=== PATIENT | female | born 1935 | race Caucasian/White ===

== ENCOUNTER → 2016-07-25 | Outpatient (CLI) | payer OTHER ==
[~2016-07-25] MED LIST: AMLO5TAB2 PO; CALC1TAB10 PO; METO50TA16 PO; MULTTAB58 PO
[2016-07-25 10:20] LABS: BASO % 0.5 %; BASO ABS # 0.03 K/uL (0-0.2); COMPLETE YES; EOS % 3.3 %; HEMATOCRIT 37.5 % (37-47); IG% 0.2 %; MEAN CELL VOLUME 98.7 fL (80-100); MEAN CORPUSCULAR HEMOGLOBIN 32.6 pg (25-34); MEAN CORPUSCULAR HGB CONC 33.1 g/dl (32-36); MEAN PLATELET VOLUME 12.6 fL (7.4-10.4); MONO % 11.8 %; NEUT % 67.2 %; PLATELET COUNT 199 K/uL (130-400); WHITE BLOOD COUNT 6.46 K/uL (4.8-10.8)
[2016-07-25 10:25] LABS: URINE APPEARANCE CLOUDY (CLEAR); URINE BILIRUBIN NEG (NEG); URINE COLOR YELLOW; URINE EPITHELIAL CELL AUTO 0-5 /lpf (0-5); URINE NITRITE NEG (NEG); URINE PH 5.5 (4.5-7.5); URINE SPECIFIC GRAVITY 1.011 (1.000-1.030); UROBILINOGEN NEG (NEG)
[2016-07-25 10:26] LABS: MANUAL MICROSCOPIC REQUIRED? NO; REVIEW REQ? NO
[2016-07-25 10:54] LABS: ALT/SGPT 25 U/L (12-78); BLOOD UREA NITROGEN 25 mg/dl (7-18); BUN/CREATININE RATIO 19.5 (10-20); CALCIUM 9.4 mg/dl (8.5-10.1); CARBON DIOXIDE 29 mmol/L (21-32); CHLORIDE 105 mmol/L (98-107); CHOLESTEROL 184 mg/dl (0-200); GLUCOSE 98 mg/dl (70-99); SODIUM 141 mmol/L (136-145); TRIGLYCERIDES 89 mg/dl (0-150); VERY LOW DENSITY LIPOPROT CALC 18 mg/dl
[2016-07-25 11:03] LABS: ALB/GLOB RATIO 0.8 (0.9-2); ALKALINE PHOSPHATASE 68 U/L (45-117); AST/SGOT 27 U/L (15-37); CHOLESTEROL/HDL RATIO 2.5; HDL CHOLESTEROL 75 mg/dl; LDL CHOLESTEROL CALCULATED 91 mg/dl
--- NOTE | 2016-08-01 07:14 | CODING QUERY MEDICAL NECESSITY ---
SUPPORTING DIAGNOSIS NEEDED A supporting diagnosis is required for the test/procedure performed on this patient in order for us to be reimbursed by the patient's insurance. Please provide a supporting diagnosis for the following test/procedure listed below next to the test name along with your signature. *If there is no additional diagnosis for this patient that would support the following test/procedure please document that below next to the test/procedure. Test(s)/Procedure(s) that require a supporting diagnosis: DOS 07/25 * Vitamin D DIAGNOSIS: Provider Signature: Date: Thank you Lora Stewart Health Information Management Once completed, please kindly fax back to [phone] For questions please call [phone]
== END | disposition home or self-care (01) ==
LOC: C.LAB1850 09:02
PROVIDERS: ATTEND Internal Medicine
DX: N28.9 Disorder of kidney and ureter, unspecified (principal); E03.9 Hypothyroidism, unspecified; I35.0 Nonrheumatic aortic (valve) stenosis; M85.80 Other specified disorders of bone density and structure, unspecified site; M48.00 Spinal stenosis, site unspecified

== ENCOUNTER → 2017-01-16 | Outpatient (CLI) | payer OTHER ==
[2017-01-16 10:12] LABS: BASO % 0.4 %; BASO ABS # 0.03 K/uL (0-0.2); COMPLETE YES; HEMATOCRIT 40.7 % (37-47); IG% 0.1 %; LYMPH % 18.1 %; LYMPH ABS # 1.28 K/uL (1.2-3.4); MEAN CELL VOLUME 98.5 fL (80-100); MEAN CORPUSCULAR HEMOGLOBIN 32.2 pg (25-34); MEAN CORPUSCULAR HGB CONC 32.7 g/dl (32-36); MEAN PLATELET VOLUME 12.6 fL (7.4-10.4); MONO % 6.4 %; PLATELET COUNT 210 K/uL (130-400); RED BLOOD COUNT 4.13 M/uL (4.2-5.4); WHITE BLOOD COUNT 7.08 K/uL (4.8-10.8)
[2017-01-16 10:15] LABS: URINE APPEARANCE CLEAR (CLEAR); URINE BILIRUBIN NEG (NEG); URINE COLOR YELLOW; URINE NITRITE NEG (NEG); URINE PH 5.5 (4.5-7.5); URINE SPECIFIC GRAVITY 1.012 (1.000-1.030); UROBILINOGEN NEG (NEG)
[2017-01-16 10:18] LABS: MANUAL MICROSCOPIC REQUIRED? NO; REVIEW REQ? NO
[2017-01-16 10:26] LABS: ALT/SGPT 27 U/L (12-78); BLOOD UREA NITROGEN 25 mg/dl (7-18); BUN/CREATININE RATIO 17.5 (10-20); CALCIUM 9.9 mg/dl (8.5-10.1); CARBON DIOXIDE 30 mmol/L (21-32); CHLORIDE 104 mmol/L (98-107); CHOLESTEROL 221 mg/dl (0-200); GLUCOSE 92 mg/dl (70-99); SODIUM 140 mmol/L (136-145); TRIGLYCERIDES 124 mg/dl (0-150); VERY LOW DENSITY LIPOPROT CALC 25 mg/dl
[2017-01-16 10:37] LABS: ALB/GLOB RATIO 0.9 (0.9-2); ALKALINE PHOSPHATASE 67 U/L (45-117); AST/SGOT 28 U/L (15-37); CHOLESTEROL/HDL RATIO 2.7; HDL CHOLESTEROL 81 mg/dl; LDL CHOLESTEROL CALCULATED 115 mg/dl
== END | disposition home or self-care (01) ==
LOC: C.LAB1850 09:04
PROVIDERS: ATTEND Internal Medicine
DX: R39.9 Unspecified symptoms and signs involving the genitourinary system (principal); N28.9 Disorder of kidney and ureter, unspecified; E03.9 Hypothyroidism, unspecified; I10 Essential (primary) hypertension

== ENCOUNTER 2017-04-18 10:20 | Inpatient (IN) | payer OTHER ==
[~2017-04-18] VITALS: Ht 152.4 cm; Wt 48.1 kg
[2017-04-18] MEDS ORDERED: AZITHROMYCIN 250 MG TAB PO STA (10:44)
[2017-04-18] MEDS ORDERED: LEVALBUTEROL 1.25MG/3ML NEB INH STA (10:44)
[2017-04-18] MEDS ORDERED: ALBUT/IPRATROP 3MG/0.5MG NEB 3 ML VIAL INH ONE (10:45)
[2017-04-18 10:54] LABS: BASO % 0.1 %; BASO ABS # 0.01 K/uL (0-0.2); EOS % 0.2 %; EOS ABS # 0.04 K/uL (0-0.5); HEMATOCRIT 33.7 % (37-47); HEMOGLOBIN 11.3 g/dL (12.0-16.0); IG# 0.07 K/uL (0.00-0.02); LYMPH % 5.7 %; LYMPH ABS # 0.93 K/uL (1.2-3.4); MEAN CELL VOLUME 96.3 fL (80-100); MEAN CORPUSCULAR HEMOGLOBIN 32.3 pg (25-34); MEAN CORPUSCULAR HGB CONC 33.5 g/dl (32-36); MEAN PLATELET VOLUME 11.9 fL (7.4-10.4); MONO % 8.8 %; MONO ABS # 1.44 K/uL (0.11-0.59); NEUT % 84.8 %; NEUT ABS # 13.82 K/uL (1.4-6.5); PLATELET COUNT 251 K/uL (130-400); RED CELL DISTRIBUTION WIDTH CV 13.1 % (11.5-14.5); RED CELL DISTRIBUTION WIDTH SD 46.2 fL (36.4-46.3); WHITE BLOOD COUNT 16.31 K/uL (4.8-10.8)
[2017-04-18 11:10] VITALS: PULSE 103; O2SAT 95
[2017-04-18 11:16] LABS: ALBUMIN 2.8 gm/dl (3.4-5.0); CALCIUM 8.9 mg/dl (8.5-10.1); CREATININE 1.35 mg/dl (0.60-1.20); POTASSIUM 3.6 mmol/L (3.5-5.1)
--- NOTE | 2017-04-18 11:22 | EMERGENCY ROOM VISIT NOTE ---
History Report prepared by Kendrick: Johan Hull Under the Supervision of: Dr. Lam Terry M.D. First contact with patient: 10:24 Chief Complaint: COUGH Stated Complaint: CHEST WEAKNESS, COUGH, BAD BALANCE History of Present Illness The patient is an 81 year old female who presents to the Emergency Room with complaints of a persistent cough for past week. She currently rates her discomfort as a 7/10 in severity. The patient additionally states that she has been having some chest pain from the coughing, and she has come right shoulder and right and left rib pain due to a fall occurring last night. The notes that the patient was doing more activity than usual the past few days, and she vomited three nights ago as well. Per the patient's son, the patient had a UTI around the same time last year, and she was admitted for a year. Additionally, the patient had a history of temporal arteritis. Source of History: patient, family Onset: a week ago Position: other (global) Symptom Intensity: 7/10 Quality: other (cough) Timing: other (persistent ) Associated Symptoms: + chest pain Note: Associated symptoms: Right shoulder, left rib, and right rib pain Review of Systems See HPI for pertinent positives & negatives. A total of 10 systems reviewed and were otherwise negative. Past Medical & Surgical Medical Problems: (1) PNA (pneumonia) Social History Smoking Status: Never Smoker Drug Use: none Marital Status: Occupation Status: retired Current/Historical Medications Scheduled Amlodipine Besylate (Norvasc), 7.5 MG PO DAILY Calcium Carbonate-Cholecalcife (Calcium 1000 + D), 1 TAB PO DAILY Dextromethorphan Polymr Complx (Delsym), 1 DOSE PO Q12 Guaifenesin (Cvs Mucus Extended Releas), 1 TAB PO Q12 Metoprolol Tartrate (Lopressor) (Lopressor), 50 MG PO DAILY Multiple Vitamin (Multivitamin), 1 TAB PO DAILY Allergies Coded Allergies: Codeine (Verified Adverse Reaction, Mild, N/V, 04/18/17) Physical Exam Vital Signs Date Time Temp Pulse Resp B/P (MAP) Pulse Ox O2 Delivery O2 Flow Rate FiO2 04/18/17 13:18 36.9 116 20 134/63 Nasal Cannula 2.0 04/18/17 13:00 116 20 134/63 98 Nasal Cannula 2.0 04/18/17 12:59 123 12/13/17 12:14 104 18 132/64 100 Nebulizer 04/18/17 11:21 99 Room Air 04/18/17 11:10 103 18 95 Room Air 04/18/17 10:44 95 Room Air 04/18/17 10:44 36.9 103 18 159/77 95 Room Air 04/18/17 10:35 104 Physical Exam GENERAL: Patient is a healthy-appearing well-nourished female HEAD: Normocephalic atraumatic EYES: Ocular movements intact pupils equal and react to light OROPHARYNX mucous membranes are moist no exudates present no erythema or edema present NECK: Supple no nuchal rigidity CHEST: Good equal expansion LUNGS: Staccato like cough that makes it difficult to breathe. Clear and equal to auscultation CARDIAC: Normal S1 and S2 ABDOMEN: Soft nontender no guarding BACK: No CVA tenderness EXTREMITIES: No pain upon palpation normal muscle strength in all groups no clubbing cyanosis or edema NEURO: Patient is following commands and answering questions appropriately. Alert and oriented x3 Cranial Nerves 2-12 grossly intact Medical Decision & Procedures ER Provider Diagnostic Interpretation: Radiology results as stated below per my review and radiologist interpretation: CT SCAN OF THE BRAIN WITHOUT IV CONTRAST CLINICAL HISTORY: Weakness. Recent fall. COMPARISON STUDY: No priors. TECHNIQUE: Unenhanced axial CT scan of the brain is performed from the vertex to the skull base. A dose lowering technique was utilized adhering to the principles of ALARA. CT DOSE: 715.57 mGy.cm FINDINGS: Brain parenchyma: There are age-related involutional changes noting moderate subcortical and periventricular microangiopathic change. There is no hemorrhage, mass effect, or evidence of acute territorial ischemia by CT criteria. Gonzales-white matter is preserved. No extra-axial fluid collection is seen. Ventricles, sulci, cisterns: Prominent secondary to involutional change. Intracranial vasculature: There is atherosclerotic calcification of the cavernous carotid arteries. Calvarium: The skeletal structures are osteopenic. No depressed calvarial fracture is seen. Sinuses and mastoids: The visualized paranasal sinuses are clear. The mastoid air cells are well pneumatized. Orbits: The bony orbits are grossly intact. There are bilateral ocular lens implants. IMPRESSION: There is no hemorrhage, mass effect, or evidence of acute territorial ischemia by CT criteria. Electronically signed by: Moses Mckee M.D. 04/18/2017 11:30 AM Dictated Date/Time: 04/18/2017 11:27 AM (CHEST) THORAX WITHOUT CT DOSE: HISTORY: Bilateral chest pain. Cough. TECHNIQUE: Multiaxial CT images of the chest were performed without contrast. A dose lowering technique was utilized adhering to the principles of ALARA. COMPARISON: Chest 06/26/2006. FINDINGS: Motion artifact results in suboptimal evaluation of the ribs. However, no definite acute fractures identified within the visualized osseous structures. Trace mucoid material within the trachea. No pneumothorax. No pleural effusions. The visualized unenhanced liver, spleen, and adrenal glands are unremarkable. A few prominent mediastinal lymph nodes which measure up to 12 mm. Normal caliber thoracic aorta. The heart is top normal in size. No pericardial effusion. Biapical scarlike densities have slightly progressed. Scattered patchy groundglass and consolidative airspace opacities are seen within the bilateral mid to lower lung zones. This likely represents multifocal pneumonia. IMPRESSION: 1. Scattered patchy groundglass and consolidative airspace opacity seen within the bilateral mid to lower lung zones. This likely represents a multifocal pneumonia. 2. Biapical densities have slightly progressed and likely represent scarring. 3. A few prominent mediastinal lymph nodes which are likely reactive. Electronically signed by: Shon Hoyt M.D. 04/18/2017 11:48 AM Dictated Date/Time: 04/18/2017 11:38 AM Laboratory Results 04/18/17 10:40 Red Blood Count 3.50, Mean Corpuscular Volume 96.3, Mean Corpuscular Hemoglobin 32.3, Mean Corpuscular Hemoglobin Concent 33.5, Mean Platelet Volume 11.9, Neutrophils (%) (Auto) 84.8, Lymphocytes (%) (Auto) 5.7, Monocytes (%) (Auto) 8.8, Eosinophils (%) (Auto) 0.2, Basophils (%) (Auto) 0.1, Neutrophils # (Auto) 13.82, Lymphocytes # (Auto) 0.93, Monocytes # (Auto) 1.44, Eosinophils # (Auto) 0.04, Basophils # (Auto) 0.01 04/18/17 10:40 Test 04/18/17 10:40 04/18/17 11:05 04/18/17 11:30 White Blood Count 16.31 K/uL (4.8-10.8) Red Blood Count 3.50 M/uL (4.2-5.4) Hemoglobin 11.3 g/dL (12.0-16.0) Hematocrit 33.7 % (37-47) Mean Corpuscular Volume 96.3 fL (80-100) Mean Corpuscular Hemoglobin 32.3 pg (25-34) Mean Corpuscular Hemoglobin Concent 33.5 g/dl (32-36) Platelet Count 251 K/uL (130-400) Mean Platelet Volume 11.9 fL (7.4-10.4) Neutrophils (%) (Auto) 84.8 % Lymphocytes (%) (Auto) 5.7 % Monocytes (%) (Auto) 8.8 % Eosinophils (%) (Auto) 0.2 % Basophils (%) (Auto) 0.1 % Neutrophils # (Auto) 13.82 K/uL (1.4-6.5) Lymphocytes # (Auto) 0.93 K/uL (1.2-3.4) Monocytes # (Auto) 1.44 K/uL (0.11-0.59) Eosinophils # (Auto) 0.04 K/uL (0-0.5) Basophils # (Auto) 0.01 K/uL (0-0.2) RDW Standard Deviation 46.2 fL (36.4-46.3) RDW Coefficient of Variation 13.1 % (11.5-14.5) Immature Granulocyte % (Auto) 0.4 % Immature Granulocyte # (Auto) 0.07 K/uL (0.00-0.02) Anion Gap 10.0 mmol/L (3-11) Est Creatinine Clear Calc Drug Dose 23.5 ml/min Estimated GFR () 42.6 Estimated GFR (Non- 36.7 BUN/Creatinine Ratio 10.7 (10-20) Calcium Level 8.9 mg/dl (8.5-10.1) Total Bilirubin 0.8 mg/dl (0.2-1) Aspartate Amino Transf (AST/SGOT) 41 U/L (15-37) Alanine Aminotransferase (ALT/SGPT) 36 U/L (12-78) Alkaline Phosphatase 93 U/L (45-117) Total Creatine Kinase 244 U/L (26-192) Creatine Kinase MB 1.0 ng/ml (0.5-3.6) Creatine Kinase MB Ratio 0.4 (0-3.0) Troponin I 0.028 ng/ml (0-0.045) Pro-B-Type Natriuretic Peptide 4403 pg/ml (0-1800) Total Protein 8.0 gm/dl (6.4-8.2) Albumin 2.8 gm/dl (3.4-5.0) Globulin 5.2 gm/dl (2.5-4.0) Albumin/Globulin Ratio 0.5 (0.9-2) Influenza Type A (RT-PCR) Neg for Influ A (NEG) Influenza Type A Antigen Neg for Influ A (NEG) Influenza Type B Antigen Neg for Influ B (NEG) Influenza Type B (RT-PCR) Neg for Influ B (NEG) Labs reviewed by ED physician. Medications Administered Medications (Trade) Dose Ordered Sig/Jero Route Start Time Stop Time Status Last Admin Dose Admin Albuterol/ Ipratropium (Duoneb) 12 ml ONE ONCE INH 04/18/17 10:45 04/18/17 10:47 DC 04/18/17 11:10 12 ML Azithromycin (Zithromax Tab) 500 mg NOW STAT PO 04/18/17 10:44 04/18/17 10:47 DC 04/18/17 11:01 500 MG Cefepime HCl 2000 mg/Dextrose 112.5 ml @ 200 mls/hr NOW STAT IV 04/18/17 11:51 04/18/17 12:24 DC 04/18/17 12:16 200 MLS/HR Levofloxacin (Levaquin / D5W) 750 mg NOW STAT IV 04/18/17 11:51 04/18/17 11:53 DC 04/18/17 12:16 750 MG ECG Indication: other (cough) Rate (beats per minute): 110 Rhythm: sinus tachycardia Findings: no acute ischemic change, no ectopy ED Course 1024: Past medical records reviewed. The patient was evaluated in room B6. A complete history and physical examination was performed. 1044: Azithromycin 500mg PO 1045: DuoNeb 12ml INH 1151: Levofloxacin 750mg IV, Cefepime HCl 2000mg/Dextrose 112.5ml @ 200mls/hr IV 1156: I discussed the patient's case with Dr. Caban, she has agreed to evaluate the patient for further management and care. 1203: Upon reexamination the patient is doing well. I discussed results and treatment plan with the patient. She verbalizes agreement and understanding. Medical Decision Differential diagnosis: Etiologies such as infections, reactive airway disease, pneumonia, pneumothorax , COPD, CHF, cardiac ischemia, pulmonary embolism, musculoskeletal, gastrointestinal, as well as others were entertained. This is an 81-year-old female who presents emergency department complaining of cough that is been ongoing for the past week. The patient has a staccato-like cough that would be consistent with whooping cough. She was given a DuoNeb breathing treatment in the emergency department she does have an elevation in her white blood cell count of 16. I also concerned that the patient may have aspirated into her lungs. An IV was established, the patient was given Zosyn and Levaquin. I did discuss the case with the hospitalist service who agreed to admit the patient. Patient family were in agreement with the treatment plan. Medication Reconcilliation Current Medication List: was personally reviewed by me Blood Pressure Screening Patient's blood pressure: Elevated blood pressure Monitored by the hospitalist Consults Time Called: 1153 Consulting Physician: Dr. Caban [facility] Returned Call: 1156 I discussed the patient's case with Dr. Caban, she has agreed to evaluate the patient for further management and care. Impression Primary Impression: PNA (pneumonia) Scribe Attestation The scribe's documentation has been prepared under my direction and personally reviewed by me in its entirety. I confirm that the note above accurately reflects all work, treatment, procedures, and medical decision making performed by me. Departure Information Dispostion Being Evaluated By Hospitalist Referrals Aman Paula M.D. (PCP) Patient Instructions My [facility] Problem Qualifiers Primary Impression: PNA (pneumonia) Pneumonia type: due to unspecified organism Laterality: bilateral Lung location: unspecified part of lung Qualified Codes: J18.9 - Pneumonia, unspecified organism
[2017-04-18] MEDS ORDERED: [UNRECOGNIZED DRUG - CODE] PO (11:24)
[2017-04-18] MEDS ORDERED: DLSYL PO (11:24)
--- NOTE | 2017-04-18 11:31 | DIAGNOSTIC IMAGING REPORT ---
CT SCAN OF THE BRAIN WITHOUT IV CONTRAST CLINICAL HISTORY: Weakness. Recent fall. COMPARISON STUDY: No priors. TECHNIQUE: Unenhanced axial CT scan of the brain is performed from the vertex to the skull base. A dose lowering technique was utilized adhering to the principles of ALARA. CT DOSE: 715.57 mGy.cm FINDINGS: Brain parenchyma: There are age-related involutional changes noting moderate subcortical and periventricular microangiopathic change. There is no hemorrhage, mass effect, or evidence of acute territorial ischemia by CT criteria. Gonzales-white matter is preserved. No extra-axial fluid collection is seen. Ventricles, sulci, cisterns: Prominent secondary to involutional change. Intracranial vasculature: There is atherosclerotic calcification of the cavernous carotid arteries. Calvarium: The skeletal structures are osteopenic. No depressed calvarial fracture is seen. Sinuses and mastoids: The visualized paranasal sinuses are clear. The mastoid air cells are well pneumatized. Orbits: The bony orbits are grossly intact. There are bilateral ocular lens implants. IMPRESSION: There is no hemorrhage, mass effect, or evidence of acute territorial ischemia by CT criteria. Electronically signed by: Moses Mckee M.D. 04/18/2017 11:30 AM Dictated Date/Time: 04/18/2017 11:27 AM
--- NOTE | 2017-04-18 11:49 | DIAGNOSTIC IMAGING REPORT ---
(CHEST) THORAX WITHOUT CT DOSE: HISTORY: Bilateral chest pain. Cough. TECHNIQUE: Multiaxial CT images of the chest were performed without contrast. A dose lowering technique was utilized adhering to the principles of ALARA. COMPARISON: Chest 06/26/2006. FINDINGS: Motion artifact results in suboptimal evaluation of the ribs. However, no definite acute fractures identified within the visualized osseous structures. Trace mucoid material within the trachea. No pneumothorax. No pleural effusions. The visualized unenhanced liver, spleen, and adrenal glands are unremarkable. A few prominent mediastinal lymph nodes which measure up to 12 mm. Normal caliber thoracic aorta. The heart is top normal in size. No pericardial effusion. Biapical scarlike densities have slightly progressed. Scattered patchy groundglass and consolidative airspace opacities are seen within the bilateral mid to lower lung zones. This likely represents multifocal pneumonia. IMPRESSION: 1. Scattered patchy groundglass and consolidative airspace opacity seen within the bilateral mid to lower lung zones. This likely represents a multifocal pneumonia. 2. Biapical densities have slightly progressed and likely represent scarring. 3. A few prominent mediastinal lymph nodes which are likely reactive. Electronically signed by: Shon Hoyt M.D. 04/18/2017 11:48 AM Dictated Date/Time: 04/18/2017 11:38 AM
[2017-04-18] MEDS ORDERED: CEFEPIME IV 2,000 MG in SYRINGE 7.5 ML IV SCH (11:51)
[2017-04-18] MEDS ORDERED: LEVAQUIN 750MG / 150ML D5W IV STA (11:51)
[2017-04-18] MEDS ORDERED: CEFEPIME IV 2,000 MG in DEXTROSE 5% 100ML 100 ML IV STA (11:51)
[2017-04-18 12:18] LABS: INFLUENZA B ANTIGEN Neg for Influ B (NEG)
[2017-04-18 12:19] LABS: INFLUENZA A PCR Neg for Influ A (NEG); INFLUENZA B PCR Neg for Influ B (NEG)
[2017-04-18] MEDS ORDERED: MAGNESIUM HYDROXIDE SUSP 30 ML UDC PO PRN (12:30)
[2017-04-18] MEDS ORDERED: ONDANSETRON INJ 2 MG/ML 2 ML VIAL IV PRN (12:30)
--- NOTE | 2017-04-18 12:39 | History and Physical ---
History & Physical Date & Time of Service: Apr 18, 2017 at 12:23 Chief Complaint: Chest Weakness, Cough, Bad Balance Primary Care Physician: Aman Paula M.D. History of Present Illness Source: patient, spouse 81 y/o F c/o cough. states that starting last , pt seemed to have less energy than usual and didn't have as much of an appetite. Sunday, they went to [facility] basketball and volleyball games and after the volleyball game, pt had an episode of emesis and a fever of 101. Over the last few days, particularly since Sunday, pt has continued to feel unwell and her condition has worsened. She has not had further emesis or fever, but she has been having progressively worsening cough, balance issues, fatigue, and minimal PO intake. Her left yesterday to get cough medicine and pt fell in the shower and was unable to get up. She has not eaten anything at all since yesterday. She does feel SOB with her cough and does note mild chest pain when she has prolonged coughing or with deep breaths. Pt has had PNA in the past and this feels similar. Pt denies abd pain, current n/v/c/d, LE pain. She does get LE swelling at times , but none at present. Past Medical/Surgical History HTN Family History Father from cancer Social History Smoking Status: Never Smoker Alcohol Use: occasionally (once a week) Drug Use: none Marital Status: Occupational Status: retired Immunizations History of Influenza Vaccine: No History of Tetanus Vaccine?: Yes History of Pneumococcal: Yes History of Hepatitis B Vaccine: Unknown Multi-Drug Resistant Organisms History of MDRO: No Allergies Coded Allergies: Codeine (Verified Adverse Reaction, Mild, N/V, 04/18/17) Home Medications Scheduled Amlodipine Besylate (Norvasc), 7.5 MG PO DAILY Calcium Carbonate-Cholecalcife (Calcium 1000 + D), 1 TAB PO DAILY Dextromethorphan Polymr Complx (Delsym), 1 DOSE PO Q12 Guaifenesin (Cvs Mucus Extended Releas), 1 TAB PO Q12 Metoprolol Tartrate (Lopressor) (Lopressor), 50 MG PO DAILY Multiple Vitamin (Multivitamin), 1 TAB PO DAILY Review of Systems Pertinent positives and negatives reviewed in HPI--all others negative Physical Exam Vital Signs Date Time Temp Pulse Resp B/P (MAP) Pulse Ox O2 Delivery O2 Flow Rate FiO2 04/18/17 12:14 104 18 132/64 100 Nebulizer 04/18/17 11:21 99 Room Air 04/18/17 11:10 103 18 95 Room Air 04/18/17 10:44 95 Room Air 04/18/17 10:44 36.9 103 18 159/77 95 Room Air 04/18/17 10:35 104 General Appearance: WD/WN, no apparent distress Head: normocephalic, atraumatic Eyes: normal inspection, EOMI, sclerae normal Respiratory/Chest: no respiratory distress, + crackles (b/l bases) Cardiovascular: regular rate, rhythm, no edema Abdomen/GI: non tender, soft Extremities/Musculoskelatal: no calf tenderness, no pedal edema Neurologic/Psych: alert, normal mood/affect, oriented x 3 Skin: normal color, warm/dry Diagnostics Laboratory Results Results Past 24 Hours Test 04/18/17 10:40 04/18/17 11:05 04/18/17 11:30 Range/Units White Blood Count 16.31 4.8-10.8 K/uL Red Blood Count 3.50 4.2-5.4 M/uL Hemoglobin 11.3 12.0-16.0 g/dL Hematocrit 33.7 37-47 % Mean Corpuscular Volume 96.3 80-100 fL Mean Corpuscular Hemoglobin 32.3 25-34 pg Mean Corpuscular Hemoglobin Concent 33.5 32-36 g/dl Platelet Count 251 130-400 K/uL Mean Platelet Volume 11.9 7.4-10.4 fL Neutrophils (%) (Auto) 84.8 % Lymphocytes (%) (Auto) 5.7 % Monocytes (%) (Auto) 8.8 % Eosinophils (%) (Auto) 0.2 % Basophils (%) (Auto) 0.1 % Neutrophils # (Auto) 13.82 1.4-6.5 K/uL Lymphocytes # (Auto) 0.93 1.2-3.4 K/uL Monocytes # (Auto) 1.44 0.11-0.59 K/uL Eosinophils # (Auto) 0.04 0-0.5 K/uL Basophils # (Auto) 0.01 0-0.2 K/uL RDW Standard Deviation 46.2 36.4-46.3 fL RDW Coefficient of Variation 13.1 11.5-14.5 % Immature Granulocyte % (Auto) 0.4 % Immature Granulocyte # (Auto) 0.07 0.00-0.02 K/uL Sodium Level 129 136-145 mmol/L Potassium Level 3.6 3.5-5.1 mmol/L Chloride Level 93 98-107 mmol/L Carbon Dioxide Level 25 21-32 mmol/L Anion Gap 10.0 3-11 mmol/L Blood Urea Nitrogen 15 7-18 mg/dl Creatinine 1.35 0.60-1.20 mg/dl Est Creatinine Clear Calc Drug Dose 23.5 ml/min Estimated GFR () 42.6 Estimated GFR (Non- 36.7 BUN/Creatinine Ratio 10.7 10-20 Random Glucose 108 70-99 mg/dl Calcium Level 8.9 8.5-10.1 mg/dl Total Bilirubin 0.8 0.2-1 mg/dl Aspartate Amino Transf (AST/SGOT) 41 15-37 U/L Alanine Aminotransferase (ALT/SGPT) 36 12-78 U/L Alkaline Phosphatase 93 45-117 U/L Total Creatine Kinase 244 26-192 U/L Creatine Kinase MB 1.0 0.5-3.6 ng/ml Creatine Kinase MB Ratio 0.4 0-3.0 Troponin I 0.028 0-0.045 ng/ml Pro-B-Type Natriuretic Peptide 4403 0-1800 pg/ml Total Protein 8.0 6.4-8.2 gm/dl Albumin 2.8 3.4-5.0 gm/dl Globulin 5.2 2.5-4.0 gm/dl Albumin/Globulin Ratio 0.5 0.9-2 Influenza Type A (RT-PCR) Neg for Influ A NEG Influenza Type A Antigen Neg for Influ A NEG Influenza Type B Antigen Neg for Influ B NEG Influenza Type B (RT-PCR) Neg for Influ B NEG Microbiology Results 04/18/17 Blood Culture, Ordered Pending 04/18/17 Blood Culture, Ordered Pending Diagnostic Radiology CT head neg for acute CT chest with b/l multifocal PNA Impression Assessment and Plan 81 y/o F who was admitted on 04/17 with PNA PNA: Likely CAP Started on levaquin, cefepime, azithro in the ED, will continue with only levaquin and monitor Blood cx, flu, and pertussis pending WBC elevated, afebrile CT chest as noted ARF: in the setting of recent decreased PO intake Monitor on low level IVF Fall: likely related to recent illness PT/OT pending HTN: labile in the setting of above Will continue home medications as pt's BP is elevated in the ED Other: Full code Full liquid for now given decreased PO intake and ADAT SCDs for DVT proph to avoid bleeding risk Level of Care Med/Surg Resuscitation Status FULL RESUSCITATION
[2017-04-18 13:18] VITALS: BP 134/63; PULSE 116; TEMP 36.9; Ht 152.4 cm; Wt 48.1 kg
[2017-04-18 14:09] VITALS: BP 97/76; PULSE 134; TEMP 37.1; O2SAT 96
[2017-04-18] MEDS ORDERED: LEVOFLOXACIN CONSULT ACTIVE PRN (15:00)
--- NOTE | 2017-04-18 15:21 | NUR ---
a:pt has arrived via 1400 via litter from the ER. IV site in the left ac which is going to have NS with 20 KCL running. Skin is fragile, warm, dry, and intact. heart rate is tachycardia. no c/o pain or discomfort only right rib pain r/t dry cough. stress incontinence with urine, however had BM with some formed and liquid brown stool. is present at bedside. abdomen is soft, nontender, nondistended with positive bowel sounds.
[2017-04-18] MEDS: NSS + 20MEQ KCL 1000ML 1,000 ML IV SCH (15:26)
[2017-04-18 16:30] VITALS: O2SAT 96
[2017-04-18] MEDS: ACETAMINOPHEN 325 MG TAB PO PRN (16:45)
[2017-04-18] MEDS ORDERED: COUGH DROP (SUGAR FREE) LOZ 24 LOZ/1 BOX PO PRN (18:15)
[2017-04-18] MEDS: GUAIFENESIN 600 MG TABCR PO SCH (20:53)
--- NOTE | 2017-04-18 22:07 | NUR ---
ID Note: Patient alert and oriented x4, vital signs stabilizing, IV infusing per MD orders, patient stated prn pain medication helped control pain, patient on bedrest but is compliant with turning and repositioning no skin issues noted at this time, pt denies any skin issues, tolerating a full liquid diet, ambulates with one assist to the bedside, call shanks in reach, will continue to monitor
[2017-04-19] MEDS: ACETAMINOPHEN 325 MG TAB PO PRN ×3 (00:09→20:05)
[2017-04-19 00:45] VITALS: BP 127/78; PULSE 88; TEMP 37; O2SAT 93
[2017-04-19] MEDS: NSS + 20MEQ KCL 1000ML 1,000 ML IV SCH ×2 (03:08→15:57)
[2017-04-19 07:13] LABS: HEMATOCRIT 29.7 % (37-47); HEMOGLOBIN 9.9 g/dL (12.0-16.0); MEAN CELL VOLUME 96.4 fL (80-100); MEAN CORPUSCULAR HEMOGLOBIN 32.1 pg (25-34); MEAN CORPUSCULAR HGB CONC 33.3 g/dl (32-36); MEAN PLATELET VOLUME 11.2 fL (7.4-10.4); PLATELET COUNT 230 K/uL (130-400); RED CELL DISTRIBUTION WIDTH CV 13.3 % (11.5-14.5); RED CELL DISTRIBUTION WIDTH SD 46.9 fL (36.4-46.3); WHITE BLOOD COUNT 13.56 K/uL (4.8-10.8)
[2017-04-19 07:52] LABS: CALCIUM 8.5 mg/dl (8.5-10.1); CREATININE 1.12 mg/dl (0.60-1.20); POTASSIUM 4.3 mmol/L (3.5-5.1)
[2017-04-19] MEDS: GUAIFENESIN 600 MG TABCR PO SCH ×2 (07:54→20:05)
[2017-04-19] MEDS: CALCIUM 600MG + VIT D 400 IU TAB PO SCH (07:55)
[2017-04-19] MEDS: METOPROLOL SUCC 50MG EXT REL TAB PO SCH (07:55)
[2017-04-19] MEDS: AMLODIPINE BESYLATE 5 MG TAB PO SCH (07:56)
[2017-04-19] MEDS: MULTIVITAMIN TAB PO SCH (07:56)
[2017-04-19 08:07] VITALS: BP 147/74; PULSE 98; TEMP 37.2; O2SAT 93
[2017-04-19 08:30] VITALS: O2SAT 96
--- NOTE | 2017-04-19 10:46 | NUR ---
a:alert and oriented x 4. lungs are clear, heart rate is regular, abdomen is soft, nontender, nondistended with positive bowel sounds. positive bowel sounds along with radial and pedal pulses. skin is fragile, warm, dry, and intact. no c/o pain or discomfort thus far this shift. resting in bed at this time.
--- NOTE | 2017-04-19 10:49 | NUR ---
a;pt has NS with 20 KCL running at 75 cc/hr.
[2017-04-19] MEDS ORDERED: LIDODERM (LIDOCAINE) PATCH 5% TD ONE (11:55)
[2017-04-19] MEDS ORDERED: CONSULT PHARMACY STA (14:15)
--- NOTE | 2017-04-19 14:25 | Hospitalist Progress Note ---
Hospitalist Progress Note Date of Service Apr 19, 2017. (Rolanda Boyle, PAMelonyC) Subjective Pt evaluation today including: conversation w/ patient, conversation w/ family , physical exam, chart review, lab review, review of studies, review of inpatient medication list Patient seen and evaluated. No acute events overnight. at bedside states she is already looking better compared to yesterday. Patient complaining of R rib pain that hurts more with coughing. States she did fall on her R side yesterday. Denies SOB but states when she gets in a coughing spell it does take her breath away. No further nausea/vomiting but does state that she has poor appetite. Prefers to keep her diet as full liquids at this time. Constitutional: No fever, No chills Respiratory: + cough, + sputum, No shortness of breath Cardiovascular: + chest pain (R sided - under breast; worse with coughing) Abdomen: + diarrhea, No pain, No nausea, No vomiting, No constipation Musculoskeletal: No swelling, No calf pain Female : No dysuria Heme: No abnormal bleeding/bruising Skin: No rash (Rolanda Boyle, MEEK-C) Medications Current Inpatient Medications Medications (Trade) Dose Ordered Sig/Jero Route Start Time Stop Time Status Last Admin Dose Admin Acetaminophen (Tylenol Tab) 650 mg Q4H PRN PO 04/18/17 12:30 05/18/17 12:29 04/19/17 11:31 650 MG Magnesium Hydroxide (Milk Of Magnesia Susp) 30 ml Q6H PRN PO 04/18/17 12:30 05/18/17 12:29 Ondansetron HCl (Zofran Inj) 4 mg Q6H PRN IV 04/18/17 12:30 05/18/17 12:29 Potassium Chloride/Sodium Chloride 1,000 ml @ 75 mls/hr [id number] IV 04/18/17 15:00 05/18/17 12:29 04/19/17 03:08 75 MLS/HR Levofloxacin 750 mg/Prmx 150 ml @ 100 mls/hr Q48H IV 04/20/17 12:00 04/27/17 11:59 Amlodipine Besylate (Norvasc Tab) 7.5 mg DAILY PO 04/19/17 09:00 05/19/17 08:59 04/19/17 07:56 7.5 MG Metoprolol Succinate (Toprol Xl Tab) 50 mg DAILY PO 04/19/17 09:00 05/19/17 08:59 04/19/17 07:55 50 MG Multivitamins (Multivitamin Tab) 1 tab DAILY PO 04/19/17 09:00 05/19/17 08:59 04/19/17 07:56 1 TAB Calcium/Vitamin D (Caltrate Plus Tab) 1 tab DAILY PO 04/19/17 09:00 05/19/17 08:59 04/19/17 07:55 1 TAB Guaifenesin (Mucinex Contr Rel Tab) 600 mg Q12 PO 04/18/17 21:00 05/18/17 20:59 04/19/17 07:54 600 MG Levofloxacin (Consult) 1 ea UD PRN N/A 04/18/17 15:00 05/18/17 14:59 Menthol (Nice Unruly) 1 unruly PRN PRN PO 04/18/17 18:15 05/18/17 18:14 04/18/17 18:17 1 UNRULY Lidocaine (Lidoderm Patch 5%) 1 patch QAM TD 04/20/17 09:00 05/20/17 08:59 Miscellaneous (Remove Lidoderm Patch) 1 ea DAILY@21 N/A 04/19/17 21:00 05/19/17 20:59 (Rolanda Boyle PA-C) Objective Vital Signs Date Time Temp Pulse Resp B/P (MAP) Pulse Ox O2 Delivery O2 Flow Rate FiO2 04/19/17 08:30 96 Nasal Cannula 2.0 04/19/17 08:07 37.2 98 16 147/74 (98) 93 Room Air 04/19/17 00:45 37.0 88 20 127/78 (94) 93 Room Air 04/19/17 00:00 Room Air 04/18/17 16:30 96 Nasal Cannula 2.0 04/18/17 14:09 37.1 134 20 97/76 (83) 96 Nasal Cannula 2.0 (Rolanda Boyle, PA-C) Physical Exam General Appearance: WD/WN, no apparent distress, + thin Eyes: sclerae normal ENT: hearing grossly normal, + pertinent finding (irritation posterior pharynx ; no exudates; tongue dry) Neck: supple, no JVD, trachea midline Respiratory/Chest: no respiratory distress, no accessory muscle use, + crackles (mid-lung to bases b/l; good airflow in upper lung valentin b/l), + pertinent finding (no ecchymosis over tenderpoint of R ribs; no crepitus; no deformity) Cardiovascular: regular rate, rhythm, + systolic murmur Abdomen: normal bowel sounds, non tender, soft Extremities: no pedal edema Neurologic/Psychiatric: alert, oriented x 3 Skin: normal color, warm/dry (Rolanda Boyle PA-C) Laboratory Results Last 24 Hours Test 04/18/17 15:10 04/19/17 06:47 Urine Color YELLOW Urine Appearance CLEAR Urine pH 5.5 Urine Specific [place] 1.016 Urine Protein 3+ Urine Glucose (UA) NEG Urine Ketones TRACE Urine Occult Blood NEG Urine Nitrite NEG Urine Bilirubin NEG Urine Urobilinogen NEG Urine Leukocyte Esterase SMALL Urine WBC (Auto) 5-10 /hpf Urine RBC (Auto) 0-4 /hpf Urine Hyaline Casts (Auto) 5-10 /lpf Urine Epithelial Cells (Auto) >30 /lpf Urine Bacteria (Auto) 1+ Urine Pathogenic Casts 0-3 GRANULAR CASTS /lpf Urine Yeast (Auto) PRESENT White Blood Count 13.56 K/uL Red Blood Count 3.08 M/uL Hemoglobin 9.9 g/dL Hematocrit 29.7 % Mean Corpuscular Volume 96.4 fL Mean Corpuscular Hemoglobin 32.1 pg Mean Corpuscular Hemoglobin Concent 33.3 g/dl RDW Standard Deviation 46.9 fL RDW Coefficient of Variation 13.3 % Platelet Count 230 K/uL Mean Platelet Volume 11.2 fL Sodium Level 136 mmol/L Potassium Level 4.3 mmol/L Chloride Level 104 mmol/L Carbon Dioxide Level 27 mmol/L Anion Gap 5.0 mmol/L Blood Urea Nitrogen 12 mg/dl Creatinine 1.12 mg/dl Est Creatinine Clear Calc Drug Dose 28.3 ml/min Estimated GFR () 53.4 Estimated GFR (Non- 46.0 BUN/Creatinine Ratio 10.9 Random Glucose 106 mg/dl Calcium Level 8.5 mg/dl (Rolanda Boyle PA-C) Assessment and Plan 81 y/o F who was admitted on 04/17 with PNA Sepsis from Multifocal Pneumonia - CAP: IMPROVING - Leukocytosis resolving and reporting some improvement with symptoms - Levaquin 750 mg IV Q48H - Mucinex 600 mg BID ADE on CKD Stage III: RESOLVED - NSS + KCl at 75 mL/hr - continue and monitor oral intake and likely stop pending diet Fall 2/ Generalized Weakness for Illness: - Had R shoulder pain yesterday but states now the only thing that hurts is her R rib under the breast - not sure if she directly hit this area on her fall; no ecchymosis, no rash - Lidocaine patch to area HTN: STABLE - Norvasc 7.5 mg daily Code Status: FULL RESUSCITATION DVT Prophylaxis: SCDs Disposition: - PT/OT evaluations; continue Abx and advance diet when tolerated - Possible D/C in 1-2 days Continued [facility] stay due to: multiple IV medications needed Discharge planning: home (Rolanda Boyle, PA-C) i personally examined pt and verified all [place] points w A [place] PAC feeling a little better ribs still hurt R sided vitals noted nad breathing unlabored R>L Tspine paraspinals and rib ROM decreased / high tone - balanced ligamentous tension - improved. pt tolerated well CAP - improving - levaquin rib / thoracic somatic dysfunction - OMT as above, lidocaine patch (Sundar Brock D.O.)
[2017-04-19 15:26] VITALS: BP 137/77; PULSE 82; TEMP 36.9; O2SAT 94
--- NOTE | 2017-04-19 16:29 | NUR ---
Case Management: Met with pt this afternoon for discharge planning. Received discharge consult. Pt lives with her spouse and is independent with care, uses no equipment. Lives on one level. Pt has no services in the home and does not anticipate any need for services.
[2017-04-19] MEDS: LACTOBACILLUS ACIDOPHILUS (FLORANEX) TAB PO SCH (17:17)
--- NOTE | 2017-04-19 17:24 | NUR ---
ID- Alert and oriented, oob with supervision. Remains on IVF, tolerating diet. Remains on Droplet precautions. Dry non productive cough noted. Discharge date uncertain at this time
[2017-04-19] MEDS: BENZONATATE 100MG CAP PO SCH (21:50)
[2017-04-19 23:26] VITALS: BP 132/70; PULSE 83; TEMP 36.9; O2SAT 92
[2017-04-20] VITALS: O2SAT 96
[2017-04-20] MEDS: NSS + 20MEQ KCL 1000ML 1,000 ML IV SCH (05:17)
[2017-04-20 06:31] LABS: HEMOGLOBIN 10.2 g/dL (12.0-16.0); MEAN CORPUSCULAR HEMOGLOBIN 31.6 pg (25-34); MEAN CORPUSCULAR HGB CONC 32.9 g/dl (32-36); MEAN PLATELET VOLUME 11.2 fL (7.4-10.4); PLATELET COUNT 296 K/uL (130-400); RED CELL DISTRIBUTION WIDTH CV 13.2 % (11.5-14.5); RED CELL DISTRIBUTION WIDTH SD 46.4 fL (36.4-46.3); WHITE BLOOD COUNT 11.93 K/uL (4.8-10.8)
[2017-04-20 07:01] LABS: CALCIUM 8.6 mg/dl (8.5-10.1); CREATININE 0.9 mg/dl (0.60-1.20); POTASSIUM 4.3 mmol/L (3.5-5.1)
[2017-04-20 07:53] VITALS: BP 133/58; PULSE 92; TEMP 37.5; O2SAT 88
[2017-04-20] MEDS: CALCIUM 600MG + VIT D 400 IU TAB PO SCH (08:42)
[2017-04-20] MEDS: AMLODIPINE BESYLATE 5 MG TAB PO SCH (08:42)
[2017-04-20] MEDS: GUAIFENESIN 600 MG TABCR PO SCH (08:42)
[2017-04-20] MEDS: MULTIVITAMIN TAB PO SCH (08:42)
[2017-04-20] MEDS: BENZONATATE 100MG CAP PO SCH (08:42)
[2017-04-20 08:43] VITALS: PULSE 107; O2SAT 95
[2017-04-20] MEDS: LACTOBACILLUS ACIDOPHILUS (FLORANEX) TAB PO SCH (08:43)
[2017-04-20] MEDS: METOPROLOL SUCC 50MG EXT REL TAB PO SCH (08:43)
[2017-04-20] MEDS ORDERED: LIDODERM (LIDOCAINE) PATCH 5% TD SCH (09:00)
--- NOTE | 2017-04-20 09:25 | NUR ---
ID/A: Alert and oriented, oob with supervision. Remains on IVF, tolerating diet. Remains on Droplet precautions. Dry non productive cough noted. Discharge date uncertain at this time
[2017-04-20] MEDS ORDERED: LDDP5 TD (10:29)
[2017-04-20] MEDS ORDERED: LVQ750 PO (10:29)
[2017-04-20] MEDS ORDERED: LEVOFLOXACIN 750 MG TAB PO ONE (10:30)
--- NOTE | 2017-04-20 10:51 | Discharge Instructions ---
Discharge Instructions Date of Service Apr 20, 2017. Admission Reason for Admission: PNA Discharge Discharge Diagnosis / Problem: pneumonia Discharge Goals Goal(s): Improve disease control Activity Recommendations Activity Limitations: resume your previous activity (take it easy for a while - see below) . Instructions / Follow-Up Instructions / Follow-Up pneumonia -a pneumonia is a bacterial infection of the lungs. -your pneumonia appears to be improving quickly, but unfortunately recovery from pneumonia takes a while - it's often normal to have a cough for several weeks and feel a degree of fatigue for a month or so as you slowly recover -we'll finish out treatment with an antibiotic called levaquin -- this is what you've been on in the hospital. because of your age and weight, we actually are able to dose it every other day, which is nice on being less upsetting on your stomach -- you'll take a dose on 04/22, then on 04/24. this will then stay in your system till at least 04/25 -- and when you follow up in Dr Paula's office next week, they'll be able to see how you're feeling and determine if the course of treatment needs extended further or if you're doing well and the antibiotic can be stopped -the "odd" rare side effect we discussed with levaquin is that it can make you more prone to tendonitis or even a tendon tear --> while this is rare, prevention is obviously way easier than having to deal with an orthopedic injury. what we would recommend is that for the next month you don't do anything repetitive, or excessively strenuous. as it relates to your exercise bike, i would take the next 5-7 days off depending on how you're feeling (if you feel like you "really have to get moving" and you pedal extremely gently and don't feel fatigued, that would be OK) -- then for the next month I would have you gradually return to your normal routine, but keep the resistance on the bike at the lowest setting until at least mid May Current Hospital Diet Patient's current hospital diet: Full Liquid Diet Discharge Diet Recommended Diet: Regular Diet Pending Studies Studies pending at discharge: no Medical Emergencies . Who to Call and When: Medical Emergencies: If at any time you feel your situation is an emergency, please call 911 immediately. . Non-Emergent Contact Non-Emergency issues call your: Primary Care Provider . . "Provider Documentation" section prepared by Sundar Brock. . VTE Core Measure Inpt VTE Proph given/why not?: SCD's
[2017-04-20 10:58] VITALS: BP 133/58; PULSE 107; TEMP 37.5; O2SAT 95
[2017-04-20] MEDS ORDERED: BENZ100C7 PO (11:10)
--- NOTE | 2017-04-20 11:50 | NUR ---
a: pt given d/c instructions. iv site removed. given opportunity to ask questions. at bedside, both verbalize understanding. volunteer called to transport via w/c to exit.
[2017-04-20] MEDS ORDERED: LEVOFLOXACIN / D5W 750 MG in PREMIXED IN D5W 150 ML IV SCH (12:00)
--- NOTE | 2017-04-20 14:10 | NUR ---
psychotherapist social worker [facility]: I arrange a follow up appt at Dr. Paula's office with Madiha Joseph PA-C on SundayApril 25 at 9:30 am. I call pt w/ this information and she confirms the appointment.
--- NOTE | 2017-04-20 17:51 | Discharge Summary ---
Discharge Summary Date of Service Apr 20, 2017. Discharge Summary Admission Date: Apr 18, 2017 at 12:33 Discharge Date: Apr 20, 2017 Discharge Disposition: Home Principal Diagnosis: CAP Immunizations: Have You Had Influenza Vaccine: No History of Tetanus Vaccine?: Yes History of Pneumococcal: Yes History of Hepatitis B Vaccine: Unknown Procedures: (CHEST) THORAX WITHOUT CT DOSE: HISTORY: Bilateral chest pain. Cough. TECHNIQUE: Multiaxial CT images of the chest were performed without contrast. A dose lowering technique was utilized adhering to the principles of ALARA. COMPARISON: Chest 06/26/2006. FINDINGS: Motion artifact results in suboptimal evaluation of the ribs. However, no definite acute fractures identified within the visualized osseous structures. Trace mucoid material within the trachea. No pneumothorax. No pleural effusions. The visualized unenhanced liver, spleen, and adrenal glands are unremarkable. A few prominent mediastinal lymph nodes which measure up to 12 mm. Normal caliber thoracic aorta. The heart is top normal in size. No pericardial effusion. Biapical scarlike densities have slightly progressed. Scattered patchy groundglass and consolidative airspace opacities are seen within the bilateral mid to lower lung zones. This likely represents multifocal pneumonia. IMPRESSION: 1. Scattered patchy groundglass and consolidative airspace opacity seen within the bilateral mid to lower lung zones. This likely represents a multifocal pneumonia. 2. Biapical densities have slightly progressed and likely represent scarring. 3. A few prominent mediastinal lymph nodes which are likely reactive. Electronically signed by: Shon Hoyt M.D. 04/18/2017 11:48 AM Dictated Date/Time: 04/18/2017 11:38 AM Last Resulted CBC 04/20/17 06:19 Last Resulted BMP 04/20/17 06:19 Medication Reconciliation New Medications: Lidocaine (Lidocaine) 1 Patch Tdsy 1 PATCH TD DAILY, #10 PATCH Benzonatate (Benzonatate) 100 Mg Cap 100 MG PO TID, #30 CAP Levofloxacin (Levofloxacin) 750 Mg Tab 750 MG PO UD, #2 TAB take doses on 04/22 and 04/24 Continued Medications: Amlodipine Besylate (Norvasc) 5 Mg Tab 7.5 MG PO DAILY, TAB Calcium Carbonate-Cholecalcife (Calcium 1000 + D) 1 Tab Tab 1 TAB PO DAILY Dextromethorphan Polymr Complx (Delsym) Unknown Strength Liqcr 1 DOSE PO Q12 Guaifenesin (Cvs Mucus Extended Releas) Unknown Strength Tab 1 TAB PO Q12 Metoprolol Tartrate (Lopressor) (Lopressor) 50 Mg Tab 50 MG PO DAILY, TAB Multiple Vitamin (Multivitamin) 1 Tab Tab 1 TAB PO DAILY, TAB Discharge Exam Physical Exam: General Appearance: no apparent distress Eyes: EOMI ENT: hearing grossly normal Neck: trachea midline Respiratory/Chest: lungs clear, normal breath sounds (ambulatory pulse ox no lower than 93% with ~100ft walk very stable during this time no dyspnea), no respiratory distress, no accessory muscle use Extremities: normal inspection Neurologic/Psychiatric: certified alcohol drug counselor II-XII nml as tested, alert, normal mood/affect Hospital Course 81 y/o F who was admitted on 04/17 with PNA Sepsis from Multifocal Pneumonia - CAP: IMPROVING - Leukocytosis resolving and reporting some improvement with symptoms - Levaquin 750 mg PO Q48hrs x 2 more doses - tessalon prn cough ADE on CKD Stage III: RESOLVED - fluids helped Fall 2/2 Generalized Weakness for Illness: - OMT done 04/19 - Lidocaine patch to area HTN: STABLE - Norvasc 7.5 mg daily Code Status: FULL RESUSCITATION DVT Prophylaxis: SCDs Disposition: - stable for home, PCP next week Total Time Spent: Greater than 30 minutes This includes examination of the patient, discharge planning, medication reconciliation, and communication with other providers. Discharge Instructions Please refer to the electronic Patient Visit Report (Discharge Instructions) for additional information. Additional Copies To Aman Paula M.D.
--- NOTE | 2017-04-23 11:10 | EDITING REQUIRED CODING QUERY ---
PRESENT ON ADMISSION QUERY To promote full compliance with coding requirements relating to patient care, physician participation is requested in all cases of singing telegram performer uncertainty. Please assist us with the question(s) below: Please place an X within the parenthesis (x). The following diagnosis listed in this patient's medical record requires physician assistance to determine if they were present on admission (POA) or not. Please advise for each diagnosis whether it was present on admission, not present on admission, or if it was clinically undetermined. 1. Sepsis, documented in 04/19 PN (xx ) Present On Admission ( ) Not Present On Admission ( ) Clinically Undetermined Thank you! Lora Stewart *Definition of the present on admission (POA)-Present on admission is defined as present at the time the order for inpatient admission occurs. Conditions that develop during an outpatient encounter prior to a written order for inpatient admission (including emergency department, observation, or outpatient surgery) are considered present on admission.
== END 2017-04-20 12:00 | disposition home or self-care (01) | DRG 871 ==
LOC: C.EDB 10:22 → C.MS2W 12:33 → ENRESERV 13:05
PROVIDERS: ADMIT Family Medicine; ATTEND Family Medicine
DX: A41.9 Sepsis, unspecified organism (principal); J18.9 Pneumonia, unspecified organism; N17.9 Acute kidney failure, unspecified; I12.9 Hypertensive chronic kidney disease with stage 1 through stage 4 chronic kidney disease, or unspecified chronic kidney disease; N18.3 Chronic kidney disease, stage 3 (moderate); Z79.899 Other long term (current) drug therapy; Z91.81 History of falling

== ENCOUNTER → 2017-05-17 | Outpatient (CLI) | payer OTHER ==
[~2017-05-17] MED LIST changes: +BENZ100C7 PO; +DLSYL PO; +LDDP5 TD; +LVQ750 PO; +[UNRECOGNIZED DRUG - CODE] PO
--- NOTE | 2017-05-17 15:32 | DIAGNOSTIC IMAGING REPORT ---
CHEST 2 VIEWS ROUTINE CLINICAL HISTORY: Community-acquired pneumonia. COMPARISON STUDY: Chest CT April 18, 2017. FINDINGS: There is no pneumothorax or pleural effusion. Mild bibasilar opacities have significantly improved since exam of April 18, 2017. There are mild residual airspace opacity. Mild cardiomegaly is noted without evidence for pulmonary edema. There is no pneumothorax or pleural effusion. There is no cavitation. IMPRESSION: Significant improvement in bilateral airspace opacities since exam of April 18, 2017 consistent with resolving pneumonia. An additional chest radiograph in one month could be obtained to ensure complete resolution. Electronically signed by: Martin Hameed M.D. 05/17/2017 3:31 PM Dictated Date/Time: 05/17/2017 3:29 PM
== END | disposition home or self-care (01) ==
LOC: C.RADBC 15:05
PROVIDERS: ATTEND Physician Assistant
DX: J18.9 Pneumonia, unspecified organism (principal)

== ENCOUNTER 2017-05-26 11:45 | Emergency (ER) | payer OTHER ==
[~2017-05-26] VITALS: Ht 152.4 cm; Wt 47.5 kg
[2017-05-26 11:50] VITALS: TEMP 36.9; Ht 152.4 cm; Wt 47.5 kg
[2017-05-26] MEDS ORDERED: TPRSR/50 PO (12:15)
--- NOTE | 2017-05-26 12:26 | EMERGENCY ROOM VISIT NOTE ---
History Report prepared by Kendrick: Paula Uribe Under the Supervision of: Dr. Lam Terry M.D. First contact with patient: 12:06 Chief Complaint: FALL Stated Complaint: L WRIST History of Present Illness The patient is a 81 year old female who presents to the Emergency Room with complaints of a fall at 2300 last night. Her says she fell down 13 sets of stairs but is unsure if she lost consciousness because she was very confused and very wobbly following the fall. He also gave her two Ibuprofen last night. Her wrist is also hurting her and she notes she has bruises on both of her hips. She denies any shoulder or chest pain. The patient has never seen an orthopedic surgeon before. Source of History: patient, spouse/significant other Onset: last night Position: other (global ) Quality: other (fall) Associated Symptoms: No chest pain Note: wrist pain Review of Systems See HPI for pertinent positives & negatives. A total of 10 systems reviewed and were otherwise negative. Past Medical & Surgical Medical Problems: (1) PNA (pneumonia) (2) Pneumonia Surgical Problems: (1) Tonsillectomy planned Family History Family history omitted secondary to the patient's age. Social History Smoking Status: Never Smoker Drug Use: none Marital Status: Housing Status: lives with significant other () Occupation Status: retired Current/Historical Medications Scheduled Amlodipine Besylate (Norvasc), 7.5 MG PO DAILY Benzonatate (Benzonatate), 100 MG PO TID Calcium Carbonate-Cholecalcife (Calcium 1000 + D), 1 TAB PO DAILY Metoprolol Succinate (Metoprolol Succinate ER), 50 MG PO DAILY Multiple Vitamin (Multivitamin), 1 TAB PO DAILY Scheduled PRN Tramadol (Ultram), 50 MG PO Q4H PRN for Pain Allergies Coded Allergies: Codeine (Verified Adverse Reaction, Mild, N/V, 05/26/17) Physical Exam Vital Signs Date Time Temp Pulse Resp B/P (MAP) Pulse Ox O2 Delivery O2 Flow Rate FiO2 05/26/17 14:29 89 18 189/94 98 Room Air 05/26/17 11:50 36.9 78 18 174/96 96 Room Air Physical Exam GENERAL: Patient is a healthy-appearing well-nourished female HEAD: Normocephalic atraumatic EYES: Ocular movements intact pupils equal and react to light OROPHARYNX mucous membranes are moist no exudates present no erythema or edema present NECK: Supple no nuchal rigidity CHEST: Good equal expansion LUNGS: Clear and equal to auscultation CARDIAC: Normal S1 and S2. Grade 2/6 systolic heart murmur ABDOMEN: Soft nontender no guarding BACK: No CVA tenderness EXTREMITIES: No pain upon palpation normal muscle strength in all groups no clubbing cyanosis or edema. Obvious left wrist deformity. Good range of motion between the elbows and the shoulders bilaterally. NEURO: Patient is following commands and answering questions appropriately. Alert and oriented x3 Cranial Nerves 2-12 grossly intact. Medical Decision & Procedures ER Provider Diagnostic Interpretation: Radiology results as stated below per my review and radiologist interpretation: CT SCAN OF THE BRAIN WITHOUT IV CONTRAST CLINICAL HISTORY: Fall. COMPARISON STUDY: CT of the brain dated 04/18/2017. TECHNIQUE: Unenhanced axial CT scan of the brain is performed from the vertex to the skull base. A dose lowering technique was utilized adhering to the principles of ALARA. CT DOSE: Reported separately under the concurrently performed CT scan of the cervical spine. FINDINGS: Brain parenchyma: There are age-related involutional changes noting moderate subcortical and periventricular microangiopathic change. There is no hemorrhage, mass effect, or evidence of acute territorial ischemia by CT criteria. Gonzales-white matter is preserved. No extra-axial fluid collection is seen. Ventricles, sulci, cisterns: Prominent secondary to involutional change. Intracranial vasculature: There is atherosclerotic calcification of the cavernous carotid arteries. Calvarium: The skeletal structures are osteopenic. No depressed calvarial fracture is seen. Sinuses and mastoids: The visualized paranasal sinuses are clear. The mastoid air cells are well pneumatized. Orbits: The bony orbits are grossly intact. There are bilateral ocular lens implants. IMPRESSION: There is no hemorrhage, mass effect, or evidence of acute territorial ischemia by CT criteria. Electronically signed by: Moses Mckee M.D. 05/26/2017 12:48 PM Dictated Date/Time: 05/26/2017 12:[address] SCAN OF THE CERVICAL SPINE CLINICAL HISTORY: Fall. COMPARISON STUDY: No priors. TECHNIQUE: CT scan of the cervical spine is performed from the skull base to the upper thoracic spine. Images are reviewed in the axial, sagittal, and coronal planes. IV contrast was not administered for this examination. A dose lowering technique was utilized adhering to the principles of ALARA. CT DOSE: 874.14 mGy.cm FINDINGS: Skeletal structures: The skeletal structures are osteopenic. There is no evidence of fracture or subluxation involving the cervical spine. Vertebral body height is maintained. There is minimal anterolisthesis at C4-C5 and C7-T1. Alignment is otherwise preserved. There is straightening of the cervical lordosis with reversal centered at C4-C5. The odontoid process and lateral masses are intact. The atlantoaxial articulation is preserved. The spinous processes appear intact. Anterior osteophytes are seen throughout. There is mild to moderate multilevel cervical spondylosis. Uncovertebral and facet arthropathy contribute sterile foraminal stenosis at several levels. Intervertebral discs: Moderate to advanced disc space narrowing is seen at C4-C5. Moderate disc space narrowing seen at C5-C6. Mild disc space narrowing seen at the remaining cervical levels. Central canal: Posterior disc osteophyte complexes at C4-C5 and C5-C6 may contribute to mild acquired compromise of the central canal. Soft tissues: The prevertebral and paraspinous soft tissues are within normal limits. There is atherosclerotic calcification of the carotid bulbs. Calvarium: The visualized calvarium at the skull base appears intact. Brain parenchyma: Partially visualized brain parenchyma the skull base is within normal limits. Mastoids: The mastoid air cells are well pneumatized. Lung apices: Biapical scarring is observed. Partially imaged apical lung parenchyma is otherwise clear As visualized. IMPRESSION: 1. There is no evidence of fracture or subluxation involving the cervical spine. 2. Osteopenia and spondylotic change as above. Electronically signed by: Moses Mckee M.D. 05/26/2017 12:52 PM Dictated Date/Time: 05/26/2017 12:46 PM SINGLE VIEW PELVIS; 3 VIEWS LEFT FEMUR; 3 VIEWS RIGHT FEMUR CLINICAL HISTORY: Fall yesterday. FINDINGS: An AP view of the pelvis with AP, frog-leg, and crosstable lateral views of the right femur as well as AP, frog-leg, and crosstable lateral views of the left femur are obtained. No prior studies are available for comparison at the time of dictation. The skeletal structures are osteopenic. There is no radiographic evidence of fracture involving the hips or bony pelvis. Mild lumbosacral spondylosis is partially imaged. Mild arthritic change and joint space narrowing is present in both hips. Mild sclerotic change is seen in the sacroiliac joints and pubic symphysis. There is no radiographic evidence of right or left femoral fracture. Soft tissue swelling is noted in the upper thighs bilaterally. Atherosclerotic calcification is present in the femoral arteries. IMPRESSION: 1. There is no radiographic evidence of fracture involving the hips or bony pelvis. 2. There is no radiographic evidence of right or left femoral fracture. 3. Soft tissue contusion is present in the upper thigh bilaterally. Electronically signed by: Moses Mckee M.D. 05/26/2017 1:46 PM Dictated Date/Time: 05/26/2017 1:43 PM SINGLE VIEW CHEST CLINICAL HISTORY: Fall. FINDINGS: An AP, portable, upright chest radiograph is compared to study dated 05/17/2017. Correlation is made with chest CT dated 04/18/2017. The examination is degraded by portable technique and patient rotation. The heart is enlarged and there is atherosclerotic calcification of the thoracic aorta. Mild patchy airspace opacities are again seen at both lung bases. These appear modestly improved from 05/17/2017. No lobar consolidation or large pleural effusion is identified. Apical scarring is observed. No pneumothorax is seen. The skeletal structures are osteopenic. Chronic posttraumatic deformity is present in the distal right clavicle. IMPRESSION: 1. Cardiomegaly without radiographic evidence of congestive failure. 2. Lower lobe airspace opacities again noted. These appear modestly improved from 05/17/2017 and likely represent a resolving infectious/inflammatory pneumonitis. Continued radiographic follow-up to complete resolution is recommended. Electronically signed by: Moses Mckee M.D. 05/26/2017 1:49 PM Dictated Date/Time: 05/26/2017 1:47 PM Medications Administered Medications (Trade) Dose Ordered Sig/Jero Route Start Time Stop Time Status Last Admin Dose Admin Acetaminophen (Tylenol Tab) 1,000 mg NOW STAT PO 05/26/17 12:53 05/26/17 12:54 DC 05/26/17 13:03 1,000 MG Tramadol HCl (Ultram Tab) 50 mg NOW STAT PO 05/26/17 14:14 05/26/17 14:16 DC 05/26/17 14:29 50 MG ECG Indication: other (fall) Rate (beats per minute): 110 Rhythm: sinus tachycardia Findings: no acute ischemic change, no ectopy ED Course 1210: Past medical records reviewed. The patient was evaluated in room A11. A complete history and physical examination was performed. 1253: Ordered Acetaminophen 1000 mg PO 14:14: Ordered Tramadol HCl 50 mg PO 1441: Upon reexamination the patient is agreeable. I discussed results and treatment plan with the patient. She verbalizes agreement and understanding. The patient is ready for discharge. Medical Decision Differential diagnosis: Etiologies such as fracture, dislocation, intra-abdominal, pneumothorax, intrathoracic , intracranial, neurologic, as well as other traumatic pathologies were entertained. Return instructions were outlined and the patient was discharged in stable condition. This is an 81-year-old female who presents emergency department complaining of a fall. Patient's CAT scan of the head does not show any acute process however her wrist has an impacted radius fracture. I did discuss the case with the orthopedic surgeon on-call. The patient was placed the finger traps to get better alignment of the fracture. A splint was placed however I stressed the need for follow-up with Dr. Cruz's office on Sunday. Patient was given Tylenol here in the emergency department and did not want anything stronger. Patient and were in agreement with the treatment plan. Medication Reconcilliation Current Medication List: was personally reviewed by me Blood Pressure Screening Patient's blood pressure: Elevated blood pressure Blood pressure disposition: Referred to PCP Impression Primary Impression: Fall Additional Impression: Wrist fracture, left Scribe Attestation The scribe's documentation has been prepared under my direction and personally reviewed by me in its entirety. I confirm that the note above accurately reflects all work, treatment, procedures, and medical decision making performed by me. Departure Information Dispostion Home / Self-Care Prescriptions Tramadol (Ultram) 50 Mg Tab 50 MG PO Q4H Y for Pain, #14 TAB Prov: Lam Terry MD 05/26/17 Referrals Aman Paula M.D. (PCP) Patient Instructions My [facility] Additional Instructions Follow up with DR Cruz's office On Sunday Take 1000 mg Tylenol every 6 hours You were found to have an elevated blood pressure today (>120 sytolic or >90 diastolic). Per medicare guidelines, you need to follow up with this blood pressure screening with your Primary Care Physician (PCP). For a new PCP call [phone]. You received narcotic or benzodiazepene medication while in the emergency room today. This is an addictive medication that may cause drowziness as well as constipation. Do not drive, operate heavy machinery, or drink alcohol under the influence of this medication. You have been examined and treated today on an emergency basis only. This is not a substitute for, or an effort to provide, complete comprehensive medical care. It is impossible to recognize and treat all injuries or illnesses in a single emergency department visit. It is therefore important that you follow up closely with Dr Puala. Call as soon as possible for an appointment. Thank you for your time and consideration. I look forward to speaking with you again soon. Please don't hesitate to call us if you have any questions. Problem Qualifiers Primary Impression: Fall Encounter type: initial encounter Qualified Codes: W19.XXXA - Unspecified fall, initial encounter Additional Impression: Wrist fracture, left Encounter type: initial encounter Fracture type: closed Qualified Codes: S62.102A - Fracture of unspecified carpal bone, left wrist, initial encounter for closed fracture
--- NOTE | 2017-05-26 12:50 | DIAGNOSTIC IMAGING REPORT ---
CT SCAN OF THE BRAIN WITHOUT IV CONTRAST CLINICAL HISTORY: Fall. COMPARISON STUDY: CT of the brain dated 04/18/2017. TECHNIQUE: Unenhanced axial CT scan of the brain is performed from the vertex to the skull base. A dose lowering technique was utilized adhering to the principles of ALARA. CT DOSE: Reported separately under the concurrently performed CT scan of the cervical spine. FINDINGS: Brain parenchyma: There are age-related involutional changes noting moderate subcortical and periventricular microangiopathic change. There is no hemorrhage, mass effect, or evidence of acute territorial ischemia by CT criteria. Gonzales-white matter is preserved. No extra-axial fluid collection is seen. Ventricles, sulci, cisterns: Prominent secondary to involutional change. Intracranial vasculature: There is atherosclerotic calcification of the cavernous carotid arteries. Calvarium: The skeletal structures are osteopenic. No depressed calvarial fracture is seen. Sinuses and mastoids: The visualized paranasal sinuses are clear. The mastoid air cells are well pneumatized. Orbits: The bony orbits are grossly intact. There are bilateral ocular lens implants. IMPRESSION: There is no hemorrhage, mass effect, or evidence of acute territorial ischemia by CT criteria. Electronically signed by: Moses Mckee M.D. 05/26/2017 12:48 PM Dictated Date/Time: 05/26/2017 12:47 PM
[2017-05-26] MEDS ORDERED: ACETAMINOPHEN 500 MG TAB PO STA (12:53)
--- NOTE | 2017-05-26 12:53 | DIAGNOSTIC IMAGING REPORT ---
CT SCAN OF THE CERVICAL SPINE CLINICAL HISTORY: Fall. COMPARISON STUDY: No priors. TECHNIQUE: CT scan of the cervical spine is performed from the skull base to the upper thoracic spine. Images are reviewed in the axial, sagittal, and coronal planes. IV contrast was not administered for this examination. A dose lowering technique was utilized adhering to the principles of ALARA. CT DOSE: 874.14 mGy.cm FINDINGS: Skeletal structures: The skeletal structures are osteopenic. There is no evidence of fracture or subluxation involving the cervical spine. Vertebral body height is maintained. There is minimal anterolisthesis at C4-C5 and C7-T1. Alignment is otherwise preserved. There is straightening of the cervical lordosis with reversal centered at C4-C5. The odontoid process and lateral masses are intact. The atlantoaxial articulation is preserved. The spinous processes appear intact. Anterior osteophytes are seen throughout. There is mild to moderate multilevel cervical spondylosis. Uncovertebral and facet arthropathy contribute sterile foraminal stenosis at several levels. Intervertebral discs: Moderate to advanced disc space narrowing is seen at C4-C5. Moderate disc space narrowing seen at C5-C6. Mild disc space narrowing seen at the remaining cervical levels. Central canal: Posterior disc osteophyte complexes at C4-C5 and C5-C6 may contribute to mild acquired compromise of the central canal. Soft tissues: The prevertebral and paraspinous soft tissues are within normal limits. There is atherosclerotic calcification of the carotid bulbs. Calvarium: The visualized calvarium at the skull base appears intact. Brain parenchyma: Partially visualized brain parenchyma the skull base is within normal limits. Mastoids: The mastoid air cells are well pneumatized. Lung apices: Biapical scarring is observed. Partially imaged apical lung parenchyma is otherwise clear As visualized. IMPRESSION: 1. There is no evidence of fracture or subluxation involving the cervical spine. 2. Osteopenia and spondylotic change as above. Electronically signed by: Moses Mckee M.D. 05/26/2017 12:52 PM Dictated Date/Time: 05/26/2017 12:46 PM
--- NOTE | 2017-05-26 13:48 | DIAGNOSTIC IMAGING REPORT ---
SINGLE VIEW PELVIS; 3 VIEWS LEFT FEMUR; 3 VIEWS RIGHT FEMUR CLINICAL HISTORY: Fall yesterday. FINDINGS: An AP view of the pelvis with AP, frog-leg, and crosstable lateral views of the right femur as well as AP, frog-leg, and crosstable lateral views of the left femur are obtained. No prior studies are available for comparison at the time of dictation. The skeletal structures are osteopenic. There is no radiographic evidence of fracture involving the hips or bony pelvis. Mild lumbosacral spondylosis is partially imaged. Mild arthritic change and joint space narrowing is present in both hips. Mild sclerotic change is seen in the sacroiliac joints and pubic symphysis. There is no radiographic evidence of right or left femoral fracture. Soft tissue swelling is noted in the upper thighs bilaterally. Atherosclerotic calcification is present in the femoral arteries. IMPRESSION: 1. There is no radiographic evidence of fracture involving the hips or bony pelvis. 2. There is no radiographic evidence of right or left femoral fracture. 3. Soft tissue contusion is present in the upper thigh bilaterally. Electronically signed by: Moses Mckee M.D. 05/26/2017 1:46 PM Dictated Date/Time: 05/26/2017 1:43 PM
--- NOTE | 2017-05-26 13:50 | DIAGNOSTIC IMAGING REPORT ---
SINGLE VIEW CHEST CLINICAL HISTORY: Fall. FINDINGS: An AP, portable, upright chest radiograph is compared to study dated 05/17/2017. Correlation is made with chest CT dated 04/18/2017. The examination is degraded by portable technique and patient rotation. The heart is enlarged and there is atherosclerotic calcification of the thoracic aorta. Mild patchy airspace opacities are again seen at both lung bases. These appear modestly improved from 05/17/2017. No lobar consolidation or large pleural effusion is identified. Apical scarring is observed. No pneumothorax is seen. The skeletal structures are osteopenic. Chronic posttraumatic deformity is present in the distal right clavicle. IMPRESSION: 1. Cardiomegaly without radiographic evidence of congestive failure. 2. Lower lobe airspace opacities again noted. These appear modestly improved from 05/17/2017 and likely represent a resolving infectious/inflammatory pneumonitis. Continued radiographic follow-up to complete resolution is recommended. Electronically signed by: Moses Mckee M.D. 05/26/2017 1:49 PM Dictated Date/Time: 05/26/2017 1:47 PM
--- NOTE | 2017-05-26 13:54 | DIAGNOSTIC IMAGING REPORT ---
LEFT WRIST 4 VIEWS CLINICAL HISTORY: Fall with left wrist pain. FINDINGS: 4 views of the left wrist are obtained. No prior studies are available for comparison at the time of dictation. The skeletal structures are osteopenic. There is an impacted fracture of the distal radial metaphysis with apex volar angulation and overlying soft tissue edema. No intra-articular extension is seen. The distal ulna appears intact. Mild arthritic change is seen in the wrist, greatest at the first carpometacarpal joint. IMPRESSION: There is an impacted and angulated fracture of the distal radial metaphysis with overlying soft tissue edema. Electronically signed by: Moses Mckee M.D. 05/26/2017 1:52 PM Dictated Date/Time: 05/26/2017 1:51 PM
[2017-05-26] MEDS ORDERED: TRAMADOL HCL 50 MG TAB PO STA (14:14)
[2017-05-26] MEDS ORDERED: TRAM-10 PO (14:18)
[2017-05-26 14:29] VITALS: BP 189/94; PULSE 89; O2SAT 98
== END 2017-05-26 15:03 | disposition home or self-care (01) ==
LOC: C.EDB 11:48 → C.EDA 15:03
DX: S52.592A Other fractures of lower end of left radius, initial encounter for closed fracture (principal); W10.9XXA Fall (on) (from) unspecified stairs and steps, initial encounter; S70.01XA Contusion of right hip, initial encounter; S70.02XA Contusion of left hip, initial encounter; R00.0 Tachycardia, unspecified

== ENCOUNTER → 2017-07-10 | Outpatient (CLI) | payer OTHER ==
[~2017-07-10] MED LIST changes: -DLSYL PO; -LDDP5 TD; -LVQ750 PO; -METO50TA16 PO; +TPRSR/50 PO; +TRAM-10 PO; -[UNRECOGNIZED DRUG - CODE] PO
== END | disposition home or self-care (01) ==
LOC: C.MAMM 12:34
PROVIDERS: ATTEND Internal Medicine
DX: M85.89 Other specified disorders of bone density and structure, multiple sites (principal); M48.00 Spinal stenosis, site unspecified; M81.0 Age-related osteoporosis without current pathological fracture

== ENCOUNTER → 2017-08-13 | Outpatient (CLI) | payer OTHER ==
--- NOTE | 2017-08-13 09:55 | DIAGNOSTIC IMAGING REPORT ---
CHEST 2 VIEWS ROUTINE HISTORY: 81 years-old Female [id number] acute cough COMPARISON: Chest radiograph 05/26/2017, CT chest 04/18/2017 TECHNIQUE: PA and lateral views of the chest FINDINGS: Cardiomediastinal and hilar silhouettes are within normal limits. Atherosclerosis of the aorta. Biapical pleural-parenchymal scarring with hyperinflation redemonstrated. There are calcifications of the tracheobronchial tree. There is improvement of the previously described lower lobe airspace opacities. No pneumothorax, pleural effusion or overt pulmonary edema. Bones of the chest appear grossly intact. IMPRESSION: 1. Improvement with near complete resolution of the previously described lower lobe airspace opacities. 2. Hyperinflation. The above report was generated using voice recognition software. It may contain grammatical, syntax or spelling errors. Electronically signed by: Vitaliy Reyes M.D. 08/13/2017 9:53 AM Dictated Date/Time: 08/13/2017 9:49 AM
[2017-08-13 10:40] LABS: ALBUMIN 3.4 gm/dl (3.4-5.0); ALT/SGPT 27 U/L (12-78); AST/SGOT 26 U/L (15-37); BLOOD UREA NITROGEN 26 mg/dl (7-18); CALCIUM 9.4 mg/dl (8.5-10.1); CARBON DIOXIDE 30 mmol/L (21-32); CREATININE 1.27 mg/dl (0.60-1.20); GLUCOSE 90 mg/dl (70-99); SODIUM 138 mmol/L (136-145)
[2017-08-13 10:51] LABS: ALKALINE PHOSPHATASE 73 U/L (45-117); CHOLESTEROL 203 mg/dl (0-200); LDL CHOLESTEROL CALCULATED 112 mg/dl; TOTAL PROTEIN 7.8 gm/dl (6.4-8.2)
== END | disposition home or self-care (01) ==
LOC: C.RAD1850 09:02
PROVIDERS: ATTEND Internal Medicine
DX: R39.9 Unspecified symptoms and signs involving the genitourinary system (principal); N28.9 Disorder of kidney and ureter, unspecified; I10 Essential (primary) hypertension; E03.9 Hypothyroidism, unspecified; R05 Cough; R91.8 Other nonspecific abnormal finding of lung field

== ENCOUNTER → 2017-09-17 | Outpatient (CLI) | payer OTHER | END | disposition home or self-care (01) | LOC: C.LAB1850 09:24 | PROVIDERS: ATTEND Internal Medicine | DX: N28.9 Disorder of kidney and ureter, unspecified (principal); E03.9 Hypothyroidism, unspecified ==

== ENCOUNTER 2019-02-28 16:23 | Observation (INO) ==
[2019-02-28] MEDS ORDERED: SODIUM CHLORIDE 0.9% 500 ML IV ONE (17:17)
--- NOTE | 2019-02-28 18:09 | XRay Report ---
XR chest 1V portable CLINICAL HISTORY: Chest Pain COMPARISON STUDY: 05/26/2017 FINDINGS: The bones soft tissues and hemidiaphragms are normal. The cardiomediastinal silhouette is n ormal. The lungs are clear. The pulmonary vasculature is normal. IMPRESSION: Negative chest. The above report was generated using voice recognition software. It may contain grammatical, syntax or spelling errors. Electronically signed by: Eddie Montaño M.D. 02/28/2019 6:08 PM
[2019-02-28 18:18] LABS: Basophils # (auto) 0.03 K/uL (0-0.2); Basophils % (auto) 0.5 %; Eosinophils # (auto) 0.22 K/uL (0-0.5); Eosinophils % (auto) 3.5 %; Hematocrit (blood only) 32.8 % (37-47); Hemoglobin 10.8 g/dL (12.0-16.0); Immature Granulocytes # (auto) 0.01 K/uL (0.00-0.02); Immature Granulocytes % (auto) 0.2 %; Lymphocytes # (auto) 1.46 K/uL (1.2-3.4); Lymphocytes % (auto) 23.5 %; Mean Corpuscular Hgb Conc 32.9 g/dL (32-36); Mean Platelet Volume 11.5 fL (7.4-10.4); Monocytes # (auto) 0.49 K/uL (0.11-0.59); Monocytes % (auto) 7.9 %; Neutrophils % (auto) 64.4 %; Platelet Count 241 K/uL (130-400); RDW Coefficient of Variation 12.2 % (11.5-14.5); RDW Standard Deviation 43.7 fL (36.4-46.3); Red Blood Count 3.38 M/uL (4.2-5.4); White Blood Count 6.21 K/uL (4.8-10.8)
[2019-02-28 18:27] LABS: Appearance Urine Clear (Clear); Bacteria Urine Automated Negative (Negative); Bilirubin Urine Negative (Negative); Blood Urine Negative (Negative); Cast Urine Automated 0 /lpf (0-5); Color Urine Yellow; Epithelial Cell Urine Auto 0-5 /lpf (0-5); Glucose Urine UA Negative (Negative); Ketones Urine Negative (Negative); Leukocyte Esterase Urine Negative (Negative); Nitrite Urine Negative (Negative); Protein Urine 1+ (Negative); RBC Urine Automated 0-4 /hpf (0-4); Specific Gravity Urine 1.009 (1.000-1.030); Urobilinogen Urine Negative (Negative)
--- NOTE | 2019-02-28 18:32 | CT Scan Report ---
CT head/brain wo con CT DOSE: 469.65 mGycm HISTORY: Mental status change confusion, dudley TECHNIQUE: Multiaxial CT images of the head were performed without the use of intravenous contrast. A dose lowering technique was utilized adhering to the principles of ALARA. Comparison: 02/17/2019 Findings: The paranasal sinuses and mastoid air cells are clear. The calvarium and skull base are int act. The ventricles and sulci are within normal limits. There is no mass, hematoma, midline shift, or acute infarct. Subacute infarct basal ganglia near the left head of the caudate nucleus. Pre-existing chronic small vessel as well as age-related atrophy changes. No acute intracranial hemorrhage. There Impression: 1. 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 2. No acute intracranial hemorrhage. 3. Age-related atrophy and chronic small vessel change. The above report was generated using voice recognition software. It may contain grammatical, syntax or spelling errors. Electronically signed by: Eddie Montaño M.D. 02/28/2019 6:30 PM
[2019-02-28 18:41] LABS: Alanine Aminotransferase 40 U/L (12-78); Albumin Level 3.1 gm/dl (3.4-5.0); Aspartate Aminotransferase 34 U/L (15-37); BUN Creatinine Ratio 16.1 (10-20); Blood Urea Nitrogen 21 mg/dl (7-18); Calcium 8.5 mg/dl (8.5-10.1); Carbon Dioxide 27 mmol/L (21-32); Chloride 109 mmol/L (98-107); Est GFR (African American) 43.1; Est GFR (Non-African American) 37.2; Glucose 96 mg/dl (70-99); Lipase 148 U/L (73-393); Magnesium 2.1 mg/dl (1.8-2.4); Potassium 3.7 mmol/L (3.5-5.1); Sodium 141 mmol/L (136-145)
[2019-02-28 18:52] LABS: Albumin Globulin Ratio 0.9 (0.9-2); Alkaline Phosphatase 75 U/L (45-117); Bilirubin,Total 0.3 mg/dl (0.2-1); Globulin 3.4 gm/dl (2.5-4.0); Total Protein 6.5 gm/dl (6.4-8.2); Troponin I 0.015 ng/ml (0-0.045)
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
[2019-02-28] MEDS ORDERED: ACETAMINOPHEN 325 MG TAB PO PRN (23:48)
[2019-02-28] MEDS ORDERED: POLYETHYLENE (MIRALAX) 17 GM PACK PO PRN (23:48)
[2019-02-28] MEDS ORDERED: PHARMACIST DISCHARGE MED REC CONSULT PRN (23:48)
[2019-03-01 00:04] LABS: Prothrombin Time 10.3 Seconds (9.0-12.0)
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
[2019-03-01] MEDS: LEVOTHYROXINE SODIUM 50 MCG TABLET PO SCH (06:01)
[2019-03-01 07:04] LABS: Basophils # (auto) 0.02 K/uL (0-0.2); Basophils % (auto) 0.4 %; Eosinophils # (auto) 0.33 K/uL (0-0.5); Eosinophils % (auto) 6.1 %; Hemoglobin 11.5 g/dL (12.0-16.0); Immature Granulocytes # (auto) 0.01 K/uL (0.00-0.02); Immature Granulocytes % (auto) 0.2 %; Lymphocytes # (auto) 1.52 K/uL (1.2-3.4); Lymphocytes % (auto) 27.9 %; Mean Corpuscular Hemoglobin 32.3 pg (25-34); Mean Corpuscular Hgb Conc 32.9 g/dL (32-36); Mean Corpuscular Volume 98.3 fL (80-100); Mean Platelet Volume 11.6 fL (7.4-10.4); Monocytes # (auto) 0.55 K/uL (0.11-0.59); Monocytes % (auto) 10.1 %; Neutrophils # (auto) 3.02 K/uL (1.4-6.5); Neutrophils % (auto) 55.3 %; Platelet Count 240 K/uL (130-400); RDW Coefficient of Variation 12.2 % (11.5-14.5); RDW Standard Deviation 44.4 fL (36.4-46.3); Red Blood Count 3.56 M/uL (4.2-5.4); White Blood Count 5.45 K/uL (4.8-10.8)
[2019-03-01 07:30] LABS: Calcium 9.1 mg/dl (8.5-10.1); Creatinine Clr Calc Pharmacy 22.9 ml/min; Est GFR (African American) 43.1; Est GFR (Non-African American) 37.2
[2019-03-01] MEDS: ASPIRIN 81 MG ECTAB PO SCH (07:39)
[2019-03-01] MEDS: METOPROLOL SUCC 50MG EXT REL TAB PO SCH (07:40)
[2019-03-01] MEDS: AMLODIPINE BESYLATE 5 MG TAB PO SCH (07:40)
[2019-03-01 08:30] LABS: Estimated Average Glucose 117 mg/dl; Hemoglobin A1C 5.7 % (4.5-5.6)
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
[2019-03-01] MEDS ORDERED: CLOPIDOGREL BISULFATE 75 MG TAB PO SCH (09:00)
[2019-03-01] MEDS ORDERED: AMLODIPINE BESYLATE 5 MG TAB PO SCH (09:00)
[2019-03-01] MEDS ORDERED: GADOBUTROL 65ML VIAL IV PRN (10:47)
--- NOTE | 2019-03-01 11:00 | Magnetic Resonance Report ---
MRA OF THE INTRACRANIAL CIRCULATION WITHOUT CONTRAST CLINICAL HISTORY: Subacute stroke. COMPARISON STUDY: Head CT February 28, 2019. TECHNIQUE: Utilizing a 1.5 Ira magnet and 3-D [id number] technique, unenhanced MRA of the intra cranial circulation was obtained. FINDINGS: The bilateral M1, M2, A1 and A2 segments are patent. No intracranial aneurysm or abrupt ves lionel cut off is slight identified. The posterior circulation is also intact. Mild stenoses within the right A2 segment are noted. There is no evidence for dissection within the major intracranial vessels . IMPRESSION: Unremarkable MRA of the head. Electronically signed by: Martin Hameed M.D. 03/01/2019 10:59 AM
--- NOTE | 2019-03-01 11:29 | Magnetic Resonance Report ---
MRI OF THE BRAIN WITHOUT AND WITH IV CONTRAST CLINICAL HISTORY: subacute stroke COMPARISON STUDY: MRI of the brain November 27, 2018. Head CT February 28, 2019. TECHNIQUE: Utilizing a 1.5 Ira magnet and dedicated coil, multiplanar, multiecho imaging of the br ain was performed pre and postcontrast administration. IV administration of 4.5 mL of Gadavist contr ast was uneventful. FINDINGS: Note is made of multiple foci of restricted diffusion within left basal ganglia, the larges t of which measures 2.4 x 0.8 cm. There is no mass effect or hemorrhage. Ventricular system is stable . Basilar cisterns are patent. There are no extra-axial collections. No intracranial mass or patholog ic enhancement is identified. Confluent white matter T2 hyperintensities unchanged and suggest small vessel disease. Calvarial signal is normal. Orbits are unremarkable. Sinuses are clear. IMPRESSION: 1. Several foci of restricted diffusion consistent with acute to subacute infarcts within the left ba star ganglia, the largest of which measures 2.4 x 0.8 cm. No mass effect or hemorrhage. 2. Extensive small vessel disease. Moderate atrophy. Electronically signed by: Martin Hameed M.D. 03/01/2019 11:28 AM
--- NOTE | 2019-03-01 11:44 | Magnetic Resonance Report ---
MR angio neck wo/w con CLINICAL HISTORY: subacute stroke COMPARISON STUDY: No previous studies for comparison. TECHNIQUE: Utilizing a 1.5 Ira magnet, unenhanced and contrast-enhanced MRA of the neck was marcus perez FINDINGS: The bilateral common carotid, cervical internal carotid vertebral arteries are patent. Ther e is mild stenosis within the proximal right internal carotid artery due to atherosclerotic plaque. T here is moderate stenosis of the proximal right external carotid artery. There are no stenoses within the left common carotid or cervical internal carotid arteries. The bilateral vertebral arteries are patent. There is no evidence for dissection. IMPRESSION: 1. 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 2. Moderate stenosis of the proximal right external carotid artery. Electronically signed by: Martin Hameed M.D. 03/01/2019 11:43 AM
--- NOTE | 2019-03-01 11:50 | Magnetic Resonance Report ---
MRI OF THE LUMBAR SPINE WITH AND WITHOUT CONTRAST CLINICAL HISTORY: bowel/bladder incontinence and gait abnormality COMPARISON STUDY: Lumbar spine MRI June 22, 2008. TECHNIQUE: Utilizing a 1.5 Ira magnet and dedicated coil, multiplanar, multiecho imaging of the joshua mbar spine was performed before and after uneventful IV administration of 4.5 mL of Gadavist. FINDINGS: For purposes of numbering on this exam, the L5-S1 disc space is assigned to axial image 23 of 25. The re is 5 mm of anterolisthesis of L4 and L5. There is minimal anterolisthesis of L3 on L4. There is no fracture. No suspicious marrow replacement is present. No intracanalicular mass or fluid collection is present. Conus terminates at the upper L1 level. Innumerable bilateral renal lesions are suboptima lly assessed on this exam but favor cysts. Disc bulge at T11-T12 results in mild central canal stenos is. L1-2: The central canal and neural foramen are patent. L2-3: There is moderate disc space narrowing with disc bulge, eccentric to the right, ligamentous hyp ertrophy and facet arthrosis. There is mild narrowing of the central canal, moderate narrowing of the right lateral recess and right neural foramen. L3-4: Anterolisthesis is noted with disc bulge, ligamentous hypertrophy and facet arthrosis. There is mild narrowing of the central canal and lateral recesses as well as the bilateral neural foramen. L4-5: There is interval C6 with uncovering of the disc. Facet arthrosis is present. Postoperative fin dings consistent with a posterior decompression are noted. Central canal is patent. Moderate left and mild right neural foraminal stenosis is noted. L5-S1: Facet arthrosis is present. Central canal is patent. Bilateral neural foramen are patent. IMPRESSION: 1. No acute findings within the lumbar spine. 2. Moderate multilevel degenerative disc disease and facet arthrosis. Mild multilevel central canal s tenosis. Moderate multilevel neural foraminal stenosis. 3. Status post L4-L5 posterior decompression. 4. Grade one anterolisthesis of L4 and L5. Electronically signed by: Martin Hameed M.D. 03/01/2019 11:48 AM
--- NOTE | 2019-03-01 13:44 | Hospitalist Progress Note ---
Date of Service March 01, 2019 Assessment & Plan (1) Stroke: Appreciate neurology input. Will hold Plavix and continue low-dose aspirin. Considering evidence of atherosclerosis and right internal carotid, will start atorvastatin 20 mg daily. Check 2D echo. Awaiting PT/OT evaluation to consider discharge disposition. (2) Hypertension: Patient has been hypertensive for the past 24 hours. Some bradycardia with a pulse of 65. We will continue amlodipine as ordered. On metoprolol, would not titrate this further with bradycardia. Add hydralazine 10 mg 3 times daily and titrate as needed. (3) Hypothyroidism: (4) Aortic stenosis: (5) Gait disturbance: (6) Age related osteoporosis: (7) Sternal fracture: (8) Weakness: Subjective Patient seen with multiple family members in room. Patient denies any residual deficits from initial event. She initially had some issues with confusion 5 days prior to presentation. also noted that the patient had some "bowel and bladder accidents" which had made him suspicious that something had happened. Patient is otherwise pleasant and in no distress. Review of Systems Review of Systems: All systems reviewed & are unremarkable except as noted in HPI & below Physical Exam Physical Exam: GENERAL: Non-toxic in appearance. INTEGUMENTARY: Warm, dry, and Hailey. HEAD: Normocephalic. EYES: without scleral icterus or trauma. ENT/OROPHARYNX: clear and moist. LYMPHADENOPATHY/NECK: Is supple without lymphadenopathy or meningismus. RESPIRATORY: Lungs clear and equal. CARDIOVASCULAR: Regular rate and rhythm. GI/ABDOMEN: Soft and nontender. No organomegaly or pulsatile mass. No rebound or guarding. Normal bowel sounds. EXTREMITIES: Warm and well perfused. BACK: No CVA tenderness. NEUROLOGICAL: Intact without focal deficits. Speech fluent. 5 out of 5 muscle strength in lower extremity hip flexion extension as well as ankle flexion extension. 1+ DTRs in the bilateral patellas. PSYCHIATRIC: normal affect. MUSCULOSKELETAL: Normally developed with good muscle tone. Results & Data Vital Signs (Past 12 Hours) Vital Signs Temp Pulse Resp BP BP Pulse Ox 03/01/19 11:23 36.6 C 65 17 177/83 H 93 03/01/19 07:43 36.8 C 69 17 193/89 H 93 03/01/19 04:27 36.8 C 64 16 163/83 H 94 Diagnostic Findings MRI OF THE BRAIN WITHOUT AND WITH IV CONTRAST CLINICAL HISTORY: subacute stroke COMPARISON STUDY: MRI of the brain November 27, 2018. Head CT February 28, 2019. TECHNIQUE: Utilizing a 1.5 Ira magnet and dedicated coil, multiplanar, multiecho imaging of the brain was performed pre and postcontrast administration. IV administration of 4.5 mL of Gadavist contrast was uneventful. FINDINGS: Note is made of multiple foci of restricted diffusion within left basal ganglia, the largest of which measures 2.4 x 0.8 cm. There is no mass effect or hemorrhage. Ventricular system is stable. Basilar cisterns are patent. There are no extra-axial collections. No intracranial mass or pathologic enhancement is identified. Confluent white matter T2 hyperintensities unchanged and suggest small vessel disease. Calvarial signal is normal. Orbits are unremarkable. Sinuses are clear. IMPRESSION: 1. Several foci of restricted diffusion consistent with acute to subacute infarcts within the left basal ganglia, the largest of which measures 2.4 x 0.8 cm. No mass effect or hemorrhage. 2. Extensive small vessel disease. Moderate atrophy. --- MR angio neck wo/w con CLINICAL HISTORY: subacute stroke COMPARISON STUDY: No previous studies for comparison. TECHNIQUE: Utilizing a 1.5 Ira magnet, unenhanced and contrast-enhanced MRA of the neck was obtained. FINDINGS: The bilateral common carotid, cervical internal carotid vertebral arteries are patent. There is mild stenosis within the proximal right internal carotid artery due to atherosclerotic plaque. There is moderate stenosis of the proximal right external carotid artery. There are no stenoses within the left common carotid or cervical internal carotid arteries. The bilateral vertebral arteries are patent. There is no evidence for dissection. IMPRESSION: 1. 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 2. Moderate stenosis of the proximal right external carotid artery. PG Care Time/CCT Total # of Minutes Spent Total Time Spent with Patient: Total time spent is greater than 50% in coordination of care (as documented) at patient's floor/unit and/or counseling patient: (1) Stroke CVA mechanism: unspecified Qualified Code(s): I63.9 - Cerebral infarction, unspecified (2) Sternal fracture Encounter type: initial encounter Fracture type: closed Sternal location: unspecified Qualified Code(s): S22.20XA - Unspecified fracture of sternum, initial encounter for closed fracture
[2019-03-01] MEDS: HydrALAZINE 10 MG TAB PO SCH ×2 (14:36→22:03)
[2019-03-02] MEDS: LEVOTHYROXINE SODIUM 50 MCG TABLET PO SCH (05:47)
[2019-03-02] MEDS: HydrALAZINE 10 MG TAB PO SCH (05:47)
[2019-03-02 06:53] LABS: Basophils # (auto) 0.04 K/uL (0-0.2); Basophils % (auto) 0.6 %; Eosinophils # (auto) 0.51 K/uL (0-0.5); Eosinophils % (auto) 7.2 %; Hematocrit (blood only) 34.2 % (37-47); Hemoglobin 11.6 g/dL (12.0-16.0); Immature Granulocytes # (auto) 0.02 K/uL (0.00-0.02); Immature Granulocytes % (auto) 0.3 %; Lymphocytes # (auto) 1.95 K/uL (1.2-3.4); Lymphocytes % (auto) 27.7 %; Mean Corpuscular Hemoglobin 32.7 pg (25-34); Mean Corpuscular Hgb Conc 33.9 g/dL (32-36); Mean Corpuscular Volume 96.3 fL (80-100); Monocytes # (auto) 0.58 K/uL (0.11-0.59); Monocytes % (auto) 8.2 %; Neutrophils # (auto) 3.95 K/uL (1.4-6.5); Platelet Count 239 K/uL (130-400); RDW Coefficient of Variation 12.1 % (11.5-14.5); RDW Standard Deviation 42.9 fL (36.4-46.3); Red Blood Count 3.55 M/uL (4.2-5.4); White Blood Count 7.05 K/uL (4.8-10.8)
[2019-03-02 07:26] LABS: BUN Creatinine Ratio 20.9 (10-20); Calcium 8.7 mg/dl (8.5-10.1); Creatinine Clr Calc Pharmacy 21.1 ml/min; Est GFR (African American) 39.2; Est GFR (Non-African American) 33.8; Potassium 4.4 mmol/L (3.5-5.1)
[2019-03-02] MEDS: ASPIRIN 81 MG ECTAB PO SCH (07:57)
[2019-03-02] MEDS: METOPROLOL SUCC 50MG EXT REL TAB PO SCH (07:57)
[2019-03-02] MEDS: AMLODIPINE BESYLATE 5 MG TAB PO SCH (07:58)
[2019-03-02] MEDS ORDERED: ATORVASTATIN 20 MG TAB PO SCH (09:00)
--- NOTE | 2019-03-02 10:11 | Neurology Progress Note ---
Date of Service March 02, 2019 Assessment & Plan (1) Stroke: Subacute left hemispheric, subcortical infarct, primarily within the left basal ganglia region resulting in some subtle speech hesitancy, mild confusion, and a very subtle right hemiparesis which is stable to improved today. Patient remains modestly hypertensive and she will need ongoing treatment of hypertension, gradual reduction while here in the hospital. She does have an incidental mild proximal stenosis of the right internal carotid artery as depicted on MR angiography of the neck. Agree with low-dose statin in this context. No indication for anticoagulation identified. Patient should continue with daily low-dose aspirin. PT/OT/speech therapy. If inpatient rehabilitation is not considered necessary I suspect she would still benefit from speech therapy. Disposition pending. No further immediate recommendations. Subjective Follow-up for stroke The patient is an 83-year-old female who was admitted with a subacute stroke within the left basal ganglia/head of the caudate resulting in subtle confusion, mild speech disfluency, and a very mild right hemiparesis. Please see yesterday's neurology consult for further details. A follow-up brain MRI has be en completed which confirmed the presence of an acute to subacute multifocal infarct within the left basal ganglia region. No hemorrhage. The study also revealed extensive chronic small vessel ischemic change and moderate generalized atrophy. I reviewed the images as well as the radiologist interpretation of this test. MR angiography of the head and neck were completed as well which reveal only mild stenosis of the proximal right internal carotid artery and a moderate stenosis of the proximal right external carotid artery. A transthoracic echocardiogram reveals a normal left ventricular size and systolic function. No intra-atrial shunt. No obvious cardioembolic source. Currently, the patient is without specific complaint. He is sitting up comfortably in bed and was reading the morning newspaper. She does appear to be a bit slower hesitant with speech but otherwise appears to be grossly neurologically intact and without an obvious hemiparesis. See examination below for further details. Patient's is at bedside this morning as well. Review of Systems Eyes: no blind spots and no diplopia Neurologic: as per Subjective / HPI, + abnormal speech and + confusion; no localized weakness, no loss of sensation and no headache(s) Physical Exam Physical Exam: The patient is alert and fully oriented. Recent and remote memory intact. Attention and concentration normal. Patient speech is mildly slow and hesitant although she is able to name objects and repeat phrases without difficulty. Speech is non-dysarthric. Patient exhibits a normal comprehension of vocabulary. Visual valentin full to confrontation. Pupils equal round reactive to light and accommodation. Eye movements normal. There is no nystagmus, ophthalmoplegia, or ptosis. There is subtle flattening of the right nasolabial fold. Facial sensation intact. Tongue and palate midline. Sensation intact in all 4 limbs. Deep tendon reflexes are intact and symmetrical for the arms and legs. There is subtle dysmetria [id number] on the right as well as subtle impairment of fine finger movements for the right hand as well. No difficulty with [id number]. Strength is grossly full for all 4 limbs proximally and distally. No hemiparesis. There is no pronator drift at this time. No abnormal movements observed. Results & Data Vital Signs (Past 12 Hours) Vital Signs Temp Pulse Pulse Resp BP BP Pulse Ox 03/02/19 08:00 56 L 03/02/19 07:23 36.5 C 67 17 174/82 H 93 03/02/19 02:45 36.9 C 62 17 169/83 H 94 03/02/19 00:03 67 03/01/19 23:40 37.0 C 63 17 160/80 H 94 PG Care Time/CCT Total # of Minutes Spent Total Time Spent with Patient: Total time spent is greater than 50% in coordination of care (as documented) at patient's floor/unit and/or counseling patient: (1) Stroke CVA mechanism: unspecified Qualified Code(s): I63.9 - Cerebral infarction, unspecified
[2019-03-02] MEDS ORDERED: STROKE PATIENT DISCHARGE STA (12:54)
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
--- NOTE | 2019-03-02 13:44 | Pharmacy Report ---
Pharmacist Stroke Counseling - Date of Service March 02, 2019 - Scope: Pharmacy has been consulted to provide medication discharge counseling for this patient admitted with subacute left hemispheric, subcortical infarct as per the Pharmacist Discharge Counseling for Stroke Patients Protocol. - Medications on Discharge: Home Medications Medication Instructions Recorded Confirmed ascorbic acid (vitamin C) 500 mg 500 mg PO QAM tab 09/19/18 02/28/19 tablet amlodipine 2.5 mg PO QAM 02/28/19 02/28/19 amlodipine 5 mg PO QAM 02/28/19 02/28/19 levothyroxine 50 mcg PO QAM 02/28/19 02/28/19 metoprolol succinate 50 mg PO QAM 02/28/19 02/28/19 New Rx's Medication Instructions Recorded aspirin [Ecotrin Low Strength] 81 mg PO QAM 30 Days #30 tab 03/02/19 atorvastatin 20 mg PO QAM 30 Days #30 tab 03/02/19 hydralazine 25 mg PO Q8H 30 Days #90 tab 03/02/19 - Action: The above medications, specifically ones for stroke treatment/prophylaxis, have been reviewed in detail with the patient and/or patient inbound sales representative(s) prior to discharge. This includes indication, common adverse reactions, drug interactions, and medication administration. Medication counseling has been employed using the teach-back method to ensure understanding. - Outcome: The patient and/or patient inbound sales representative(s) have demonstrated understanding of the medications. Please note, they are aware that the pharmacist will call them within 72 hours post-discharge to confirm that the appropriate medications are being taken and answer any further medication related questions the patient might have at that time. Contact information Individual to be contacted: Patient Phone number: [phone] Best time to call: anytime of the day Additional comments: - Patient was counseled on the indication, common adverse reactions, drug interactions, and medication administration associated with atorvastatin and a spirin - She demonstrated understanding via teach-back method - Informed patient that her first doses would be tomorrow AM and with it being Sunday, depending on her time of discharge she may not be able to get to a pharmacy. If this is the case, the patient was instructed to go to the pharmacy first thing tomorrow morning. - Patient was given time to ask and have any questions answered Thank you for allowing pharmacy to be involved in the care of this patient. Please call [phone] or [phone] with any additional questions
--- NOTE | 2019-03-04 10:48 | Pharmacy Report ---
Pharmacist Post D/C Phone Note - Phone Note: Date of phone call: March 04, 2019. Individual with whom pharmacist spoke to: SUNITA STOVER The following questions were reviewed during the phone call with responses listed below each: Can you tell me the medications that you are currently taking as well as when and how you take each medication? -See Table Below When have you missed any doses of your medications? - None What side effects are you having from your medications, specifically, the new medications you were started on? - None What questions do you have about your medications? - None What problems are you having obtaining your medications? - None When is your next appointment with your primary care doctor? - Today at noon with Dr. Monae Additional comments: - Prescriptions were picked up on day of discharge and patient has not missed a dose of any of the medications. No problems/issues identified on phone call. Patient to see PCP today. As per the Pharmacist Discharge Counseling for Stroke Patients Protocol, this phone call has been completed within 72 hours of discharge. Thank you for allowing us to be involved in the care of this patient. - Home Medications: Home Medications Medication Instructions Recorded Confirmed ascorbic acid (vitamin C) 500 mg 500 mg PO QAM tab 09/19/18 02/28/19 tablet amlodipine 2.5 mg PO QAM 02/28/19 02/28/19 amlodipine 5 mg PO QAM 02/28/19 02/28/19 levothyroxine 50 mcg PO QAM 02/28/19 02/28/19 metoprolol succinate 50 mg PO QAM 02/28/19 02/28/19 New Rx's Medication Instructions Recorded aspirin [Ecotrin Low Strength] 81 mg PO QAM 30 Days #30 tab 03/02/19 atorvastatin 20 mg PO QAM 30 Days #30 tab 03/02/19 hydralazine 25 mg PO Q8H 30 Days #90 tab 03/02/19
== END 2019-03-02 15:33 | disposition home or self-care (01) ==
LOC: 2S 16:23 → ED 16:23 → SUATTDRO 22:44 → 2S 23:14

== ENCOUNTER 2020-11-23 15:25 | Inpatient (IN) ==
[2020-11-23] MEDS ORDERED: SODIUM CHLORIDE 0.9% 1000ML 1,000 ML IV SCH (16:00)
[2020-11-23 16:04] LABS: Basophils # (auto) 0.02 K/uL (0-0.2); Basophils % (auto) 0.3 %; Eosinophils # (auto) 0.24 K/uL (0-0.5); Eosinophils % (auto) 3.4 %; Hematocrit (blood only) 32.4 % (37-47); Immature Granulocytes # (auto) 0.01 K/uL (0.00-0.02); Immature Granulocytes % (auto) 0.1 %; Lymphocytes # (auto) 0.78 K/uL (1.2-3.4); Lymphocytes % (auto) 11.1 %; Mean Corpuscular Hemoglobin 32.8 pg (25-34); Mean Corpuscular Volume 96.7 fL (80-100); Monocytes # (auto) 0.61 K/uL (0.11-0.59); Monocytes % (auto) 8.7 %; Neutrophils # (auto) 5.38 K/uL (1.4-6.5); Neutrophils % (auto) 76.4 %; Platelet Count 161 K/uL (130-400); RDW Coefficient of Variation 12.9 % (11.5-14.5); RDW Standard Deviation 45.8 fL (36.4-46.3); Red Blood Count 3.35 M/uL (4.2-5.4); White Blood Count 7.04 K/uL (4.8-10.8)
--- NOTE | 2020-11-23 16:05 | Emergency Department Note ---
History of Present Illness General Chief complaint: Cardiac Assessment Time Seen by Provider: 11/23/20 15:27 Source: patient, family and EMS Mode of arrival: EMS Limitations: physical limitation History of Present Illness Provider complaint: abnormal heartrate Onset (ago): unknown This is an 85-year-old female presents emergency department from a local facility due to concern for a slow heart rate and possible dysrhythmia. Patient states she was feeling fine and had no concerning symptoms when the staff there checked her vital sign and found her heart rate to be slow. EMS reported after finding a low heart rate on the patient in the 40s, they contacted the on-call physician and performed an EKG which was concerning for possible third-degree heart block, EMS was called and patient brought in. On arrival here patient's heart rate in the upper 30s and low 40s although patient denied pain, pressure, dizziness, or shortness of breath. Patient with no prior history of dysrhythmia or CAD. Per [facility] paperwork patient was recently treated with antibiotics for pneumonia including ceftriaxone and azithromycin. Patient states she does still have a cough, but otherwise does not feel short of breath, denies fevers or chills, nausea or vomiting. Pt seen during a time of high acuity and national emergency pandemic while wearing PPE. was updated at bedside upon his arrival. Home Medications Medication Instructions Recorded Confirmed Type amlodipine 2.5 mg tablet 2.5 mg PO QAM 02/28/19 11/23/20 History acetaminophen 500 mg tablet 500 - 1,000 mg PO Q6H PRN 03/27/19 11/23/20 History (Tylenol Extra Strength) atorvastatin 20 mg tablet 20 mg PO DAILY 06/03/19 11/23/20 History levothyroxine 50 mcg tablet 50 mcg PO QAM #90 tab 03/16/20 11/23/20 Rx metoprolol succinate 50 mg 50 mg PO QAM #90 tab 03/16/20 11/23/20 Rx tablet,extended release 24 hr Flutter Valve #1 ea 10/25/20 10/25/20 Rx guaifenesin 600 mg tablet, 600 mg PO BID PRN #60 tab 10/25/20 11/23/20 Rx extended release 12 hr (Mucinex) pantoprazole 40 mg tablet,delayed 40 mg PO DAILY 10/25/20 11/23/20 History release amlodipine 5 mg tablet 5 mg PO DAILY 11/23/20 11/23/20 History azithromycin 250 mg tablet 250 mg PO DAILY 11/23/20 11/23/20 History ceftriaxone 1 gram solution for 1 g IV DAILY 11/23/20 11/23/20 History injection heparin (porcine) 5,000 unit/mL 5,000 unit SUBCUT BID 11/23/20 11/23/20 History injection solution hydralazine 25 mg tablet 25 mg PO BID 11/23/20 11/23/20 History Allergies Allergy/AdvReac Type Severity Reaction Status Date / Time amoxicillin [From Augmentin] Allergy Intermediate NAUSEA/VOMI Verified 11/23/20 16:35 TING clavulanic acid Allergy Intermediate NAUSEA/VOMI Verified 11/23/20 16:35 [From Augmentin] TING codeine AdvReac Intermediate N/V Verified 11/23/20 16:35 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 Cerebral vascular disease CKD (chronic kidney disease) Hyperglycemia Hypertension Hypothyroidism Mild cognitive impairment PNA (pneumonia) (2016) Stroke Left basal ganglia February 2019 Surgical History History of cataract surgery History of laminectomy History of tonsillectomy Family History Sister Alcoholism Father Atherosclerosis Gout Lung cancer Mother Hypertension Osteoporosis Stroke Denies family history of Colon cancer Ovarian cancer Prostate cancer Myocardial infarction Breast cancer Social History Smoking Status: Never smoker Hx Alcohol Use: Yes Alcohol type: wine Hx Substance Use: No Preferred Language: Divehi Communication Ability: Effective Visual Impairment: No Limitations Hearing Ability: Normal Hazmat Truck Driver Required: No Beliefs That Will Affect Care: None and Moravian Moravian Beliefs: Anabaptist. marital status: Current Living Situation: Personal Care Facility Current Living Situation Comment: Skilled side of [place]. current occupational status: retired How many Children do You have: 2 Other Information That Helps Us Care for You: No Feels Safe at Home: Yes Safety Concerns: Feels Safe At This Time Childhood Exposure to Second-Hand Smoke: Yes Physical Activity Frequency: Daily Seatbelt Use: always Sunscreen Use: Yes Assistive Devices: None Review of Systems A total of 10 systems reviewed and were otherwise negative All systems reviewed & are unremarkable except as noted in HPI & below Physical Exam Vital Signs Vital Signs - 24 hr 11/23/20 15:25 11/23/20 16:09 11/23/20 16:30 Temperature 36.8 C Temperature Source Oral Pulse Rate 40 L 39 L 41 L Pulse Rate [Apical] 40 L Pulse Rhythm [Apical] Irregular Respiratory Rate 16 17 22 Respiratory Effort / Characteristics Non-Labored Respiratory Depth Normal Blood Pressure 151/53 H 160/57 H 153/63 H Blood Pressure [Right Arm] 155/53 H Blood Pressure Mean 85 91 93 Blood Pressure Mean [Right Arm] 87 Pulse Oximetry 95 93 94 Oxygen Delivery Method Room Air Sepsis Recent Fever Within 48 Hours No Sepsis New/Unexplained Change in Mental Status No Sepsis Action Taken by Nursing No Action Required 11/23/20 17:01 Temperature Temperature Source Pulse Rate 39 L Pulse Rate [Apical] Pulse Rhythm [Apical] Respiratory Rate 18 Respiratory Effort / Characteristics Respiratory Depth Blood Pressure 155/80 H Blood Pressure [Right Arm] Blood Pressure Mean 105 Blood Pressure Mean [Right Arm] Pulse Oximetry 93 Oxygen Delivery Method Sepsis Recent Fever Within 48 Hours Sepsis New/Unexplained Change in Mental Status Sepsis Action Taken by Nursing GENERAL: alert, well appearing, well nourished, no distress, non-toxic EYE EXAM: normal conjunctiva, PERRL and EOM's grossly intact OROPHARYNX: no exudate, no erythema, lips, buccal mucosa, and tongue normal and mucous membranes are moist NECK: supple, no nuchal rigidity, no adenopathy, non-tender LUNGS: Clear to auscultation. Normal chest wall mechanics, no w/r/r HEART: no murmurs, S1 normal and S2 normal, abnormal rhythm on telemetry with bradycardia in the low 40s ABDOMEN: abdomen soft, non-tender, normo-active bowel sounds, no masses, no rebound or guarding. BACK: Back is symmetrical on inspection and there is no deformity, no midline tenderness, no CVA tenderness. SKIN: no rashes and no bruising UPPER EXTREMITIES: upper extremities are grossly normal. FROM, nml pulses b/l. LOWER EXTREMITIES: No pitting edema. FROM, nml pulses b/l. NEURO EXAM: Normal sensorium, cranial nerves II-XII grossly intact, normal speech, no gross weakness of arms, no gross weakness of legs. Gross sensation intact. Course Course 1600: Discussed with Dr. Gallardo. 1622: Updated patient and son now at bedside. Patient remained stable and asymptomatic despite the bradycardia and heart block. 1635: Discussed with Dr. Cruz. 1832: Updated pt's son, Dr. Feldman over the phone. Patient continues to remain asymptomatic and stable at this time. We will recheck the timing and initiation of antibiotics as his understanding of the situation was slightly different in terms of the diagnosis of pneumonia and treatment course. Administered Medications Atorvastatin Calcium (Atorvastatin 20 Mg Tab) 20 mg PO DAILY ERIC Stop: 12/24/20 08:59 Last Admin: 11/24/20 08:03 Dose: 20 mg Documented by: [id number] Guaifenesin (Guaifenesin 600 Mg Tabcr) 600 mg PO BID ERIC Stop: 12/24/20 08:59 Last Admin: 11/24/20 20:35 Dose: 600 mg Documented by: [id number] Admin: 11/24/20 08:03 Dose: 600 mg Documented by: [id number] Heparin Sodium (Porcine) (Heparin Sod (Porcine) 5,000 Units/Ml Vial) 5,000 units SQ BID ERIC Stop: 12/23/20 20:59 Last Admin: 11/24/20 20:36 Dose: 5,000 units Documented by: [id number] Admin: 11/24/20 08:03 Dose: 5,000 units Documented by: [id number] Admin: 11/23/20 21:54 Dose: 5,000 units Documented by: [id number] Ceftriaxone Sodium 1,000 mg/ (Dextrose) 50 mls @ 100 mls/hr IV Q24H ERIC; Protocol Stop: 11/30/20 21:59 Last Admin: 11/24/20 20:35 Dose: 100 mls/hr Documented by: [id number] Infusion: 11/23/20 22:36 Dose: 0 mls/hr Documented by: [id number] Admin: 11/23/20 21:57 Dose: 100 mls/hr Documented by: [id number] Azithromycin 250 mg/ Dextrose 252.5 mls @ 125 mls/hr IV DAILY ERIC Stop: 12/01/20 08:59 Last Infusion: 11/24/20 10:10 Dose: 0 mls/hr Documented by: [id number] Admin: 11/24/20 08:05 Dose: 125 mls/hr Documented by: [id number] Levothyroxine Sodium (Levothyroxine Sodium 50 Mcg Tablet) 50 mcg PO DAILYBB [facility] Stop: 12/24/20 06:29 Last Admin: 11/24/20 05:41 Dose: 50 mcg Documented by: [id number] Pantoprazole Sodium (Pantoprazole 40 Mg Tab) 40 mg PO DAILY [facility] Stop: 12/24/20 08:59 Last Admin: 11/24/20 08:03 Dose: 40 mg Documented by: [id number] Discontinued Medications Sodium Chloride (Nss 1000ml) 1,000 mls @ 125 mls/hr IV .Q8H [facility] Stop: 12/23/20 15:59 Last Infusion: 11/23/20 19:23 Dose: 0 mls/hr Documented by: [id number] Admin: 11/23/20 16:09 Dose: 125 mls/hr Documented by: [id number] Critical Care Time Critical Care Time: Yes Total Critical Care Time: 42 Critical care of 42 min performed to assess and manage high likelihood of life- threatening complete heart block, involving labs and imaging performed with assessment to evaluate bradycardia diagnosis with frequent reassessment. This time includes bedside time, treatment discussions with patient/family/consul tants, documentation time and excludes procedure time. Medical Decision Making Differential Diagnosis Differential diagnoses includes but is not limited to pneumonia, bronchitis, COPD/Asthma exacerbation, pneumothorax, pulmonary embolism, congestive heart failure, acute coronary syndrome Medical Records Attestation: I reviewed the patient's medical records. Home Medications Current Medication List: was personally reviewed by me Laboratory Data Attestation: I reviewed the patient's lab results. Result diagrams: 11/24/20 07:34 11/24/20 07:34 Lab Results 11/23/20 11/23/20 11/23/20 Range/Units 15:51 15:51 15:51 WBC 7.04 (4.8-10.8) K/uL RBC 3.35 L (4.2-5.4) M/uL Hgb 11.0 L (12.0-16.0) g/dL Hct 32.4 L (37-47) % MCV 96.7 (80-100) fL MCH 32.8 (25-34) pg MCHC 34.0 (32-36) g/dL RDW Std Deviation 45.8 (36.4-46.3) fL RDW Coeff of Mervat 12.9 (11.5-14.5) % Plt Count 161 (130-400) K/uL MPV 14.0 H (7.4-10.4) fL Immature Gran % (Auto) 0.1 % Neut % (Auto) 76.4 % Lymph % (Auto) 11.1 % [place] % (Auto) 8.7 % Eos % (Auto) 3.4 % Baso % (Auto) 0.3 % Neut # (Auto) 5.38 (1.4-6.5) K/uL Lymph # (Auto) 0.78 L (1.2-3.4) K/uL [place] # (Auto) 0.61 H (0.11-0.59) K/uL Eos # (Auto) 0.24 (0-0.5) K/uL Baso # (Auto) 0.02 (0-0.2) K/uL Immature Gran # (Auto) 0.01 (0.00-0.02) K/uL RBC Morphology Unremarkable Sodium 136 (136-145) mmol/L Potassium 4.1 (3.5-5.1) mmol/L Chloride 102 (98-107) mmol/L Carbon Dioxide 25 (21-32) mmol/L Anion Gap 9.0 (3-11) BUN 42 H (7-18) mg/dl Creatinine 2.28 H (0.6-1.2) mg/dl Est Cr Clr Drug Dosing 14.0 ml/min Est GFR ( Amer) 22.0 ml/min Est GFR (Non-Af Amer) 19.0 ml/min BUN/Creatinine Ratio 18.6 (10-20) Glucose 105 H (70-99) mg/dl Calcium 9.9 (8.5-10.1) mg/dl Magnesium 2.3 (1.8-2.4) mg/dl Total Bilirubin 0.5 (0.2-1) mg/dl AST 61 H (15-37) U/L ALT 133 H (12-78) U/L Alkaline Phosphatase 80 (45-117) U/L Troponin I 0.026 (0-0.045) ng/ml NT-Pro-B Natriuret Pep 51807 H (0-1800) pg/ml Total Protein 7.6 (6.4-8.2) gm/dl Albumin 3.9 (3.4-5.0) gm/dl Globulin 3.7 (2.5-4.0) gm/dl Albumin/Globulin Ratio 1.0 (0.9-2) Procalcitonin (0-0.5) ng/ml TSH 2.000 (0.300-4.500) uIu/ml Lyme Disease IgG Ab Negative (Negative) Lyme Disease IgM Ab Negative (Negative) COVID-19 Eval Order SARS-CoV-2 (PCR) (Negative) 11/23/20 11/23/20 11/23/20 Range/Units 15:51 16:15 16:15 WBC (4.8-10.8) K/uL RBC (4.2-5.4) M/uL Hgb (12.0-16.0) g/dL Hct (37-47) % MCV (80-100) fL MCH (25-34) pg MCHC (32-36) g/dL RDW Std Deviation (36.4-46.3) fL RDW Coeff of Mervat (11.5-14.5) % Plt Count (130-400) K/uL MPV (7.4-10.4) fL Immature Gran % (Auto) % Neut % (Auto) % Lymph % (Auto) % [place] % (Auto) % Eos % (Auto) % Baso % (Auto) % Neut # (Auto) (1.4-6.5) K/uL Lymph # (Auto) (1.2-3.4) K/uL [place] # (Auto) (0.11-0.59) K/uL Eos # (Auto) (0-0.5) K/uL Baso # (Auto) (0-0.2) K/uL Immature Gran # (Auto) (0.00-0.02) K/uL RBC Morphology Sodium (136-145) mmol/L Potassium (3.5-5.1) mmol/L Chloride (98-107) mmol/L Carbon Dioxide (21-32) mmol/L Anion Gap (3-11) BUN (7-18) mg/dl Creatinine (0.6-1.2) mg/dl Est Cr Clr Drug Dosing ml/min Est GFR ( Amer) ml/min Est GFR (Non-Af Amer) ml/min BUN/Creatinine Ratio (10-20) Glucose (70-99) mg/dl Calcium (8.5-10.1) mg/dl Magnesium (1.8-2.4) mg/dl Total Bilirubin (0.2-1) mg/dl AST (15-37) U/L ALT (12-78) U/L Alkaline Phosphatase (45-117) U/L Troponin I (0-0.045) ng/ml NT-Pro-B Natriuret Pep (0-1800) pg/ml Total Protein (6.4-8.2) gm/dl Albumin (3.4-5.0) gm/dl Globulin (2.5-4.0) gm/dl Albumin/Globulin Ratio (0.9-2) Procalcitonin 0.06 (0-0.5) ng/ml TSH (0.300-4.500) uIu/ml Lyme Disease IgG Ab (Negative) Lyme Disease IgM Ab (Negative) COVID-19 Eval Order Covid19 at [facility] SARS-CoV-2 (PCR) NEGATIVE (Negative) Imaging Data Radiologist's Impression: Chest X-Ray 11/23/20 15:47 XR chest 1V portable CLINICAL HISTORY: recent pna COMPARISON STUDY: November 22, 2020 FINDINGS: No pneumothorax. Redemonstration of the small left pleural effusion. Reticular opacities are again seen within right lower lung with interval prominence of nodular component which could represent pneumonia. Opacities are seen at the left base which could represent atelectasis or infiltrate. Cardiomediastinal silhouette is within upper limits of normal and could be exaggerated due to portable technique. Aorta is tortuous and calcified. No significant pulmonary vascular congestion.. Osseous structures: Osteopenia. Degenerative changes of the spine. IMPRESSION: 1. Mild interval worsening of opacities at the right lower lung which could represent pneumonia. 2. Redemonstration of the small left pleural effusion. Possible atelectasis/infiltrate at the left base. 3. Atherosclerosis. ACT 112: Negative or not required by law. The above report was generated using voice recognition software. It may contain grammatical, syntax or spelling errors. Electronically signed by: Jane Gray DO 11/23/2020 4:37 PM ECG Data Attestation: I personally reviewed and interpreted this ECG as follows: Indication: + bradycardia Rate (beats per minute): 43 Rhythm: + other ECG Intervals/blocks: + Complete heart block ECG [place]: + Left axis deviation ECG ST segments: + Nonspecific ST abnormalities MDM Narrative This is an elderly female sent in due to concern for possible dysrhythmia who was found to have third-degree heart block. Cardiology was immediately contacted while labs and imaging were still pending. I did review patient's medication list, she does take a beta-angeline daily, however cardiology did not feel glucagon was warranted. Patient remained asymptomatic and otherwise hemodynamically stable, I did not feel she needed urgent transcutaneous pacing or emergent placement of a transvenous pacemaker temporarily. Patient did not require any additional intravenous medication to support her heart rate or blood pressure. Patient's and son were also updated at bedside when I rechecked her. I did reexamine the patient multiple times and she had no new or evolving symptoms. Patient was recently treated for pneumonia, and did still appear to have pneumonia on chest x-ray. After discussion with the son it was also noted they had sent her for an outpatient CAT scan earlier this morning prior to finding her bradycardia at the facility. I did review this with the admitting hospitalist also. Per the patient's family's request and patient's permission, I did update the patient's son who is also physician outside of [place]. Patient remained stable in the emergency room, was seen by cardiology, and they will discuss possible pacemaker placement. Did defer any additional antibiotic coverage to the admitting team given course that was documented on facility paperwork. Patient does have underlying pulmonary history of bronchiectasis. An order was placed for continuous cardiac monitoring. The monitor shows a rate of _38 with _complete heart block__ rhythm. Impression & Plan Complete heart block, Chronic cough, Pneumonia Discharge Plan Visit Data Chief Complaint: Cardiac Assessment ED Provider: Christina Oconnor Discharge Problem: Complete heart block, Chronic cough, Pneumonia Patient Disposition: Admitted As Inpatient Discharge Instructions Interventions: ED Discharge Assessment Last Done: 11/23/20 18:42 Discharge Problem: Pneumonia Qualifiers: Pneumonia type: due to unspecified organism Laterality: bilateral Lung location: lower lobe of lung Qualified Code(s): J18.9 - Pneumonia, unspecified organism
--- NOTE | 2020-11-23 16:09 | Electrocardiogram Report ---
Test Reason : Blood Pressure : / mmHG Vent. Rate : 043 BPM Atrial Rate : 068 BPM P-R Int : 000 ms QRS Dur : 074 ms QT Int : 512 ms P-R-T Axes : 072 -50 003 degrees QTc Int : 432 ms Sinus rhythm with complete heart block with junctional escape Left anterior fascicular block Anterior infarct (cited on or before 28-FEB-2019) Abnormal ECG When compared with ECG of 27-MAR-2019 09:38, Significant changes have occurred Confirmed by Aman Gallardo ([id number]) on 11/23/2020 4:09:00 PM Referred By: Confirmed By:Aman Gallardo
[2020-11-23 16:24] LABS: RBC Morphology Unremarkable
[2020-11-23 16:26] LABS: Albumin Level 3.9 gm/dl (3.4-5.0); BUN Creatinine Ratio 18.6 (10-20); Calcium 9.9 mg/dl (8.5-10.1); Magnesium 2.3 mg/dl (1.8-2.4); Potassium 4.1 mmol/L (3.5-5.1)
[2020-11-23 16:37] LABS: Bilirubin,Total 0.5 mg/dl (0.2-1); Globulin 3.7 gm/dl (2.5-4.0); Total Protein 7.6 gm/dl (6.4-8.2); Troponin I 0.026 ng/ml (0-0.045)
--- NOTE | 2020-11-23 16:38 | XRay Report ---
XR chest 1V portable CLINICAL HISTORY: recent pna COMPARISON STUDY: November 22, 2020 FINDINGS: No pneumothorax. Redemonstration of the small left pleural effusion. Reticular opacities are again seen within right lower lung with interval prominence of nodular compon ent which could represent pneumonia. Opacities are seen at the left base which could represent atelec tasis or infiltrate. Cardiomediastinal silhouette is within upper limits of normal and could be exaggerated due to portabl e technique. Aorta is tortuous and calcified. No significant pulmonary vascular congestion.. Osseous structures: Osteopenia. Degenerative changes of the spine. IMPRESSION: 1. Mild interval worsening of opacities at the right lower lung which could represent pneumonia. 2. Redemonstration of the small left pleural effusion. Possible atelectasis/infiltrate at the left b ase. 3. Atherosclerosis. ACT 112: Negative or not required by law. The above report was generated using voice recognition software. It may contain grammatical, syntax o r spelling errors. Electronically signed by: Jane Gray DO 11/23/2020 4:37 PM
[2020-11-23 17:12] LABS: Lyme Ab IgG w/WB Rflx Negative (Negative)
[2020-11-23 17:13] LABS: Lyme Ab IgM w/WB Rflx Negative (Negative)
--- NOTE | 2020-11-23 17:20 | History & Physical Report ---
Date of Service November 23, 2020 Assessment & Plan (1) Complete heart block: Plan: 85yo female presenting with complete heart block. Patient with HR in the 40's, blood pressure is stable, presently 153/63. She is mentating well. She does have some physical exam and laboratory findings consistent with mild heart failure to include bilateral LE edema, elevated BNP, mild elevation of AST/ALT possibly secondary to hepatic congestion. -Admit to PCU -Maintain external pacer pads in place -Will hold Metoprolol for now -Will hold antihypertensive agents to maintain bp - most likely compensatory in setting of bradycardia -Check 2d echo -Trend troponin -Cardiology consultation appreciated -Will keep patient NPO for possible pacer placement in AM (2) Hypothyroidism: Plan: Chronic. TSH WNL at 2 -Continue Synthroid 50mcg po daily (3) Mild cognitive impairment: Plan: Chronic. Patient had a mini cognitive test performed on 06/03/19 on which she scored a 23/30 consistent with mild cognitive impairment -Frequent orientation -Avoid delirium-inducing medications where able (4) CKD (chronic kidney disease): Plan: BUN and Cr near baseline -Avoid nephrotoxic agents -Montior BUN, Cr, electroltyes and UOP (5) Hypertension: Plan: Blood pressure mildly elevated -Will hold antihypertensives for now (6) Aortic stenosis: Plan: Echocardiogram from 02/2019 [facility] normal LV size and function with EF of 60-65%, no regional WMA, mild concentric LVH, sclerotic aortic valve without significant stenosis. Mild MR, mild to moderate TR -Repeat echocardiogram (7) Bronchiectasis: Plan: Patient with history of bronchiectasis mostly involving the RML. She follows with Pulmonary - last seen in clinic on 10/25/20. Etiology unclear - Recommended sputum culture as well as AFB and treatment with Mucinex 600mg po BID and flutter valve. Patient had a CT of the chest performed this AM in the outpatient setting which reveals RML consolidation and bronchiectasis. She had been on Azithromycin since 11/22 for a recommended 4 day course and Ceftriaxone since 11/22 for 2 day course. Uncertain if findings represent PNA or ongoing bronchiectasis. Patient with chronic dry cough, otherwise denies symptoms of active PNA -Continue Mucinex and flutter valve -Check procalcitonin -Will continue antibiotics for now until 11/26 - uncertain if findings represent active infection/CAP. However, as patient may have device placed would want to continue antibiotic treatment at this time. -Consider pulmonary consultation Plan: F/E/N - heplock. Monitor electrolytes and replete as needed, NPO after midnight Ppx - SCDs Code - Full Dispo - Admit to PCU Patient's son, Isiah Feldman, is a physician in the [facility]. He asks to be updated with any new information. Cell phone is [phone] History of Present Illness Chief Complaint: weakness, fatigue Primary Care Provider: [facility] Caroline Feldman is an 85yo female presenting in complete heart block. Patient resides at [facility] and is fairly active and independent at baseline. Over the last 4 days she has noted weakness and fatigue as well as decreased exercise tolerance and LE edema. She denies chest pain/palpitations/fever/chills/abdominal pain/nausea/vomi ting/diarrhea or constipation. Denies syncope/dizziness/confusion Patient found to be in complete heart block with HR of 40's in the ER. BP stable. Patient mentating well. ER Course: NSS Allergies Allergy/AdvReac Type Severity Reaction Status Date / Time amoxicillin [From Augmentin] Allergy Intermediate NAUSEA/VOMI Verified 11/23/20 16:35 TING clavulanic acid Allergy Intermediate NAUSEA/VOMI Verified 11/23/20 16:35 [From Augmentin] TING codeine AdvReac Intermediate N/V Verified 11/23/20 16:35 Home Medications Medication Instructions Recorded Confirmed Type amlodipine 2.5 mg tablet 2.5 mg PO QAM 02/28/19 11/23/20 History acetaminophen 500 mg tablet 500 - 1,000 mg PO Q6H PRN 03/27/19 11/23/20 History (Tylenol Extra Strength) atorvastatin 20 mg tablet 20 mg PO DAILY 06/03/19 11/23/20 History levothyroxine 50 mcg tablet 50 mcg PO QAM #90 tab 03/16/20 11/23/20 Rx metoprolol succinate 50 mg 50 mg PO QAM #90 tab 03/16/20 11/23/20 Rx tablet,extended release 24 hr Flutter Valve #1 ea 10/25/20 10/25/20 Rx guaifenesin 600 mg tablet, 600 mg PO BID PRN #60 tab 10/25/20 11/23/20 Rx extended release 12 hr (Mucinex) pantoprazole 40 mg tablet,delayed 40 mg PO DAILY 10/25/20 11/23/20 History release amlodipine 5 mg tablet 5 mg PO DAILY 11/23/20 11/23/20 History azithromycin 250 mg tablet 250 mg PO DAILY 11/23/20 11/23/20 History ceftriaxone 1 gram solution for 1 g IV DAILY 11/23/20 11/23/20 History injection heparin (porcine) 5,000 unit/mL 5,000 unit SUBCUT BID 11/23/20 11/23/20 History injection solution hydralazine 25 mg tablet 25 mg PO BID 11/23/20 11/23/20 History 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 Cerebral vascular disease CKD (chronic kidney disease) Hyperglycemia Hypertension Hypothyroidism Mild cognitive impairment PNA (pneumonia) (2016) Stroke Left basal ganglia February 2019 Surgical History History of cataract surgery History of laminectomy History of tonsillectomy Family History Sister Alcoholism Father Atherosclerosis Gout Lung cancer Mother Hypertension Osteoporosis Stroke Denies family history of Colon cancer Ovarian cancer Prostate cancer Myocardial infarction Breast cancer Social History Smoking Status: Never smoker Hx Alcohol Use: Yes Alcohol type: wine Hx Substance Use: No Preferred Language: Vietnamese Communication Ability: Effective Visual Impairment: No Limitations Hearing Ability: Normal Facilities Project Manager Required: No Beliefs That Will Affect Care: None and Islam Islam Beliefs: Jew. marital status: Current Living Situation: Personal Care Facility Current Living Situation Comment: Skilled side of [place]. current occupational status: retired Other Information That Helps Us Care for You: No Feels Safe at Home: Yes Safety Concerns: Feels Safe At This Time Childhood Exposure to Second-Hand Smoke: Yes Physical Activity Frequency: Daily Seatbelt Use: always Sunscreen Use: Yes Assistive Devices: Walker Review of Systems Review of Systems: General: Patient denies fevers, chills, malaise, weight loss or weight gain Skin: Patient denies bruising, bleeding or rash HEENT: Patient denies headache, visual changes, sore throat, difficulty swallowing, stiff neck Cardio: Patient denies chest pain, palpitations, shortness of breath, lightheadedness Pulmonary: Patient with ongoing cough, Dry, wheeze GI: Patient denies abdominal pain, nausea, vomiting, diarrhea, constipation : Patient denies dysuria, frequency, urgency or hematuria Musculoskeletal: Patient denies swelling or pain of the joints, edema Neuro: Patient denies numbness, tingling, weakness or falls Psych: Patient denies depression, anxiety Physical Exam Physical Exam: General: patient resting comfortably, NAD, non-toxic in appearance, AA&O x 4 Skin: warm, dry, intact, no rashes or lesions HEENT: NC/AT, PERRL, EOMI, anicteric sclera, conjunctiva without injection, external ear normal to inspection and nontender, nares patent, moist mucus membranes, dentition intact, no oropharyngeal lesions, neck supple, trachea midline, no LAD, no thyromegaly, no JVD Heart: +S1/S2, irregularly irregular, bradycardic, 4/6 blowing AREN at LSB with radiation across precordium to carotids and axilla Lungs: equal air entry bilaterally, no rales/rhonchi/wheezes Abd: +BS, soft, NT/ND, no masses/organomegaly/ascites Ext: warm, 2+ pulses in UE/LE bilaterally, no clubbing/cyanosis, 3+ pitting edema of bilateral LE Neuro: nonfocal, patient AA&O x 4, speech intact, no facial droop, moving all extremities on command with equal strength 5/5 Results & Data Results & Data ([facility]) Vital Signs (Past 12 Hours) Vital Signs Temp Pulse Pulse Resp BP BP Pulse Ox 11/23/20 16:30 41 L 22 153/63 H 94 11/23/20 16:09 39 L 17 160/57 H 93 11/23/20 15:25 36.8 C 40 L 40 L 16 151/53 H 155/53 H 95 Laboratory Results Laboratory Results WBC 7.04 K/uL (4.8-10.8) 11/23/20 15:51 RBC 3.35 M/uL (4.2-5.4) L 11/23/20 15:51 Hgb 11.0 g/dL (12.0-16.0) L 11/23/20 15:51 Hct 32.4 % (37-47) L 11/23/20 15:51 MCV 96.7 fL (80-100) 11/23/20 15:51 MCH 32.8 pg (25-34) 11/23/20 15:51 MCHC 34.0 g/dL (32-36) 11/23/20 15:51 RDW Std Deviation 45.8 fL (36.4-46.3) 11/23/20 15:51 RDW Coeff of Mervat 12.9 % (11.5-14.5) 11/23/20 15:51 Plt Count 161 K/uL (130-400) 11/23/20 15:51 MPV 14.0 fL (7.4-10.4) H 11/23/20 15:51 Immature Gran % (Auto) 0.1 % 11/23/20 15:51 Neut % (Auto) 76.4 % 11/23/20 15:51 Lymph % (Auto) 11.1 % 11/23/20 15:51 Mower % (Auto) 8.7 % 11/23/20 15:51 Eos % (Auto) 3.4 % 11/23/20 15:51 Baso % (Auto) 0.3 % 11/23/20 15:51 Neut # (Auto) 5.38 K/uL (1.4-6.5) 11/23/20 15:51 Lymph # (Auto) 0.78 K/uL (1.2-3.4) L 11/23/20 15:51 Mower # (Auto) 0.61 K/uL (0.11-0.59) H 11/23/20 15:51 Eos # (Auto) 0.24 K/uL (0-0.5) 11/23/20 15:51 Baso # (Auto) 0.02 K/uL (0-0.2) 11/23/20 15:51 Immature Gran # (Auto) 0.01 K/uL (0.00-0.02) 11/23/20 15:51 RBC Morphology Unremarkable 11/23/20 15:51 Sodium 136 mmol/L (136-145) 11/23/20 15:51 Potassium 4.1 mmol/L (3.5-5.1) 11/23/20 15:51 Chloride 102 mmol/L (98-107) 11/23/20 15:51 Carbon Dioxide 25 mmol/L (21-32) 11/23/20 15:51 Anion Gap 9.0 (3-11) 11/23/20 15:51 BUN 42 mg/dl (7-18) H 11/23/20 15:51 Creatinine 2.28 mg/dl (0.6-1.2) H 11/23/20 15:51 Est Cr Clr Drug Dosing 14.0 ml/min 11/23/20 15:51 Est GFR ( Amer) 22.0 ml/min 11/23/20 15:51 Est GFR (Non-Af Amer) 19.0 ml/min 11/23/20 15:51 BUN/Creatinine Ratio 18.6 (10-20) 11/23/20 15:51 Glucose 105 mg/dl (70-99) H 11/23/20 15:51 Calcium 9.9 mg/dl (8.5-10.1) 11/23/20 15:51 Magnesium 2.3 mg/dl (1.8-2.4) 11/23/20 15:51 Total Bilirubin 0.5 mg/dl (0.2-1) 11/23/20 15:51 AST 61 U/L (15-37) H 11/23/20 15:51 ALT 133 U/L (12-78) H 11/23/20 15:51 Alkaline Phosphatase 80 U/L (45-117) 11/23/20 15:51 Troponin I 0.026 ng/ml (0-0.045) 11/23/20 15:51 NT-Pro-B Natriuret Pep 08134 pg/ml (0-1800) H 11/23/20 15:51 Total Protein 7.6 gm/dl (6.4-8.2) 11/23/20 15:51 Albumin 3.9 gm/dl (3.4-5.0) 11/23/20 15:51 Globulin 3.7 gm/dl (2.5-4.0) 11/23/20 15:51 Albumin/Globulin Ratio 1.0 (0.9-2) 11/23/20 15:51 TSH 2.000 uIu/ml (0.300-4.500) 11/23/20 15:51 Lyme Disease IgG Ab Negative (Negative) 11/23/20 15:51 Lyme Disease IgM Ab Negative (Negative) 11/23/20 15:51 COVID-19 Eval Order Covid19 at [facility] 11/23/20 16:15 Impressions Chest X-Ray 11/23/20 15:47 XR chest 1V portable CLINICAL HISTORY: recent pna COMPARISON STUDY: November 22, 2020 FINDINGS: No pneumothorax. Redemonstration of the small left pleural effusion. Reticular opacities are again seen within right lower lung with interval prominence of nodular component which could represent pneumonia. Opacities are seen at the left base which could represent atelectasis or infiltrate. Cardiomediastinal silhouette is within upper limits of normal and could be exaggerated due to portable technique. Aorta is tortuous and calcified. No significant pulmonary vascular congestion.. Osseous structures: Osteopenia. Degenerative changes of the spine. IMPRESSION: 1. Mild interval worsening of opacities at the right lower lung which could represent pneumonia. 2. Redemonstration of the small left pleural effusion. Possible atelectasis/infiltrate at the left base. 3. Atherosclerosis. ACT 112: Negative or not required by law. The above report was generated using voice recognition software. It may contain grammatical, syntax or spelling errors. Electronically signed by: Jane Gray DO 11/23/2020 4:37 PM ECG Additional Comments: DICTATED BY: Aman Gallardo MD Test Reason : Blood Pressure : / mmHG Vent. Rate : 043 BPM Atrial Rate : 068 BPM P-R Int : 000 ms QRS Dur : 074 ms QT Int : 512 ms P-R-T Axes : 072 -50 003 degrees QTc Int : 432 ms Sinus rhythm with complete heart block with junctional escape Left anterior fascicular block Anterior infarct (cited on or before 28-FEB-2019) Abnormal ECG When compared with ECG of 27-MAR-2019 09:38, Significant changes have occurred Confirmed by Aman Gallardo ([id number]) on 11/23/2020 4:09:00 PM Referred By: Confirmed By:Aman Gallardo Code Status & VTE Plan VTE Prophylaxis Plan VTE Prophylaxis will be ordered: Yes PG Care Time/CCT Total # of Minutes Spent Total Time Spent with Patient: Total time spent is greater than 50% in coordination of care (as documented) at patient's floor/unit and/or counseling patient: Coding Level of Care Code 58441 Initial Inpt Care Lvl 3 Diagnoses Hypothyroidism E03.9 Mild cognitive impairment G31.84 CKD (chronic kidney disease) N18.9 Hypertension I10 Aortic stenosis I35.0 Complete heart block I44.2 Bronchiectasis J47.9
[2020-11-23] MEDS: HEPARIN SOD (PORCINE) 5,000 UNITS/ML VIAL SQ SCH (21:54)
[2020-11-23] MEDS: cefTRIAXone SODIUM 1,000 MG in DEXTROSE 5% 50 ML IV SCH (21:57)
[2020-11-24] MEDS: LEVOTHYROXINE SODIUM 50 MCG TABLET PO SCH (05:41)
--- NOTE | 2020-11-24 07:57 | Hospitalist Progress Note ---
Date of Service November 24, 2020 Assessment & Plan Plan: 85yo female presenting with complete heart block. Patient with HR in the 40's, blood pressure is stable, presently 153/63. She is mentating well. She does have some physical exam and laboratory findings consistent with mild heart failure to include bilateral LE edema, elevated BNP, mild elevation of AST/ALT possibly secondary to hepatic congestion. Complete heart block External pacer pads in place Holding metoprolol, antihypertensives Echo ordered Troponin wnl Cardiology consulted: unclear if this is partially due to beta-blockade; plan is to hold metoprolol, see if conduction abnormalities continue through tomorrow morning, at which point Dr. Ballard will decide if patient should get a pacemaker placed NPO at midnight for potential pacemaker placement Bronchiectasis Patient with history of bronchiectasis mostly involving the RML Patient had a CT chest performed (11/23) in the outpatient setting which reveals RML consolidation and bronchiectasis. Patient had been on azithromycin since 11/22 for a recommended four-dayy course and ceftriaxone since 11/22 for two-day course Uncertain if findings represent PNA or ongoing bronchiectasis. Patient with chronic dry cough, otherwise denies symptoms of active PNA; respiratory exam CTABL Continue mucinex and flutter valve Procalcitonin negative Will continue antibiotics for now until 11/26 - uncertain if findings represent active infection/CAP; however, as patient may have device placed would want to continue antibiotic treatment at this time Hypertension BP mildly elevated Hold antihypertensives as above Aortic stenosis Last echo (02/2019): normal LV size and function with EF of 60-65%, no regional WMA, mild concentric LVH, sclerotic aortic valve without significant stenosis, mild MR, [id number] TR Repeat echo ordered CKD Creatinine near baseline Avoid nephrotoxic agents Trend daily BMP Hypothyroidism TSH wnl Continue synthroid 50mcg PO qd Mild cognitive impairment Mini cognitive test (performed 06/03/19) on which she scored a 23/30 consistent with mild cognitive impairment Avoid Beers criteria meds if possible Frequent reorientation FEN: NPO Code status: full code DVT ppx: SCDs Isolation: none Consults: cardiology Dispo: PCU telemetry Contact information: patient's son (Isiah Feldman) is a physician in the [facility]/[employer]; he asks to be updated with any new information (cell: [phone]) Admission and Anticipated Discharge Date Admission Date: November 23, 2020 Subjective Patient seen and evaluated at bedside this morning. No acute events overnight. Patient feels "okay" today - reports continued weakness and lightheadedness. LE edema a bit improved. Patient denies CP, SOB, abdominal pain, nausea, vomiting, diarrhea, or other symptoms. Review of Systems Review of Systems: See HPI Physical Exam Physical Exam: Constitutional: well-appearing, no acute distress CV: irregular rhythm, bradycardic, grade 5/6 systolic crescendo-decrescendo murmur appreciated, 2+ pitting edema of BL LE Resp: CTABL, no wheezes/rales/rhonchi appreciated, no increased work of breathing Skin: warm, dry, no rash appreciated Neuro: AOx4, no focal neurological deficits appreciated Results & Data Results & Data ([facility]) Vital Signs (Past 12 Hours) Vital Signs Temp Pulse Resp BP BP Pulse Ox 11/24/20 06:55 36.9 C 41 L 16 156/57 H 91 11/24/20 04:30 36.5 C 41 L 18 182/63 H 92 11/23/20 23:09 36.7 C 41 L 16 155/61 H 92
[2020-11-24] MEDS: HEPARIN SOD (PORCINE) 5,000 UNITS/ML VIAL SQ SCH ×2 (08:03→20:36)
[2020-11-24] MEDS: ATORVASTATIN 20 MG TAB PO SCH (08:03)
[2020-11-24] MEDS: guaiFENesin 600 MG TABCR PO SCH ×2 (08:03→20:35)
[2020-11-24] MEDS: PANTOprazole 40 MG TAB PO SCH (08:03)
[2020-11-24] MEDS: AZITHROMYCIN 250 MG in DEXTROSE 5% 250 ML IV SCH (08:05)
[2020-11-24 08:11] LABS: Mean Corpuscular Hgb Conc 32.9 g/dL (32-36)
[2020-11-24 08:23] LABS: Hematocrit (blood only) 32.8 % (37-47); Hemoglobin 10.8 g/dL (12.0-16.0); Mean Corpuscular Hemoglobin 31.8 pg (25-34); Mean Corpuscular Volume 96.5 fL (80-100); RDW Coefficient of Variation 12.9 % (11.5-14.5); White Blood Count 4.72 K/uL (4.8-10.8)
[2020-11-24 08:35] LABS: Basophils # (auto) 0.02 K/uL (0-0.2); Basophils % (auto) 0.4 %; Eosinophils % (auto) 8.5 %; Lymphocytes # (auto) 0.78 K/uL (1.2-3.4); Lymphocytes % (auto) 16.5 %; Mean Platelet Volume 14.8 fL (7.4-10.4); Monocytes # (auto) 0.58 K/uL (0.11-0.59); Monocytes % (auto) 12.3 %; Neutrophils # (auto) 2.94 K/uL (1.4-6.5); Neutrophils % (auto) 62.3 %; Platelet Count 151 K/uL (130-400); Platelet Estimate Normal (Normal)
[2020-11-24 08:41] LABS: Alanine Aminotransferase 107 U/L (12-78); Albumin Level 3.4 gm/dl (3.4-5.0); Aspartate Aminotransferase 50 U/L (15-37); BUN Creatinine Ratio 18.9 (10-20); Bilirubin Direct < 0.1 mg/dl (0-0.2); Blood Urea Nitrogen 37 mg/dl (7-18); Calcium 9.7 mg/dl (8.5-10.1); Carbon Dioxide 26 mmol/L (21-32); Chloride 105 mmol/L (98-107); Est GFR (African American) 26.2 ml/min; Est GFR (Non-African American) 22.6 ml/min; Glucose 88 mg/dl (70-99); Potassium 3.6 mmol/L (3.5-5.1); Sodium 139 mmol/L (136-145)
[2020-11-24 08:44] LABS: Alkaline Phosphatase 67 U/L (45-117); Bilirubin,Total 0.4 mg/dl (0.2-1); Total Protein 6.7 gm/dl (6.4-8.2)
--- NOTE | 2020-11-24 11:36 | Cardiology Consultation ---
Date of Consultation November 24, 2020 Assessment & Plan (1) High-grade atrioventricular block: (2) Aortic stenosis: (3) Stroke: 1. High-grade AV block: She presents now with symptomatic AV block. The conducted complex is narrow suggesting this may be AV arleen block. It could be aggravated by beta-blockade. She took her beta-blockade about 24 hours ago as far as I know, therefore it may be a little bit early to tell whether this is a beta-blockade effect. She was on long lasting metoprolol (metoprolol succinate). I think we should wait at least until tomorrow morning to see if there is some return of appropriate conduction. She may well need a pacemaker and I will plan accordingly for tomorrow but make a final decision tomorrow morning. 2. Aortic stenosis: She does have moderate aortic stenosis however her heart function is normal (with left ventricular hypertrophy). Heart block is, and with aortic stenosis and that may be part of her physiology. 3. Stroke: She has a history of a small stroke but I believe has some cognitive impairment following it. I believe this is felt to be due to vascular disease not atrial fibrillation, although a dual-chamber pacemaker will be used if we do implant 1 and that will monitor for atrial fibrillation. History of Present Illness Reason for Consultation: AV block Attending Physician: Ebonie Cruz, History of Present Illness This is an 85-year-old woman who has a history of hypothyroidism, chronic kidney disease, hypertension, aortic sclerosis and mild cognitive impairment. She does have a history of a small left basal ganglia stroke, this did result in some gait dysfunction and cognitive impairment. She is on aspirin for continued stroke prevention. She also has a recent history of cough and some dyspnea on exertion and is followed by pulmonary. She is a resident of [facility]. She presents with 4 days of weakness and fatigue as well as lower extremity edema. In the emergency room she was found to have AV block. As an outpatient she was on amlodipine, hydralazine and metoprolol succinate 50 mg daily. An electrocardiogram done March 27, 2019 showed sinus rhythm with a normal MD interval. Her electrocardiogram on November 23, 2020 at 1540 showed sinus rhythm with a sinus rate of about 75 bpm but somewhat irregular, second-degree AV block probably severe Mobitz 1 or high-grade AV block. Her blood pressure has been high (not low) and her heart rate has been averaging around 40 bpm since admission. On my interview with her she is not a very good historian. She cannot really describe symptoms, she does not recall feeling poorly when she came into the hospital. She is conversational is laying in bed when I saw her. She tells me she has not had lightheadedness or dizziness. Allergies Allergy/AdvReac Type Severity Reaction Status Date / Time amoxicillin [From Augmentin] Allergy Intermediate NAUSEA/VOMI Verified 11/23/20 16:35 TING clavulanic acid Allergy Intermediate NAUSEA/VOMI Verified 11/23/20 16:35 [From Augmentin] TING codeine AdvReac Intermediate N/V Verified 11/23/20 16:35 Home Medications Medication Instructions Recorded Confirmed Type amlodipine 2.5 mg tablet 2.5 mg PO QAM 02/28/19 11/23/20 History acetaminophen 500 mg tablet 500 - 1,000 mg PO Q6H PRN 03/27/19 11/23/20 History (Tylenol Extra Strength) atorvastatin 20 mg tablet 20 mg PO DAILY 06/03/19 11/23/20 History levothyroxine 50 mcg tablet 50 mcg PO QAM #90 tab 03/16/20 11/23/20 Rx metoprolol succinate 50 mg 50 mg PO QAM #90 tab 03/16/20 11/23/20 Rx tablet,extended release 24 hr Flutter Valve #1 ea 10/25/20 10/25/20 Rx guaifenesin 600 mg tablet, 600 mg PO BID PRN #60 tab 10/25/20 11/23/20 Rx extended release 12 hr (Mucinex) pantoprazole 40 mg tablet,delayed 40 mg PO DAILY 10/25/20 11/23/20 History release amlodipine 5 mg tablet 5 mg PO DAILY 11/23/20 11/23/20 History azithromycin 250 mg tablet 250 mg PO DAILY 11/23/20 11/23/20 History ceftriaxone 1 gram solution for 1 g IV DAILY 11/23/20 11/23/20 History injection heparin (porcine) 5,000 unit/mL 5,000 unit SUBCUT BID 11/23/20 11/23/20 History injection solution hydralazine 25 mg tablet 25 mg PO BID 11/23/20 11/23/20 History Patient History Medical History Acute renal failure (08/15/13) 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 Cerebral vascular disease CKD (chronic kidney disease) Hyperglycemia Hypertension Hypothyroidism Mild cognitive impairment PNA (pneumonia) (2016) Stroke Left basal ganglia February 2019 Surgical History History of cataract surgery History of laminectomy History of tonsillectomy Family History Sister Alcoholism Father Atherosclerosis Gout Lung cancer Mother Hypertension Osteoporosis Stroke Denies family history of Colon cancer Ovarian cancer Prostate cancer Myocardial infarction Breast cancer Social History Smoking Status: Never smoker Hx Alcohol Use: Yes Alcohol type: wine Hx Substance Use: No Preferred Language: Wolof Communication Ability: Effective Visual Impairment: No Limitations Hearing Ability: Normal Embossograph Operator Required: No Beliefs That Will Affect Care: None and Latter-Day Latter-Day Beliefs: Mandaen. marital status: Current Living Situation: Personal Care Facility Current Living Situation Comment: Skilled side of [employer]. current occupational status: retired How many Children do You have: 2 Other Information That Helps Us Care for You: No Feels Safe at Home: Yes Safety Concerns: Feels Safe At This Time Childhood Exposure to Second-Hand Smoke: Yes Physical Activity Frequency: Daily Seatbelt Use: always Sunscreen Use: Yes Assistive Devices: None Review of Systems Review of Systems: Unobtainable due to cognitive status Physical Exam Physical Exam: Constitutional: Alert, cooperative and in no distress. She is resting in bed. HEENT: Unremarkable Neck: No jugular venous distention, carotid pulses are slow but normal and equal bilaterally without bruits. Pulmonary: Clear to auscultation bilaterally. Cardiac: Regular slow rhythm with a grade 3/6 crescendo decrescendo murmur at the base, no gallop or rub. Abdomen: Soft, nontender with normal bowel sounds. Extremities: No edema. Neurologic: No focal findings. Gait was not tested. Skin: No rash, ecchymoses or petechiae. Results & Data ([facility]) Vital Signs (Past 12 Hours) Vital Signs Temp Pulse Resp BP BP Pulse Ox 11/24/20 06:55 36.9 C 41 L 16 156/57 H 91 11/24/20 04:30 36.5 C 41 L 18 182/63 H 92 Diagnostic Findings Telemetry: Sinus rhythm with high-grade AV block, there may be periods of complete heart block but often there is conduction as evidenced by somewhat irregular ventricular response. Echocardiogram: The echo done today shows normal left ventricular systolic function with left ventricular hypertrophy and moderate aortic stenosis. PG Care Time/CCT Total # of Minutes Spent Total Time Spent with Patient: Total time spent is greater than 50% in coordination of care (as documented) at patient's floor/unit and/or counseling patient: Coding Level of Care Code 41486 Initial Inpt Care Lvl 3 Diagnoses High-grade atrioventricular block I44.39 Aortic stenosis I35.0 Stroke I63.9 CVA mechanism: unspecified (1) Stroke CVA mechanism: unspecified Qualified Code(s): I63.9 - Cerebral infarction, unspecified
--- NOTE | 2020-11-24 14:20 | XCELERA ---
[id number]
--- NOTE | 2020-11-24 16:36 | Discharge Summary ---
Date of Service November 24, 2020 Admission HPI Per Admitting Provider Caroline Feldman is an 85yo female presenting in complete heart block. Patient resides at [facility] and is fairly active and independent at baseline. Over the last 4 days she has noted weakness and fatigue as well as decreased exercise tolerance and LE edema. She denies chest pain/palpitations/fever/chills/abdominal pain/nausea/vomiting/diarrhea or constipation. Denies syncope/dizziness/confusion Patient found to be in complete heart block with HR of 40's in the ER. BP stable. Patient mentating well. ER Course: NSS Discharge Data Allergies Allergy/AdvReac Type Severity Reaction Status Date / Time amoxicillin [From Augmentin] Allergy Intermediate NAUSEA/VOMI Verified 11/23/20 16:35 TING clavulanic acid Allergy Intermediate NAUSEA/VOMI Verified 11/23/20 16:35 [From Augmentin] TING codeine AdvReac Intermediate N/V Verified 11/23/20 16:35 Consultations 11/23/20 18:55 Consult Cardiology Routine Discharge Plan Discharge Items Reason For Visit: COMPLETE HEART BLOCK [facility] - Medications and DC Order Prescriptions: No Action metoprolol succinate 50 mg tablet extended release 24 hr 50 mg PO QAM Qty: 90 RF: 3 levothyroxine 50 mcg tablet 50 mcg PO QAM Qty: 90 RF: 3 atorvastatin 20 mg tablet 20 mg PO DAILY RF: 0 pantoprazole 40 mg tablet,delayed release (DR/EC) 40 mg PO DAILY RF: 0 guaifenesin [Mucinex] 600 mg tablet extended release 12hr 600 mg PO BID PRN (Reason: congestion) Qty: 60 RF: 1 (DME) Flutter Valve Device See Rx Instructions .MEDSUPPLY Qty: 1 RF: 0 acetaminophen [Tylenol Extra Strength] 500 mg Tablet 500 - 1,000 mg PO Q6H PRN (Reason: Pain) RF: 0 amlodipine 2.5 mg tablet 2.5 mg PO QAM RF: 0 hydralazine 25 mg tablet 25 mg PO BID RF: 0 amlodipine 5 mg tablet 5 mg PO DAILY RF: 0 azithromycin 250 mg tablet 250 mg PO DAILY RF: 0 ceftriaxone 1 gram recon soln 1 g IV DAILY RF: 0 heparin (porcine) 5,000 unit/mL solution 5,000 unit subcut BID RF: 0 Admission Data Admit Date/Time: 11/23/20 17:19 Attending Provider: Ebonie Cruz Admit Provider: Ebonie Cruz Primary Care Provider: Jarrett Marie Other Providers: Aman Gallardo
--- NOTE | 2020-11-24 19:12 | Billing Data ---
Date of Service November 24, 2020 Coding Level of Care Code 83364 Subseq Hosp Care Lvl 3
[2020-11-24] MEDS: cefTRIAXone SODIUM 1,000 MG in DEXTROSE 5% 50 ML IV SCH (20:35)
[2020-11-24] MEDS ORDERED: ACETAMINOPHEN 500 MG TAB PO PRN (23:06)
[2020-11-25] MEDS ORDERED: LACTATED RINGER'S 1,000 ML IV SCH (06:00)
[2020-11-25] MEDS ORDERED: CLINDAMYCIN 600 MG/54 ML BAG IV SCH (06:00)
[2020-11-25 06:49] LABS: Basophils # (auto) 0.02 K/uL (0-0.2); Basophils % (auto) 0.4 %; Eosinophils % (auto) 8.4 %; Hematocrit (blood only) 32.6 % (37-47); Hemoglobin 10.7 g/dL (12.0-16.0); Immature Granulocytes # (auto) 0.01 K/uL (0.00-0.02); Immature Granulocytes % (auto) 0.2 %; Lymphocytes # (auto) 1.17 K/uL (1.2-3.4); Lymphocytes % (auto) 24.6 %; Mean Corpuscular Hemoglobin 31.9 pg (25-34); Mean Corpuscular Hgb Conc 32.8 g/dL (32-36); Mean Corpuscular Volume 97.3 fL (80-100); Mean Platelet Volume 13.8 fL (7.4-10.4); Monocytes # (auto) 0.43 K/uL (0.11-0.59); Monocytes % (auto) 9.1 %; Neutrophils # (auto) 2.72 K/uL (1.4-6.5); Neutrophils % (auto) 57.3 %; Platelet Count 156 K/uL (130-400); RDW Coefficient of Variation 12.7 % (11.5-14.5); RDW Standard Deviation 44.7 fL (36.4-46.3); Red Blood Count 3.35 M/uL (4.2-5.4); White Blood Count 4.75 K/uL (4.8-10.8)
[2020-11-25 07:25] LABS: BUN Creatinine Ratio 18.1 (10-20); Calcium 9.3 mg/dl (8.5-10.1); Creatinine Clr Calc Pharmacy 13.8 ml/min; Est GFR (African American) 23.7 ml/min; Est GFR (Non-African American) 20.5 ml/min; Potassium 4.1 mmol/L (3.5-5.1)
[2020-11-25] MEDS: LEVOTHYROXINE SODIUM 50 MCG TABLET PO SCH (07:52)
[2020-11-25] MEDS: guaiFENesin 600 MG TABCR PO SCH ×2 (08:08→20:10)
[2020-11-25] MEDS: HEPARIN SOD (PORCINE) 5,000 UNITS/ML VIAL SQ SCH ×2 (08:09→20:10)
[2020-11-25] MEDS: ATORVASTATIN 20 MG TAB PO SCH (08:09)
[2020-11-25] MEDS: PANTOprazole 40 MG TAB PO SCH (08:09)
[2020-11-25] MEDS: AZITHROMYCIN 250 MG in DEXTROSE 5% 250 ML IV SCH (08:14)
[2020-11-25] MEDS ORDERED: LIDOCAINE 1% LOCAL 20 ML VIAL ONE (10:03)
[2020-11-25] MEDS ORDERED: WATER, STERILE FOR INJ 10 ML VIAL ONE (10:03)
[2020-11-25] MEDS ORDERED: BACITRACIN OINT 0.9 GM PKT ONE (10:03)
[2020-11-25] MEDS ORDERED: VANCOMYCIN HCL 1000MG/20ML VIAL ONE (10:03)
--- NOTE | 2020-11-25 11:16 | Hospitalist Progress Note ---
Date of Service November 25, 2020 Assessment & Plan (1) Gait disturbance: Plan: 85yo female presenting with complete heart block. Patient with HR in the 40's, blood pressure is stable, presently 153/63. She is mentating well. She does have some physical exam and laboratory findings consistent with mild heart failure to include bilateral LE edema, elevated BNP, mild elevation of AST/ALT possibly secondary to hepatic congestion. Complete heart block External pacer pads in place Holding metoprolol, antihypertensives Troponin wnl Cardiology placed pacemaker today; will f/u Bronchiectasis Patient with history of bronchiectasis mostly involving the RML Patient had a CT chest performed (11/23) in the outpatient setting which reveals RML consolidation and bronchiectasis. Patient had been on azithromycin since 11/22 for a recommended four-dayy course and ceftriaxone since 11/22 for two-day course Uncertain if findings represent PNA or ongoing bronchiectasis. Patient with chronic dry cough, otherwise denies symptoms of active PNA; respiratory exam CTABL Continue mucinex and flutter valve Procalcitonin negative Will continue antibiotics for now until 11/26 - uncertain if findings represent active infection/CAP; however, as patient may have device placed would want to continue antibiotic treatment at this time Hypertension BP mildly elevated Hold antihypertensives as above Aortic stenosis Last echo (02/2019): normal LV size and function with EF of 60-65%, no regional WMA, mild concentric LVH, sclerotic aortic valve without significant stenosis, mild MR, [id number] TR Repeat echo ordered CKD Creatinine near baseline Avoid nephrotoxic agents Trend daily BMP Hypothyroidism TSH wnl Continue synthroid 50mcg PO qd Mild cognitive impairment Mini cognitive test (performed 06/03/19) on which she scored a 23/30 consistent with mild cognitive impairment Avoid Beers criteria meds if possible Frequent reorientation FEN: NPO Code status: full code DVT ppx: SCDs Isolation: none Consults: cardiology Dispo: PCU telemetry Contact information: patient's son (Isiah Feldman) is a physician in the [employer]; he asks to be updated with any new information (cell: [phone]) Admission and Anticipated Discharge Date Admission Date: November 23, 2020 Supervising Physician Co-Signing Physician Notes I personally examined the patient and verified all triana points of history and exam, discussed case, and agree with decision making with Dr Harvey. Feeling okay. Still a little bit confused post sedation for pacer. present at the bedside. Answered all questions to the best my ability and to his satisfaction. She notes no complaints of pain. She actually barely even knew she had the procedure done. Vitals noted, in general she is awake and alert pleasant no distress is a little bit easily confusedlikely effect of anesthesia. HEENT normocephalic atraumatic mucous membranes moist. Chest wall site where pacer was placed is dressed without any significant local bruising or erythema. Skin shows no other rashes, pallor, icterus. Neuro without focal deficits. Complete heart blocknow status post pacemaker placement [id number] a bit of an acute kidney injury representing a drop off of about 7 mils per minute of GFRprobably from poor forward flow from her complete heart blockfollow for hopeful improvement with improved rates. Otherwise as above. Subjective Patient had a short run of vtach overnight - Dr. Ballard made aware. This morning, patient feels well today and has no acute complaints. On board with plan to get a pacemaker placed today. Patient denies CP, SOB, abdominal pain, nausea, vomiting, diarrhea, or other symptoms. Review of Systems Review of Systems: See HPI Physical Exam Physical Exam: Constitutional: well-appearing, no acute distress CV: irregular rhythm, bradycardic, grade 5/6 systolic crescendo-decrescendo murmur appreciated, 2+ pitting edema of BL LE Resp: CTABL, no wheezes/rales/rhonchi appreciated, no increased work of breat blanche Skin: warm, dry, no rash appreciated Neuro: AOx4, no focal neurological deficits appreciated Results & Data Results & Data ([facility]) Vital Signs (Past 12 Hours) Vital Signs Temp Pulse Pulse Resp BP BP Pulse Ox 11/25/20 09:35 92 11/25/20 09:21 36.6 C 41 L 20 181/62 H 88 L 11/25/20 08:00 36 L 11/25/20 07:37 40 L 180/64 H 11/25/20 04:03 36.8 C 39 L 18 188/74 H 92 11/25/20 03:08 42 L 11/24/20 23:42 36.7 C 41 L 18 177/66 H 92
--- NOTE | 2020-11-25 11:19 | Cardiology Progress Note ---
Date of Service November 25, 2020 Assessment & Plan (1) High-grade atrioventricular block: (2) Aortic stenosis: (3) Stroke: Plan: 1. High-grade AV block: She presents now with symptomatic AV block. The conducted complex is narrow suggesting this may be AV arleen block. It has not changed with holding beta-blockade and she m does need a pacemaker and I will plan to implant that today. I discussed it with her as well as her son by telephone, everyone's agreement. I discussed the indications, procedure, risks and alternatives and obtained consent from the patient. I also discussed sedation and she is in agreeable. 2. Aortic stenosis: She does have aortic stenosis however her heart function is normal (with left ventricular hypertrophy). Heart block is common with aortic stenosis and that may be part of her physiology. 3. Stroke: She has a history of a small stroke but I believe has some cognitive impairment following it. I believe this is felt to be due to vascular disease not atrial fibrillation, although a dual-chamber pacemaker will be used if we do implant 1 and that will monitor for atrial fibrillation. Admission and Anticipated Discharge Date Admission Date: November 23, 2020 Subjective She is feeling a little tired today, and she describes a headache but from the cardiovascular standpoint feels well. Physical Exam Physical Exam: Constitutional: Alert, cooperative and in no distress. She is resting in bed. HEENT: Unremarkable Neck: No jugular venous distention, carotid pulses are slow but normal and equal bilaterally without bruits. Pulmonary: Clear to auscultation bilaterally. Cardiac: Regular slow rhythm with a grade 3/6 crescendo decrescendo murmur at the base, no gallop or rub. Abdomen: Soft, nontender with normal bowel sounds. Extremities: No edema. Neurologic: No focal findings. Gait was not tested. Skin: No rash, ecchymoses or petechiae. Results & Data ([facility]) Vital Signs (Past 12 Hours) Vital Signs Temp Pulse Pulse Resp BP BP Pulse Ox 11/25/20 09:35 92 11/25/20 09:21 36.6 C 41 L 20 181/62 H 88 L 11/25/20 08:00 36 L 11/25/20 07:37 40 L 180/64 H 11/25/20 04:03 36.8 C 39 L 18 188/74 H 92 11/25/20 03:08 42 L 07/21/21 23:42 36.7 C 41 L 18 177/66 H 92 Laboratory Results CBC 11/25/20 Range/Units 06:28 WBC 4.75 L (4.8-10.8) K/uL RBC 3.35 L (4.2-5.4) M/uL Hgb 10.7 L (12.0-16.0) g/dL Hct 32.6 L (37-47) % Plt Count 156 (130-400) K/uL Neut # (Auto) 2.72 (1.4-6.5) K/uL Lymph # (Auto) 1.17 L (1.2-3.4) K/uL [place] # (Auto) 0.43 (0.11-0.59) K/uL Eos # (Auto) 0.40 (0-0.5) K/uL Baso # (Auto) 0.02 (0-0.2) K/uL Comprehensive Metabolic Panel 11/25/20 Range/Units 06:28 Sodium 139 (136-145) mmol/L Potassium 4.1 (3.5-5.1) mmol/L Chloride 106 (98-107) mmol/L Carbon Dioxide 31 (21-32) mmol/L BUN 39 H (7-18) mg/dl Creatinine 2.14 H (0.6-1.2) mg/dl Glucose 99 (70-99) mg/dl Calcium 9.3 (8.5-10.1) mg/dl Intake and Output 11/24/20 11/25/20 11/25/20 22:59 06:59 14:59 Intake Total 300 / 602.5 50 / 602.5 Output Total 450 / 1000 250 / 1000 Balance -150 / -397.5 -200 / -397.5 Intake: IV 50 / 302.5 cefTRIAXone SODIUM 1,000 mg In 50 / 50 Dextrose 5% 50 ml @ 100 mls/hr IV Q24H [facility] Rx#:[id number] Oral 300 / 300 Output: Urine Amount (Catheter) 450 / 1000 250 / 1000 3-way Urethral 450 / 1000 250 / 1000 Other: Weight 48.9 kg Weight Measurement Method Built in [facility] Diagnostic Findings Telemetry: Continued second or high-grade AV block with no change in heart rate since admission, averaging about 40 bpm. PG Care Time/CCT Total # of Minutes Spent Total Time Spent with Patient: Total time spent is greater than 50% in coordination of care (as documented) at patient's floor/unit and/or counseling patient: Coding Level of Care Code 04250 Subseq Hosp Care Lvl 3 Diagnoses High-grade atrioventricular block I44.39 Aortic stenosis I35.0 Stroke I63.9 CVA mechanism: unspecified (1) Stroke CVA mechanism: unspecified Qualified Code(s): I63.9 - Cerebral infarction, unspecified
[2020-11-25] MEDS ORDERED: MIDAZOLAM HCL 5 MG/ML 1 ML VIAL ONE (11:25)
[2020-11-25] MEDS ORDERED: fentaNYL citrate 100 MCG/2 ML VIAL ONE (11:25)
[2020-11-25] MEDS ORDERED: CLINDAMYCIN PHOS 300 MG/2 ML VIAL ONE (11:30)
--- NOTE | 2020-11-25 11:30 | Pre Anesthesia Assessment ---
Date of Service November 25, 2020 Pre Sedation Assessment Vital Signs Temp Pulse Pulse Resp BP BP Pulse Ox 11/25/20 09:35 92 11/25/20 09:21 36.6 C 41 L 20 181/62 H 88 L 11/25/20 08:00 36 L 11/25/20 07:37 40 L 180/64 H 11/25/20 04:03 36.8 C 39 L 18 188/74 H 92 11/25/20 03:08 42 L 11/24/20 23:42 36.7 C 41 L 18 177/66 H 92 11/24/20 20:15 37.3 C 44 L 18 186/51 H 91 11/24/20 16:00 41 L 11/24/20 14:41 37.0 C 43 L 16 155/62 H 91 11/24/20 11:44 36.6 C 40 L 15 164/53 H 91 Cardiovascular + regular rate and + bradycardic Respiratory normal respiratory effort, lungs clear to auscultation Pre-Sedation Airway Assessment Smoking Status: Never smoker Notes The planned sedation has been discussed with the patient. Informed Consent was obtained. I have identified the patient, determined the appropriateness of sedation and have assessed the patient immediately prior to the procedure. All medicine(s) and interventions are by my order.
--- NOTE | 2020-11-25 12:06 | Pre Anesthesia Assessment ---
Date of Service November 25, 2020 Pre Sedation Assessment Vital Signs Temp Pulse Pulse Resp BP BP Pulse Ox 11/25/20 11:44 40 L 16 187/61 H 93 11/25/20 09:35 92 11/25/20 09:21 36.6 C 41 L 20 181/62 H 88 L 11/25/20 08:00 36 L 11/25/20 07:37 40 L 180/64 H 11/25/20 04:03 36.8 C 39 L 18 188/74 H 92 11/25/20 03:08 42 L 11/24/20 23:42 36.7 C 41 L 18 177/66 H 92 11/24/20 20:15 37.3 C 44 L 18 186/51 H 91 11/24/20 16:00 41 L 11/24/20 14:41 37.0 C 43 L 16 155/62 H 91 Cardiovascular + regular rate and + bradycardic Respiratory normal respiratory effort, lungs clear to auscultation Pre-Sedation Airway Assessment Smoking Status: Never smoker Short, Thick Neck: No Thyromental Distance: > or= 3.5 Finger Breadths Oral Cavity: + WNL Mallampati Class: III ASA: ASA3 NPO Status Date of Last Intake of Fluids: 11/24/20 Date of Last Intake of Solid Food: 11/24/20 Notes The planned sedation has been discussed with the patient. Informed Consent was obtained. I have identified the patient, determined the appropriateness of sedation and have assessed the patient immediately prior to the procedure. All medicine(s) and interventions are by my order.
--- NOTE | 2020-11-25 13:32 | Electrophysiology Report ---
Date of Service November 25, 2020 Electrophysiology Procedure Electrophysiology Procedure Report Preoperative diagnosis: High-grade AV block Postoperative diagnosis: Same Procedure: Left subclavian venogram Dual-chamber pacemaker implantation Surgeon: Leander Ballard MD Estimated blood loss: 30 cc Complications: None Disposition: E Business Project Manager recovery Procedure details: After obtaining informed consent for the procedure, the patient was brought to the laboratory and prepped and draped in the standard sterile manner. Dye was injected the left arm IV site to opacify the left subclavian vein. The subclavian vein was identified and found to be free of obstruction. The left prepectoral region was anesthetized with 1% lidocaine local anesthetic and left axillary venipuncture was performed by percutaneous technique and a guidewire placed through the left subclavian vein into the superior vena cava. The area was further infiltrated with 1% lidocaine local anesthetic and a 5 cm incision was made parallel to the left clavicle and 2 cm below it and carried down to the anterior pectoralis fascia. A pacemaker pocket was formed by blunt dissection anterior to the pectoralis fascia and a vancomycin-soaked sponge was placed in the pocket. An 8 Sudanese Medtronic lead introducer was placed over the guidewire into the left subclavian vein, the dilator and guidewire were removed and a bipolar active fixation steroid tipped atrial lead was advanced through the introducer into the superior vena cava. A guidewire was placed through the introducer and the introducer was stripped from the lead and guidewire. A 7 Sudanese Medtronic lead introducer was placed over the retained guidewire into the left subclavian vein, the dilator and guidewire were removed and a C315 sheath was advanced into the right ventricle over a guidewire. The guidewire and the dilator were removed and a bipolar active fixation Select Secure steroid tipped ventricular lead was advanced through the introducer into right ventricle. The ventricular lead was advanced through the sheath into a mid to distal septal location. The screw was extended fixing the lead in position. Penetration into the septum was confirmed with dye injection. Pacing and sensing thresholds were evaluated in bipolar configuration and are recorded on the implant data sheet. Diaphragmatic pacing was evaluated full output as noted on the implant data sheet. The sheath system was stripped from the ventricular lead and the 7 Sudanese sheath was also stripped from the lead. Using a curved stylette the atrial lead was positioned in the region of the atrial appendage and the screw extended fixing the lead in position. Pacing and sensing thresholds were evaluated in bipolar configuration and are recorded on the implant data sheet. Diaphragmatic pacing was evaluated full output and is noted on the implant data sheet. Once the leads were in position they were attached to the anterior pectoralis fascia using 2 sutures of 2-0 silk around each lead collar. The vancomycin soaked sponge was removed from the pocket, hemostasis was obtained, the pacemaker was attached to the leads and placed in the pocket with the leads coiled beneath it. The incision was closed with a running double subcutaneous closure of 3-0 Vicryl absorbable suture, followed by running subcuticular skin closure of 4-0 Vicryl absorbable suture. Bacitracin ointment was placed on the incision and a dressing applied. [facility] [place] codes Indication for Procedure (1) High-grade atrioventricular block: Pacing Procedure 1: Pacin Insert/Replace Pacer A & V Miscellaneous Procedures Procedure 1: EP Miscellaneous: 60589 Contrast injection for venography Procedure 2: EP Miscellaneous: 38838-88 Vengraphy, extremity PG Moderate Sedation Codes Moderate Sedation Codes Procedure 1: Sedation/Anesthesia: 05477 Mod Sedation by the same physician;Init15 Min Child Age 5 & Up Procedure 2: Sedation/Anesthesia: 73327 Mod Sedation by the same physician; Ea [id number] Minutes
[2020-11-25] MEDS ORDERED: ACETAMINOPHEN W/CODEINE #3 1 TAB PO PRN (13:50)
[2020-11-25] MEDS ORDERED: ACETAMINOPHEN 325 MG TAB PO PRN (13:50)
--- NOTE | 2020-11-25 14:04 | Post Anesthesia Assessment ---
Date of Service November 25, 2020 Post Sedation Assessment Vital Signs Temp Pulse Pulse Resp BP BP Pulse Ox 11/25/20 13:41 63 16 184/70 H 96 11/25/20 13:31 65 16 181/65 H 95 11/25/20 11:44 40 L 16 187/61 H 93 11/25/20 09:35 92 11/25/20 09:21 36.6 C 41 L 20 181/62 H 88 L 11/25/20 08:00 36 L 11/25/20 07:37 40 L 180/64 H 11/25/20 04:03 36.8 C 39 L 18 188/74 H 92 11/25/20 03:08 42 L 11/24/20 23:42 36.7 C 41 L 18 177/66 H 92 11/24/20 20:15 37.3 C 44 L 18 186/51 H 91 11/24/20 16:00 41 L 11/24/20 14:41 37.0 C 43 L 16 155/62 H 91 Recovery Score Activity: Moves 4 extremities Respiration: Deep Breath/Cough Circulation: +/-20% PreAnes Value Consciousness: Fully Awake Oxygen Saturation: > 92% On Room Air Post Anesthesia Score: 10 Discharge Sedation Level of Care: Fast Track Phase II Post Sedation Plan On clinical assessment, the patient appears to have tolerated the sedation without complications. Patient is recovering as anticipated. Patient will continue to be monitored by nursing and may be discharged when sedation discharge criteria are met per below protocol. Upon Completions of procedure up to 15 minutes continue every 5 minute vital signs and the P.A.R. score; then discharge to a Phase I or Fast Track to Phase II per the following guidelines: * Discharge Patient to appropriate Phase II area if PAR is 8 or greater or return to pre- procedure baseline. The post - procedure orders will be as directed. * If PAR score is less than 8 or not return to pre-procedure baseline then patient will follow Phase I monitoring till PAR is reached for Phase II. The Phase I may be done in procedure room or may call to secure a Phase I area. * If naloxone or flumazenil are used for reversal, hold in Phase I for continued monitoring from when last reversal dose was given for a minimum of 60 minutes or longer pending the nurse and/or physician discretion of patient condition before discharge to Phase II. Please call the Sedation Physician to re-evaluate and complete post-note for discharge to Phase II area. Do NOT discharge from procedure sedation or Phase 1 until post- sedation evaluation note is complete by procedure /sedation MD Sedation Discharge Instructions to be given to the patient at discharge to home.
--- NOTE | 2020-11-25 15:18 | Electrocardiogram Report ---
Test Reason : Blood Pressure : / mmHG Vent. Rate : 063 BPM Atrial Rate : 063 BPM P-R Int : 198 ms QRS Dur : 132 ms QT Int : 504 ms P-R-T Axes : 046 -43 109 degrees QTc Int : 515 ms Atrial-sensed ventricular-paced rhythm Abnormal ECG When compared with ECG of 23-NOV-2020 15:40, Electronic ventricular pacemaker has replaced Sinus rhythm with complete heart block Confirmed by Germán Tilley ([id number]) on 11/25/2020 3:18:14 PM Referred By: Jarrett Marie Confirmed By:Germán Tilley
[2020-11-25] MEDS: METOPROLOL SUCC 50MG EXT REL TAB PO SCH (15:53)
--- NOTE | 2020-11-25 18:48 | Communication Note ---
Date of Service: November 24, 2020 I personally examined the patient and verified all triana points of history and exam, discussed case, and agree with decision making with Dr Harvey Attending physician supervisory note for 11/24/2020 progress noteI have now tried twice to add my addendum to the progress note [facility], each time the computer gives an error, the system eliminates my documentation from the chart, and I cannot get it to work properly. I apologize for any confusion the separate addendum might create. Patient seen, feeling okay. No new complaints. Has multiple good questions about pacer placementanswered and best my ability and to her satisfaction. Vitals noted, in general she is awake and alert pleasant no distress. HEENT normocephalic atraumatic mucous membranes moist. Breathing unlabored no accessory muscle use good effort. Skin shows no rashes no pallor or icterus. EKG noted. Complete heart blockcurrently stable in bed, pacer pads at the ready, supp ortive care. For permanent pacer tomorrow. CKD4, with possible mild ADE superimposed from poor forward flow from her bradycardia resultant from the heart block.
--- NOTE | 2020-11-25 18:48 | Billing Data ---
Date of Service November 25, 2020 Coding Level of Care Code 63537 Subseq Hosp Care Lvl 2
[2020-11-25] MEDS: hydrALAZINE HCL 25 MG TAB PO SCH (20:09)
[2020-11-25] MEDS ORDERED: Nursing to Pharmacy Communication SCH (22:00)
[2020-11-25] MEDS: cefTRIAXone SODIUM 1,000 MG in DEXTROSE 5% 50 ML IV SCH (22:09)
[2020-11-26] MEDS: LEVOTHYROXINE SODIUM 50 MCG TABLET PO SCH (06:31)
[2020-11-26 07:48] LABS: Basophils # (auto) 0.03 K/uL (0-0.2); Basophils % (auto) 0.6 %; Eosinophils % (auto) 7.4 %; Hematocrit (blood only) 34.7 % (37-47); Hemoglobin 11.4 g/dL (12.0-16.0); Immature Granulocytes # (auto) 0.01 K/uL (0.00-0.02); Immature Granulocytes % (auto) 0.2 %; Lymphocytes # (auto) 0.84 K/uL (1.2-3.4); Lymphocytes % (auto) 15.5 %; Mean Corpuscular Hemoglobin 32.3 pg (25-34); Mean Corpuscular Hgb Conc 32.9 g/dL (32-36); Mean Corpuscular Volume 98.3 fL (80-100); Mean Platelet Volume 13.2 fL (7.4-10.4); Monocytes # (auto) 0.48 K/uL (0.11-0.59); Monocytes % (auto) 8.9 %; Neutrophils # (auto) 3.66 K/uL (1.4-6.5); Neutrophils % (auto) 67.4 %; Platelet Count 174 K/uL (130-400); RDW Coefficient of Variation 12.7 % (11.5-14.5); RDW Standard Deviation 45.3 fL (36.4-46.3); Red Blood Count 3.53 M/uL (4.2-5.4); White Blood Count 5.42 K/uL (4.8-10.8)
[2020-11-26] MEDS: ATORVASTATIN 20 MG TAB PO SCH (08:07)
[2020-11-26] MEDS: guaiFENesin 600 MG TABCR PO SCH (08:08)
[2020-11-26] MEDS: hydrALAZINE HCL 25 MG TAB PO SCH (08:08)
[2020-11-26] MEDS: METOPROLOL SUCC 50MG EXT REL TAB PO SCH (08:08)
[2020-11-26] MEDS: PANTOprazole 40 MG TAB PO SCH (08:09)
[2020-11-26] MEDS: AZITHROMYCIN 250 MG in DEXTROSE 5% 250 ML IV SCH (08:10)
[2020-11-26] MEDS: HEPARIN SOD (PORCINE) 5,000 UNITS/ML VIAL SQ SCH (08:12)
[2020-11-26 08:16] LABS: BUN Creatinine Ratio 17.7 (10-20); Calcium 9.3 mg/dl (8.5-10.1); Creatinine Clr Calc Pharmacy 16.7 ml/min; Est GFR (African American) 29.8 ml/min; Est GFR (Non-African American) 25.7 ml/min; Potassium 4.1 mmol/L (3.5-5.1)
--- NOTE | 2020-11-26 08:22 | XRay Report ---
XR chest 2V PA/lateral CLINICAL HISTORY: COMPARISON STUDY: No previous studies for comparison. FINDINGS: Interval placement of a dual-lead left subclavian pacer is noted. No pneumothorax is identi fied. Lead tips projects over the right atrial appendage and right ventricle. Small left and trace ri ght pleural effusions are noted. There is cardiomegaly. There is pulmonary vascular congestion. IMPRESSION: 1. No pneumothorax following placement of a dual lead left subclavian pacemaker. 2. Small left and trace right pleural effusions ACT 112: Negative or not required by law. Electronically signed by: Martin Hameed M.D. 11/26/2020 8:21 AM
--- NOTE | 2020-11-26 08:49 | Cardiology Progress Note ---
Date of Service November 26, 2020 Assessment & Plan (1) Status post placement of cardiac pacemaker: Plan: She is doing well with her pacemaker, the device is working well and measurements are good. She is stable for discharge. Admission and Anticipated Discharge Date Admission Date: November 23, 2020 Subjective She has minimal exertion no shortness of breath or chest discomfort. Incisional discomfort Physical Exam Physical Exam: The incision is clean and dry, there is some ecchymosis but no swelling, no drainage Results & Data ([facility]) Vital Signs (Past 12 Hours) Vital Signs Temp Pulse Resp BP Pulse Ox 11/26/20 08:03 36.8 C 84 18 169/68 H 96 11/26/20 03:15 36.4 C L 70 18 173/75 H 93 11/25/20 23:51 36.3 C L 64 16 161/75 H 93 Laboratory Results CBC 11/26/20 Range/Units 07:15 WBC 5.42 (4.8-10.8) K/uL RBC 3.53 L (4.2-5.4) M/uL Hgb 11.4 L (12.0-16.0) g/dL Hct 34.7 L (37-47) % Plt Count 174 (130-400) K/uL Neut # (Auto) 3.66 (1.4-6.5) K/uL Lymph # (Auto) 0.84 L (1.2-3.4) K/uL [place] # (Auto) 0.48 (0.11-0.59) K/uL Eos # (Auto) 0.40 (0-0.5) K/uL Baso # (Auto) 0.03 (0-0.2) K/uL Comprehensive Metabolic Panel 11/26/20 Range/Units 07:15 Sodium 138 (136-145) mmol/L Potassium 4.1 (3.5-5.1) mmol/L Chloride 107 (98-107) mmol/L Carbon Dioxide 27 (21-32) mmol/L BUN 31 H (7-18) mg/dl Creatinine 1.77 H D (0.6-1.2) mg/dl Glucose 88 (70-99) mg/dl Calcium 9.3 (8.5-10.1) mg/dl Intake and Output 11/25/20 11/26/20 11/26/20 22:59 06:59 14:59 Intake Total 50 / 356.5 Output Total 350 / 1150 300 / 1150 Balance -350 / -793.5 -250 / -793.5 Intake: IV 50 / 356.5 cefTRIAXone SODIUM 1,000 mg In 50 / 50 Dextrose 5% 50 ml @ 100 mls/hr IV Q24H ERIC Rx#:[id number] Output: Urine 350 / 650 300 / 650 Other: Other Intake Source SIPS Diagnostic Findings Twelve-lead ECG postop: Predominantly sinus rhythm with atrial sensing and ventricular pacing appropriately Telemetry: Predominantly atrial sensing and ventricular pacing, normal function Chest x-ray: Good lead position, no pneumothorax Pacemaker evaluation: Good pacing and sensing characteristics PG Care Time/CCT Total # of Minutes Spent Total Time Spent with Patient: Total time spent is greater than 50% in coordination of care (as documented) at patient's floor/unit and/or counseling patient: Coding Level of Care Code 65965 Post Operative Follow-Up Diagnoses Status post placement of cardiac pacemaker Z95.0 CPT Codes Dual Lead Pacemaker System - [id number] ([id number])
[2020-11-26] MEDS ORDERED: amLODIPine BESYLATE 5 MG TAB PO SCH (09:00)
--- NOTE | 2020-11-26 15:11 | Discharge Summary ---
Date of Service November 26, 2020 Admission HPI Per Admitting Provider Caroline Feldman is an 85yo female presenting in complete heart block. Patient resides at [facility] and is fairly active and independent at baseline. Over the last 4 days she has noted weakness and fatigue as well as decreased exercise tolerance and LE edema. She denies chest pain/palpitations/fever/chills/abdominal pain/nausea/vomiting/diarrhea or constipation. Denies syncope/dizziness/confusion Patient found to be in complete heart block with HR of 40's in the ER. BP stable. Patient mentating well. ER Course: NSS Admission Exam Per Admitting Provider General: patient resting comfortably, NAD, non-toxic in appearance, AA&O x 4 Skin: warm, dry, intact, no rashes or lesions HEENT: NC/AT, PERRL, EOMI, anicteric sclera, conjunctiva without injection, external ear normal to inspection and nontender, nares patent, moist mucus membranes, dentition intact, no oropharyngeal lesions, neck supple, trachea midline, no LAD, no thyromegaly, no JVD Heart: +S1/S2, irregularly irregular, bradycardic, 4/6 blowing AREN at LSB with radiation across precordium to carotids and axilla Lungs: equal air entry bilaterally, no rales/rhonchi/wheezes Abd: +BS, soft, NT/ND, no masses/organomegaly/ascites Ext: warm, 2+ pulses in UE/LE bilaterally, no clubbing/cyanosis, 3+ pitting edema of bilateral LE Neuro: nonfocal, patient AA&O x 4, speech intact, no facial droop, moving all extremities on command with equal strength 5/5 Principal Diagnosis 3rd degree AV block, pacemaker placement Discharge Exam Constitutional: well-appearing, no acute distress CV: irregular rhythm, bradycardic, grade 5/6 systolic crescendo-decrescendo murmur appreciated, 2+ pitting edema of BL LE Resp: CTABL, no wheezes/rales/rhonchi appreciated, no increased work of breathing Skin: warm, dry, no rash appreciated Neuro: AOx4, no focal neurological deficits appreciated Discharge Data Allergies Allergy/AdvReac Type Severity Reaction Status Date / Time amoxicillin [From Augmentin] Allergy Intermediate NAUSEA/VOMI Verified 11/23/20 16:35 TING clavulanic acid Allergy Intermediate NAUSEA/VOMI Verified 11/23/20 16:35 [From Augmentin] TING codeine AdvReac Intermediate N/V Verified 11/23/20 16:35 Consultations 11/23/20 18:55 Consult Cardiology Routine Procedures Performed Operation Date: 11/25/20 11:30 Actual Procedures p Pacer with A/V Leads (Dual) - Leander Ballard MD s Venogram, Unilateral - Leander Ballard MD Ordered Studies 11/25/20 09:25 CL Cath Imgs for PACS use only Routine Hospital Course (1) Gait disturbance: 3rd degree AV block, bradycardia, pacemaker placement On admission, patient was found to be in 3rd degree AV block. Patient's home Pacer pads were used while cardiology was consulted. Cardiology felt an i mplanted pacemaker would likely be necessary, but waited until hospital day three to make a final decision, as to allow time for a med washout, specifically in regards to patient's home metoprolol. Patient remained in 3rd degree AV block, and on hospital day three, patient underwent pacemaker placement, which she tolerated well. Patient reported a significant improvement in symptoms afterward. Pacemaker was interrogated on hospital day four and was found to be functioning according to plan. Patient was discharged on hospital day four with close PCP follow-up recommended. Bronchiectasis The day prior to admission (11/22), patient had been started on azithromycin (five-day course) and ceftriaxone (two-day course) for suspected bronchiectasis vs pneumonia. Patient was noted to have had a CT chest performed prior to admission, on the day of admission (11/23), in the outpatient setting prior to ED arrival, which showed RML consolidation and bronchiectasis. Patient's azithromycin and ceftriaxone treatment courses were both completed during patient's hospitalization. Hypertension Patient's home regimen was held on admission, as above, and was restarted upon admission. Patient's BP was elevated during her hospitalization but not to a degree requiring active intervention. Aortic stenosis Echocardiogram performed on 11/24 showed interval development on aortic stenosis since prior echo (02/2019); echo findings were otherwise unchanged from prior, showing normal LV size and function with EF of 60-65%, no regional WMA, mild concentric LVH, mild MR, and [id number] TR. PCP follow-up was recommended. Hypothyroidism Patient's home regimen was continued during this hospitalization. Total Time Total Time Spent Total Time Spent (In Minutes): <30 Discharge Plan Discharge Items Patient Disposition: Home - Self-Care Reason For Visit: COMPLETE HEART BLOCK Discharge Diagnosis: 3rd degree AV block, pacemaker placement Activity: Resume your previous activity Non-emergency contact: Primary Care Provider and Adjunct Mathematics Instructor Call non-emergency contact if: your symptoms worsen Follow-up/Referrals: Jarrett Marie [Primary Care Provider] - Diet: Heart Healthy and Low Sodium (2gm) Addtl Attending Provider Instructions: ACTIVITY RECOMMENDATIONS: * Do not raise affected arm over head for 2 weeks. SPECIAL CARE INSTRUCTIONS: * If bleeding occurs, apply direct pressure to area for 5 minutes. * Call your doctor if you have severe pain, fever, drainage or bleeding at site. * Keep dressing on and dry for 48 hours then remove. * Keep any scheduled doctor's appointment. * Implant Card - hand held device with website information given. SKIN IRRITATION: * You may experience some redness and/or swelling in the area where radiation was administered. If any skin irritation occurs, please contact your family physician. FOLLOW UP VISIT: Keep any scheduled doctor appointments. Pending Studies at Discharge: No Stand-Alone Forms: [facility] SaaSAss[facility] Medications and DC Order Prescriptions: Continued metoprolol succinate 50 mg tablet extended release 24 hr 50 mg PO QAM Qty: 90 RF: 3 levothyroxine 50 mcg tablet 50 mcg PO QAM Qty: 90 RF: 3 atorvastatin 20 mg tablet 20 mg PO DAILY RF: 0 pantoprazole 40 mg tablet,delayed release (DR/EC) 40 mg PO DAILY RF: 0 guaifenesin [Mucinex] 600 mg tablet extended release 12hr 600 mg PO BID PRN (Reason: congestion) Qty: 60 RF: 1 acetaminophen [Tylenol Extra Strength] 500 mg Tablet 500 - 1,000 mg PO Q6H PRN (Reason: Pain) RF: 0 amlodipine 2.5 mg tablet 2.5 mg PO QAM RF: 0 hydralazine 25 mg tablet 25 mg PO BID RF: 0 amlodipine 5 mg tablet 5 mg PO DAILY RF: 0 heparin (porcine) 5,000 unit/mL solution 5,000 unit subcut BID RF: 0 Discontinued azithromycin 250 mg tablet 250 mg PO DAILY RF: 0 ceftriaxone 1 gram recon soln 1 g IV DAILY RF: 0 No Action (DME) Flutter Valve Device See Rx Instructions .MEDSUPPLY Qty: 1 RF: 0 Discharge Orders: Discharge Order (Routine); Ordered 11/26/20 Ordered By: Jonathan Harvey Admission Data Admit Date/Time: 11/23/20 17:19 Attending Provider: Sundar Brock Admit Provider: Ebonie Cruz Primary Care Provider: Jarrett Marie Other Providers: Aman Gallardo ; Ebonie Cruz Other Interventions: Discharge Summary Assessment (RN) Last Done: 11/26/20 13:29 Supervising Physician Co-Signing Physician Notes I personally examined the patient and verified all triana points of history and exam, discussed case, and agree with decision making with Dr Harvey. Feels good, feels up to going home. Discussed with cardiologyinput appreciated. Vitals noted, in general she is awake and alert pleasant no distress is a little bit easily confusedlikely effect of anesthesia. HEENT normocephalic atraumatic mucous membranes moist. Breathing unlabored no accessory muscle use good effort.. Skin shows no other rashes, pallor, icterus. Neuro without focal deficits. Complete heart blocknow status post pacemaker placementstable for home [id number] a bit of an acute kidney injury representing a drop off of about 7 mils per minute of GFRprobably from poor forward flow from her complete heart blockfollow for hopeful improvement with improved rates. Follow-up as outpatient Otherwise as above. Resident Activity Tracking Resident Involvement: Resident Care Provided Care Provided: Adult Hospital Medicine
--- NOTE | 2020-11-26 18:14 | Billing Data ---
Date of Service November 26, 2020 Coding Level of Care Code D/C DAY MANAGEMENT <30 MINS
== END 2020-11-26 13:55 | disposition home or self-care (01) | DRG 243 ==
LOC: ED 15:25 → 2S 17:19 → SUATTDRO 17:19 → 2S 18:42

== ENCOUNTER 2022-10-21 11:24 | Inpatient (IN) ==
[2022-10-21] MEDS ORDERED: SODIUM CHLORIDE 0.9% 1000ML 1,000 ML IV ONE (11:40)
--- NOTE | 2022-10-21 11:47 | Emergency Department Note ---
Impression & Plan Acute non-ST elevation myocardial infarction (NSTEMI), Diverticulitis, Urinary tract infection ED Provider Note NAME: SUNITA STOVER AGE: 87 SEX: F : 1935 ARRIVES VIA: Ambulance INFORMANT: Patient, EMS ED PROVIDER(S): Aman Senior DO CHIEF COMPLAINT: Altered mental status HPI: The patient is an 87-year-old female who presented to the emergency department for an evaluation of altered mental status. The patient lives at home with her significant other. She does have some underlying dementia. Patient has not been eating or drinking. She has been intermittently confused. There is no reported falls. It is unclear if she has been compliant with her outpatient medications. The patient himself offers very few complaints. She do es admit to having some abdominal pain to the nursing staff. She denies having any chest pain or difficulty breathing. There is been no fever found in the emergency department although this was reported by the prehospital personnel that she was febrile. She has a history of stroke. She also has a history of kidney disease. ROS: See above HPI for pertinent positives & negatives. A total of 10 systems reviewed and were otherwise negative. PAST MEDICAL HISTORY: See Below PAST SURGICAL HISTORY: See Below FAMILY HISTORY: See Below SOCIAL HISTORY: See Below HOME MEDICATIONS: See Below ALLERGIES: See Below VITALS: See Below PHYSICAL EXAMINATION: GENERAL: Patient is awake alert in no acute distress patient is resting comfortably and showing no signs of anxiety EYES: The conjunctivae are clear. The pupils are round and reactive. EARS, NOSE, MOUTH AND THROAT: The nose is without any evidence of any deformity. Mucous membranes are dry. NECK: The neck is nontender and supple. RESPIRATORY: Normal respiratory effort is noted there is no evidence of wheezing rhonchi or rales CARDIOVASCULAR: Regular rate and rhythm was noted to auscultation. Systolic murmur was suggested. GASTROINTESTINAL: The abdomen was soft and nondistended. There is left-sided tenderness to palpation which is moderate. There is no specific guarding. MUSCULOSKELETAL/EXTREMITIES: There is no evidence of gross deformity full range of motion is noted in the hips and shoulders. SKIN: There is no obvious evidence of any rash. There are no petechiae, pallor or cyanosis noted. NEUROLOGIC: Patient is awake to verbal commands. Strength is symmetric. There is no facial droop. MEDICAL DECISION MAKING: The patient is an 87-year-old female who presented to the emergency department for an evaluation of generalized weakness and decreased p.o. intake. On physical exam the patient was found to have left-sided abdominal pain. The patient was treated with IV fluids and IV antibiotics for presumed urinary tract infection as well as diverticulitis. I discussed patient's laboratory and radiographic studies with her. Given her findings I also discussed her condition with the on-call [facility] hospitalist. The patient did not have any chest pain. She was found to have an abnormal troponin but her EKG appears similar to previous. Triage Nursing notes reviewed. Prior medical records reviewed Vital Signs: reviewed and remarkable for elevated blood pressure. Differential diagnosis: Infection, hypoglycemia, electrolyte abnormalities, overdose, toxicologic, cardiac sources, intracerebral event, neurologic, trauma, as well as other pathologies. ER treatment provided: See below Diagnostics interpreted by me: ECG: EKG was obtained in the emergency department. My interpretation is normal sinus rhythm at 80 bpm. There was no ectopy. Nonspecific ST abnormalities were noted. This was paired to a tracing from November 25, 2020. No changes were noted. Cardiac Monitoring: An order was placed for continuous cardiac monitoring. The monitor shows a rate of 73 bpm with sinus rhythm. Laboratory studies: As stated above and show below. Imaging studies: See below. Radiographic imaging was reviewed by myself Consultation(s): I discussed this case with Lam who is on-call for the [facility] group. 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 Cerebral vascular disease CKD (chronic kidney disease) Hyperglycemia Hypertension Hypothyroidism Mild cognitive impairment PNA (pneumonia) (2016) Stroke Left basal ganglia February 2019 Surgical History History of cataract surgery History of laminectomy History of tonsillectomy Family History Sister Alcoholism Father Atherosclerosis Gout Lung cancer Mother Hypertension Osteoporosis Stroke Denies family history of Colon cancer Ovarian cancer Prostate cancer Myocardial infarction Breast cancer Social History Smoking Status: Never smoker Hx Alcohol Use: Yes Alcohol type: wine Hx Substance Use: No Preferred Language: Telugu Communication Ability: Effective Visual Impairment: No Limitations Hearing Ability: Normal College Archivist Required: No Beliefs That Will Affect Care: None and Taoist Taoist Beliefs: Zoroastrian. marital status: Current Living Situation: Personal Care Facility Current Living Situation Comment: Skilled side of [facility]. current occupational status: retired How many Children do You have: 2 Feels Safe at Home: Yes Childhood Exposure to Second-Hand Smoke: Yes Physical Activity Frequency: Daily Seatbelt Use: always Sunscreen Use: Yes Assistive Devices: None Allergies Allergies Allergy/AdvReac Type Severity Reaction Status Date / Time amoxicillin [From Augmentin] Allergy Intermediate NAUSEA/VOMI Verified 09/27/22 10:11 TING clavulanic acid Allergy Intermediate NAUSEA/VOMI Verified 09/27/22 10:11 [From Augmentin] TING codeine AdvReac Intermediate N/V Verified 09/27/22 10:11 Home Meds Home Medications Medication Instructions Recorded Confirmed acetaminophen 500 mg tablet 500 - 1,000 mg PO Q6H PRN Pain 03/27/19 10/21/22 (Tylenol Extra Strength) amlodipine 5 mg tablet 5 mg PO DAILY 11/23/20 10/21/22 cholecalciferol (vitamin D3) 25 25 mcg PO QAM 09/30/21 10/21/22 mcg (1,000 unit) capsule mecobalamin (vitamin B12) 1,000 1,000 mcg sublingual HS 09/30/21 10/21/22 mcg disintegrating tablet,sublingual eplerenone 25 mg tablet 25 mg PO DAILY 06/26/22 10/21/22 pantoprazole 40 mg tablet,delayed 40 mg PO DAILY 06/26/22 10/21/22 release (Protonix) atorvastatin 20 mg tablet 20 mg PO 3XWK 09/27/22 10/21/22 Previous Rx's Medication Instructions Recorded levothyroxine 50 mcg tablet 50 mcg PO QAM #90 tabs 03/17/21 metoprolol succinate 50 mg 50 mg PO QAM #90 tabs 03/17/21 tablet,extended release 24 hr carbidopa 25 mg-levodopa 100 mg 1 tab PO TID 90 days #270 tabs 09/27/22 tablet (Sinemet) Results & Data (ED) Vital Signs Vital Signs - 24 hr 10/21/22 11:31 10/21/22 11:48 10/21/22 14:00 Temperature 36.5 C Temperature Source Oral Pulse Rate 86 82 Pulse Rate [Left Finger] 73 Respiratory Rate 20 20 Blood Pressure 171/85 H Blood Pressure [Left Arm] 173/130 H Blood Pressure Mean 113 Blood Pressure Mean [Left Arm] 144 Blood Pressure Position [Left Arm] Lying Pulse Oximetry 93 94 Oxygen Delivery Method Room Air Room Air Sepsis Recent Fever Within 48 Hours No Sepsis New/Unexplained Change in Mental Status No Sepsis Action Taken by Nursing No Action Required Home Medications Current Medication List: was personally reviewed by me Laboratory Data Attestation: I reviewed the patient's lab results. 10/21/22 11:38 10/21/22 11:38 Lab Results 10/21/22 10/21/22 10/21/22 Range/Units 11:38 11:38 11:38 WBC 9.62 (4.8-10.8) K/ul RBC 4.21 (4.20-5.40) M/uL Hgb 13.6 (12.0-16.0) g/dl Hct 40.6 (37.0-47.0) % MCV 96.4 (80.0-100.0) fL MCH 32.3 (25.0-34.0) pg MCHC 33.5 (32.0-36.0) g/dL RDW Std Deviation 42.5 (36.4-46.3) fL RDW Coeff of Mervat 11.9 (11.5-14.5) % Plt Count 168 (130-400) K/uL MPV 12.6 H (9.4-12.4) fL Immature Gran % (Auto) 0.2 % Neut % (Auto) 87.1 % Lymph % (Auto) 6.1 % Emanuel % (Auto) 5.9 % Eos % (Auto) 0.5 % Baso % (Auto) 0.2 % Neut # (Auto) 8.37 H (1.40-6.50) K/uL Lymph # (Auto) 0.59 L (1.2-3.4) K/uL Emanuel # (Auto) 0.57 (0.11-0.59) K/uL Eos # (Auto) 0.05 (0-0.50) K/uL Baso # (Auto) 0.02 (0-0.2) K/uL Immature Gran # (Auto) 0.02 (0.01-0.20) K/uL ESR (0-30) mm/hr PT (9.0-12.0) Seconds INR (0.9-1.1) APTT (21.0-31.0) Seconds PTT Ratio VBG pH (7.36-7.41) VBG pCO2 (38-50) mmHg VBG pO2 mmHg VBG HCO3 mmol/L VBG O2 Saturation % VBG Base Excess mEq/L Sodium 137 (136-145) mmol/L Potassium 4.1 (3.5-5.1) mmol/L Chloride 100 (98-107) mmol/L Carbon Dioxide 31 (21-32) mmol/L Anion Gap 6 (3-11) BUN 30 H (6-23) mg/dl Creatinine 1.56 H (0.6-1.2) mg/dl Est Cr Clr Drug Dosing 18.2 ml/min Est GFR ( Amer) 34.3 ml/min Est GFR (Non-Af Amer) 29.6 ml/min BUN/Creatinine Ratio 19.2 (10-20) Glucose 110 H (70-99(Fasting)) mg/dl Lactate (0.4-2.0) mmol/L Calcium 10.3 (8.6-10.3) mg/dl Magnesium 1.9 (1.7-2.4) mg/dl Total Bilirubin 0.7 (0.2-1.0) mg/dl Direct Bilirubin 0.1 (0-0.2) mg/dl AST 25 (13-39) U/L ALT 3 L (7-52) U/L Alkaline Phosphatase 67 (34-104) U/L Troponin I High Sens 1107.5 H* (0-14) pg/ml C-Reactive Protein 2.71 H (0-0.5) mg/dl B-Natriuretic Peptide (0-100) pg/ml Total Protein 7.6 (6.0-8.3) gm/dl Albumin 4.1 (3.4-5.0) gm/dl Globulin 3.5 (2.5-4.0) gm/dl Albumin/Globulin Ratio 1.2 (0.9-2) Procalcitonin 0.11 (0-0.5) ng/ml Urine Color Urine Appearance (Clear) Urine pH (4.5-7.5) Ur Specific [place] (1.000-1.030) Urine Protein (Negative) Urine Glucose (UA) (Negative) Urine Ketones (Negative) Urine Blood (Negative) Urine Nitrite (Negative) Urine Bilirubin (Negative) Urine Urobilinogen (Negative) Ur Leukocyte Esterase (Negative) Urine WBC (Auto) (0-5) /hpf Urine RBC (Auto) (0-4) /hpf U Hyaline Cast (Auto) (0-5) /lpf U Epithel Cells (Auto) (0-5) /lpf Urine Bacteria (Auto) (Negative) SARS-CoV-2, RNA, NAAT (NEGATIVE) 10/21/22 10/21/22 10/21/22 Range/Units 11:38 11:38 11:56 WBC (4.8-10.8) K/ul RBC (4.20-5.40) M/uL Hgb (12.0-16.0) g/dl Hct (37.0-47.0) % MCV (80.0-100.0) fL MCH (25.0-34.0) pg MCHC (32.0-36.0) g/dL RDW Std Deviation (36.4-46.3) fL RDW Coeff of Mervat (11.5-14.5) % Plt Count (130-400) K/uL MPV (9.4-12.4) fL Immature Gran % (Auto) % Neut % (Auto) % Lymph % (Auto) % Emanuel % (Auto) % Eos % (Auto) % Baso % (Auto) % Neut # (Auto) (1.40-6.50) K/uL Lymph # (Auto) (1.2-3.4) K/uL Emanuel # (Auto) (0.11-0.59) K/uL Eos # (Auto) (0-0.50) K/uL Baso # (Auto) (0-0.2) K/uL Immature Gran # (Auto) (0.01-0.20) K/uL ESR 58 H (0-30) mm/hr PT 10.4 (9.0-12.0) Seconds INR 0.9 (0.9-1.1) APTT 25.9 (21.0-31.0) Seconds PTT Ratio 0.9 VBG pH (7.36-7.41) VBG pCO2 (38-50) mmHg VBG pO2 mmHg VBG HCO3 mmol/L VBG O2 Saturation % VBG Base Excess mEq/L Sodium (136-145) mmol/L Potassium (3.5-5.1) mmol/L Chloride (98-107) mmol/L Carbon Dioxide (21-32) mmol/L Anion Gap (3-11) BUN (6-23) mg/dl Creatinine (0.6-1.2) mg/dl Est Cr Clr Drug Dosing ml/min Est GFR ( Amer) ml/min Est GFR (Non-Af Amer) ml/min BUN/Creatinine Ratio (10-20) Glucose (70-99(Fasting)) mg/dl Lactate 0.9 (0.4-2.0) mmol/L Calcium (8.6-10.3) mg/dl Magnesium (1.7-2.4) mg/dl Total Bilirubin (0.2-1.0) mg/dl Direct Bilirubin (0-0.2) mg/dl AST (13-39) U/L ALT (7-52) U/L Alkaline Phosphatase (34-104) U/L Troponin I High Sens (0-14) pg/ml C-Reactive Protein (0-0.5) mg/dl B-Natriuretic Peptide (0-100) pg/ml Total Protein (6.0-8.3) gm/dl Albumin (3.4-5.0) gm/dl Globulin (2.5-4.0) gm/dl Albumin/Globulin Ratio (0.9-2) Procalcitonin (0-0.5) ng/ml Urine Color Urine Appearance (Clear) Urine pH (4.5-7.5) Ur Specific [place] (1.000-1.030) Urine Protein (Negative) Urine Glucose (UA) (Negative) Urine Ketones (Negative) Urine Blood (Negative) Urine Nitrite (Negative) Urine Bilirubin (Negative) Urine Urobilinogen (Negative) Ur Leukocyte Esterase (Negative) Urine WBC (Auto) (0-5) /hpf Urine RBC (Auto) (0-4) /hpf U Hyaline Cast (Auto) (0-5) /lpf U Epithel Cells (Auto) (0-5) /lpf Urine Bacteria (Auto) (Negative) SARS-CoV-2, RNA, NAAT (NEGATIVE) 10/21/22 10/21/22 10/21/22 Range/Units 11:59 12:42 14:00 WBC (4.8-10.8) K/ul RBC (4.20-5.40) M/uL Hgb (12.0-16.0) g/dl Hct (37.0-47.0) % MCV (80.0-100.0) fL MCH (25.0-34.0) pg MCHC (32.0-36.0) g/dL RDW Std Deviation (36.4-46.3) fL RDW Coeff of Mervat (11.5-14.5) % Plt Count (130-400) K/uL MPV (9.4-12.4) fL Immature Gran % (Auto) % Neut % (Auto) % Lymph % (Auto) % Emanuel % (Auto) % Eos % (Auto) % Baso % (Auto) % Neut # (Auto) (1.40-6.50) K/uL Lymph # (Auto) (1.2-3.4) K/uL Emanuel # (Auto) (0.11-0.59) K/uL Eos # (Auto) (0-0.50) K/uL Baso # (Auto) (0-0.2) K/uL Immature Gran # (Auto) (0.01-0.20) K/uL ESR (0-30) mm/hr PT (9.0-12.0) Seconds INR (0.9-1.1) APTT (21.0-31.0) Seconds PTT Ratio VBG pH 7.40 (7.36-7.41) VBG pCO2 50 (38-50) mmHg VBG pO2 29 mmHg VBG HCO3 31 mmol/L VBG O2 Saturation < 60.0 % VBG Base Excess 5.1 mEq/L Sodium (136-145) mmol/L Potassium (3.5-5.1) mmol/L Chloride (98-107) mmol/L Carbon Dioxide (21-32) mmol/L Anion Gap (3-11) BUN (6-23) mg/dl Creatinine (0.6-1.2) mg/dl Est Cr Clr Drug Dosing ml/min Est GFR ( Amer) ml/min Est GFR (Non-Af Amer) ml/min BUN/Creatinine Ratio (10-20) Glucose (70-99(Fasting)) mg/dl Lactate (0.4-2.0) mmol/L Calcium (8.6-10.3) mg/dl Magnesium (1.7-2.4) mg/dl Total Bilirubin (0.2-1.0) mg/dl Direct Bilirubin (0-0.2) mg/dl AST (13-39) U/L ALT (7-52) U/L Alkaline Phosphatase (34-104) U/L Troponin I High Sens (0-14) pg/ml C-Reactive Protein (0-0.5) mg/dl B-Natriuretic Peptide (0-100) pg/ml Total Protein (6.0-8.3) gm/dl Albumin (3.4-5.0) gm/dl Globulin (2.5-4.0) gm/dl Albumin/Globulin Ratio (0.9-2) Procalcitonin (0-0.5) ng/ml Urine Color Yellow Urine Appearance Clear (Clear) Urine pH 7.5 (4.5-7.5) Ur Specific [place] 1.016 (1.000-1.030) Urine Protein 2+ H (Negative) Urine Glucose (UA) Negative (Negative) Urine Ketones Negative (Negative) Urine Blood Negative (Negative) Urine Nitrite Negative (Negative) Urine Bilirubin Negative (Negative) Urine Urobilinogen Negative (Negative) Ur Leukocyte Esterase 1+ H (Negative) Urine WBC (Auto) >30 H (0-5) /hpf Urine RBC (Auto) 0-4 (0-4) /hpf U Hyaline Cast (Auto) 1-5 (0-5) /lpf U Epithel Cells (Auto) >30 H (0-5) /lpf Urine Bacteria (Auto) Negative (Negative) SARS-CoV-2, RNA, NAAT NEGATIVE (NEGATIVE) 10/21/22 10/21/22 Range/Units 14:17 14:17 WBC (4.8-10.8) K/ul RBC (4.20-5.40) M/uL Hgb (12.0-16.0) g/dl Hct (37.0-47.0) % MCV (80.0-100.0) fL MCH (25.0-34.0) pg MCHC (32.0-36.0) g/dL RDW Std Deviation (36.4-46.3) fL RDW Coeff of Mervat (11.5-14.5) % Plt Count (130-400) K/uL MPV (9.4-12.4) fL Immature Gran % (Auto) % Neut % (Auto) % Lymph % (Auto) % Emanuel % (Auto) % Eos % (Auto) % Baso % (Auto) % Neut # (Auto) (1.40-6.50) K/uL Lymph # (Auto) (1.2-3.4) K/uL Emanuel # (Auto) (0.11-0.59) K/uL Eos # (Auto) (0-0.50) K/uL Baso # (Auto) (0-0.2) K/uL Immature Gran # (Auto) (0.01-0.20) K/uL ESR (0-30) mm/hr PT (9.0-12.0) Seconds INR (0.9-1.1) APTT (21.0-31.0) Seconds PTT Ratio VBG pH (7.36-7.41) VBG pCO2 (38-50) mmHg VBG pO2 mmHg VBG HCO3 mmol/L VBG O2 Saturation % VBG Base Excess mEq/L Sodium (136-145) mmol/L Potassium (3.5-5.1) mmol/L Chloride (98-107) mmol/L Carbon Dioxide (21-32) mmol/L Anion Gap (3-11) BUN (6-23) mg/dl Creatinine (0.6-1.2) mg/dl Est Cr Clr Drug Dosing ml/min Est GFR ( Amer) ml/min Est GFR (Non-Af Amer) ml/min BUN/Creatinine Ratio (10-20) Glucose (70-99(Fasting)) mg/dl Lactate (0.4-2.0) mmol/L Calcium (8.6-10.3) mg/dl Magnesium (1.7-2.4) mg/dl Total Bilirubin (0.2-1.0) mg/dl Direct Bilirubin (0-0.2) mg/dl AST (13-39) U/L ALT (7-52) U/L Alkaline Phosphatase (34-104) U/L Troponin I High Sens 988.0 H* (0-14) pg/ml C-Reactive Protein (0-0.5) mg/dl B-Natriuretic Peptide 163 H (0-100) pg/ml Total Protein (6.0-8.3) gm/dl Albumin (3.4-5.0) gm/dl Globulin (2.5-4.0) gm/dl Albumin/Globulin Ratio (0.9-2) Procalcitonin (0-0.5) ng/ml Urine Color Urine Appearance (Clear) Urine pH (4.5-7.5) Ur Specific [place] (1.000-1.030) Urine Protein (Negative) Urine Glucose (UA) (Negative) Urine Ketones (Negative) Urine Blood (Negative) Urine Nitrite (Negative) Urine Bilirubin (Negative) Urine Urobilinogen (Negative) Ur Leukocyte Esterase (Negative) Urine WBC (Auto) (0-5) /hpf Urine RBC (Auto) (0-4) /hpf U Hyaline Cast (Auto) (0-5) /lpf U Epithel Cells (Auto) (0-5) /lpf Urine Bacteria (Auto) (Negative) SARS-CoV-2, RNA, NAAT (NEGATIVE) Administered Medications Discontinued Medications Sodium Chloride (Nss 1000ml) 1,000 mls @ 999 mls/hr IV .[id number] ONE Stop: 10/21/22 12:40 Last Infusion: 10/21/22 12:55 Dose: 0 mls/hr Documented By: Admin: 10/21/22 11:50 Dose: 999 mls/hr Documented By: SYD Piperacillin Sod/Tazobactam Sod (Zosyn) 4.5 gm in 120 mls @ 240 mls/hr IV NOW ONE Stop: 10/21/22 14:22 Last Admin: 10/21/22 14:16 Dose: 240 mls/hr Documented By: SYD Imaging Data Attestation: I personally reviewed and interpreted this imaging study as fo llows: My Impression: 1 view chest x-ray was obtained in the emergency department. My interpretation is no free air or infiltrate, final report below. CT of the brain was obtained in the emergency department. My interpretation is no intracranial hemorrhage or mass, final report below. Radiologist's Impression: Abdomen/Pelvis CT 10/21/22 11:40 CT SCAN OF THE ABDOMEN AND PELVIS WITHOUT IV CONTRAST CLINICAL HISTORY: Vomiting. Left-sided abdominal pain. COMPARISON STUDY: Abdominal CT dated 09/03/2020. TECHNIQUE: CT scan of the abdomen and pelvis is performed from the lung bases to the proximal femora. Images are reviewed in the axial, sagittal, and coronal planes. IV contrast was not administered for this examination as per the referring clinician. Note that the examination was performed in suboptimal fashion without oral and IV contrast. A dose lowering technique was utilized adhering to the principles of ALARA. CT DOSE: 1372.38 mGy.cm FINDINGS: Lung bases: The heart is enlarged and without pericardial effusion. The coronary arteries are densely calcified. Pacemaker leads are in place. There is bibasilar scarring/atelectasis. Bronchiectasis is noted in the right middle lobe and lingula. No superimposed airspace consolidation or pleural effusion is identified. A small hiatal hernia is noted. Liver: The unenhanced liver is normal in size, contour, and attenuation. There is no intrahepatic biliary ductal dilatation. Gallbladder: The gallbladder is distended and contains a large calcified gallstone. There is no CT evidence of acute cholecystitis. Spleen: Normal in size and attenuation. Pancreas: The unenhanced pancreas is moderately atrophic and grossly unremarkable. Adrenal glands: Unremarkable. Kidneys: The unenhanced kidneys demonstrate mild cortical atrophy and are without hydronephrosis. There is a punctate nonobstructing calculus in the left upper pole. No ureteral stone is seen. Numerous simple and complex/hyperdense bilateral renal cysts are similar to previous. These measure up to 1.8 cm. Abdominal vasculature: The abdominal aorta is normal in course and caliber noting advanced atherosclerotic calcification. Bowel: There is rectosigmoid fecal retention and moderate constipation. No bowel obstruction is seen. There is advanced colonic diverticulosis. There is wall thickening with pericolonic inflammation and fluid involving the distal descending/proximal sigmoid colon consistent with acute diverticulitis. There is no evidence of organized/drainable fluid collection on this unenhanced examination. The appendix is well-visualized and normal. Peritoneum: There is no intraperitoneal free air or abdominal ascites. Lymphadenopathy: None. Pelvic viscera: The bladder, the uterus, and adnexa are normal as visualized. Skeletal structures: The skeletal structures are osteopenic. There is postsurgical and spondylotic change noted in the lumbar spine. No lytic or blastic lesions are seen. IMPRESSION: 1. Acute diverticulitis of the distal descending/proximal sigmoid colon. 2. No intraperitoneal free air is seen and there is no organized fluid collection identified to suggest abscess on this unenhanced examination. 3. Rectosigmoid fecal retention and moderate constipation. 4. Cholelithiasis within a distended gallbladder. There is no CT evidence of acute cholecystitis. Correlate with clinical and laboratory findings. 5. Additional findings as above. ACT 112: Negative or not required by law. Electronically signed by: Moses Mckee M.D. 10/21/2022 1:45 PM Chest X-Ray 10/21/22 11:40 SINGLE VIEW CHEST CLINICAL HISTORY: Sepsis FINDINGS: An AP, portable, upright chest radiograph is compared to study dated 05/30/2022 and correlated with chest CT dated 11/23/2020. The examination is degraded by portable technique and patient rotation. A 2-lead cardiac pacemaker is unchanged in position. The heart is enlarged nothing atherosclerotic calcification of the thoracic aorta. The pulmonary vasculature is noncongested. Chronic interstitial thickening is similar to previous. There is left basilar scarring/atelectasis. No airspace consolidation or large pleural effusion is identified. No pneumothorax is seen. The skeletal structures are osteopenic. The bony thorax is grossly intact. IMPRESSION: 1. Cardiomegaly and cardiac pacemaker without radiographic evidence of congestive failure. 2. No airspace consolidation or large pleural effusion is identified. ACT 112: Negative or not required by law. Electronically signed by: Moses Mckee M.D. 10/21/2022 11:[address] 10/21/22 11:40 CT SCAN OF THE BRAIN WITHOUT IV CONTRAST CLINICAL HISTORY: Change in mental status. Generalized weakness. COMPARISON STUDY: CT of the brain dated 12/24/2019. TECHNIQUE: Unenhanced axial CT scan of the brain is performed from the vertex to the skull base. A dose lowering technique was utilized adhering to the principles of ALARA. FINDINGS: Brain parenchyma: There is age-related involutional change noting advanced confluent subcortical and periventricular microangiopathic disease. There is no hemorrhage, mass effect, or evidence of acute territorial ischemia by CT criteria. There is a chronic lacunar infarct in the left basal ganglia. Gonzales- white matter differentiation is preserved. No extra-axial fluid collection is seen. Ventricles, sulci, cisterns: Prominent secondary to involutional change. Intracranial vasculature: There is atherosclerotic calcification of the cavernous carotid artery. Calvarium: Unremarkable. Sinuses and mastoids: The visualized paranasal sinuses are clear. The mastoid air cells are well pneumatized. Orbits: The bony orbits are grossly intact. There are bilateral ocular lens implants. IMPRESSION: There is no hemorrhage, mass effect, or evidence of acute territorial ischemia by CT criteria. ACT 112: Negative or not required by law. Electronically signed by: Moses Mckee M.D. 10/21/2022 12:28 PM Discharge Plan Visit Data Chief Complaint: Weakness ED Provider: [facility] Senior Discharge Problem: Acute non-ST elevation myocardial infarction (NSTEMI), Diverticulitis, Urinary tract infection Patient Disposition: Being Evaluated by Hospitalist Forms Stand Alone Forms: My [facility] Prescriptions Prescriptions: No Action metoprolol succinate 50 mg tablet extended release 24 hr 50 mg PO QAM Qty: 90 3RF levothyroxine 50 mcg tablet 50 mcg PO QAM Qty: 90 3RF mecobalamin (vitamin B12) 1,000 mcg tablet,disintegrating 1,000 mcg sublingual HS Rx Instructions: place tablet under tongue and allow to dissolve for at least30 secs before swallowing cholecalciferol (vitamin D3) 25 mcg (1,000 unit) capsule 25 mcg PO QAM eplerenone 25 mg tablet 25 mg PO DAILY pantoprazole [Protonix] 40 mg tablet,delayed release (DR/EC) 40 mg PO DAILY atorvastatin 20 mg tablet 20 mg PO 3XWK carbidopa-levodopa [Sinemet] 25-100 mg tablet 1 tab PO TID 90 Days Qty: 270 3RF acetaminophen [Tylenol Extra Strength] 500 mg Tablet 500 - 1,000 mg PO Q6H PRN (Reason: Pain) Patient Comments: states he is not sure of the strength of the tylenol. (03-27-19) amlodipine 5 mg tablet 5 mg PO DAILY Rx Instructions: TOTAL DOSE 7.5 MG--TAKES WITH 2.5 MG TAB. Referrals Referrals: Jarrett Marie [Primary Care Provider] -
[2022-10-21 11:50] LABS: Basophils # (auto) 0.02 K/uL (0-0.2); Basophils % (auto) 0.2 %; Eosinophils # (auto) 0.05 K/uL (0-0.50); Eosinophils % (auto) 0.5 %; Hematocrit (blood only) 40.6 % (37.0-47.0); Hemoglobin 13.6 g/dl (12.0-16.0); Immature Granulocytes # (auto) 0.02 K/uL (0.01-0.20); Immature Granulocytes % (auto) 0.2 %; Lymphocytes # (auto) 0.59 K/uL (1.2-3.4); Lymphocytes % (auto) 6.1 %; Mean Corpuscular Hemoglobin 32.3 pg (25.0-34.0); Mean Corpuscular Hgb Conc 33.5 g/dL (32.0-36.0); Mean Corpuscular Volume 96.4 fL (80.0-100.0); Mean Platelet Volume 12.6 fL (9.4-12.4); Monocytes # (auto) 0.57 K/uL (0.11-0.59); Monocytes % (auto) 5.9 %; Neutrophils # (auto) 8.37 K/uL (1.40-6.50); Neutrophils % (auto) 87.1 %; Platelet Count 168 K/uL (130-400); RDW Coefficient of Variation 11.9 % (11.5-14.5); RDW Standard Deviation 42.5 fL (36.4-46.3); Red Blood Count 4.21 M/uL (4.20-5.40); White Blood Count 9.62 K/ul (4.8-10.8)
--- NOTE | 2022-10-21 12:00 | XRay Report ---
SINGLE VIEW CHEST CLINICAL HISTORY: Sepsis FINDINGS: An AP, portable, upright chest radiograph is compared to study dated 05/30/2022 and correlat ed with chest CT dated 11/23/2020. The examination is degraded by portable technique and patient rotat ion. A 2-lead cardiac pacemaker is unchanged in position. The heart is enlarged nothing atherosclerot ic calcification of the thoracic aorta. The pulmonary vasculature is noncongested. Chronic interstiti al thickening is similar to previous. There is left basilar scarring/atelectasis. No airspace consoli dation or large pleural effusion is identified. No pneumothorax is seen. The skeletal structures are osteopenic. The bony thorax is grossly intact. IMPRESSION: 1. Cardiomegaly and cardiac pacemaker without radiographic evidence of congestive failure. 2. No airspace consolidation or large pleural effusion is identified. ACT 112: Negative or not required by law. Electronically signed by: Moses Mckee M.D. 10/21/2022 11:59 AM
[2022-10-21 12:09] LABS: Albumin Globulin Ratio 1.2 (0.9-2); Albumin Level 4.1 gm/dl (3.4-5.0); BUN Creatinine Ratio 19.2 (10-20); Bilirubin Direct 0.1 mg/dl (0-0.2); Bilirubin,Total 0.7 mg/dl (0.2-1.0); C Reactive Protein 2.71 mg/dl (0-0.5); Calcium 10.3 mg/dl (8.6-10.3); Creatinine Clr Calc Pharmacy 18.2 ml/min; Est GFR (African American) 34.3 ml/min; Est GFR (Non-African American) 29.6 ml/min; Globulin 3.5 gm/dl (2.5-4.0); Magnesium 1.9 mg/dl (1.7-2.4); Potassium 4.1 mmol/L (3.5-5.1); Total Protein 7.6 gm/dl (6.0-8.3)
--- NOTE | 2022-10-21 12:30 | CT Scan Report ---
CT SCAN OF THE BRAIN WITHOUT IV CONTRAST CLINICAL HISTORY: Change in mental status. Generalized weakness. COMPARISON STUDY: CT of the brain dated 12/24/2019. TECHNIQUE: Unenhanced axial CT scan of the brain is performed from the vertex to the skull base. A do se lowering technique was utilized adhering to the principles of ALARA. FINDINGS: Brain parenchyma: There is age-related involutional change noting advanced confluent subcortical and periventricular microangiopathic disease. There is no hemorrhage, mass effect, or evidence of acute t erritorial ischemia by CT criteria. There is a chronic lacunar infarct in the left basal ganglia. Gra y-white matter differentiation is preserved. No extra-axial fluid collection is seen. Ventricles, sulci, cisterns: Prominent secondary to involutional change. Intracranial vasculature: There is atherosclerotic calcification of the cavernous carotid artery. Calvarium: Unremarkable. Sinuses and mastoids: The visualized paranasal sinuses are clear. The mastoid air cells are well pneu matized. Orbits: The bony orbits are grossly intact. There are bilateral ocular lens implants. IMPRESSION: There is no hemorrhage, mass effect, or evidence of acute territorial ischemia by CT anival cespedes. ACT 112: Negative or not required by law. Electronically signed by: Moses Mckee M.D. 10/21/2022 12:28 PM
[2022-10-21 12:36] LABS: INR 0.9 (0.9-1.1); Partial Thromboplastin Ratio 0.9; Partial Thromboplastin Time 25.9 Seconds (21.0-31.0); Prothrombin Time 10.4 Seconds (9.0-12.0)
[2022-10-21 12:40] LABS: Troponin I High Sensitivity 1107.5 pg/ml (0-14)
[2022-10-21 12:58] LABS: Base Excess VBG 5.1 mEq/L; HCO3 VBG 31 mmol/L; Oxygen Saturation VBG < 60.0 %; PCO2 VBG 50 mmHg (38-50); PO2 VBG 29 mmHg
--- NOTE | 2022-10-21 13:48 | CT Scan Report ---
CT SCAN OF THE ABDOMEN AND PELVIS WITHOUT IV CONTRAST CLINICAL HISTORY: Vomiting. Left-sided abdominal pain. COMPARISON STUDY: Abdominal CT dated 09/03/2020. TECHNIQUE: CT scan of the abdomen and pelvis is performed from the lung bases to the proximal femora. Images are reviewed in the axial, sagittal, and coronal planes. IV contrast was not administered for this examination as per the referring clinician. Note that the examination was performed in suboptim al fashion without oral and IV contrast. A dose lowering technique was utilized adhering to the princ iplhalley of SHUKRI. CT DOSE: 1372.38 mGy.cm FINDINGS: Lung bases: The heart is enlarged and without pericardial effusion. The coronary arteries are densely calcified. Pacemaker leads are in place. There is bibasilar scarring/atelectasis. Bronchiectasis is noted in the right middle lobe and lingula. No superimposed airspace consolidation or pleural effusio n is identified. A small hiatal hernia is noted. Liver: The unenhanced liver is normal in size, contour, and attenuation. There is no intrahepatic margaret iary ductal dilatation. Gallbladder: The gallbladder is distended and contains a large calcified gallstone. There is no CT ev idence of acute cholecystitis. Spleen: Normal in size and attenuation. Pancreas: The unenhanced pancreas is moderately atrophic and grossly unremarkable. Adrenal glands: Unremarkable. Kidneys: The unenhanced kidneys demonstrate mild cortical atrophy and are without hydronephrosis. The re is a punctate nonobstructing calculus in the left upper pole. No ureteral stone is seen. Numerous simple and complex/hyperdense bilateral renal cysts are similar to previous. These measure up to 1.8 cm. Abdominal vasculature: The abdominal aorta is normal in course and caliber noting advanced atheroscle rotic calcification. Bowel: There is rectosigmoid fecal retention and moderate constipation. No bowel obstruction is seen. There is advanced colonic diverticulosis. There is wall thickening with pericolonic inflammation and fluid involving the distal descending/proximal sigmoid colon consistent with acute diverticulitis. T here is no evidence of organized/drainable fluid collection on this unenhanced examination. The appen toney is well-visualized and normal. Peritoneum: There is no intraperitoneal free air or abdominal ascites. Lymphadenopathy: None. Pelvic viscera: The bladder, the uterus, and adnexa are normal as visualized. Skeletal structures: The skeletal structures are osteopenic. There is postsurgical and spondylotic ch jaylan noted in the lumbar spine. No lytic or blastic lesions are seen. IMPRESSION: 1. Acute diverticulitis of the distal descending/proximal sigmoid colon. 2. No intraperitoneal free air is seen and there is no organized fluid collection identified to sugge st abscess on this unenhanced examination. 3. Rectosigmoid fecal retention and moderate constipation. 4. Cholelithiasis within a distended gallbladder. There is no CT evidence of acute cholecystitis. Cor relate with clinical and laboratory findings. 5. Additional findings as above. ACT 112: Negative or not required by law. Electronically signed by: Moses Mckee M.D. 10/21/2022 1:45 PM
[2022-10-21] MEDS ORDERED: PIPERACILLIN/TAZOBACTAM 4.5 GM/120 ML BAG IV ONE (13:53)
--- NOTE | 2022-10-21 13:57 | History & Physical Report ---
Date of Service October 21, 2022 Assessment & Plan (1) Elevated troponin: Plan: -Admit to the PCU on tele -Currently stable -Noted to have an initial high sen trop of 1107 -No acute ECG changes compared to her last in November of 2020 -Will repeat a STAT 2 hour repeat trop now and obtain STAT TTE -Continue to monitor on tele and trend trop -Will consult Cardiology if there are any concerning findings -SQ lovenox for DVT PPX (2) Diverticulitis: Plan: -Found on CT of the abd/pelvis wo con today -No signs of perforation or abscess -About to get her first dose of Zosyn in the ED, continue with q8h dosing -Will keep NPO today, can advance diet tomorrow if improving -Will keep on IV fluids while NPO -PRN zofran for nausea/vomiting (3) Weakness: Plan: -Likely due to acute exacerbation of her chronic neurologic disease due to acute diverticulitis and possible UTI -No new focal neuro defects, patient is at her baseline cognitive level per she and her -Continue Zosyn to cover diverticulitis and possible UTI -Follow urine and blood cultures -Will follow cardiac workup to rule out cardiac causes of her weakness -PT/OT -Fall precautions ordered (4) Lower-half Parkinsonism: Plan: -Continue (5) Hypothyroidism: Plan: -Continue levothyroxine (6) Hypertension: Plan: -Stable -Continue amlodipine and metoprolol -Hold Epelerone for now as she appears dehydrated (7) Hyperglycemia: Plan: -Not on outpatient regimen -FOr now monitor BSG q4h while NPO, goal is 110-160 -CF of 50 q4h for now with hypoglycemia protocol -Adjust regimen as needed Plan The patient was discussed with Dr. Orantes at the time of the admission History of Present Illness Chief Complaint: Altered mental styat Primary Care Provider: [facility] Caroline is an 87 year old female with a PMH significant for complete heart block S/P pacemaker placement, moderate-severe , HTN, lower- half Parkinsonism with gait abnormality, cerebral vascular disease, dysphonia, hypothyroidism, and mild cognitive impairment who presented to the [facility] ED from [facility] on 10/21 due to AMS. In the ED vitals were stable. Labs were significant for a lymphopenia of 0.59, ESR of 58, CRP of 2.71, initital high sen trop of 1107, and covid 19 negative. ECG showed NSR with minimal ST segment depression in the lateral leads, seen on her last ECG as of 11/25/20. Chest xray was read as 1. Cardiomegaly and cardiac pacemaker without radiographic evidence of congestive failure. 2. No airspace consolidation or large pleural effusion is identified.. CT of the head/brain wo con was read as There is no hemorrhage, mass effect, or evidence of acute territorial ischemia by CT criteria.. CT of the abd/pelvis wo con was read as 1. Acute diverticulitis of the distal descending/proximal sigmoid colon. 2. No intraperitoneal free air is seen and there is no organized fluid collection identified to suggest abscess on this unenhanced examination. 3. Rectosigmoid fecal retention and moderate constipation. 4. Cholelithiasis within a distended gallbladder. There is no CT evidence of acute cholecystitis. Correlate with clinical and laboratory findings.. Prior to admission the patient was given 1L NSS and a dose of Zosyn. At the time of the exam the patient was sitting in bed in no acute distress with her sitting bedside. Her states that the patient has been significantly more weak over the past 4 days. She has not had the energy to participate in PT over this time and her chronic gait abnormalities have been exacerbated with her weakness. She has had LLQ abd pain and decreased PO intake over the past 4 days. The patient states that she had one episode of nausea and non-bloody emesis yesterday. The patient has also been experience increase urinary frequency but denies dysuria and hematuria. They deny any recent fever, chills, chest pain/pressure, SOB, dysuria, diarrhea, bloody BM's, or melena, LE swelling, and recent falls/trauma. We discussed code status, they would like to think about the option to switch her to DNR/DNI, but for now they would like to keep her a full code. Please refer to Dr. Orantes's attestation for any changes to the treatment plan Allergies Allergy/AdvReac Type Severity Reaction Status Date / Time amoxicillin [From Augmentin] Allergy Intermediate NAUSEA/VOMI Verified 09/27/22 10:11 TING clavulanic acid Allergy Intermediate NAUSEA/VOMI Verified 09/27/22 10:11 [From Augmentin] TING codeine AdvReac Intermediate N/V Verified 09/27/22 10:11 Home Medications Medication Instructions Recorded Confirmed Type acetaminophen 500 mg tablet 500 - 1,000 mg PO Q6H PRN Pain 03/27/19 10/21/22 History (Tylenol Extra Strength) amlodipine 5 mg tablet 5 mg PO DAILY 11/23/20 10/21/22 History levothyroxine 50 mcg tablet 50 mcg PO QAM #90 tabs 03/17/21 10/21/22 Rx metoprolol succinate 50 mg 50 mg PO QAM #90 tabs 03/17/21 10/21/22 Rx tablet,extended release 24 hr cholecalciferol (vitamin D3) 25 25 mcg PO QAM 09/30/21 10/21/22 History mcg (1,000 unit) capsule mecobalamin (vitamin B12) 1,000 1,000 mcg sublingual HS 09/30/21 10/21/22 History mcg disintegrating tablet,sublingual eplerenone 25 mg tablet 25 mg PO DAILY 06/26/22 10/21/22 History pantoprazole 40 mg tablet,delayed 40 mg PO DAILY 06/26/22 10/21/22 History release (Protonix) atorvastatin 20 mg tablet 20 mg PO 3XWK 09/27/22 10/21/22 History carbidopa 25 mg-levodopa 100 mg 1 tab PO TID 90 days #270 tabs 09/27/22 10/21/22 Rx tablet (Sinemet) 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 Cerebral vascular disease CKD (chronic kidney disease) Hyperglycemia Hypertension Hypothyroidism Mild cognitive impairment PNA (pneumonia) (2016) Stroke Left basal ganglia February 2019 Surgical History History of cataract surgery History of laminectomy History of tonsillectomy Family History Sister Alcoholism Father Atherosclerosis Gout Lung cancer Mother Hypertension Osteoporosis Stroke Denies family history of Colon cancer Ovarian cancer Prostate cancer Myocardial infarction Breast cancer Social History Smoking Status: Never smoker Hx Alcohol Use: Yes Alcohol type: beer, wine and hard liquor Hx Substance Use: No Preferred Language: Liberian Communication Ability: Effective Visual Impairment: No Limitations Hearing Ability: Normal Customer Retention Specialist Required: No Beliefs That Will Affect Care: None marital status: Current Living Situation: Personal Care Facility Current Living Situation Comment: Skilled side of [facility]. current occupational status: retired How many Children do You have: 2 Other Information That Helps Us Care for You: No Feels Safe at Home: Yes Safety Concerns: Feels Safe At This Time Childhood Exposure to Second-Hand Smoke: Yes Physical Activity Frequency: Daily Seatbelt Use: always Sunscreen Use: Yes Assistive Devices: Walker Physical Exam Physical Exam: Physical Exam: General: In no acute distress, stated age, ill but non-toxic appearing HEENT: Normocephalic, atraumatic, no scleral icterus, pupils around round, symmetrical, and reactive to light, dry mucus membranes, trachea midline, no thyromegaly Chest/Pulm: No respiratory distress, symmetrical chest expansion, clear breath sounds throughout Cardiac: RRR, no murmurs noted Abdomen: Negative for ascites and bruising, normoactive bowel sounds, soft, mildly tender to palpation in the LLQ without rebound tenderness Musculoskeletal: Symmetrical and without signs of acute trauma, able to move upper and lower extremities voluntarily Extremities: Radial, dorsalis pedis, and posterior tibial pulses are intact and symmetrical, no edema noted in the BL LE's Skin: Warm, dry, no rashes , lesions, or scars noted Neuro: Alert and oriented to person, place, month, no focal defects, CN II- XII tested and intact, symmetrical strenght in the BL upper and lower extremities, no tremors noted Psych: No acute distress, calm and cooperative during the exam Results & Data Results & Data Vital Signs (Past 12 Hours) Vital Signs Temp Pulse Resp BP Pulse Ox O2 Del Method 10/21/22 11:48 82 10/21/22 11:31 36.5 C 86 20 171/85 H 93 Room Air Laboratory Results Abnormal lab results 10/21/22 10/21/22 10/21/22 Range/Units 11:38 11:38 11:38 MPV 12.6 H (9.4-12.4) fL Neut # (Auto) 8.37 H (1.40-6.50) K/uL Lymph # (Auto) 0.59 L (1.2-3.4) K/uL ESR 58 H (0-30) mm/hr BUN 30 H (6-23) mg/dl Creatinine 1.56 H (0.6-1.2) mg/dl Glucose 110 H (70-99(Fasting)) mg/dl ALT 3 L (7-52) U/L Troponin I High Sens 1107.5 H* (0-14) pg/ml C-Reactive Protein 2.71 H (0-0.5) mg/dl Urine Protein (Negative) Ur Leukocyte Esterase (Negative) Urine WBC (Auto) (0-5) /hpf U Epithel Cells (Auto) (0-5) /lpf 10/21/22 Range/Units 14:00 MPV (9.4-12.4) fL Neut # (Auto) (1.40-6.50) K/uL Lymph # (Auto) (1.2-3.4) K/uL ESR (0-30) mm/hr BUN (6-23) mg/dl Creatinine (0.6-1.2) mg/dl Glucose (70-99(Fasting)) mg/dl ALT (7-52) U/L Troponin I High Sens (0-14) pg/ml C-Reactive Protein (0-0.5) mg/dl Urine Protein 2+ H (Negative) Ur Leukocyte Esterase 1+ H (Negative) Urine WBC (Auto) >30 H (0-5) /hpf U Epithel Cells (Auto) >30 H (0-5) /lpf Diagnostic Findings Abdomen/Pelvis CT 10/21/22 11:40 CT SCAN OF THE ABDOMEN AND PELVIS WITHOUT IV CONTRAST CLINICAL HISTORY: Vomiting. Left-sided abdominal pain. COMPARISON STUDY: Abdominal CT dated 09/03/2020. TECHNIQUE: CT scan of the abdomen and pelvis is performed from the lung bases to the proximal femora. Images are reviewed in the axial, sagittal, and coronal planes. IV contrast was not administered for this examination as per the referring clinician. Note that the examination was performed in suboptimal fashion without oral and IV contrast. A dose lowering technique was utilized adhering to the principles of ALARA. CT DOSE: 1372.38 mGy.cm FINDINGS: Lung bases: The heart is enlarged and without pericardial effusion. The coronary arteries are densely calcified. Pacemaker leads are in place. There is bibasilar scarring/atelectasis. Bronchiectasis is noted in the right middle lobe and lingula. No superimposed airspace consolidation or pleural effusion is identified. A small hiatal hernia is noted. Liver: The unenhanced liver is normal in size, contour, and attenuation. There is no intrahepatic biliary ductal dilatation. Gallbladder: The gallbladder is distended and contains a large calcified gallstone. There is no CT evidence of acute cholecystitis. Spleen: Normal in size and attenuation. Pancreas: The unenhanced pancreas is moderately atrophic and grossly unremarkable. Adrenal glands: Unremarkable. Kidneys: The unenhanced kidneys demonstrate mild cortical atrophy and are without hydronephrosis. There is a punctate nonobstructing calculus in the left upper pole. No ureteral stone is seen. Numerous simple and complex/hyperdense bilateral renal cysts are similar to previous. These measure up to 1.8 cm. Abdominal vasculature: The abdominal aorta is normal in course and caliber noting advanced atherosclerotic calcification. Bowel: There is rectosigmoid fecal retention and moderate constipation. No bowel obstruction is seen. There is advanced colonic diverticulosis. There is wall thickening with pericolonic inflammation and fluid involving the distal descending/proximal sigmoid colon consistent with acute diverticulitis. There is no evidence of organized/drainable fluid collection on this unenhanced examinat ion. The appendix is well-visualized and normal. Peritoneum: There is no intraperitoneal free air or abdominal ascites. Lymphadenopathy: None. Pelvic viscera: The bladder, the uterus, and adnexa are normal as visualized. Skeletal structures: The skeletal structures are osteopenic. There is postsurgical and spondylotic change noted in the lumbar spine. No lytic or blastic lesions are seen. IMPRESSION: 1. Acute diverticulitis of the distal descending/proximal sigmoid colon. 2. No intraperitoneal free air is seen and there is no organized fluid collection identified to suggest abscess on this unenhanced examination. 3. Rectosigmoid fecal retention and moderate constipation. 4. Cholelithiasis within a distended gallbladder. There is no CT evidence of acute cholecystitis. Correlate with clinical and laboratory findings. 5. Additional findings as above. ACT 112: Negative or not required by law. Electronically signed by: Moses Mckee M.D. 10/21/2022 1:45 PM Chest X-Ray 10/21/22 11:40 SINGLE VIEW CHEST CLINICAL HISTORY: Sepsis FINDINGS: An AP, portable, upright chest radiograph is compared to study dated 05/30/2022 and correlated with chest CT dated 11/23/2020. The examination is degraded by portable technique and patient rotation. A 2-lead cardiac pacemaker is unchanged in position. The heart is enlarged nothing atherosclerotic calcification of the thoracic aorta. The pulmonary vasculature is noncongested. Chronic interstitial thickening is similar to previous. There is left basilar scarring/atelectasis. No airspace consolidation or large pleural effusion is identified. No pneumothorax is seen. The skeletal structures are osteopenic. The bony thorax is grossly intact. IMPRESSION: 1. Cardiomegaly and cardiac pacemaker without radiographic evidence of congestive failure. 2. No airspace consolidation or large pleural effusion is identified. ACT 112: Negative or not required by law. Electronically signed by: Moses Mckee M.D. 10/21/2022 11:[address] 10/21/22 11:40 CT SCAN OF THE BRAIN WITHOUT IV CONTRAST CLINICAL HISTORY: Change in mental status. Generalized weakness. COMPARISON STUDY: CT of the brain dated 12/24/2019. TECHNIQUE: Unenhanced axial CT scan of the brain is performed from the vertex to the skull base. A dose lowering technique was utilized adhering to the principles of ALARA. FINDINGS: Brain parenchyma: There is age-related involutional change noting advanced confluent subcortical and periventricular microangiopathic disease. There is no hemorrhage, mass effect, or evidence of acute territorial ischemia by CT criteria. There is a chronic lacunar infarct in the left basal ganglia. Gonzales- white matter differentiation is preserved. No extra-axial fluid collection is seen. Ventricles, sulci, cisterns: Prominent secondary to involutional change. Intracranial vasculature: There is atherosclerotic calcification of the c avernous carotid artery. Calvarium: Unremarkable. Sinuses and mastoids: The visualized paranasal sinuses are clear. The mastoid air cells are well pneumatized. Orbits: The bony orbits are grossly intact. There are bilateral ocular lens implants. IMPRESSION: There is no hemorrhage, mass effect, or evidence of acute territorial ischemia by CT criteria. ACT 112: Negative or not required by law. Electronically signed by: Moses Mckee M.D. 10/21/2022 12:28 PM ECG Additional Comments: Normal sinus rhythm Left anterior fascicular block Septal infarct , age undetermined Abnormal ECG When compared with ECG of 25-NOV-2020 14:10, Sinus rhythm has replaced Electronic ventricular pacemaker Code Status & VTE Plan Code Status Full code VTE Prophylaxis Plan VTE Prophylaxis will be ordered: Yes Supervising Physician Co-Signing Physician Notes I personally saw and examined the patient. I verified all triana points and agree with Lam Gutierrez PA-C with the following exceptions and/or additions: 87 year old female presents to the ER with fatigue and altered mental status. Patient seen without her . She is orientated to self and place but not time. Unable to give me any significant history. Denies any abdominal pain. O/E A&Ox2 (disorientated to time), HS RRR, no murmurs, Chest CTAB, Abdo generalized but worse tenderness in left lower quadrant, guarding but no rebound, no pedal edema. A/P Acute diverticulitis - Zosyn, IV fluids, NPO Elevated troponin - no chest pain suggestive of ACS however also unable to get a good history from the patient therefore will get TTE to assess for wall motion abnormalities PG Care Time/CCT Total # of Minutes Spent Total Time Spent with Patient: Total time spent is greater than 50% in coordination of care (as documented) at patient's floor/unit and/or counseling patient: Coding [place] [address] INT INP/OBS CARE 3/75MIN Patient Type Established Medical Decision Making High Complexity Diagnoses Elevated troponin R77.8 Diverticulitis K57.92 Weakness R53.1 Lower-half Parkinsonism G20 Hypothyroidism E03.9 Hypertension I10 Hyperglycemia R73.9
[2022-10-21] MEDS ORDERED: LACTATED RINGER'S 1,000 ML IV SCH (14:30)
[2022-10-21 14:34] LABS: Appearance Urine Clear (Clear); Bacteria Urine Automated Negative (Negative); Bilirubin Urine Negative (Negative); Blood Urine Negative (Negative); Color Urine Yellow; Epithelial Cell Urine Auto >30 /lpf (0-5); Glucose Urine UA Negative (Negative); Ketones Urine Negative (Negative); Leukocyte Esterase Urine 1+ (Negative); Nitrite Urine Negative (Negative); RBC Urine Automated 0-4 /hpf (0-4); Specific Gravity Urine 1.016 (1.000-1.030); Urobilinogen Urine Negative (Negative); WBC Urine Automated >30 /hpf (0-5); pH Urine 7.5 (4.5-7.5)
[2022-10-21 14:38] LABS: Protein Urine 2+ (Negative)
[2022-10-21] MEDS ORDERED: CARBIDOPA/LEVODOPA 25/100MG TAB PO STA (14:44)
[2022-10-21] MEDS ORDERED: METOPROLOL SUCC 50MG EXT REL TAB PO STA (14:44)
[2022-10-21] MEDS ORDERED: GLUCOSE 40% GEL 15 GM TUBE PO PRN (14:58)
[2022-10-21] MEDS ORDERED: DEXTROSE 50% 50 ML SYRINGE IV PRN (14:58)
[2022-10-21] MEDS ORDERED: GLUCOSE 10 TAB/TUBE PO PRN (14:58)
[2022-10-21] MEDS ORDERED: CARBOHYDRATES FOR HYPOGLYCEMIA PO PRN (14:58)
[2022-10-21] MEDS ORDERED: GLUCAGON FOR INJ 1 MG VIAL SQ PRN (14:58)
[2022-10-21] MEDS ORDERED: ONDANSETRON INJ 2 MG/ML 2 ML VIAL IV PRN (15:50)
[2022-10-21] MEDS: INSULIN ASPART PER UNIT CHARGE SC SCH ×2 (15:59→19:43)
[2022-10-21] MEDS: CARBIDOPA/LEVODOPA 25/100MG TAB PO SCH (21:36)
[2022-10-21] MEDS: ENOXAPARIN INJ 30 MG/0.3 ML SYR SQ SCH (21:37)
[2022-10-21] MEDS: PIPERACILLIN/TAZOBACTAM 4.5 GM in DEXTROSE 5% 100 ML IV SCH (22:10)
[2022-10-22] MEDS: INSULIN ASPART PER UNIT CHARGE SC SCH ×4 (00:22→11:15)
[2022-10-22 03:05] LABS: Alanine Aminotransferase < 3 U/L (7-52); Albumin Globulin Ratio 1.2 (0.9-2); Albumin Level 3.2 gm/dl (3.4-5.0); Alkaline Phosphatase 50 U/L (34-104); Anion Gap 7 (3-11); Aspartate Aminotransferase 18 U/L (13-39); BUN Creatinine Ratio 16.3 (10-20); Bilirubin,Total 0.9 mg/dl (0.2-1.0); Blood Urea Nitrogen 21 mg/dl (6-23); Calcium 9.3 mg/dl (8.6-10.3); Carbon Dioxide 28 mmol/L (21-32); Chloride 102 mmol/L (98-107); Creatinine Clr Calc Pharmacy 22.1 ml/min; Est GFR (African American) 43.1 ml/min; Est GFR (Non-African American) 37.2 ml/min; Globulin 2.6 gm/dl (2.5-4.0); Glucose 98 mg/dl (70-99(Fasting)); Magnesium 1.8 mg/dl (1.7-2.4); Potassium 3.7 mmol/L (3.5-5.1); Sodium 137 mmol/L (136-145); Total Protein 5.8 gm/dl (6.0-8.3)
[2022-10-22] MEDS ORDERED: ACETAMINOPHEN 325 MG TAB PO PRN (03:26)
[2022-10-22 03:31] LABS: Basophils # (auto) 0.04 K/uL (0-0.2); Basophils % (auto) 0.6 %; Eosinophils % (auto) 2.8 %; Hematocrit (blood only) 31.7 % (37.0-47.0); Hemoglobin 10.7 g/dl (12.0-16.0); Immature Granulocytes # (auto) 0.02 K/uL (0.01-0.20); Immature Granulocytes % (auto) 0.3 %; Lymphocytes % (auto) 12.5 %; Mean Corpuscular Hemoglobin 32.9 pg (25.0-34.0); Mean Corpuscular Hgb Conc 33.8 g/dL (32.0-36.0); Mean Corpuscular Volume 97.5 fL (80.0-100.0); Mean Platelet Volume 12.3 fL (9.4-12.4); Monocytes # (auto) 0.45 K/uL (0.11-0.59); Monocytes % (auto) 6.3 %; Neutrophils # (auto) 5.59 K/uL (1.40-6.50); Neutrophils % (auto) 77.5 %; Platelet Count 142 K/uL (130-400); RDW Coefficient of Variation 11.9 % (11.5-14.5); RDW Standard Deviation 42.5 fL (36.4-46.3); Red Blood Count 3.25 M/uL (4.20-5.40)
[2022-10-22] MEDS: LEVOTHYROXINE SODIUM 50 MCG TABLET PO SCH (05:50)
[2022-10-22] MEDS: PANTOprazole 40 MG TAB PO SCH (07:44)
[2022-10-22] MEDS: CARBIDOPA/LEVODOPA 25/100MG TAB PO SCH ×3 (07:44→21:03)
[2022-10-22] MEDS: amLODIPine BESYLATE 5 MG TAB PO SCH ×2 (07:45→07:46)
[2022-10-22] MEDS: METOPROLOL SUCC 50MG EXT REL TAB PO SCH (07:45)
[2022-10-22] MEDS: PIPERACILLIN/TAZOBACTAM 4.5 GM in DEXTROSE 5% 100 ML IV SCH ×2 (11:07→21:36)
[2022-10-22] MEDS ORDERED: Nursing to Pharmacy Communication SCH (11:15)
[2022-10-22] MEDS ORDERED: INSULIN ASPART PER UNIT CHARGE SC SCH (11:30)
--- NOTE | 2022-10-22 13:25 | XCELERA ---
[id number] \\[email or web address]\[email or web address]_Reports\[id number]
--- NOTE | 2022-10-22 13:27 | Hospitalist Progress Note ---
Date of Service October 22, 2022 Assessment & Plan (1) Diverticulitis: Plan: -Presents to the hospital with complaints of abdominal pain -Found on CT of the abd/pelvis wo con today -No signs of perforation or abscess -Continue IV Zosyn -Tolerating clear liquid, advance diet as tolerated -PRN zofran for nausea/vomiting (2) Elevated troponin: Plan: -Admit to the PCU on tele -Currently stable, denies chest pain -Noted to have an initial high sen trop of 1107, this has been trending down -No acute ECG changes compared to her last in November of 2020 -Continue to monitor on tele and trend trop -SQ lovenox for DVT PPX (3) Weakness: Plan: -Likely due to acute exacerbation of her chronic neurologic disease due to acute diverticulitis and possible UTI -No new focal neuro defects, patient is at her baseline cognitive level per she and her -Continue Zosyn to cover diverticulitis and possible UTI -Follow urine and blood cultures -Will follow cardiac workup to rule out cardiac causes of her weakness -PT/OT -Fall precautions ordered (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 Patient follows up with neurology outpatient (5) Hypothyroidism: Plan: -Continue levothyroxine (6) Hypertension: Plan: -Stable -Continue amlodipine and metoprolol -Hold Epelerone for now as she appears dehydrated (7) Hyperglycemia: Plan: -Not on outpatient regimen -FOr now monitor BSG q4h while NPO, goal is 110-160 -CF of 50 q4h for now with hypoglycemia protocol -Adjust regimen as needed Plan Continue hospitalization, hopefully discharge in next 48 hours Admission and Anticipated Discharge Date Admission Date: October 21, 2022 Subjective Patient seen and examined, friend by the bedside, says abdominal pain is better and is willing to advance her diet Review of Systems Review of Systems: All systems reviewed are negative, apart from the ones contained in the history. Physical Exam Physical Exam: The patient is awake, alert and oriented 3, well developed and well nourished, normocephalic and atraumatic, lying in bed and in no acute distress. HEENT--PERRL, EOMI, mucous membranes and oropharynx mildly dry Neck--supple. No JVD. No bruits. Thyroid normal, trachea midline, no adenopathy. Heart--normal S1 and S2. No murmurs, rubs or gallops. Lungs--clear bilaterally, no respiratory distress, no accessory muscle use. Abdomen--normal bowel sounds and soft. Mild epigastric and left sided abdominal pain Extremities--no cyanosis or clubbing. No edema. Dermatologic--normal skin turgor, normal color, no abnormal lymph nodes, no rash. Neurologic--cranial nerves II through XII grossly intact. Rheumatologic--normal range of motion. Psychiatric--normal affect. Results & Data Results & Data Vital Signs (Past 12 Hours) Vital Signs Temp Pulse Pulse Resp BP BP Pulse Ox 10/22/22 12:08 97.5 F L 68 18 146/76 H 94 10/22/22 08:00 70 10/22/22 08:07 98.4 F 64 17 172/77 H 93 10/22/22 02:36 98.2 F 62 18 147/67 H 93 O2 Del Method 10/22/22 12:08 Room Air 10/22/22 08:00 10/22/22 08:07 Room Air 10/22/22 02:36 Room Air PG Care Time/CCT Total # of Minutes Spent Total Time Spent with Patient: Total time spent is greater than 50% in coordination of care (as documented) at patient's floor/unit and/or counseling patient: Coding Level of Care Code 36560 SUB INP/OBS CARE 2/35MIN Diagnoses Diverticulitis K57.92 Elevated troponin R77.8 Weakness R53.1 Lower-half Parkinsonism G20 Hypothyroidism E03.9 Hypertension I10 Hyperglycemia R73.9 Time Spent (min) 35
--- NOTE | 2022-10-22 13:42 | Electrocardiogram Report ---
Test Reason : Blood Pressure : / mmHG Vent. Rate : 080 BPM Atrial Rate : 080 BPM P-R Int : 202 ms QRS Dur : 088 ms QT Int : 384 ms P-R-T Axes : 068 -57 081 degrees QTc Int : 442 ms Normal sinus rhythm Left anterior fascicular block Septal infarct , age undetermined Abnormal ECG When compared with ECG of 25-NOV-2020 14:10, Sinus rhythm has replaced Electronic ventricular pacemaker Confirmed by Aman Gallardo ([id number]) on 10/22/2022 1:41:29 PM Referred By: Jarrett Marie Confirmed By:Aman Gallardo
[2022-10-22] MEDS: ENOXAPARIN INJ 30 MG/0.3 ML SYR SQ SCH (21:03)
[2022-10-23 02:48] LABS: Basophils # (auto) 0.04 K/uL (0-0.2); Basophils % (auto) 0.7 %; Eosinophils # (auto) 0.25 K/uL (0-0.50); Eosinophils % (auto) 4.2 %; Hematocrit (blood only) 30.6 % (37.0-47.0); Hemoglobin 10.4 g/dl (12.0-16.0); Immature Granulocytes # (auto) 0.01 K/uL (0.01-0.20); Immature Granulocytes % (auto) 0.2 %; Lymphocytes # (auto) 0.93 K/uL (1.2-3.4); Lymphocytes % (auto) 15.8 %; Mean Corpuscular Hemoglobin 32.4 pg (25.0-34.0); Mean Corpuscular Volume 95.3 fL (80.0-100.0); Mean Platelet Volume 12.9 fL (9.4-12.4); Monocytes # (auto) 0.53 K/uL (0.11-0.59); Neutrophils # (auto) 4.14 K/uL (1.40-6.50); Neutrophils % (auto) 70.1 %; Platelet Count 149 K/uL (130-400); RDW Coefficient of Variation 11.9 % (11.5-14.5); RDW Standard Deviation 41.5 fL (36.4-46.3); Red Blood Count 3.21 M/uL (4.20-5.40)
[2022-10-23 03:04] LABS: Anion Gap 5 (3-11); BUN Creatinine Ratio 16.1 (10-20); Blood Urea Nitrogen 27 mg/dl (6-23); Calcium 9.2 mg/dl (8.6-10.3); Carbon Dioxide 29 mmol/L (21-32); Chloride 104 mmol/L (98-107); Creatinine Clr Calc Pharmacy 16.9 ml/min; Est GFR (African American) 31.3 ml/min; Glucose 96 mg/dl (70-99(Fasting)); Potassium 4.1 mmol/L (3.5-5.1); Sodium 138 mmol/L (136-145)
[2022-10-23 03:05] LABS: Alanine Aminotransferase < 3 U/L (7-52); Albumin Globulin Ratio 1.2 (0.9-2); Alkaline Phosphatase 44 U/L (34-104); Aspartate Aminotransferase 18 U/L (13-39); Bilirubin,Total 0.5 mg/dl (0.2-1.0); Globulin 2.6 gm/dl (2.5-4.0); Magnesium 1.8 mg/dl (1.7-2.4); Total Protein 5.6 gm/dl (6.0-8.3)
[2022-10-23] MEDS: LEVOTHYROXINE SODIUM 50 MCG TABLET PO SCH (06:48)
[2022-10-23] MEDS: CARBIDOPA/LEVODOPA 25/100MG TAB PO SCH ×3 (07:41→20:18)
[2022-10-23] MEDS: amLODIPine BESYLATE 5 MG TAB PO SCH ×2 (07:41)
[2022-10-23] MEDS: METOPROLOL SUCC 50MG EXT REL TAB PO SCH (07:41)
[2022-10-23] MEDS: PANTOprazole 40 MG TAB PO SCH (07:42)
[2022-10-23] MEDS: PIPERACILLIN/TAZOBACTAM 4.5 GM in DEXTROSE 5% 100 ML IV SCH ×2 (08:00→22:04)
[2022-10-23] MEDS ORDERED: ATORVASTATIN 20 MG TAB PO SCH (09:00)
--- NOTE | 2022-10-23 10:19 | Hospitalist Progress Note ---
Date of Service October 23, 2022 Assessment & Plan (1) Acute encephalopathy: Plan: Metabolic encephalopathy secondary to acute diverticulitus Now resolved, patient back to baseline Ct head was normal (2) Diverticulitis: Plan: -Presents to the hospital with complaints of abdominal pain -Found on CT of the abd/pelvis wo con today -No signs of perforation or abscess -Continue IV Zosyn -Tolerating clear liquid, advance diet as tolerated -PRN zofran for nausea/vomiting (3) Elevated troponin: Plan: -Currently stable, denies chest pain -Noted to have an initial high sen trop of 1107, this has been trending down -No acute ECG changes compared to her last in November of 2020 -Continue to monitor on tele and trend trop -SQ lovenox for DVT PPX (4) Weakness: Plan: -Likely due to acute exacerbation of her chronic neurologic disease due to acute diverticulitis and possible UTI -No new focal neuro defects, patient is at her baseline cognitive level per she and her -Continue Zosyn to cover diverticulitis and possible UTI -Follow urine and blood cultures -Will follow cardiac workup to rule out cardiac causes of her weakness -PT/OT -Fall precautions ordered (5) Lower-half Parkinsonism: Plan: -Continue outpatient medication. Patient follows up with neurology outpatient (6) Hypothyroidism: Plan: -Continue levothyroxine (7) Hypertension: Plan: -Stable -Continue amlodipine and metoprolol -Hold Epelerone for now as she appears dehydrated (8) Hyperglycemia: Plan: -Not on outpatient regimen -FOr now monitor BSG q4h while NPO, goal is 110-160 -CF of 50 q4h for now with hypoglycemia protocol -Adjust regimen as needed Plan Continue hospitalization, hopefully discharge in next 48 hours Admission and Anticipated Discharge Date Admission Date: October 21, 2022 Subjective Patient seen and examined, says her abdominal ain is better, she is tolerating diet Review of Systems Review of Systems: All systems reviewed are negative, apart from the ones contained in the history. Physical Exam Physical Exam: The patient is awake, alert and oriented 3, well developed and well nourished, normocephalic and atraumatic, lying in bed and in no acute distress. HEENT--PERRL, EOMI, mucous membranes and oropharynx mildly dry Neck--supple. No JVD. No bruits. Thyroid normal, trachea midline, no adenopathy. Heart--normal S1 and S2. No murmurs, rubs or gallops. Lungs--clear bilaterally, no respiratory distress, no accessory muscle use. Abdomen--normal bowel sounds and soft. Mild epigastric and left sided abdominal pain Extremities--no cyanosis or clubbing. No edema. Dermatologic--normal skin turgor, normal color, no abnormal lymph nodes, no rash. Neurologic--cranial nerves II through XII grossly intact. Rheumatologic--normal range of motion. Psychiatric--normal affect. Results & Data Results & Data Vital Signs (Past 12 Hours) Vital Signs Temp Pulse Pulse Resp BP BP Pulse Ox 10/23/22 08:06 97.5 F L 75 18 156/83 H 93 10/23/22 03:00 98.1 F 62 18 126/59 L 93 10/23/22 00:00 63 10/22/22 23:14 98.1 F 75 18 148/74 H 94 O2 Del Method 10/23/22 08:06 Room Air 10/23/22 03:00 Room Air 10/23/22 00:00 10/22/22 23:14 Room Air PG Care Time/CCT Total # of Minutes Spent Total Time Spent with Patient: Total time spent is greater than 50% in coordination of care (as documented) at patient's floor/unit and/or counseling patient: Coding Level of Care Code 54589 SUB INP/OBS CARE 2/35MIN Diagnoses Acute encephalopathy G93.40 Diverticulitis K57.92 Elevated troponin R77.8 Weakness R53.1 Lower-half Parkinsonism G20 Hypothyroidism E03.9 Hypertension I10 Hyperglycemia R73.9 Time Spent (min) 35
[2022-10-23] MEDS: ENOXAPARIN INJ 30 MG/0.3 ML SYR SQ SCH (20:18)
[2022-10-24] MEDS: LEVOTHYROXINE SODIUM 50 MCG TABLET PO SCH (05:49)
[2022-10-24 06:15] LABS: Basophils # (auto) 0.05 K/uL (0-0.2); Eosinophils # (auto) 0.33 K/uL (0-0.50); Eosinophils % (auto) 6.5 %; Hematocrit (blood only) 32.1 % (37.0-47.0); Hemoglobin 10.8 g/dl (12.0-16.0); Immature Granulocytes # (auto) 0.01 K/uL (0.01-0.20); Immature Granulocytes % (auto) 0.2 %; Lymphocytes # (auto) 0.99 K/uL (1.2-3.4); Lymphocytes % (auto) 19.6 %; Mean Corpuscular Hgb Conc 33.6 g/dL (32.0-36.0); Mean Platelet Volume 12.8 fL (9.4-12.4); Monocytes # (auto) 0.48 K/uL (0.11-0.59); Monocytes % (auto) 9.5 %; Neutrophils # (auto) 3.19 K/uL (1.40-6.50); Neutrophils % (auto) 63.2 %; Platelet Count 169 K/uL (130-400); RDW Coefficient of Variation 11.9 % (11.5-14.5); RDW Standard Deviation 41.6 fL (36.4-46.3); Red Blood Count 3.38 M/uL (4.20-5.40); White Blood Count 5.05 K/ul (4.8-10.8)
[2022-10-24 06:32] LABS: Albumin Globulin Ratio 1.1 (0.9-2); Albumin Level 3.3 gm/dl (3.4-5.0); BUN Creatinine Ratio 16.9 (10-20); Bilirubin,Total 0.4 mg/dl (0.2-1.0); Calcium 9.6 mg/dl (8.6-10.3); Creatinine Clr Calc Pharmacy 16.6 ml/min; Est GFR (African American) 30.5 ml/min; Est GFR (Non-African American) 26.3 ml/min; Globulin 2.9 gm/dl (2.5-4.0); Magnesium 1.9 mg/dl (1.7-2.4); Total Protein 6.2 gm/dl (6.0-8.3)
[2022-10-24] MEDS: amLODIPine BESYLATE 5 MG TAB PO SCH ×2 (08:09)
[2022-10-24] MEDS: PANTOprazole 40 MG TAB PO SCH (08:09)
[2022-10-24] MEDS: METOPROLOL SUCC 50MG EXT REL TAB PO SCH (08:09)
[2022-10-24] MEDS: CARBIDOPA/LEVODOPA 25/100MG TAB PO SCH ×2 (08:09→12:09)
[2022-10-24] MEDS: PIPERACILLIN/TAZOBACTAM 4.5 GM in DEXTROSE 5% 100 ML IV SCH (08:14)
--- NOTE | 2022-10-24 14:21 | Discharge Summary ---
Date of Service October 24, 2022 Admission HPI Per Admitting Provider Caroline is an 87 year old female with a PMH significant for complete heart block S/P pacemaker placement, moderate-severe , HTN, lower- half Parkinsonism with gait abnormality, cerebral vascular disease, dysphonia, hypothyroidism, and mild cognitive impairment who presented to the [facility] ED from [facility] on 10/21 due to AMS. In the ED vitals were stable. Labs were significant for a lymphopenia of 0.59, ESR of 58, CRP of 2.71, initital high sen trop of 1107, and covid 19 negative. ECG showed NSR with minimal ST segment depression in the lateral leads, seen on her last ECG as of 11/25/20. Chest xray was read as 1. Cardiomegaly and cardiac pacemaker without radiographic evidence of congestive failure. 2. No airspace consolidation or large pleural effusion is identified.. CT of the head/brain wo con was read as There is no hemorrhage, mass effect, or evidence of acute territorial ischemia by CT criteria.. CT of the abd/pelvis wo con was read as 1. Acute diverticulitis of the distal descending/proximal sigmoid colon. 2. No intraperitoneal free air is seen and there is no organized fluid collection identified to suggest abscess on this unenhanced examination. 3. Rectosigmoid fecal retention and moderate constipation. 4. Cholelithiasis within a distended gallbladder. There is no CT evidence of acute cholecystitis. Correlate with clinical and laboratory findings.. Prior to admission the patient was given 1L NSS and a dose of Zosyn. At the time of the exam the patient was sitting in bed in no acute distress with her sitting bedside. Her states that the patient has been significantly more weak over the past 4 days. She has not had the energy to participate in PT over this time and her chronic gait abnormalities have been exacerbated with her weakness. She has had LLQ abd pain and decreased PO intake over the past 4 days. The patient states that she had one episode of nausea and non-bloody emesis yesterday. The patient has also been experience increase urinary frequency but denies dysuria and hematuria. They deny any recent fever, chills, chest pain/pressure, SOB, dysuria, diarrhea, bloody BM's, or melena, LE swelling, and recent falls/trauma. We discussed code status, they would like to think about the option to switch her to DNR/DNI, but for now they would like to keep her a full code. Principal Diagnosis acute diverticulitis Discharge Exam The patient is awake, alert and oriented 3, well developed and well nourished, normocephalic and atraumatic, lying in bed and in no acute distress. HEENT--PERRL, EOMI, mucous membranes and oropharynx mildly dry Neck--supple. No JVD. No bruits. Thyroid normal, trachea midline, no ad enopathy. Heart--normal S1 and S2. No murmurs, rubs or gallops. Lungs--clear bilaterally, no respiratory distress, no accessory muscle use. Abdomen--normal bowel sounds and soft. Mild epigastric and left sided abdominal pain Extremities--no cyanosis or clubbing. No edema. Dermatologic--normal skin turgor, normal color, no abnormal lymph nodes, no rash. Neurologic--cranial nerves II through XII grossly intact. Rheumatologic--normal range of motion. Psychiatric--normal affect. Discharge Data Allergies Allergy/AdvReac Type Severity Reaction Status Date / Time amoxicillin [From Augmentin] Allergy Intermediate NAUSEA/VOMI Verified 09/27/22 10:11 TING clavulanic acid Allergy Intermediate NAUSEA/VOMI Verified 09/27/22 10:11 [From Augmentin] TING codeine AdvReac Intermediate N/V Verified 09/27/22 10:11 Consultations 10/21/22 13:56 ED Decision to Admit Stat Ordered Studies 10/21/22 11:40 CT abd pelvis wo con Stat CT head/brain wo con Stat Hospital Course (1) Acute encephalopathy: Metabolic encephalopathy secondary to acute diverticulitus Now resolved, patient back to baseline Ct head was normal (2) Diverticulitis: -Presents to the hospital with complaints of abdominal pain -Found on CT of the abd/pelvis wo con today -No signs of perforation or abscess -Transition to PO Cipro and Flagy for 5 more days -Tolerating clear liquid, advance diet as tolerated -PRN zofran for nausea/vomiting (3) Elevated troponin: -Currently stable, denies chest pain -Noted to have an initial high sen trop of 1107, this has been trending down -No acute ECG changes compared to her last in November of 2020 -Continue to monitor on tele and trend trop -SQ lovenox for DVT PPX (4) Weakness: -Likely due to acute exacerbation of her chronic neurologic disease due to acute diverticulitis and possible UTI -No new focal neuro defects, patient is at her baseline cognitive level per she and her -Continue Zosyn to cover diverticulitis and possible UTI -Follow urine and blood cultures -Will follow cardiac workup to rule out cardiac causes of her weakness -PT/OT -Fall precautions ordered (5) Lower-half Parkinsonism: -Continue outpatient medication. Patient follows up with neurology outpatient (6) Hypothyroidism: -Continue levothyroxine (7) Hypertension: -Stable -Continue amlodipine and metoprolol -Hold Epelerone for now as she appears dehydrated (8) Hyperglycemia: -Not on outpatient regimen -FOr now monitor BSG q4h while NPO, goal is 110-160 -CF of 50 q4h for now with hypoglycemia protocol -Adjust regimen as needed Plan d/c on PO abx Total Time Total Time Spent Total Time Spent (In Minutes): 35 Discharge Plan Discharge Items Patient Disposition: Transfer Correction Fac Reason For Visit: ACUTE DIVERTICULITIS,ELEVATED TROPONIN Discharge Diagnosis: acute diverticulitis Activity: Resume your previous activity Non-emergency contact: Primary Care Provider Call non-emergency contact if: you have any medication questions Follow-up/Referrals: Jarrett Marie [Primary Care Provider] - Diet: Regular Addtl Attending Provider Instructions: please follow up with your regular PCP Pending Studies at Discharge: No Stand-Alone Forms: My [facility] Skilled Items Patient informed of condition?: Yes DNR: No Discharge Level of Care: Skilled Communicable Disease: No Discharge Prognosis: Stable Lines: None Urinary Catheter: No Medications and DC Order Prescriptions: New ciprofloxacin HCl 500 mg tablet 500 mg PO BID 5 Days Qty: 10 0RF metronidazole [Flagyl] 375 mg capsule 375 mg PO BID 5 Days Qty: 10 0RF Continued metoprolol succinate 50 mg tablet extended release 24 hr 50 mg PO QAM Qty: 90 3RF levothyroxine 50 mcg tablet 50 mcg PO QAM Qty: 90 3RF mecobalamin (vitamin B12) 1,000 mcg tablet,disintegrating 1,000 mcg sublingual HS Rx Instructions: place tablet under tongue and allow to dissolve for at least30 secs before swallowing cholecalciferol (vitamin D3) 25 mcg (1,000 unit) capsule 25 mcg PO QAM eplerenone 25 mg tablet 25 mg PO DAILY pantoprazole [Protonix] 40 mg tablet,delayed release (DR/EC) 40 mg PO DAILY atorvastatin 20 mg tablet 20 mg PO 3XWK carbidopa-levodopa [Sinemet] 25-100 mg tablet 1 tab PO TID 90 Days Qty: 270 3RF acetaminophen [Tylenol Extra Strength] 500 mg Tablet 500 - 1,000 mg PO Q6H PRN (Reason: Pain) Patient Comments: states he is not sure of the strength of the tylenol. (03-27-19) amlodipine 5 mg tablet 5 mg PO DAILY Rx Instructions: TOTAL DOSE 7.5 MG--TAKES WITH 2.5 MG TAB. Discharge Orders: Discharge Order (Routine); Ordered 10/24/22 Ordered By: Sobia Luna Admission Data Admit Date/Time: 10/21/22 13:58 Attending Provider: Sobia Luna Admit Provider: Ziggy Orantes Primary Care Provider: Jarrett Marie Other Providers: Ziggy Oarntes ; Jarrett Marie Other Interventions: Discharge Summary Assessment (RN) Last Done: 10/24/22 12:50 Coding Level of Care Code 38669 INP/OBS DISCH >30 MIN Diagnoses Acute encephalopathy G93.40 Diverticulitis K57.92 Elevated troponin R77.8 Weakness R53.1 Lower-half Parkinsonism G20 Hypothyroidism E03.9 Hypertension I10 Hyperglycemia R73.9 Time Spent (min) 35
== END 2022-10-24 14:50 | DRG 391 ==
LOC: ED 11:24 → EDINP 13:58 → SUATTDRO 13:58 → 2E 15:47

== ENCOUNTER 2024-06-13 13:22 | Inpatient (IN) ==
[2024-06-13 14:00] LABS: Basophils # (auto) 0.03 K/uL (0.00-0.20); Basophils % (auto) 0.4 %; Eosinophils # (auto) 0.25 K/uL (0.00-0.50); Eosinophils % (auto) 3.4 %; Hematocrit (blood only) 34.5 % (37.0-47.0); Hemoglobin 11.1 g/dl (12.0-16.0); Immature Granulocytes # (auto) 0.03 K/uL (0.01-0.20); Immature Granulocytes % (auto) 0.4 %; Lymphocytes # (auto) 0.76 K/uL (1.20-3.40); Lymphocytes % (auto) 10.4 %; Mean Corpuscular Hgb Conc 32.2 g/dL (32.0-36.0); Mean Corpuscular Volume 102.7 fL (80.0-100.0); Mean Platelet Volume 12.6 fL (9.4-12.4); Monocytes # (auto) 0.66 K/uL (0.11-0.59); Neutrophils # (auto) 5.58 K/uL (1.40-6.50); Neutrophils % (auto) 76.4 %; Platelet Count 171 K/uL (130-400); RDW Coefficient of Variation 12.9 % (11.5-14.5); RDW Standard Deviation 49.1 fL (36.4-46.3); Red Blood Count 3.36 M/uL (4.20-5.40); White Blood Count 7.31 K/ul (4.8-10.8)
--- NOTE | 2024-06-13 14:09 | XRay Report ---
XR chest 1V portable CLINICAL HISTORY: cough COMPARISON STUDY: 10/21/2022 FINDINGS: Stable pacemaker. Stable mild cardiomegaly without pulmonary vascular congestion. No effusi on, consolidation, or pneumothorax. IMPRESSION: No pneumonia seen. ACT 112: Negative or not required by law. Electronically signed by: Angelo Rivero M.D. 06/13/2024 2:08 PM
[2024-06-13 14:11] LABS: Albumin Globulin Ratio 1.1 (0.9-2); Albumin Level 3.6 gm/dl (3.4-5.0); BUN Creatinine Ratio 24.7 (10-20); Bilirubin,Total 0.3 mg/dl (0.2-1.0); Calcium 9.8 mg/dl (8.6-10.3); Creatinine Clr Calc Pharmacy 9.7 ml/min; Globulin 3.4 gm/dl (2.5-4.0); Potassium 4.6 mmol/L (3.5-5.1)
[2024-06-13 14:41] LABS: Adenovirus PCR Not Detected (NotDetected); Bordetella parapertussis PCR Not Detected (NotDetected); Bordetella pertussis PCR Not Detected (NotDetected); Chlamydia pneumoniae PCR Not Detected (NotDetected); Coronavirus 229E PCR Not Detected (NotDetected); Coronavirus CoV-2 (COVID19)PCR Not Detected (NotDetected); Coronavirus HKU1 PCR DETECTED (NotDetected); Coronavirus NL63 PCR Not Detected (NotDetected); Coronavirus OC43PCR Not Detected (NotDetected); Human Metapneumovirus PCR Not Detected (NotDetected); Influenza A (H3) PCR DETECTED (NotDetected); Influenza B PCR Not Detected (NotDetected); Mycoplasma pneumoniae PCR Not Detected (NotDetected); Parainfluenza Virus 1 PCR Not Detected (NotDetected); Parainfluenza Virus 2 PCR Not Detected (NotDetected); Parainfluenza Virus 3 PCR Not Detected (NotDetected); Parainfluenza Virus 4 PCR Not Detected (NotDetected); Respiratory Syncytial VirusPCR Not Detected (NotDetected); Rhinovirus/Enterovirus PCR Not Detected (NotDetected)
--- NOTE | 2024-06-13 15:55 | History & Physical Report ---
Date of Service June 13, 2024 Assessment & Plan (1) Influenza A: Plan: Tamiflu (renally dose) Droplet isolation precautions Procalcitonin mildly positive but no consolidation on CXR and patient has CKD, will defer antibiotics for secondary bacterial pneumonia currently but may need to trend if not improving (2) Hypoxia: Plan: Aim O2 sats > 90% (3) Elevated serum creatinine: Plan: Baseline Cr 1.73 in May, Cr 2.31 on admission, appears clinically dry LR @ 125ml/hr overnight (4) Lower-half Parkinsonism: Plan: Continue usual Sinemet dosing Plan VTE Prophylaxis - heparin 5000 units BID Diet - regular Disposition - admit med/surg Admission and Anticipated Discharge Date Admission Date: June 132024 History of Present Illness Chief Complaint: Nausea, vomtiing, cough Primary Care Provider: Jarrett Frank Feldman is an 88-year-old female who presents to the ER with nausea, vomiting, cough. Unable to get any significant history from the patient as she is unsure what brought her to the ER but currently says she feels fine. History taken from son at bedside. He reports alerting Jarrett that she appeared to be having a more noticeable cough over the last 2 weeks but especially the last week. She was started on Augmentin today for concern for pneumonia. No known chest pain or shortness of breath. Reportedly she has also nauseous and vomiting overnight. She was sent to the ER due to concern for her renal function and hemoglobin getting worse in addition to hypoxia. Her son notes she has been having nausea and vomiting for several months and is due for a cholecystectomy later this month but has to be cleared by cardiology first with KINGA Mustafa planned for Sunday. Allergies Allergy/AdvReac Type Severity Reaction Status Date / Time amoxicillin [From Augmentin] Allergy Intermediate NAUSEA/VOMI Verified 06/12/24 13:42 TING clavulanic acid Allergy Intermediate NAUSEA/VOMI Verified 06/12/24 13:42 [From Augmentin] TING codeine AdvReac Intermediate N/V Verified 06/13/24 18:39 Home Medications Medication Instructions Recorded Confirmed Type amlodipine 5 mg tablet 5 mg PO QAM 11/23/20 06/13/24 History levothyroxine 50 mcg tablet 50 mcg PO QAM #90 tabs 03/17/21 06/13/24 Rx cholecalciferol (vitamin D3) 25 25 mcg PO QAM 09/30/21 06/13/24 History mcg (1,000 unit) capsule mecobalamin (vitamin B12) 1,000 1,000 mcg sublingual HS 09/30/21 06/13/24 History mcg disintegrating tablet,sublingual pantoprazole 40 mg tablet,delayed 40 mg PO BID 06/26/22 06/13/24 History release (Protonix) carbidopa 25 mg-levodopa 100 mg 1 tab PO TID 90 days #270 tabs 09/27/22 06/13/24 Rx tablet (Sinemet) ondansetron 4 mg disintegrating 4 mg PO Q8H PRN Nausea And Vomiting 12/29/22 06/13/24 History tablet carvedilol 25 mg tablet 25 mg PO BID 04/28/24 06/13/24 History sennosides 8.6 mg capsule (senna) 8.6 mg PO HS 05/21/24 06/13/24 History acetaminophen 325 mg tablet 650 mg PO TID 05/29/24 06/13/24 History bisacodyl 10 mg rectal suppository 10 mg AL UD PRN Constipation 05/29/24 06/13/24 History (Dulcolax (bisacodyl)) magnesium hydroxide 400 mg/5 mL 30 ml PO UD PRN Constipation 05/29/24 06/13/24 History oral suspension (Milk of Magnesia) polyethylene glycol 3350 17 17 g PO QAM 05/29/24 06/13/24 History gram/dose oral powder (Miralax) acetaminophen 500 mg tablet 500 mg PO Q6H PRN Pain 06/13/24 06/13/24 History amoxicillin 500 mg-potassium 1 tab PO BID 06/13/24 06/13/24 History clavulanate 125 mg tablet (Augmentin) food supplemt, lactose-reduced 1 ea PO TIDWMEAL 06/13/24 06/13/24 History hydrocortisone 1 % topical cream 1 applic topical Q6H PRN 06/13/24 06/13/24 History (Preparation H Hydrocortisone) Hemorrhoid Irritation Past Med/Surg History Problem List (Updated 06/13/24 @ 23:20 by Ziggy Orantes MD) Elevated serum creatinine Hypoxia Influenza A Abdominal pain Gallstones Cystocele with prolapse Lower-half Parkinsonism Bilateral neural hearing loss Dysphonia Pacemaker Complete heart block (Acute) Chronic cough (Acute) Apical lung scarring Bronchiectasis Cerebral vascular disease Ataxic gait Hypertension (Acute) CKD (chronic kidney disease) (Acute) Gait disturbance Aortic stenosis (Acute) Hypothyroidism (Acute) Mitral regurgitation (Acute) Osteopenia (Acute) Spinal stenosis (Acute) Hyperglycemia (Acute) Medical History (Updated 06/13/24 @ 23:20 by Ziggy Orantes MD) Carotid artery stenosis mild right ICA stenosis per 2019 neck MRA; mild bilat ICA stenosis per 2019 doppler History of [place] (myocardial infarction) Other dysphagia GERD without esophagitis History of falling Vascular parkinsonism Diverticulitis of intestine, part unspecified, without perforation or abscess without bleeding Anemia, unspecified Nonrheumatic aortic (valve) stenosis Moderate to severe valvular aortic stenosis (MARJORIE 1.0 cm2, mean PG 17 mmHg) Chronic kidney disease, stage 3 unspecified Hypertensive heart and chronic kidney disease with heart failure and stage 1 through stage 4 chronic kidney disease, or unspecified chronic kidney disease Pacemaker Atherosclerotic heart disease of [place] coronary artery without angina pectoris Difficulty in walking, not elsewhere classified Muscle weakness (generalized) Aphasia following cerebral infarction Cognitive communication deficit Other giant cell arteritis Hypothyroidism High cholesterol Arthritis Surgical History (Updated 05/29/24 @ 10:22 by Alda Mario PA-C) History of tonsillectomy History of laminectomy History of cataract surgery Family History Sister Alcoholism Father Atherosclerosis Gout Lung cancer Heart disease Hypertension Mother Hypertension Osteoporosis Stroke Denies family history of Colon cancer Ovarian cancer Prostate cancer Myocardial infarction Breast cancer Social History (Updated 05/21/24 @ 11:41 by Joanna Mariano RN) Smoking Status: Never smoker Hx Alcohol Use: Yes Alcohol type: wine Hx Substance Use: No Preferred Language: Macanese Communication Ability: Effective Visual Impairment: No Limitations Hearing Ability: Normal Cotton Buyer Required: No Beliefs That Will Affect Care: None marital status: Current Living Situation: Spouse Current Living Situation Comment: Lives in assisted living at [facility] with current occupational status: retired How many Children do You have: 2 Other Information That Helps Us Care for You: No Feels Safe at Home: Yes Safety Concerns: Feels Safe At This Time Childhood Exposure to Second-Hand Smoke: Yes Diet: regular caffeine: No during the past year weight has: remained stable Physical Activity Frequency: Daily Seatbelt Use: always Sunscreen Use: Yes Assistive Devices: Glasses and Walker Review of Systems Review of Systems: All systems reviewed & are unremarkable except as noted in HPI & below Physical Exam Constitutional: well developed; + not well nourished and no acute distress ENMT: Mouth: + dry oral mucous membranes Respiratory: normal respiratory effort; no respiratory distress Auscultation: + rhonchi (bilaterally); no wheezes Cardiovascular: Rate/Rhythm: regular rate and regular rhythm Heart Sounds: + murmur Extremities: normal capillary refill; no calf tenderness and no pedal edema Gastrointestinal (Abdomen): normal bowel sounds, soft, nontender, no hepatosplenomegaly Musculoskeletal: no cyanosis or clubbing, extremities motor strength 5/5 Skin: no rashes, warm and dry Neurologic: moves all extremities and awake; not confused Psychiatric: Orientation: alert and oriented to person; + not oriented to place and + not oriented to time Results & Data Results & Data Vital Signs (Past 12 Hours) Vital Signs Temp Pulse Pulse Resp BP BP Pulse Ox 06/13/24 15:00 68 18 134/64 96 06/13/24 13:29 75 06/13/24 13:29 36.9 C 70 26 H 143/66 H 87 L O2 Del Method O2 Flow Rate 06/13/24 15:00 Nasal Cannula 2 06/13/24 13:29 06/13/24 13:29 Room Air Laboratory Results Abnormal lab results 06/13/24 Range/Units 13:34 RBC 3.36 L (4.20-5.40) M/uL Hgb 11.1 L (12.0-16.0) g/dl Hct 34.5 L (37.0-47.0) % MCV 102.7 H (80.0-100.0) fL RDW Std Deviation 49.1 H (36.4-46.3) fL MPV 12.6 H (9.4-12.4) fL Lymph # (Auto) 0.76 L (1.20-3.40) K/uL [place] # (Auto) 0.66 H (0.11-0.59) K/uL BUN 57 H (6-23) mg/dl Creatinine 2.31 H (0.6-1.2) mg/dl BUN/Creatinine Ratio 24.7 H (10-20) Glucose 129 H (70-99(Fasting)) mg/dl ALT 4 L (7-52) U/L Coronavirus HKU1 (PCR) DETECTED A (NotDetected) Influenza A (H3) PCR DETECTED A (NotDetected) Diagnostic Findings XR chest 1V portable CLINICAL HISTORY: cough COMPARISON STUDY: 10/21/2022 FINDINGS: Stable pacemaker. Stable mild cardiomegaly without pulmonary vascular congestion. No effusion, consolidation, or pneumothorax. IMPRESSION: No pneumonia seen. Medications Administered ER medications given: None ECG Rate (beats per minute): 80 Rhythm: normal sinus Findings: no acute ischemic change Comparison ECG Date: from (November 25, 2020) Change: the following changes noted (Sinus rhythm replaced electronic ventricular pacemaker) Code Status & VTE Plan Code Status Full PG Care Time/CCT Total # of Minutes Spent Total Time Spent with Patient: Total time spent is greater than 50% in coordination of care (as documented) at patient's floor/unit and/or counseling patient: Coding Level of Care Code 03222 INT INP/OBS CARE 3/75MIN Diagnoses Influenza A J10.1 Hypoxia R09.02 Elevated serum creatinine R79.89 Lower-half Parkinsonism G20
--- NOTE | 2024-06-13 16:42 | Emergency Department Note ---
Impression & Plan Upper respiratory infection, viral, Influenza A, Coronavirus infection, Acute hypoxic respiratory failure ED Provider Note NAME: SUNITA STOVER AGE: 88 SEX: F : 1935 ARRIVES VIA: Ambulance INFORMANT: Patient, ED PROVIDER(S): Aneta Jenkins MD CHIEF COMPLAINT: Cough, shortness of breath HPI: This is a 88-year-old female presenting for shortness of breath and cough. Patient states that she has been coughing significantly, feeling weak. She noted some nausea with vomiting. She denies any recent chest pain however. Nursing reports that she is from [facility] however patient herself states that she lives at home with her . Otherwise she denies any current abdominal pain or diarrhea. ROS: See above HPI for pertinent positives & negatives. A total of 10 systems reviewed and were otherwise negative. PAST MEDICAL HISTORY: See Below PAST SURGICAL HISTORY: See Below FAMILY HISTORY: See Below SOCIAL HISTORY: See Below HOME MEDICATIONS: See Below ALLERGIES: See Below VITALS: See Below PHYSICAL EXAMINATION: General: resting comfortably in no acute distress Head: Normocephalic and atraumatic Eyes: Normal inspection, extraocular muscles intact Ear, nose, throat: Normal external exam Neck: Normal range of motion Respiratory: lungs clear to auscultation bilaterally Cardiovascular: Regular rate/rhythm, no murmur GI: soft, nontender, no guarding or rebound Extremities: nontender, moves all extremities Neuro: The patient awake and alert, appropriately conversive, no focal deficits, symmetric faces Skin: Warm, dry, and intact MEDICAL DECISION MAKING: This is an 88-year-old female sent for shortness of breath/cough. Patient does appear to have constellation of URI type symptoms. She is coughing significantly here, she is hypoxic. Will do screening workup to rule out pneumonia versus upper respiratory infection. Low concern for PE clinically without tachycardia. -Bloodwork is reviewed showing no significant leukocytosis, anemia, electrolyte. Creatinine is elevated at 2.31, slightly worsened from previous baseline. -Chest Xray independently interpreted by me showing no pneumothorax, focal opacity, or pleural effusions. -Patient is positive for coronavirus H KU 1 as well as full is a -Patient is still hypoxic here, will admit for further workup and oxygen requirements Differential diagnosis: URI, pneumonia, PE, ACS Independent History obtained from: EMS/nursing Diagnostics interpreted by me: ECG: ECG independently interpreted by me with atrially sensed ventricular paced rhythm at a rate of 75, normal RI, intraventricular conduction delay, normal QTc, no ST segment elevations consistent with STEMI criteria Cardiac Monitoring: An order was placed for continuous cardiac monitoring. The monitor shows a rate of 68 with sinus rhythm. Past Med/Surg History Problem List (Updated 06/14/24 @ 19:23 by Aneta Jenkins MD) Acute hypoxic respiratory failure (Acute) Coronavirus infection (Acute) Influenza A (Acute) Upper respiratory infection, viral (Acute) Elevated serum creatinine Hypoxia Influenza A Abdominal pain Gallstones Cystocele with prolapse Lower-half Parkinsonism Bilateral neural hearing loss Dysphonia Pacemaker Complete heart block (Acute) Chronic cough (Acute) Apical lung scarring Bronchiectasis Cerebral vascular disease Ataxic gait Hypertension (Acute) CKD (chronic kidney disease) (Acute) Gait disturbance Aortic stenosis (Acute) Hypothyroidism (Acute) Mitral regurgitation (Acute) Osteopenia (Acute) Spinal stenosis (Acute) Hyperglycemia (Acute) Medical History (Updated 06/14/24 @ 19:23 by Aneta Jenkins MD) Carotid artery stenosis mild right ICA stenosis per 2019 neck MRA; mild bilat ICA stenosis per 2019 doppler History of SC (myocardial infarction) Other dysphagia GERD without esophagitis History of falling Vascular parkinsonism Diverticulitis of intestine, part unspecified, without perforation or abscess without bleeding Anemia, unspecified Nonrheumatic aortic (valve) stenosis Moderate to severe valvular aortic stenosis (MARJORIE 1.0 cm2, mean PG 17 mmHg) Chronic kidney disease, stage 3 unspecified Hypertensive heart and chronic kidney disease with heart failure and stage 1 through stage 4 chronic kidney disease, or unspecified chronic kidney disease Pacemaker 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 Difficulty in walking, not elsewhere classified Muscle weakness (generalized) Aphasia following cerebral infarction Cognitive communication deficit Other giant cell arteritis Hypothyroidism High cholesterol Arthritis Surgical History (Updated 05/29/24 @ 10:22 by Alda Mario PA-C) History of tonsillectomy History of laminectomy History of cataract surgery Family History Sister Alcoholism Father Atherosclerosis Gout Lung cancer Heart disease Hypertension Mother Hypertension Osteoporosis Stroke Denies family history of Colon cancer Ovarian cancer Prostate cancer Myocardial infarction Breast cancer Social History (Updated 05/21/24 @ 11:41 by Joanna Mariano RN) Smoking Status: Never smoker Hx Alcohol Use: Yes Alcohol type: wine Hx Substance Use: No Preferred Language: Citizen Of [place] Communication Ability: Effective Visual Impairment: No Limitations Hearing Ability: Normal Patch Sander Required: No Beliefs That Will Affect Care: None marital status: Current Living Situation: Spouse Current Living Situation Comment: Lives in assisted living at [facility] with current occupational status: retired How many Children do You have: 2 Other Information That Helps Us Care for You: No Feels Safe at Home: Yes Safety Concerns: Feels Safe At This Time Childhood Exposure to Second-Hand Smoke: Yes Diet: regular caffeine: No during the past year weight has: remained stable Physical Activity Frequency: Daily Seatbelt Use: always Sunscreen Use: Yes Assistive Devices: Glasses and Walker Allergies Allergies Allergy/AdvReac Type Severity Reaction Status Date / Time amoxicillin [From Augmentin] Allergy Intermediate NAUSEA/VOMI Verified 06/12/24 13:42 TING clavulanic acid Allergy Intermediate NAUSEA/VOMI Verified 06/12/24 13:42 [From Augmentin] TING codeine AdvReac Intermediate N/V Verified 06/13/24 18:39 Home Meds Home Medications Medication Instructions Recorded Confirmed amlodipine 5 mg tablet 5 mg PO QAM 11/23/20 06/13/24 cholecalciferol (vitamin D3) 25 25 mcg PO QAM 09/30/21 06/13/24 mcg (1,000 unit) capsule mecobalamin (vitamin B12) 1,000 1,000 mcg sublingual HS 09/30/21 06/13/24 mcg disintegrating tablet,sublingual pantoprazole 40 mg tablet,delayed 40 mg PO BID 06/26/22 06/13/24 release (Protonix) ondansetron 4 mg disintegrating 4 mg PO Q8H PRN Nausea And Vomiting 12/29/22 06/13/24 tablet carvedilol 25 mg tablet 25 mg PO BID 04/28/24 06/13/24 sennosides 8.6 mg capsule (senna) 8.6 mg PO HS 05/21/24 06/13/24 acetaminophen 325 mg tablet 650 mg PO TID 05/29/24 06/13/24 bisacodyl 10 mg rectal suppository 10 mg RI UD PRN Constipation 01/23/25 02/07/25 (Dulcolax (bisacodyl)) magnesium hydroxide 400 mg/5 mL 30 ml PO UD PRN Constipation 05/29/24 06/13/24 oral suspension (Milk of Magnesia) polyethylene glycol 3350 17 17 g PO QAM 05/29/24 06/13/24 gram/dose oral powder (Miralax) acetaminophen 500 mg tablet 500 mg PO Q6H PRN Pain 06/13/24 06/13/24 amoxicillin 500 mg-potassium 1 tab PO BID 06/13/24 06/13/24 clavulanate 125 mg tablet (Augmentin) food supplemt, lactose-reduced 1 ea PO TIDWMEAL 06/13/24 06/13/24 hydrocortisone 1 % topical cream 1 applic topical Q6H PRN 06/13/24 06/13/24 (Preparation H Hydrocortisone) Hemorrhoid Irritation Previous Rx's Medication Instructions Recorded levothyroxine 50 mcg tablet 50 mcg PO QAM #90 tabs 03/17/21 carbidopa 25 mg-levodopa 100 mg 1 tab PO TID 90 days #270 tabs 09/27/22 tablet (Sinemet) Results & Data (ED) Vital Signs Vital Signs - 24 hr 06/13/24 13:29 06/13/24 13:29 06/13/24 15:00 Temperature 36.9 C Temperature Source Oral Pulse Rate 70 75 Pulse Rate [Apical] 68 Respiratory Rate 26 H 18 Respiratory Effort / Characteristics Non-Labored Spontaneous Respiratory Depth Normal Respiratory Pattern Regular Blood Pressure 143/66 H Blood Pressure [Right Arm] 134/64 Blood Pressure Mean 91 Blood Pressure Mean [Right Arm] 87 Blood Pressure Position [Right Arm] Semi-fowlers Pulse Oximetry 87 L 96 Oxygen Delivery Method Room Air Nasal Cannula Oxygen Flow Rate 2 Sepsis Recent Fever Within 48 Hours No Sepsis New/Unexplained Change in Mental Status N/A Sepsis Action Taken by Nursing No Action Required Laboratory Data 06/14/24 05:40 06/14/24 05:40 Lab Results 06/13/24 Range/Units 13:34 WBC 7.31 (4.8-10.8) K/ul RBC 3.36 L (4.20-5.40) M/uL Hgb 11.1 L (12.0-16.0) g/dl Hct 34.5 L (37.0-47.0) % MCV 102.7 H (80.0-100.0) fL MCH 33.0 (25.0-34.0) pg MCHC 32.2 (32.0-36.0) g/dL RDW Std Deviation 49.1 H (36.4-46.3) fL RDW Coeff of Mervat 12.9 (11.5-14.5) % Plt Count 171 (130-400) K/uL MPV 12.6 H (9.4-12.4) fL Immature Gran % (Auto) 0.4 % Neut % (Auto) 76.4 % Lymph % (Auto) 10.4 % [place] % (Auto) 9.0 % Eos % (Auto) 3.4 % Baso % (Auto) 0.4 % Neut # (Auto) 5.58 (1.40-6.50) K/uL Lymph # (Auto) 0.76 L (1.20-3.40) K/uL [place] # (Auto) 0.66 H (0.11-0.59) K/uL Eos # (Auto) 0.25 (0.00-0.50) K/uL Baso # (Auto) 0.03 (0.00-0.20) K/uL Immature Gran # (Auto) 0.03 (0.01-0.20) K/uL Sodium 139 (136-145) mmol/L Potassium 4.6 (3.5-5.1) mmol/L Chloride 103 (98-107) mmol/L Carbon Dioxide 29 (21-32) mmol/L Anion Gap 7 (3-11) BUN 57 H (6-23) mg/dl Creatinine 2.31 H (0.6-1.2) mg/dl Est Cr Clr Drug Dosing 9.7 ml/min eGFR 19.84 BUN/Creatinine Ratio 24.7 H (10-20) Glucose 129 H (70-99(Fasting)) mg/dl Calcium 9.8 (8.6-10.3) mg/dl Total Bilirubin 0.3 (0.2-1.0) mg/dl AST 19 (13-39) U/L ALT 4 L (7-52) U/L Alkaline Phosphatase 61 (34-104) U/L Total Protein 7.0 (6.0-8.3) gm/dl Albumin 3.6 (3.4-5.0) gm/dl Globulin 3.4 (2.5-4.0) gm/dl Albumin/Globulin Ratio 1.1 (0.9-2) Procalcitonin 0.84 H (0-0.5) ng/ml Adenovirus (PCR) Not Detected (NotDetected) B. pertussis DNA (PCR) Not Detected (NotDetected) B.parapertussis DNA PCR Not Detected (NotDetected) C. pneumoniae DNA (PCR) Not Detected (NotDetected) Coronavirus OC43 (PCR) Not Detected (NotDetected) Coronavirus HKU1 (PCR) DETECTED A (NotDetected) Coronavirus 229E (PCR) Not Detected (NotDetected) SARS-CoV-2 (PCR) Not Detected (NotDetected) Coronavirus NL63 (PCR) Not Detected (NotDetected) Human Metapneumovir PCR Not Detected (NotDetected) Influenza A (H3) PCR DETECTED A (NotDetected) Influenza Type B (PCR) Not Detected (NotDetected) M. pneumoniae (PCR) Not Detected (NotDetected) Parainfluenza 1 (PCR) Not Detected (NotDetected) Parainfluenza 2 (PCR) Not Detected (NotDetected) Parainfluenza 3 (PCR) Not Detected (NotDetected) Parainfluenza 4 (PCR) Not Detected (NotDetected) RSV (PCR) Not Detected (NotDetected) Entero/Rhino (PCR) Not Detected (NotDetected) Administered Medications Acetaminophen (Acetaminophen 325 Mg Tab) 650 mg PO TID [facility] Stop: 07/13/24 20:59 Last Admin: 06/14/24 15:29 Dose: 650 mg Documented By: Admin: 06/14/24 09:10 Dose: 650 mg Documented By: Admin: 06/13/24 20:17 Dose: 650 mg Documented By: NICO Albuterol (Albut/Ipratrop 3mg/0.5mg Neb 3 Ml Vial) 3 ml NEB QIDR [facility]; Protocol Stop: 07/14/24 10:59 Last Admin: 06/14/24 15:01 Dose: 3 ml Documented By: Admin: 06/14/24 11:07 Dose: 3 ml Documented By: CRG Amlodipine Besylate (Amlodipine Besylate 5 Mg Tab) 5 mg PO QAM [facility] Stop: 07/14/24 08:59 Last Admin: 06/14/24 09:00 Dose: 5 mg Documented By: BLANQUITA Carbidopa/Levodopa (Carbidopa/Levodopa 25/100mg Tab) 1 tab PO TID [facility] Stop: 07/13/24 20:59 Last Admin: 06/14/24 15:30 Dose: 1 tab Documented By: Admin: 06/14/24 09:00 Dose: 1 tab Documented By: Admin: 06/13/24 20:17 Dose: 1 tab Documented By: NICO Carvedilol (Carvedilol 25 Mg Tab) 25 mg PO BIDM [facility] Stop: 07/13/24 19:14 Last Admin: 06/14/24 17:41 Dose: 25 mg Documented By: Admin: 06/14/24 08:59 Dose: 25 mg Documented By: Admin: 06/13/24 20:17 Dose: 25 mg Documented By: NHVianney Guaifenesin/Codeine Phosphate (Guaifenesin/Codeine 100mg/10mg 5ml Udc) 5 ml PO Q6H PRN PRN Reason: Cough Stop: 07/13/24 20:28 Last Admin: 06/14/24 09:10 Dose: 5 ml Documented By: [facility] Admin: 06/13/24 21:09 Dose: 5 ml Documented By: [facility] Heparin Sodium (Porcine) (Heparin Sod 5,000 Unit/0.5 Ml Vial) 5,000 units SQ Q12 ERIC Stop: 07/14/24 08:59 Last Admin: 06/14/24 09:11 Dose: 5,000 units Documented By: BLANQUITA Ceftriaxone Sodium (Rocephin) 1,000 mg in 50 mls @ 100 mls/hr IV Q24H [facility] Stop: 06/18/24 14:29 Last Infusion: 06/14/24 18:30 Dose: Infused Documented By: Admin: 06/14/24 15:29 Dose: 100 mls/hr Documented By: BLANQUITA Levothyroxine Sodium (Levothyroxine Sodium 50 Mcg Tablet) 50 mcg PO DAILYBB [facility] Stop: 07/14/24 06:29 Last Admin: 06/14/24 05:54 Dose: 50 mcg Documented By: NHVianney Pantoprazole Sodium (Pantoprazole 40 Mg Tab) 40 mg PO BID ERIC Stop: 07/13/24 20:59 Last Admin: 06/14/24 09:00 Dose: 40 mg Documented By: Admin: 06/13/24 20:17 Dose: 40 mg Documented By: NICO Polyethylene Glycol (Polyethylene (Miralax) 17 Gm Pack) 17 gm PO QAM ERIC Stop: 07/14/24 08:59 Last Admin: 06/14/24 09:11 Dose: 17 gm Documented By: BLANQUITA Sennosides (Senna 8.6 Mg Tab) 8.6 mg PO HS ERIC Stop: 07/13/24 20:59 Last Admin: 06/13/24 20:17 Dose: 8.6 mg Documented By: NICO Discontinued Medications Carbidopa/Levodopa (Carbidopa/Levodopa 25/100mg Tab) 1 tab PO ONE STA Stop: 06/13/24 16:41 Last Admin: 06/13/24 17:57 Dose: 1 tab Documented By: LORNA Lactated Ringer's (Lr) 1,000 mls @ 125 mls/hr IV .Q8H ERIC Stop: 06/14/24 16:44 Last Infusion: 06/14/24 18:28 Dose: Infused Documented By: Admin: 06/14/24 09:14 Dose: 125 mls/hr Documented By: Infusion: 06/14/24 09:06 Dose: Infused Documented By: Admin: 06/14/24 01:06 Dose: 125 mls/hr Documented By: Infusion: 06/14/24 01:06 Dose: Infused Documented By: Admin: 06/13/24 17:58 Dose: 125 mls/hr Documented By: LORNA Melatonin (Melatonin 3 Mg Tab) 6 mg PO ONE ONE Stop: 06/14/24 01:03 Last Admin: 06/14/24 01:06 Dose: 6 mg Documented By: NICO Oseltamivir Phosphate (Oseltamivir Phosphate Susp 30 Mg/5 Ml Udp) 30 mg PO Q2D ERIC; Protocol Stop: 06/18/24 20:59 Last Admin: 06/13/24 20:17 Dose: 30 mg Documented By: NICO Imaging Data Radiologist's Impression: Chest X-Ray 06/13/24 13:35 XR chest 1V portable CLINICAL HISTORY: cough COMPARISON STUDY: 10/21/2022 FINDINGS: Stable pacemaker. Stable mild cardiomegaly without pulmonary vascular congestion. No effusion, consolidation, or pneumothorax. IMPRESSION: No pneumonia seen. ACT 112: Negative or not required by law. Electronically signed by: Angelo Rivero M.D. 06/13/2024 2:08 PM Discharge Plan Visit Data Chief Complaint: Illness Stated Complaint: VOMITING, AB PAIN, COUGH ED Provider: Aneta Jenkins Discharge Problem: Upper respiratory infection, viral, Influenza A, Coronavirus infection, Acute hypoxic respiratory failure Patient Disposition: Admitted As Inpatient Discharge Instructions Interventions: ED Discharge Assessment Last Done: 06/13/24 17:12
[2024-06-13] MEDS: CARBIDOPA/LEVODOPA 25/100MG TAB PO STA (17:57)
[2024-06-13] MEDS: LACTATED RINGER'S 1,000 ML IV SCH (17:58)
[2024-06-13 19:41] LABS: Appearance Urine Cloudy (Clear); Bacteria Urine Automated None Seen (None Seen); Bilirubin Urine Negative (Negative); Blood Urine Trace (Negative); Cast Urine Automated 0-2 /lpf (0-2); Color Urine Yellow; Epithelial Cell Urine Auto 0-2 /hpf (0-2); Glucose Urine UA Negative (Negative); Ketones Urine Negative (Negative); Leukocyte Esterase Urine 2+ (Negative); Nitrite Urine Negative (Negative); Protein Urine 2+ (Negative); Urobilinogen Urine Negative (Negative); WBC Urine Automated >50 /hpf (0-5); pH Urine 5.5 (4.5-7.5)
[2024-06-13] MEDS: PANTOprazole 40 MG TAB PO SCH (20:17)
[2024-06-13] MEDS: CARBIDOPA/LEVODOPA 25/100MG TAB PO SCH (20:17)
[2024-06-13] MEDS: carvediloL 25 MG TAB PO SCH (20:17)
[2024-06-13] MEDS: SENNA 8.6 MG TAB PO SCH (20:17)
[2024-06-13] MEDS: OSELTAMIVIR PHOSPHATE SUSP 30 MG/5 ML UDP PO SCH (20:17)
[2024-06-13] MEDS: ACETAMINOPHEN 325 MG TAB PO SCH (20:17)
[2024-06-13] MEDS: guaiFENesin/CODEINE 100MG/10MG 5ML UDC PO PRN (21:09)
[2024-06-14] MEDS: MELATONIN 3 MG TAB PO ONE (01:06)
[2024-06-14] MEDS: LEVOTHYROXINE SODIUM 50 MCG TABLET PO SCH (05:54)
[2024-06-14 06:30] LABS: Basophils # (auto) 0.02 K/uL (0.00-0.20); Basophils % (auto) 0.4 %; Eosinophils # (auto) 0.53 K/uL (0.00-0.50); Eosinophils % (auto) 10.3 %; Hemoglobin 9.2 g/dl (12.0-16.0); Immature Granulocytes # (auto) 0.02 K/uL (0.01-0.20); Immature Granulocytes % (auto) 0.4 %; Lymphocytes # (auto) 1.02 K/uL (1.20-3.40); Lymphocytes % (auto) 19.8 %; Mean Corpuscular Hemoglobin 32.6 pg (25.0-34.0); Mean Corpuscular Hgb Conc 31.7 g/dL (32.0-36.0); Mean Corpuscular Volume 102.8 fL (80.0-100.0); Mean Platelet Volume 12.3 fL (9.4-12.4); Monocytes % (auto) 13.6 %; Neutrophils # (auto) 2.85 K/uL (1.40-6.50); Neutrophils % (auto) 55.5 %; Platelet Count 141 K/uL (130-400); RDW Coefficient of Variation 12.7 % (11.5-14.5); RDW Standard Deviation 47.6 fL (36.4-46.3); Red Blood Count 2.82 M/uL (4.20-5.40); White Blood Count 5.14 K/ul (4.8-10.8)
[2024-06-14 06:40] LABS: Calcium 9.1 mg/dl (8.6-10.3); Creatinine Clr Calc Pharmacy 14.9 ml/min; Potassium 4.7 mmol/L (3.5-5.1)
[2024-06-14] MEDS: amLODIPine BESYLATE 5 MG TAB PO SCH (09:00)
[2024-06-14] MEDS: HEPARIN SOD 5,000 UNIT/0.5 ML VIAL SQ SCH (09:11)
[2024-06-14] MEDS: POLYETHYLENE (MIRALAX) 17 GM PACK PO SCH (09:11)
[2024-06-14] MEDS ORDERED: ALBUT/IPRATROP 3MG/0.5MG NEB 3 ML VIAL NEB PRN (10:26)
[2024-06-14] MEDS: ALBUT/IPRATROP 3MG/0.5MG NEB 3 ML VIAL NEB SCH (11:07)
[2024-06-14] MEDS: cefTRIAXone SODIUM 1,000 MG/50 ML BAG IV SCH (15:29)
--- NOTE | 2024-06-14 19:15 | Ultrasound Report ---
EXAM: US Abdomen Limited Right Upper Quadrant INDICATION: Pain. TECHNIQUE: Real-time ultrasound of the right upper quadrant with image documentation. COMPARISON: CT abdomen 10/21/2022 FINDINGS: Liver: Normal size. Echogenic. Smooth contour. No ductal dilatation. No mass. Gallbladder: Distended gallbladder with a 2.5 cm stone. Smaller stones may not be detectable as the patient could not roll. No wall thickening or pericholecystic fluid. Common bile duct: No significant abnormality noted. No stones. No dilation. Pancreas: No significant abnormality noted. Right kidney: Normal size. Slight increased density of the cortex likely technical. There is a benign 1 cm midpole cyst for which no further assessment considered necessary. No hydronephrosis. No sonographically detected stone. IMPRESSION: 1. Distended gallbladder contains a large stone. No sonographic evidence of acute cholecystitis. 2. Probable hepatic steatosis. ACT 112: Negative or not required by law. Electronically signed by Glenna Fuller 06-14-2024 7:15 PM
[2024-06-14] MEDS: OSELTAMIVIR PHOSPHATE SUSP 30 MG/5 ML UDP PO SCH (20:52)
--- NOTE | 2024-06-14 21:31 | Hospitalist Progress Note ---
Date of Service June 14, 2024 Assessment & Plan (1) Influenza A: Plan: Tamiflu (renally dose). Continue contact and droplet precautions. (2) Hypoxia: Plan: Aim O2 sats > 90% (3) Elevated serum creatinine: Plan: Baseline Cr 1.73 in May, Cr 2.31 on admission, appears clinically dry LR @ 125ml/hr overnight (4) Lower-half Parkinsonism: Plan: Continue usual Sinemet dosing Plan VTE Prophylaxis - heparin 5000 units BID Diet - regular Disposition - admit med/surg Admission and Anticipated Discharge Date Admission Date: June 13, 2024 Subjective "I feel a little weak." Review of Systems Constitutional: Positive for weakness, shortness of breath, dry cough. Negative for antecedent/coincident fevers, chills, diaphoresis, wheeze, sore throat, hemoptysis, chest pains, palpitations, pleurisy, nausea, vomiting, diarrhea, abdominal pain, pelvic pain, hematemesis, hematochezia, melena, hematuria, dysuria, frequency, urgency, headaches, dizziness, lightheadedness, visual changes, hearing changes, falls, syncope, trauma, travel history, sick contacts, or food/drug ingestions novel or new. All other review of systems are reported as negative by the patient on 06/14/2024. Physical Exam Constitutional: General: Comfortable, coherent, cooperative. Wide awake and alert. Not conf used, lethargic, or obtunded. Patient speaks in complete, fluent, and articulate sentences without pause, interruption, cough, or wheeze. HEENT: NC/AT. EOMI, PERRL. No nystagmus, gaze paresis, anisocoria, miosis, mydriasis, hyphema, chemosis, scleral icterus, conjunctivitis, or pterygium. No otorrhea, no rhinorrhea. No pharyngeal discharge or erythema. Neck: Supple, no stridor, bruit, goiter, or hepatojugular reflux. Jugular venous pressure is estimated to be 8 cm above the sternal angle of Hernan, which is typically 5 cm above the level of the right atrium. Hence, there is no jugular venous distention noted on 06/14/2024. Lymphatics: No pre-post auricular, anterior/posterior cervical, supraclavicular/infraclavicular, axillary, epitrochlear, or inguinal adenopathy. Chest: Symmetric rise and fall with respirations. Non-tender to palpation. Heart: RRR, S1 and S2 noted. No S3 or S4 summation gallop noted. No tripartite friction rub. Grade II/ early systolic murmur @ LLSB without radiation to the carotids, axilla, or back, and which remains invariant in regards to the respiratory cycle. Lungs: Coarse breath sounds bilaterally. No audible expiratory wheeze, egophony, pectoriloquy, increase in tactile fremitus, or flatness/dullness to percussion at the bases. Abdomen: Soft, non-tender, non-distended. No rebound, guarding, Hernandez's sign, or organomegaly. Bowel sounds auscultated in all 4 quadrants. Extremities: No clubbing, cyanosis, or edema. 2+ pedal pulses bilaterally. Skin: Dry skin with skin tenting, but no delay in capillary refill time > 2 seconds. No exanthem or enanthem or decubitus ulcer. Neurology: Alert and oriented in regards to person, place, time, and situation. DTR+ and symmetric. 5/5 motor strength in all 4 extremities, both proximally and distally. No myoclonus, tremors, or tics. Urology: No gupta catheter. No urethral discharge. Psychiatry: Appropriate affect. Smiles occasionally. No homicidal/suicidal ideation Results & Data Results & Data Vital Signs (Past 12 Hours) Vital Signs Temp Pulse Resp BP Pulse Ox O2 Del Method O2 Flow Rate 06/14/24 20:27 69 18 91 Nasal Cannula 1 06/14/24 19:56 36.5 C 65 18 144/74 H 93 Nasal Cannula 1 06/14/24 15:25 37 C 63 20 123/66 92 Room Air 06/14/24 15:01 64 18 97 Nasal Cannula 1 06/14/24 11:08 74 18 98 Nasal Cannula 2 06/14/24 10:25 Nasal Cannula 2 Laboratory Results Procalcitonin #1 0.84 ng/mL (06/13/2024, 1:34pm). Procalcitonin #2 0.53 ng/mL (06/14/2024, 9:17am). WBC 8.40, N83 L 7 M 7 E 3, Hb 9.6, MCV 103.0, MCHC 31.5, platelet 158 (06/13/2024, 5:40am). WBC 7.31, N76 L10 M 9 E 3, Hb 11.1, MCV 102.7, MCHC 32.2, platelet 171 (06/13/2024, 1:34pm). WBC 5.14, N56 L20 M14 E10, Hb 9.2, MCV 102.8, MCHC 31.7, platelet 141 (06/14/2024, 5:40am). U/A: cloudy yellow, LE 2+, nitrite-, WBC > 50, RBC 3-5, epithelial cells 0-2, bacteria 0 (06/13/2024, 7:25pm). Urine culture (06/13/2023, 7:25pm): Respiratory pathogen PCR panel (06/13/2024, 1:34pm): Coronavirus HKU1+, influenza A+ BUN/creative services producer 56/2.18, GFR 21.27 mL/min (06/13/2024, 5:40am). BUN/creative services producer 57/2.31, GFR 19.84 mL/min (06/13/2024, 1:34pm). BUN/creative services producer 45/1.88, GFR 25.40 mL/min (06/14/2024, 5:40am). Diagnostic Findings Portable CXR (06/13/2024, 1:35pm): Cardiomegaly. No infiltrate, effusion, pulmonary vascular congestion, or pneumothorax (by my review). Gallbladder U/S (06/14/2024, 1:53pm): 1. Distended gallbladder contains 2.5 cm stone. 2. No sonographic evidence of acute cholecystitis. 3. Probable hepatic steatosis. PG Care Time/CCT Total # of Minutes Spent Total Time Spent with Patient: Total time spent is greater than 50% in coordination of care (as documented) at patient's floor/unit and/or counseling patient: Coding Level of Care Code 53829 SUB INP/OBS CARE 2/35MIN Diagnoses Influenza A J10.1 Hypoxia R09.02 Elevated serum creatinine R79.89 Lower-half Parkinsonism G20
[2024-06-15 05:50] LABS: Basophils # (auto) 0.03 K/uL (0.00-0.20); Basophils % (auto) 0.6 %; Eosinophils % (auto) 10.5 %; Hematocrit (blood only) 28.7 % (37.0-47.0); Hemoglobin 9.1 g/dl (12.0-16.0); Immature Granulocytes # (auto) 0.02 K/uL (0.01-0.20); Immature Granulocytes % (auto) 0.4 %; Lymphocytes # (auto) 1.13 K/uL (1.20-3.40); Lymphocytes % (auto) 23.8 %; Mean Corpuscular Hemoglobin 32.4 pg (25.0-34.0); Mean Corpuscular Hgb Conc 31.7 g/dL (32.0-36.0); Mean Corpuscular Volume 102.1 fL (80.0-100.0); Mean Platelet Volume 12.1 fL (9.4-12.4); Monocytes # (auto) 0.58 K/uL (0.11-0.59); Monocytes % (auto) 12.2 %; Neutrophils # (auto) 2.49 K/uL (1.40-6.50); Neutrophils % (auto) 52.5 %; Platelet Count 139 K/uL (130-400); RDW Coefficient of Variation 12.5 % (11.5-14.5); RDW Standard Deviation 47.4 fL (36.4-46.3); Red Blood Count 2.81 M/uL (4.20-5.40); White Blood Count 4.75 K/ul (4.8-10.8)
[2024-06-15 06:10] LABS: BUN Creatinine Ratio 23.1 (10-20); Calcium 8.9 mg/dl (8.6-10.3); Creatinine Clr Calc Pharmacy 17.9 ml/min; Potassium 4.9 mmol/L (3.5-5.1)
[2024-06-15 09:43] LABS: Albumin Level 3.1 gm/dl (3.4-5.0); Bilirubin Direct 0.1 mg/dl (0-0.2); Bilirubin,Total 0.2 mg/dl (0.2-1.0); Total Protein 6.1 gm/dl (6.0-8.3)
--- NOTE | 2024-06-15 15:11 | Hospitalist Progress Note ---
Date of Service June 15, 2024 Assessment & Plan (1) Acute hypoxic respiratory failure: Plan: Due to acute influenza A pneumonia. Acute hypoxic respiratory failure is RESOLVING well as oxygen-naive patient has been titrated down from 3 liters/minute O2 via nasal cannula (06/14/2024) to 1 liter/minute O2 via nasal cannula (06/15/2024). Anticipate titration off supplemental oxygen by 06/16/2024. Continue contact and droplet precautions, duoneb bid, duoneb q6 prn SOB/wheeze, oseltamivir 30mg PO daily (day #1/4 on 06/14/2024, 9:00pm). (2) Influenza A: Plan: RESOLVING well as oxygen-naive patient has been titrated down from 3 liters/minute O2 via nasal cannula (06/14/2024) to 1 liter/minute O2 via nasal cannula (06/15/2024). Anticipate titration off supplemental oxygen by 06/16/2024. Continue contact and droplet precautions, duoneb bid, duoneb q6 prn SOB/wheeze, oseltamivir 30mg PO daily (day #1/4 on 06/14/2024, 9:00pm). Of note, patient receives empiric ceftriaxone 1g IV daily (day #1/3 on 06/14/2024, 2:00pm; day #2/3 on 06/15/2024, 2:00pm; day #3/3 on 06/16/2024, 2:00pm), primarily to re-assure patient's family members that if patient does have a concomitant acute bacterial community acquired pneumonia, which I personally doubt, that it is being treated. Of final note, I surmise that procalcitonin levels are artificially elevated due to acute kidney injury, superimposed on CKD stage III with baseline creatinine range, 1.27 - 1.83 (01/16/2017 - 05/12/2024), monie to non-specific elevations in troponin levels that can occur in the setting of acute kidney injury, superimposed on CKD. cf., Procalcitonin #1 0.84 ng/mL (06/13/2024, 1:34pm). cf., Procalcitonin #2 0.53 ng/mL (06/14/2024, 9:17am). cf., Procalcitonin #3 0.40 ng/mL (06/15/2024, 5:35am). (3) Acute kidney injury: Plan: cf., BUN/buggy man 56/2.18, GFR 21.27 mL/min (06/13/2024, 5:40am). cf., BUN/buggy man 57/2.31, GFR 19.84 mL/min (06/13/2024, 1:34pm). cf., BUN/buggy man 45/1.88, GFR 25.40 mL/min (06/14/2024, 5:40am). cf., BUN/buggy man 36/1.56, GFR 31.78 mL/min (06/15/2024, 5:35am). cf., CKD stage III with baseline creatinine range, 1.27 - 1.83 (01/16/2017 - 05/12/2024). Etiology of acute kidney injury is most probably due to acute dehydration, which in turn, is due to increased insensible losses due to acute influenza A pneumonia. 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 Plan VTE Prophylaxis - heparin 5000 units BID Diet - regular Disposition - admit med/surg I anticipate that patient will be D/C'd back to her own home in the 06/16/2024 am or 06/17/2024 am. Patient will need to follow up with her CARDS in order to be "cleared" for elective laparoscopic cholecystectomy to treat chronic cholithiasis, in the weeks to come, only AFTER patient has convalesced completely from her acute influenza A pneumonia. Admission and Anticipated Discharge Date Admission Date: June 13, 2024 Subjective "I feel a little weak." Review of Systems Constitutional: Positive for weakness, shortness of breath, dry cough. Negative for antecedent/coincident fevers, chills, diaphoresis, wheeze, sore throat, hemoptysis, chest pains, palpitations, pleurisy, nausea, vomiting, diarrhea, abdominal pain, pelvic pain, hematemesis, hematochezia, melena, hematuria, dysuria, frequency, urgency, headaches, dizziness, lightheadedness, visual changes, hearing changes, falls, syncope, trauma, travel history, sick contacts, or food/drug ingestions novel or new. All other review of systems are reported as negative by the patient on 06/15/2024. Physical Exam Constitutional: General: Comfortable, coherent, cooperative. Wide awake and alert. Not confused, lethargic, or obtunded. Patient speaks in complete, fluent, and articulate sentences without pause, interruption, cough, or wheeze. HEENT: NC/AT. EOMI, PERRL. No nystagmus, gaze paresis, anisocoria, miosis, mydriasis, hyphema, chemosis, scleral icterus, conjunctivitis, or pterygium. No otorrhea, no rhinorrhea. No pharyngeal discharge or erythema. Neck: Supple, no stridor, bruit, goiter, or hepatojugular reflux. Jugular venous pressure is estimated to be 8 cm above the sternal angle of Hernan, which is typically 5 cm above the level of the right atrium. Hence, there is no jugular venous distention noted on 06/14/2024. Lymphatics: No pre-post auricular, anterior/posterior cervical, supraclavicular/infraclavicular, axillary, epitrochlear, or inguinal adenopathy. Chest: Symmetric rise and fall with respirations. Non-tender to palpation. Heart: RRR, S1 and S2 noted. No S3 or S4 summation gallop noted. No tripartite friction rub. Grade II/ early systolic murmur @ LLSB without radiation to the carotids, axilla, or back, and which remains invariant in regards to the respiratory cycle. Lungs: Coarse breath sounds bilaterally. No audible expiratory wheeze, egophon y, pectoriloquy, increase in tactile fremitus, or flatness/dullness to percussion at the bases. Abdomen: Soft, non-tender, non-distended. No rebound, guarding, Hernandez's sign, or organomegaly. Bowel sounds auscultated in all 4 quadrants. Extremities: No clubbing, cyanosis, or edema. 2+ pedal pulses bilaterally. Skin: Dry skin with skin tenting, but no delay in capillary refill time > 2 seconds. No exanthem or enanthem or decubitus ulcer. Neurology: Alert and oriented in regards to person, place, time, and situation. DTR+ and symmetric. 5/5 motor strength in all 4 extremities, both proximally and distally. No myoclonus, tremors, or tics. Urology: No gupta catheter. No urethral discharge. Psychiatry: Appropriate affect. Smiles occasionally. No homicidal/suicidal ideation. Results & Data Results & Data Vital Signs (Past 12 Hours) Vital Signs Temp Pulse Resp BP Pulse Ox O2 Del Method O2 Flow Rate 06/15/24 07:42 60 18 99 Nasal Cannula 3 06/15/24 07:26 36.6 C 71 16 144/84 H 99 Nasal Cannula 2 Laboratory Results Procalcitonin #1 0.84 ng/mL (06/13/2024, 1:34pm). Procalcitonin #2 0.53 ng/mL (06/14/2024, 9:17am). Procalcitonin #3 0.40 ng/mL (06/15/2024, 5:35am). WBC 8.40, N83 L 7 M 7 E 3, Hb 9.6, MCV 103.0, MCHC 31.5, platelet 158 (06/13/2024, 5:40am). WBC 7.31, N76 L10 M 9 E 3, Hb 11.1, MCV 102.7, MCHC 32.2, platelet 171 (06/13/2024, 1:34pm). WBC 5.14, N56 L20 M14 E10, Hb 9.2, MCV 102.8, MCHC 31.7, platelet 141 (06/14/2024, 5:40am). WBC 4.75, N53 L24 M12 E11, Hb 9.1, MCV 102.1, MCHC 31.7, platelet 139 (06/15/2024, 5:35am). U/A: cloudy yellow, LE 2+, nitrite-, WBC > 50, RBC 3-5, epithelial cells 0-2, bacteria 0 (06/13/2024, 7:25pm). Urine culture (06/13/2023, 7:25pm): negative Respiratory pathogen PCR panel (06/13/2024, 1:34pm): Coronavirus HKU1+, influenza A+ BUN/buggy man 56/2.18, GFR 21.27 mL/min (06/13/2024, 5:40am). BUN/buggy man 57/2.31, GFR 19.84 mL/min (06/13/2024, 1:34pm). BUN/buggy man 45/1.88, GFR 25.40 mL/min (06/14/2024, 5:40am). BUN/buggy man 36/1.56, GFR 31.78 mL/min (06/15/2024, 5:35am). Diagnostic Findings Portable CXR (06/13/2024, 1:35pm): Cardiomegaly. No infiltrate, effusion, pulmonary vascular congestion, or pneumothorax (by my review). Gallbladder U/S (06/14/2024, 1:53pm): 1. Distended gallbladder contains 2.5 cm stone. 2. No sonographic evidence of acute cholecystitis. 3. Probable hepatic steatosis. PG Care Time/CCT Total # of Minutes Spent Total Time Spent with Patient: Total time spent is greater than 50% in coordination of care (as documented) at patient's floor/unit and/or counseling patient: Coding Level of Care Code 49373 SUB INP/OBS CARE 2/35MIN Diagnoses Acute hypoxic respiratory failure J96.01 Influenza A J10.1 Acute kidney injury N17.9 Lower-half Parkinsonism G20
[2024-06-15] MEDS ORDERED: cefTRIAXone SODIUM 1,000 MG/50 ML BAG IV ONE (15:45)
[2024-06-15] MEDS: ALBUT/IPRATROP 3MG/0.5MG NEB 3 ML VIAL NEB SCH (19:50)
[2024-06-16] MEDS: ONDANSETRON 4 MG OD TAB PO PRN (00:07)
[2024-06-16] MEDS: ONDANSETRON INJ 2 MG/ML 2 ML VIAL IV STA (00:40)
--- NOTE | 2024-06-16 06:23 | Electrocardiogram Report ---
Test Reason : Blood Pressure : */* mmHG Vent. Rate : 75 BPM Atrial Rate : 75 BPM P-R Int : 200 ms QRS Dur : 130 ms QT Int : 446 ms P-R-T Axes : 76 -35 7 degrees QTcB Int : 498 ms Atrial-sensed ventricular-paced rhythm Abnormal ECG When compared with ECG of 21-Oct-2022 11:32, Ventricular pacing is now present Confirmed by Yoseph Santos ([id number]) on 06/16/2024 6:23:26 AM Referred By: Jarrett Marie Confirmed By: Yoseph Santos
[2024-06-16 06:40] LABS: Basophils # (auto) 0.03 K/uL (0.00-0.20); Basophils % (auto) 0.6 %; Eosinophils # (auto) 0.52 K/uL (0.00-0.50); Eosinophils % (auto) 10.7 %; Hematocrit (blood only) 31.3 % (37.0-47.0); Immature Granulocytes # (auto) 0.02 K/uL (0.01-0.20); Immature Granulocytes % (auto) 0.4 %; Lymphocytes # (auto) 1.44 K/uL (1.20-3.40); Lymphocytes % (auto) 29.8 %; Mean Corpuscular Hemoglobin 32.4 pg (25.0-34.0); Mean Corpuscular Hgb Conc 31.9 g/dL (32.0-36.0); Mean Corpuscular Volume 101.3 fL (80.0-100.0); Mean Platelet Volume 12.1 fL (9.4-12.4); Monocytes # (auto) 0.49 K/uL (0.11-0.59); Monocytes % (auto) 10.1 %; Neutrophils # (auto) 2.34 K/uL (1.40-6.50); Neutrophils % (auto) 48.4 %; Platelet Count 160 K/uL (130-400); RDW Coefficient of Variation 12.1 % (11.5-14.5); RDW Standard Deviation 45.3 fL (36.4-46.3); Red Blood Count 3.09 M/uL (4.20-5.40); White Blood Count 4.84 K/ul (4.8-10.8)
[2024-06-16 06:59] LABS: BUN Creatinine Ratio 17.2 (10-20); Calcium 9.8 mg/dl (8.6-10.3); Creatinine Clr Calc Pharmacy 17.8 ml/min; Potassium 4.4 mmol/L (3.5-5.1)
[2024-06-16] MEDS: cefTRIAXone SODIUM 1,000 MG/50 ML BAG IV ONE (08:41)
--- NOTE | 2024-06-16 13:05 | Hospitalist Progress Note ---
Date of Service June 16, 2024 Assessment & Plan (1) Influenza A: Plan: Resolving Patient states she is clinically much improved Still on p.o. 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 Plan VTE Prophylaxis - heparin 5000 units BID Diet - regular Disposition - admit med/surg I anticipate that patient will be D/C'd back to her own home in the 06/17/2024 am. Patient will need to follow up with her CARDS in order to be "cleared" for elective laparoscopic cholecystectomy to treat chronic cholithiasis, in the weeks to come, only AFTER patient has convalesced completely from her acute influenza A pneumonia. Admission and Anticipated Discharge Date Admission Date: June 13, 2024 Subjective Patient seen and examined, later was reexamined in the presence of son and . States she feels a lot better today. Review of Systems Review of Systems: All systems reviewed are negative, apart from the ones contained in the history. Physical Exam Physical Exam: The patient is awake, alert and oriented 3, well developed and well nourished, normocephalic and atraumatic, lying in bed and in no acute distress. HEENT--PERRL, EOMI, mucous membranes and oropharynx mildly dry Neck--supple. No JVD. No bruits. Thyroid normal, trachea midline, no adenopathy. Heart--normal S1 and S2. No murmurs, rubs or gallops. Lungs--clear bilaterally, no respiratory distress, no accessory muscle use. Abdomen--normal bowel sounds and soft. Extremities--no cyanosis or clubbing. No edema. Dermatologic--normal skin turgor, normal color, no abnormal lymph nodes, no rash. Neurologic--cranial nerves II through XII grossly intact. Rheumatologic--normal range of motion. Psychiatric--normal affect. Results & Data Results & Data Vital Signs (Past 12 Hours) Vital Signs Temp Pulse Resp BP Pulse Ox O2 Del Method 06/16/24 08:45 158/76 H 06/16/24 07:59 Room Air 06/16/24 07:54 61 18 90 Room Air 06/16/24 07:07 98.2 F 62 16 183/82 H 91 Room Air PG Care Time/CCT Total # of Minutes Spent Total Time Spent with Patient: Total time spent is greater than 50% in coordination of care (as documented) at patient's floor/unit and/or counseling patient: Coding Level of Care Code 32081 SUB INP/OBS CARE 2/35MIN Diagnoses Influenza A J10.1 Acute hypoxic respiratory failure J96.01 Acute kidney injury N17.9 Lower-half Parkinsonism G20 Time Spent (min) 35
[2024-06-17 07:19] VITALS: BP 152/73; TEMP 97.7
[2024-06-17 07:27] VITALS: PULSE 62; RESP 18; O2SAT 91
--- NOTE | 2024-06-17 11:14 | Discharge Summary ---
Date of Service June 17, 2024 Admission HPI Per Admitting Provider Caroline Feldman is an 88-year-old female who presents to the ER with nausea, vomiting, cough. Unable to get any significant history from the patient as she is unsure what brought her to the ER but currently says she feels fine. History taken from son at bedside. He reports alerting Foxdafreya that she appeared to be having a more noticeable cough over the last 2 weeks but especially the last week. She was started on Augmentin today for concern for pneumonia. No known chest pain or shortness of breath. Reportedly she has also nauseous and vomiting overnight. She was sent to the ER due to concern for her renal function and hemoglobin getting worse in addition to hypoxia. Her son notes she has been having nausea and vomiting for several months and is due for a cholecystectomy later this month but has to be cleared by cardiology first with KINGA Mustafa planned for Sunday. Admission Exam (Per Admitting) Constitutional The patient is awake, alert and oriented 3, well developed and well nourished, normocephalic and atraumatic, lying in bed and in no acute distress. HEENT--PERRL, EOMI, mucous membranes and oropharynx mildly dry Neck--supple. No JVD. No bruits. Thyroid normal, trachea midline, no adenopathy. Heart--normal S1 and S2. No murmurs, rubs or gallops. Lungs--clear bilaterally, no respiratory distress, no accessory muscle use. Abdomen--normal bowel sounds and soft. Extremities--no cyanosis or clubbing. No edema. Dermatologic--normal skin turgor, normal color, no abnormal lymph nodes, no rash. Neurologic--cranial nerves II through XII grossly intact. Rheumatologic--normal range of motion. Psychiatric--normal affect. Discharge Data Consultations 06/13/24 15:49 ED Decision to Admit Stat Hospital Course (1) Influenza A: Resolving Patient states she is clinically much improved Still on p.o. 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 Plan VTE Prophylaxis - heparin 5000 units BID Diet - regular Disposition - admit med/surg I anticipate that patient will be D/C'd back to her own home in the 06/17/2024 am. Patient will need to follow up with her CARDS in order to be "cleared" for elective laparoscopic cholecystectomy to treat chronic cholithiasis, in the weeks to come, only AFTER patient has convalesced completely from her acute influenza A pneumonia. Coding Level of Care Code 73059 INP/OBS DISCH >30 MIN Diagnoses Influenza A J10.1 Acute hypoxic respiratory failure J96.01 Acute kidney injury N17.9 Lower-half Parkinsonism G20 Time Spent (min) 35
== END 2024-06-17 14:15 | DRG 193 ==
LOC: ED 13:22 → EDINP 16:06 → SUATTDRO 16:06 → 3E 17:12

== ENCOUNTER 2024-08-28 07:17 | Observation (INO) ==
--- NOTE | 2024-05-29 08:42 | PAT Medication Instructions ---
Medication Instructions Date of Service May 29, 2024 Home Medications Medication Instructions Recorded levothyroxine 50 mcg tablet 50 mcg PO QAM #90 tabs 03/17/21 carbidopa 25 mg-levodopa 100 mg 1 tab PO TID 90 days #270 tabs 09/27/22 tablet (Sinemet) amlodipine 5 mg tablet 5 mg PO QAM levothyroxine 50 mcg tablet 50 mcg PO QAM cholecalciferol (vitamin D3) 25 mcg (1,000 unit) capsule 25 mcg PO QAM mecobalamin (vitamin B12) 1,000 mcg disintegrating tablet,sublingual 1,000 mcg sublingual HS pantoprazole 40 mg tablet,delayed release (Protonix) 40 mg PO BID carbidopa 25 mg-levodopa 100 mg tablet (Sinemet) 1 tab PO TID ondansetron 4 mg disintegrating tablet 4 mg PO Q8H PRN carvedilol 25 mg tablet 25 mg PO BID sennosides 8.6 mg capsule (senna) 8.6 mg PO HS acetaminophen 325 mg tablet 650 mg PO TID bisacodyl 10 mg rectal suppository (Dulcolax (bisacodyl)) 10 mg [place] UD PRN magnesium hydroxide 400 mg/5 mL oral suspension (Milk of Magnesia) 30 ml PO UD PRN phenyleph-shark liver [id number] rectal cream 1 applic topical UD PRN polyethylene glycol 3350 17 gram/dose oral powder (Miralax) 17 g PO QAM DO NOT take the morning of surgery cholecalciferol (vitamin D3) 25 mcg (1,000 unit) capsule 25 mcg PO QAM bisacodyl 10 mg rectal suppository (Dulcolax (bisacodyl)) 10 mg [place] UD PRN magnesium hydroxide 400 mg/5 mL oral suspension (Milk of Magnesia) 30 ml PO UD PRN phenyleph-shark liver [id number] rectal cream 1 applic topical UD PRN polyethylene glycol 3350 17 gram/dose oral powder (Miralax) 17 g PO QAM Take morning of surgery With a small sip of water, OTHERWISE NOTHING TO EAT OR DRINK AFTER MIDNIGHT: amlodipine 5 mg tablet 5 mg PO QAM levothyroxine 50 mcg tablet 50 mcg PO QAM pantoprazole 40 mg tablet,delayed release (Protonix) 40 mg PO BID carbidopa 25 mg-levodopa 100 mg tablet (Sinemet) 1 tab PO TID ondansetron 4 mg disintegrating tablet 4 mg PO Q8H PRN(if needed) carvedilol 25 mg tablet 25 mg PO BID acetaminophen 325 mg tablet 650 mg PO TID Take evening before surgery mecobalamin (vitamin B12) 1,000 mcg disintegrating tablet,sublingual 1,000 mcg sublingual HS pantoprazole 40 mg tablet,delayed release (Protonix) 40 mg PO BID carbidopa 25 mg-levodopa 100 mg tablet (Sinemet) 1 tab PO TID ondansetron 4 mg disintegrating tablet 4 mg PO Q8H PRN(if needed) carvedilol 25 mg tablet 25 mg PO BID sennosides 8.6 mg capsule (senna) 8.6 mg PO HS acetaminophen 325 mg tablet 650 mg PO TID Other Notes If you have any questions please call us at [phone] or [phone] or [phone] or [phone]
--- NOTE | 2024-05-29 10:43 | Anesthesiology Consultation ---
Date of Service May 29, 2024 Assessment & Plan (1) Encounter for pre-operative examination: - [place] [facility] pre-operative evaluation, requested updated echocardiogram-to cardiology provider discretion if carotid imaging needs updated. - Medtronic pacemaker. - Case discussed in detail with Dr. Willett who advised patient will need cardiology evaluation prior to surgery, and would anticipate/is requesting cardiology update echocardiogram-to their discretion if updated carotid imaging is needed. Natacha nurse securities vault supervisor at [facility] aware. Surgeon's office made aware. - Per adult basic studies teacher on 05/29/24: No known infectious disease contacts, current infectious disease symptoms in past 10 days or COVID positive test result in the past 30 days. Chart Review Chart Review: Pending: Refer to Additional Notes / Consult section and Patient NOT seen in Pre Admission Testing History Surgery Operation Date: 06/05/24 10:20 Proposed Procedures p Laparoscopic Cholecystectomy - Manuel Harding, Height/Weight Height: 5 ft Weight: 49.804 kg Allergies Allergy/AdvReac Type Severity Reaction Status Date / Time amoxicillin [From Augmentin] Allergy Intermediate NAUSEA/VOMI Verified 05/29/24 08:05 TING clavulanic acid Allergy Intermediate NAUSEA/VOMI Verified 05/29/24 08:05 [From Augmentin] TING codeine AdvReac Intermediate N/V Verified 05/29/24 08:05 Medications Home Medications Medication Instructions Recorded Confirmed Last Taken amlodipine 5 mg tablet 5 mg PO QAM 11/23/20 05/29/24 10/13/22 levothyroxine 50 mcg tablet 50 mcg PO QAM #90 tabs 03/17/21 05/29/24 Unknown cholecalciferol (vitamin D3) 25 25 mcg PO QAM 09/30/21 05/29/24 Unknown mcg (1,000 unit) capsule mecobalamin (vitamin B12) 1,000 1,000 mcg sublingual HS 09/30/21 05/29/24 Unknown mcg disintegrating tablet,sublingual pantoprazole 40 mg tablet,delayed 40 mg PO BID 06/26/22 05/29/24 Unknown release (Protonix) carbidopa 25 mg-levodopa 100 mg 1 tab PO TID 90 days #270 tabs 09/27/22 05/29/24 10/21/22 tablet (Sinemet) ondansetron 4 mg disintegrating 4 mg PO Q8H PRN Nausea And Vomiting 12/29/22 05/29/24 Unknown tablet carvedilol 25 mg tablet 25 mg PO BID 04/28/24 05/29/24 Unknown sennosides 8.6 mg capsule (senna) 8.6 mg PO HS 05/21/24 05/29/24 Unknown acetaminophen 325 mg tablet 650 mg PO TID 05/29/24 05/29/24 Unknown bisacodyl 10 mg rectal suppository 10 mg [place] UD PRN Constipation 05/29/24 05/29/24 Unknown (Dulcolax (bisacodyl)) magnesium hydroxide 400 mg/5 mL 30 ml PO UD PRN Constipation 05/29/24 05/29/24 Unknown oral suspension (Milk of Magnesia) phenyleph-shark liver 1 applic topical UD PRN hemorrhoid 05/29/24 05/29/24 Unknown [id number] rectal cream irritation polyethylene glycol 3350 17 17 g PO QAM 05/29/24 05/29/24 Unknown gram/dose oral powder (Miralax) Past Medical History Medical History (Updated 05/29/24 @ 10:30 by Alda Mario PA-C) Anemia, unspecified Aphasia following cerebral infarction Arthritis Atherosclerotic heart disease of [place] coronary artery without angina pectoris Carotid artery stenosis mild right ICA stenosis per 2019 neck MRA; mild bilat ICA stenosis per 2019 doppler Chronic kidney disease, stage 3 unspecified Cognitive communication deficit Difficulty in walking, not elsewhere classified Diverticulitis of intestine, part unspecified, without perforation or abscess without bleeding GERD without esophagitis High cholesterol History of falling History of [place] (myocardial infarction) Hypertensive heart and chronic kidney disease with heart failure and stage 1 thr ough stage 4 chronic kidney disease, or unspecified chronic kidney disease Hypothyroidism Muscle weakness (generalized) Nonrheumatic aortic (valve) stenosis Moderate to severe valvular aortic stenosis (MARJORIE 0.9 cm2, mean PG 16 mmHg) Other dysphagia Other giant cell arteritis Pacemaker Vascular parkinsonism Past Family History Family History Sister Alcoholism Father Atherosclerosis Gout Lung cancer Heart disease Hypertension Mother Hypertension Osteoporosis Stroke Denies family history of Colon cancer Ovarian cancer Prostate cancer Myocardial infarction Breast cancer Past Surgical History Surgical History (Updated 05/29/24 @ 10:22 by Alda Mario PA-C) History of cataract surgery History of laminectomy History of tonsillectomy Social History Smoking Status: Unknown if ever smoked Alcohol type: beer, wine and hard liquor alcohol intake frequency: holidays/special occasions only substance use type: does not use Lab Results Anesthesia Preop Results Results Anesthesia Widget: WBC 6.84 K/ul (4.8-10.8) 05/09/24 Hgb 11.0 g/dl (12.0-16.0) L 05/09/24 Hct 34.7 % (37.0-47.0) L 05/09/24 Plt 169 K/uL (130-400) 05/09/24 Na 136 mmol/L (136-145) 05/14/24 K 4.7 mmol/L (3.5-5.1) 05/14/24 Cl 106 mmol/L (98-107) 05/14/24 CO2 23 mmol/L (21-32) 05/14/24 BUN 42 mg/dl (6-23) H 05/14/24 Creat 2.00 mg/dl (0.6-1.2) H 05/14/24 Glucose Level 98 mg/dl (70-99(Fasting)) 05/14/24 COVID-19 PCR NEGATIVE (Negative) 05/05/24 Testing Electrocardiogram Date: 05/22/24 Sinus rhythm, rate 65 bpm Intra-atrial conduction delay Left axis deviation Anteroseptal infarct Moderate intraventricular conduction delay Echocardiogram Date: 10/22/22 EF 60-65% No regional wall motion abnormalities Mild cLVH Moderate to severe valvular aortic stenosis (MRAJORIE 0.9 cm2, mean PG 16 mmHg) Mild mitral regurgitation Mild to moderate tricuspid regurgitation Other Testing Pacemaker report 02/05/24 Medtronic AP 84% QUALITY COMPLIANCE COORDINATOR 100% Mode: AAIR DDDR Head and neck MRA 02/28/19 1. 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 2. Moderate stenosis of the proximal right external carotid artery. Unremarkable MRA of the head.
--- NOTE | 2024-08-19 14:20 | PAT Medication Instructions ---
Medication Instructions Date of Service August 19, 2024 Home Medications Medication Instructions Recorded levothyroxine 50 mcg tablet 50 mcg PO QAM #90 tabs 03/17/21 carbidopa 25 mg-levodopa 100 mg 1 tab PO TID 90 days #270 tabs 09/27/22 tablet (Sinemet) amlodipine 5 mg tablet 5 mg PO QAM levothyroxine 50 mcg tablet 50 mcg PO QAM cholecalciferol (vitamin D3) 25 mcg (1,000 unit) capsule 25 mcg PO QAM mecobalamin (vitamin B12) 1,000 mcg disintegrating tablet,sublingual 1,000 mcg sublingual HS pantoprazole 40 mg tablet,delayed release (Protonix) 40 mg PO BID carbidopa 25 mg-levodopa 100 mg tablet (Sinemet) 1 tab PO TID ondansetron 4 mg disintegrating tablet 4 mg PO Q8H PRN Nausea And Vomiting carvedilol 25 mg tablet 25 mg PO BID sennosides 8.6 mg capsule (senna) 8.6 mg PO HS acetaminophen 325 mg tablet 650 mg PO TID bisacodyl 10 mg rectal suppository (Dulcolax (bisacodyl)) 10 mg MS UD PRN Constipation magnesium hydroxide 400 mg/5 mL oral suspension (Milk of Magnesia) 30 ml PO UD PRN Constipation polyethylene glycol 3350 17 gram/dose oral powder (Miralax) 17 g PO QAM acetaminophen 500 mg tablet 500 mg PO Q6H PRN Pain food supplemt, lactose-reduced 1 ea PO TIDWMEAL hydrocortisone 1 % topical cream (Preparation H Hydrocortisone) 1 applic topical Q6H PRN Hemorrhoid Irritation benzonatate 100 mg capsule 100 mg PO TID PRN Cough nystatin-emollient combo no.54 100,000 unit/gram topical cream 1 g topical UD PRN redness vancomycin 125 mg capsule 125 mg PO QID Continue as directed vancomycin 125 mg capsule 125 mg PO QID STOP taking 24 hours before surgery hydrocortisone 1 % topical cream (Preparation H Hydrocortisone) 1 applic topical Q6H PRN Hemorrhoid Irritation nystatin-emollient combo no.54 100,000 unit/gram topical cream 1 g topical UD PRN redness DO NOT take the morning of surgery cholecalciferol (vitamin D3) 25 mcg (1,000 unit) capsule 25 mcg PO QAM bisacodyl 10 mg rectal suppository (Dulcolax (bisacodyl)) 10 mg MS UD PRN Constipation magnesium hydroxide 400 mg/5 mL oral suspension (Milk of Magnesia) 30 ml PO UD PRN Constipation polyethylene glycol 3350 17 gram/dose oral powder (Miralax) 17 g PO QAM food supplemt, lactose-reduced 1 ea PO TIDWMEAL benzonatate 100 mg capsule 100 mg PO TID PRN Cough Take morning of surgery With a small sip of water, OTHERWISE NOTHING TO EAT OR DRINK AFTER MIDNIGHT: amlodipine 5 mg tablet 5 mg PO QAM levothyroxine 50 mcg tablet 50 mcg PO QAM pantoprazole 40 mg tablet,delayed release (Protonix) 40 mg PO BID carbidopa 25 mg-levodopa 100 mg tablet (Sinemet) 1 tab PO TID ondansetron 4 mg disintegrating tablet 4 mg PO Q8H PRN Nausea And Vomiting (if needed) carvedilol 25 mg tablet 25 mg PO BID acetaminophen 325 mg tablet 650 mg PO TID acetaminophen 500 mg tablet 500 mg PO Q6H PRN Pain (if needed) Take evening before surgery mecobalamin (vitamin B12) 1,000 mcg disintegrating tablet,sublingual 1,000 mcg sublingual HS pantoprazole 40 mg tablet,delayed release (Protonix) 40 mg PO BID carbidopa 25 mg-levodopa 100 mg tablet (Sinemet) 1 tab PO TID ondansetron 4 mg disintegrating tablet 4 mg PO Q8H PRN Nausea And Vomiting (if needed) carvedilol 25 mg tablet 25 mg PO BID sennosides 8.6 mg capsule (senna) 8.6 mg PO HS acetaminophen 325 mg tablet 650 mg PO TID bisacodyl 10 mg rectal suppository (Dulcolax (bisacodyl)) 10 mg MS UD PRN Constipation (if needed) magnesium hydroxide 400 mg/5 mL oral suspension (Milk of Magnesia) 30 ml PO UD PRN Constipation (if needed) acetaminophen 500 mg tablet 500 mg PO Q6H PRN Pain (if needed) food supplemt, lactose-reduced 1 ea PO TIDWMEAL benzonatate 100 mg capsule 100 mg PO TID PRN Cough (if needed) Other Notes If you have any questions please call us at [phone] or [phone] or [phone] or [phone]
--- NOTE | 2024-08-20 11:18 | Anesthesiology Consultation ---
Date of Service August 20, 2024 Assessment & Plan (1) Encounter for pre-operative examination: Plan - C. diff positive 08/16/24 patient started vancomycin on 08/17/24 per intermediate records-will complete treatment on 08/27/24. Patient acceptable to proceed if symptoms are resolved and would NOT need contact precautions/isolation per [place] infection control. Surgeon's office made aware. - cardiology pre-operative evaluation 06/12/24 [place]: "...laparoscopic cholecystectomy...recent echocardiogram was reviewed today with Dr. Santos. Her aortic valve stenosis appears closer to moderate rather than severe, which is reassuring. Patient does have a limited functional status, though, she has has not had a recent ischemic evaluation. Would therefore recommend proceeding with a pharmacologic nuclear stress test for further risk stratification prior to surgery. Patient is agreeable and will be scheduled for the stress test on 06/16/24. Pending the results of the nuclear stress, she is at an acceptable risk to proceed with surgery..." Clearance 08/20/24 [place]: "Yes, she is at an acceptable risk to proceed from a cardiac standpoint." - Medtronic pacemaker. - discharge summary 06/17/24 [facility]: "...Influenza A: Resolving. Patient states she is clinically much improved. Still on p.o. Tamiflu 30 mg twice daily, end date June 17. Acute hypoxic respiratory failure: Now resolved. Patient now saturating well on room air. Acute kidney injury: ADE on CKD. Kidney function continues to improve..." - Per risk assessment consultant on 08/19/24: No known infectious disease contacts, current infectious disease symptoms in past 10 days or COVID positive test result in the past 30 days. Chart Review Chart Review: Pending: Refer to Additional Notes / Consult section and Patient NOT seen in Pre Admission Testing History Surgery Operation Date: 06/19/24 08:05 Proposed Procedures p Laparoscopic Cholecystectomy - Manuel Harding DO Operation Date: 08/28/24 09:15 Proposed Procedures p Laparoscopic Cholecystectomy - Manuel Hardnig DO Height/Weight Height: 5 ft Weight: 46.448 kg Allergies Allergy/AdvReac Type Severity Reaction Status Date / Time amoxicillin [From Augmentin] Allergy Intermediate NAUSEA/VOMI Verified 08/19/24 13:57 TING clavulanic acid Allergy Intermediate NAUSEA/VOMI Verified 08/19/24 13:57 [From Augmentin] TING codeine AdvReac Intermediate N/V Verified 08/19/24 13:57 Medications Home Medications Medication Instructions Recorded Confirmed Last Taken amlodipine 5 mg tablet 5 mg PO QAM 11/23/20 08/19/24 06/13/24 levothyroxine 50 mcg tablet 50 mcg PO QAM #90 tabs 03/17/21 08/19/24 06/13/24 cholecalciferol (vitamin D3) 25 25 mcg PO QAM 09/30/21 08/19/24 06/13/24 mcg (1,000 unit) capsule mecobalamin (vitamin B12) 1,000 1,000 mcg sublingual HS 09/30/21 08/19/24 06/12/24 mcg disintegrating tablet,sublingual pantoprazole 40 mg tablet,delayed 40 mg PO BID 06/26/22 08/19/24 06/13/24 release (Protonix) carbidopa 25 mg-levodopa 100 mg 1 tab PO TID 90 days #270 tabs 09/27/22 08/19/24 06/13/24 tablet (Sinemet) ondansetron 4 mg disintegrating 4 mg PO Q8H PRN Nausea And Vomiting 12/29/22 08/19/24 06/13/24 tablet carvedilol 25 mg tablet 25 mg PO BID 04/28/24 08/19/24 06/13/24 sennosides 8.6 mg capsule (senna) 8.6 mg PO HS 05/21/24 08/19/24 06/12/24 acetaminophen 325 mg tablet 650 mg PO TID 05/29/24 08/19/24 06/13/24 bisacodyl 10 mg rectal suppository 10 mg NC UD PRN Constipation 05/29/24 08/19/24 Unknown (Dulcolax (bisacodyl)) magnesium hydroxide 400 mg/5 mL 30 ml PO UD PRN Constipation 05/29/24 08/19/24 Unknown oral suspension (Milk of Magnesia) polyethylene glycol 3350 17 17 g PO QAM 05/29/24 08/19/24 06/13/24 gram/dose oral powder (Miralax) acetaminophen 500 mg tablet 500 mg PO Q6H PRN Pain 06/13/24 08/19/24 06/13/24 food supplemt, lactose-reduced 1 ea PO TIDWMEAL 06/13/24 08/19/24 06/13/24 hydrocortisone 1 % topical cream 1 applic topical Q6H PRN 06/13/24 08/19/24 06/08/24 (Preparation H Hydrocortisone) Hemorrhoid Irritation benzonatate 100 mg capsule 100 mg PO TID PRN Cough 08/19/24 08/19/24 Unknown nystatin-emollient combo no.54 1 g topical UD PRN redness 08/19/24 08/19/24 Unknown 100,000 unit/gram topical cream vancomycin 125 mg capsule 125 mg PO QID 08/19/24 08/19/24 Unknown Past Medical History Medical History (Updated 08/20/24 @ 11:22 by Alda Mario PA-C) Anemia, unspecified Aphasia following cerebral infarction Arthritis Atherosclerotic heart disease of [place] coronary artery without angina pectoris C. difficile diarrhea per MAR, vanco x 10 days start on 08/17/24 Carotid artery stenosis mild right ICA stenosis per 2018 neck MRA; mild bilat ICA stenosis per 2019 doppler Chronic kidney disease, stage 3 unspecified Cognitive communication deficit Cystocele with prolapse Difficulty in walking, not elsewhere classified Diverticulitis of intestine, part unspecified, without perforation or abscess w ithout bleeding GERD without esophagitis High cholesterol History of COVID-19 (06/2024) per hx History of falling History of UT (myocardial infarction) Hypertensive heart and chronic kidney disease with heart failure and stage 1 through stage 4 chronic kidney disease, or unspecified chronic kidney disease Hypothyroidism Influenza A hx Mitral regurgitation Muscle weakness (generalized) Nonrheumatic aortic (valve) stenosis Moderate to severe valvular aortic stenosis (MARJORIE 1.0 cm2, mean PG 17 mmHg) Osteopenia Other dysphagia Other giant cell arteritis Pacemaker Spinal stenosis Vascular parkinsonism Past Family History Family History Sister Alcoholism Father Atherosclerosis Gout Lung cancer Heart disease Hypertension Mother Hypertension Osteoporosis Stroke Denies family history of Colon cancer Ovarian cancer Prostate cancer Myocardial infarction Breast cancer Past Surgical History Surgical History History of cataract surgery History of laminectomy History of tonsillectomy S/P cardiac pacemaker procedure Social History Smoking Status: Unknown if ever smoked Alcohol type: wine alcohol intake frequency: holidays/special occasions only substance use type: unknown Lab Results Anesthesia Preop Results Results Anesthesia Widget: WBC 4.71 K/ul (4.8-10.8) L 08/18/24 Hgb 10.5 g/dl (12.0-16.0) L 08/18/24 Hct 31.9 % (37.0-47.0) L 08/18/24 Plt 160 K/uL (130-400) 08/18/24 Na 138 mmol/L (136-145) 08/18/24 K 4.3 mmol/L (3.5-5.1) 08/18/24 Cl 106 mmol/L (98-107) 08/18/24 CO2 23 mmol/L (21-32) 08/18/24 BUN 29 mg/dl (6-23) H 08/18/24 Creat 1.61 mg/dl (0.6-1.2) H 08/18/24 Glucose Level 85 mg/dl (70-99(Fasting)) 08/18/24 Testing Electrocardiogram Date: 06/13/24 Atrial sensed ventricular paced rhythm, rate 75 bpm Chest X-Ray Date: 06/13/24 *1 view* No pneumonia seen. Echocardiogram Date: 06/10/24 EF 60-65% Normal LV wall motion Moderate cLVH Grade I diastolic dysfunction Moderate to severe valvular aortic stenosis (MARJORIE 1.0 cm2, mean PG 17 mmHg) Mild aortic regurgitation Mild mitral regurgitation Mild to moderate tricuspid regurgitation RVSP elevated at 30-40 mmHg Stress Test Date: 07/18/24 Ejection fraction: 85% Wall motion: No regional wall motion abnormalities. No significant transient ischemic dilation. Impression: 1. Negative myocardial perfusion study for ischemia. 2. No regional wall motion abnormalities. EF 85%. 3. No reported symptoms. 4. Indeterminate Lexiscan ECG. Other Testing Pacemaker report 02/05/24 Medtronic AP 84% PREFLIGHT INSPECTOR 100% Mode: AAIR DDDR Head and neck MRA 02/28/19 1. 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 2. Moderate stenosis of the proximal right external carotid artery. Unremarkable MRA of the head.
[2024-08-28] MEDS: SODIUM CHLORIDE 0.9% 1,000 ML IV SCH (07:55)
[2024-08-28] MEDS ORDERED: ePHEDrine sulfate 50 MG/ML AMP IV PRN (08:20)
[2024-08-28] MEDS ORDERED: ATROPINE SULFATE 0.1 MG/ML 10ML SYR IV PRN (08:20)
[2024-08-28] MEDS ORDERED: DEXAMETHASONE SOD INJ 4 MG/ML VIAL ONE (08:21)
[2024-08-28] MEDS ORDERED: SUGAMMADEX SODIUM 200 MG/2 ML VIAL IV ONE (08:21)
[2024-08-28] MEDS ORDERED: fentaNYL citrate PF 100 MCG/2 ML VIAL ONE (08:21)
[2024-08-28] MEDS ORDERED: LIDOCAINE 2% 2 ML VIAL/AMP(20MG/ML) INFIL ONE (08:21)
[2024-08-28] MEDS ORDERED: ONDANSETRON INJ 2 MG/ML 2 ML VIAL ONE (08:21)
[2024-08-28] MEDS ORDERED: PROPOFOL IV EMULSION 10 MG/ML 20 ML VIAL IV ONE (08:21)
[2024-08-28] MEDS ORDERED: ROCURONIUM BROMIDE 10 MG/ML 5 ML VIAL IV ONE (08:21)
--- NOTE | 2024-08-28 08:24 | History & Physical Bridge Note ---
Date of Service August 28, 2024 History & Physical Bridge Note I have examined the patient, reviewed the History & Physical and in the interval since the performance of the History & Physical I have noted the following changes of clinical significance: no changes noted pt received full treatment for c.diff. currently denying any symptoms. will proceed with marquis ramirez today.
[2024-08-28] MEDS ORDERED: PHENYLEPHRINE HCL 10 MG/ML VIAL ONE (08:29)
[2024-08-28] MEDS: CLINDAMYCIN/D5W 900 MG/50 ML BAG IV SCH (09:14)
[2024-08-28] MEDS: BUPIVACAINE/EPINEPHRINE 0.5% MPF 1:200,000 30 ML VIAL ONE (10:01)
--- NOTE | 2024-08-28 10:05 | Operative Report ---
PG Post Operative Report Pre & Post Diagnosis Operation Date: 08/28/24 09:05 Pre-Op Diagnosis: Gallstones, Abominal Pain Post-Op Diagnosis: Gallstones, Abominal Pain; hiatal hernia I identified the patient and participated in the time-out.: Yes Procedure Operation Date: 08/28/24 09:05 Actual Procedures p Laparoscopic Cholecystectomy(Not Applicable) - Manuel Harding DO Surgeon Manuel Harding DO Production Finisher tanvi chavez Estimated Blood Loss 10 Findings Consistent with Post-Op Diagnosis Specimens gallbladder Description of Procedure After informed consent was obtained the patient was taken to the operating room and placed in the supine position. After successful intubation the abdomen was sterilely prepped and draped in usual fashion. A periumbilical incision was made with an 11 blade scalpel and carried down through the soft tissue using electrocautery. The anterior rectus fascia was opened using electrocautery and 2 #0 Vicryl stay sutures were placed. The peritoneum was elevated with hemostats and incised under direct vision using Metzenbaum scissors. A finger sweep was performed and a 12 mm Sheppard trocar was placed. The abdomen was insufflated to 18 mmHg. The laparoscope was inserted and the abdomen was examined in 360. There was a medium sized hiatal hernia, otherwise no gross abnormalities were identified. A subxiphoid 5 mm port and 2 right upper quadrant 5 mm ports were placed under direct vision. The patient was placed in a reverse Trendelenburg position and slightly airplaned to the left. The gallbladder was grasped and elevated superiorly and laterally. A [place] dissector was used to take down adhesions around the neck of the gallbladder. The cystic duct was identified and skeletonized. It was clipped twice proximally and once distally and transected using a laparoscopic scissor. In similar fashion the cystic artery was identified and skeletonized clipped and divided. The gallbladder was removed from the gallbladder fossa with electrocautery. It was placed into an Endo Catch bag. Thorough irrigation was performed. At the end of the procedure there was adequate hemostasis and no evidence of any bile leaks. A final look around the abdomen showed no other abnormalities. The gallbladder and trochars were all removed and the abdomen was desufflated. The fascia of the camera port was closed using 0 Vicryl in a [id number] fashion. All the wounds were irrigated and closed using 4-0 Monocryl. Marcaine was injected around them for postoperative analgesia and skin glue used as a dressing. The patient was awaken extubated and transferred to recovery in stable condition. My DISPATCH COORDINATOR kennel assistant was present throughout the entire case... helped with prepping the patient. With exposure for trocar placement, as well as retracted the gallbladder throughout the case and also assisted with wound closure and dressing placement. I attest to the content of the Intraoperative Record and any orders documented therein. Any exceptions are noted below.
[2024-08-28] MEDS: HYDROmorphone INJ 1 MG/ML SYRINGE IV PRN (10:42)
[2024-08-28] MEDS: PROMETHAZINE HCL 6.25 MG in SODIUM CHLORIDE 0.9% 50 ML IV PRN (10:53)
[2024-08-28] MEDS ORDERED: ACETAMINOPHEN 1,000 MG/100 ML VIAL IV PRN (11:40)
[2024-08-28] MEDS ORDERED: MoRPHine SULFATE 2 MG/ML CARP IV PRN (11:40)
[2024-08-28] MEDS ORDERED: traMADol HCL 50 MG TABLET PO PRN (11:40)
[2024-08-28] MEDS ORDERED: ACETAMINOPHEN 325 MG TAB PO PRN (11:40)
[2024-08-28] MEDS ORDERED: ONDANSETRON INJ 2 MG/ML 2 ML VIAL IV PRN (11:40)
[2024-08-28] MEDS ORDERED: MoRPHine SULFATE 4 MG/ML 1 ML CARP\\VIAL IV PRN (11:40)
--- NOTE | 2024-08-28 11:58 | Anesthesiology Progress Note ---
Date of Service August 28, 2024 Anesthesia Post Procedure Vital Signs Vital Signs: Temp Pulse Pulse Resp BP Pulse Ox O2 Del Method 08/28/24 11:50 60 12 130/60 96 Nasal Cannula 08/28/24 11:35 60 13 131/60 96 Nasal Cannula 08/28/24 11:20 60 12 129/60 97 Nasal Cannula 08/28/24 11:05 60 12 127/60 97 Nasal Cannula 08/28/24 10:55 60 12 142/64 H 96 Nasal Cannula 08/28/24 10:45 60 17 147/67 H 97 Nasal Cannula 08/28/24 10:35 60 18 135/64 98 Nasal Cannula 08/28/24 10:25 60 13 137/63 97 Nasal Cannula 08/28/24 10:18 36.0 C L 60 20 154/65 H 99 Nasal Cannula 08/28/24 07:37 Room Air 08/28/24 07:37 36.5 C 61 18 151/83 H 92 Room Air O2 Flow Rate 08/28/24 11:50 2 08/28/24 11:35 2 08/28/24 11:20 2 08/28/24 11:05 2 08/28/24 10:55 2 08/28/24 10:45 2 08/28/24 10:35 2 08/28/24 10:25 2 08/28/24 10:18 2 08/28/24 07:37 08/28/24 07:37 Pain Intensity Abdomen: Pain Intensity: 4 Transfer of Care Handoff Completed per policy Notes Mental Status: alert / awake / arousable and participated in evaluation Nausea / Vomiting: adequately controlled Pain: adequately controlled Airway Patency, RR, SpO2: stable & adequate BP & HR: stable & adequate Hydration State: stable & adequate Anesthetic Complications: no major complications apparent and Pt Satisfied with anesthetic care
[2024-08-28] MEDS: PROMETHAZINE HCL INJ 25 MG/ML 1 ML VIAL ONE (17:20)
[2024-08-28] MEDS: SODIUM CHLORIDE 0.9% 50 ML BAG ONE (17:20)
[2024-08-28] MEDS: SENNA 8.6 MG TAB PO SCH (20:26)
[2024-08-28] MEDS: PANTOprazole 40 MG TAB PO SCH (20:26)
[2024-08-28] MEDS: carvediloL 25 MG TAB PO SCH (20:26)
[2024-08-29 05:48] LABS: Basophils # (auto) 0.03 K/uL (0.00-0.20); Basophils % (auto) 0.3 %; Hemoglobin 11.2 g/dl (12.0-16.0); Immature Granulocytes # (auto) 0.06 K/uL (0.01-0.20); Immature Granulocytes % (auto) 0.5 %; Lymphocytes # (auto) 0.84 K/uL (1.20-3.40); Lymphocytes % (auto) 7.6 %; Mean Corpuscular Hemoglobin 32.7 pg (25.0-34.0); Mean Corpuscular Hgb Conc 32.9 g/dL (32.0-36.0); Mean Corpuscular Volume 99.1 fL (80.0-100.0); Mean Platelet Volume 11.9 fL (9.4-12.4); Monocytes % (auto) 6.3 %; Neutrophils # (auto) 9.47 K/uL (1.40-6.50); Neutrophils % (auto) 85.3 %; Platelet Count 173 K/uL (130-400); RDW Coefficient of Variation 12.5 % (11.5-14.5); RDW Standard Deviation 45.2 fL (36.4-46.3); Red Blood Count 3.43 M/uL (4.20-5.40)
[2024-08-29 06:03] LABS: Albumin Globulin Ratio 1.2 (0.9-2); Albumin Level 3.8 gm/dl (3.4-5.0); BUN Creatinine Ratio 17.8 (10-20); Bilirubin,Total 0.5 mg/dl (0.2-1.0); Calcium 9.9 mg/dl (8.6-10.3); Creatinine Clr Calc Pharmacy 16.5 ml/min; Globulin 3.1 gm/dl (2.5-4.0); Potassium 4.7 mmol/L (3.5-5.1); Total Protein 6.9 gm/dl (6.0-8.3)
[2024-08-29] MEDS: LEVOTHYROXINE SODIUM 50 MCG TABLET PO SCH (06:15)
[2024-08-29] MEDS: traMADol HCL 50 MG TABLET PO PRN (06:15)
[2024-08-29 07:56] VITALS: RESP 16
[2024-08-29 08:00] VITALS: O2SAT 90
[2024-08-29] MEDS: amLODIPine BESYLATE 5 MG TAB PO SCH (08:40)
--- NOTE | 2024-08-29 08:52 | Surgery Progress Note ---
Date of Service August 29, 2024 Assessment & Plan (1) S/P laparoscopic cholecystectomy: Plan: POD#1 lap ashley WBC 11.1, Hbg 11, LFTs are within normal limits patient offers no complaints, no pain/n/v. she is voiding she should f/u with dr. brush in the office in 1-2 weeks lives at nursing facility who is planning on picking up pt at 11a today Admission and Anticipated Discharge Date Admission Date: August 28, 2024 Subjective Patient lying in bed. Offers no complaints. Tolerating a diet, no nausea/vomiting. She is voiding. Denies chest pain or shortness of breath. Physical Exam Physical Exam: awake, no distress Gastrointestinal (Abdomen): Inspection/Auscultation: + abdomen distended (mild lower abdominal) and + abdominal surgical incision (c/d/i with dermabond, no signs of infection) Percussion/Palpation: abdomen soft; abdomen nontender Results & Data Vital Signs (Past 12 Hours) Vital Signs Temp Pulse Pulse Pulse Resp BP BP 08/29/24 07:54 97.7 F 88 16 162/78 H 08/29/24 06:51 60 08/29/24 03:33 98.8 F 69 18 175/72 H 08/29/24 00:00 67 08/28/24 22:32 98.1 F 70 18 151/75 H Pulse Ox O2 Del Method 08/29/24 07:54 90 Room Air 08/29/24 06:51 08/29/24 03:33 93 Room Air 08/29/24 00:00 08/28/24 22:32 92 Room Air PG Care Time/CCT Total # of Minutes Spent Total Time Spent with Patient: Total time spent is greater than 50% in coordination of care (as documented) at patient's floor/unit and/or counseling patient: Coding Level of Care Code 34271 Post Operative Follow-Up Diagnoses S/P laparoscopic cholecystectomy Z90.49
[2024-08-29 11:03] VITALS: BP 139/69; PULSE 60; TEMP 97.5
== END 2024-08-29 12:04 | disposition home or self-care (01) ==
LOC: ASU 07:17 → PACUINP 07:17 → 2N 17:07

== ENCOUNTER 2024-09-20 18:25 | Observation (INO) ==
[2024-09-20 19:21] LABS: Basophils # (auto) 0.04 K/uL (0.00-0.20); Basophils % (auto) 0.4 %; Eosinophils # (auto) 0.29 K/uL (0.00-0.50); Hematocrit (blood only) 41.5 % (37.0-47.0); Hemoglobin 13.3 g/dl (12.0-16.0); Immature Granulocytes # (auto) 0.03 K/uL (0.01-0.20); Immature Granulocytes % (auto) 0.3 %; Lymphocytes # (auto) 0.46 K/uL (1.20-3.40); Lymphocytes % (auto) 4.8 %; Mean Corpuscular Volume 99.8 fL (80.0-100.0); Mean Platelet Volume 12.9 fL (9.4-12.4); Monocytes # (auto) 0.29 K/uL (0.11-0.59); Neutrophils % (auto) 88.5 %; Platelet Count 208 K/uL (130-400); RDW Coefficient of Variation 11.9 % (11.5-14.5); RDW Standard Deviation 44.4 fL (36.4-46.3); Red Blood Count 4.16 M/uL (4.20-5.40); White Blood Count 9.51 K/ul (4.8-10.8)
[2024-09-20] MEDS: ONDANSETRON INJ 2 MG/ML 2 ML VIAL IV STA ×2 (19:24→21:52)
[2024-09-20] MEDS: SODIUM CHLORIDE 0.9% 1,000 ML IV ONE (19:24)
[2024-09-20 19:44] LABS: Anion Gap 8 (3-11); BUN Creatinine Ratio 14.2 (10-20); Blood Urea Nitrogen 20 mg/dl (6-23); Calcium 10.6 mg/dl (8.6-10.3); Carbon Dioxide 29 mmol/L (21-32); Chloride 100 mmol/L (98-107); Creatinine Clr Calc Pharmacy 17.8 ml/min; Glucose 111 mg/dl (70-99(Fasting)); Potassium 4.2 mmol/L (3.5-5.1); Sodium 137 mmol/L (136-145)
[2024-09-20 19:51] LABS: Troponin I High Sensitivity 32.4 pg/ml (0-14)
[2024-09-20 19:53] LABS: Alanine Aminotransferase < 3 U/L (7-52); Albumin Globulin Ratio 1.1 (0.9-2); Albumin Level 4.2 gm/dl (3.4-5.0); Alkaline Phosphatase 72 U/L (34-104); Aspartate Aminotransferase 13 U/L (13-39); Bilirubin,Total 0.5 mg/dl (0.2-1.0); Lipase 30 U/L (11-82); Total Protein 8.2 gm/dl (6.0-8.3)
[2024-09-20] MEDS: OPTIRAY 320 100ml IV ONE (20:06)
--- NOTE | 2024-09-20 21:25 | Emergency Department Note ---
Impression & Plan Nausea & vomiting, CKD (chronic kidney disease) ED Provider Note NAME: SUNITA STOVER AGE: 89 SEX: F : 1935 ARRIVES VIA: Ambulance INFORMANT: [Patient][, ] ED PROVIDER(S): [Aneta Jenkins MD] CHIEF COMPLAINT: Nausea, vomiting HPI: This is a an 89-year-old female presents for nausea and vomiting. Patient was restarted on Augmentin today for UTI. She has had history of diverticulitis in the past however she has no abdominal pain today. She notes nausea plan for the past 3 days. She reports no significant abdominal pain with this. No cramping sensation, no urinary symptoms currently. She denies any fevers, chills, or diarrhea. No shortness of breath or chest pain currently. ROS: See above HPI for pertinent positives & negatives. A total of [10] systems reviewed and were otherwise negative. PAST MEDICAL HISTORY: [See Below] PAST SURGICAL HISTORY: [See Below] FAMILY HISTORY: [See Below] SOCIAL HISTORY: [See Below] HOME MEDICATIONS: [See Below] ALLERGIES: [See Below] VITALS: See Below PHYSICAL EXAMINATION: General: resting comfortably in no acute distress Head: Normocephalic and atraumatic Eyes: Normal inspection, extraocular muscles intact Ear, nose, throat: Normal external exam Neck: Normal range of motion Respiratory: lungs clear to auscultation bilaterally Cardiovascular: Regular rate/rhythm, no murmur GI: soft, nontender, no guarding or rebound Extremities: nontender, moves all extremities Neuro: The patient awake and alert, appropriately conversive, no focal deficits, symmetric faces Skin: Warm, dry, and intact MEDICAL DECISION MAKING: This is a pleasant 89-year-old female presenting for nausea and vomiting. Patient does have history of recent cholecystectomy 1 month ago. Will do screening CT imaging to assess for SBO, bowel obstruction, diverticulitis, gastroenteritis, cystitis. - Lab work is reviewed showing no leukocytosis or anemia. Electrolytes do not show signs of significant dehydration. Creatinine is 1.41. Calcium 10.6. Otherwise no transaminitis. Lipase nonelevated. Troponin is elevated at 31. - ECG independently interpreted by me with ventricularly paced rhythm at a rate of 65, [normal NH], [normal QRS], [normal QTc], [no ST segment elevations consistent with STEMI criteria] - urinalysis currently negative -Patient had persistent nausea vomiting while emergency department. With elevated troponin, weakness, amatory dysfunction, will admit to the hospital, purely pending CT Abdo/pelvis. -Care discussed Dr. Brock for admission Differential diagnosis: SBO, bowel obstruction, diverticulitis, gastroenteritis, cystitis. Diagnostics interpreted by me: ECG: [none] Cardiac Monitoring: An order was placed for continuous cardiac monitoring. The monitor shows a rate of 61 with sinus rhythm. Past Med/Surg History Problem List (Updated 09/22/24 @ 01:05 by Aneta Jenkins MD) Nausea & vomiting (Acute) Gastroenteritis S/P laparoscopic cholecystectomy Elevated serum creatinine Gallstones Cystocele with prolapse Lower-half Parkinsonism Bilateral neural hearing loss Dysphonia Pacemaker Complete heart block (Acute) Chronic cough (Acute) Apical lung scarring Bronchiectasis Cerebral vascular disease Ataxic gait Hypertension (Acute) CKD (chronic kidney disease) (Acute) Gait disturbance Aortic stenosis (Acute) Hypothyroidism (Acute) Mitral regurgitation (Acute) Osteopenia (Acute) Spinal stenosis (Acute) Hyperglycemia (Acute) Medical History Encounter for pre-operative examination C. difficile diarrhea per JUL, vanco x 10 days start on 08/17/24 Spinal stenosis Osteopenia Mitral regurgitation Cystocele with prolapse History of COVID-19 (06/2024) per hx Influenza A hx Carotid artery stenosis mild right ICA stenosis per 2018 neck MRA; mild bilat ICA stenosis per 2019 doppler History of GA (myocardial infarction) Other dysphagia GERD without esophagitis History of falling Vascular parkinsonism Diverticulitis of intestine, part unspecified, without perforation or abscess without bleeding Anemia, unspecified Nonrheumatic aortic (valve) stenosis Moderate to severe valvular aortic stenosis (MARJORIE 1.0 cm2, mean PG 17 mmHg) Chronic kidney disease, stage 3 unspecified Hypertensive heart and chronic kidney disease with heart failure and stage 1 through stage 4 chronic kidney disease, or unspecified chronic kidney disease Pacemaker Atherosclerotic heart disease of [place] coronary artery without angina pectoris Difficulty in walking, not elsewhere classified Muscle weakness (generalized) Aphasia following cerebral infarction Cognitive communication deficit Other giant cell arteritis Hypothyroidism High cholesterol Arthritis Surgical History Hx laparoscopic cholecystectomy (08/28/24) Laparoscopic Cholecystectomy - Manuel Harding DO S/P cardiac pacemaker procedure History of tonsillectomy History of laminectomy History of cataract surgery Family History Sister Alcoholism Father Atherosclerosis Gout Lung cancer Heart disease Hypertension Mother Hypertension Osteoporosis Stroke Denies family history of Colon cancer Ovarian cancer Prostate cancer Myocardial infarction Breast cancer Social History Smoking Status: Never smoker Hx Alcohol Use: No Hx Substance Use: No Preferred Language: Barb[place] Communication Ability: Effective Visual Impairment: No Limitations Hearing Ability: Normal Community Association Manager Required: No Beliefs That Will Affect Care: None marital status: Current Living Situation: Shelter Current Living Situation Comment: [facility] current occupational status: retired How many Children do You have: 2 Other Information That Helps Us Care for You: No Feels Safe at Home: Yes Safety Concerns: Feels Safe At This Time Childhood Exposure to Second-Hand Smoke: Yes Diet: regular caffeine: No during the past year weight has: remained stable Physical Activity Frequency: Daily Seatbelt Use: always Sunscreen Use: Yes Assistive Devices: Walker Allergies Allergies Allergy/AdvReac Type Severity Reaction Status Date / Time amoxicillin [From Augmentin] Allergy Intermediate NAUSEA/VOMI Verified 09/10/24 11:21 TING clavulanic acid Allergy Intermediate NAUSEA/VOMI Verified 09/10/24 11:21 [From Augmentin] TING codeine AdvReac Intermediate N/V Verified 09/20/24 19:12 Home Meds Home Medications Medication Instructions Recorded Confirmed amlodipine 5 mg tablet 5 mg PO QAM 11/23/20 09/20/24 cholecalciferol (vitamin D3) 25 25 mcg PO QAM 09/30/21 09/20/24 mcg (1,000 unit) capsule mecobalamin (vitamin B12) 1,000 1,000 mcg sublingual QPM 09/30/21 09/20/24 mcg disintegrating tablet,sublingual pantoprazole 40 mg tablet,delayed 40 mg PO BID 06/26/22 09/20/24 release (Protonix) ondansetron 4 mg disintegrating 4 mg PO Q8H PRN Nausea And Vomiting 12/29/22 09/20/24 tablet carvedilol 25 mg tablet 25 mg PO BID 04/28/24 09/20/24 sennosides 8.6 mg capsule (senna) 8.6 mg PO HS 05/21/24 09/20/24 acetaminophen 325 mg tablet 650 mg PO TID 05/29/24 09/20/24 polyethylene glycol 3350 17 17 g PO QAM 05/29/24 09/20/24 gram/dose oral powder (Miralax) hydrocortisone 1 % topical cream 1 applic topical Q6H PRN 06/13/24 09/20/24 (Preparation H Hydrocortisone) Hemorrhoid Irritation benzonatate 100 mg capsule 200 mg PO Q8 PRN Cough 08/19/24 09/20/24 Saccharomyces boulardii 250 mg 250 mg PO DAILY 09/20/24 09/20/24 capsule (Florastor) acetaminophen 500 mg tablet 500 mg PO Q6H PRN Fever Or Pain 09/20/24 09/20/24 amoxicillin 500 mg-potassium 1 tab PO BID 09/20/24 09/20/24 clavulanate 125 mg tablet carbidopa 25 mg-levodopa 100 mg 1 tab PO TID 09/20/24 09/20/24 tablet polyvinyl alcohol-povidone (PF) 1 drp ophthalmic (eye) .EVERY 2 09/20/24 09/20/24 1.4 %-0.6 % eye drops in a HOURS PRN itchy dry eyes dropperette (Refresh Classic (PF)) polyvinyl alcohol-povidone (PF) 1 drp ophthalmic (eye) QAM 09/20/24 09/20/24 1.4 %-0.6 % eye drops in a dropperette (Refresh Classic (PF)) Previous Rx's Medication Instructions Recorded levothyroxine 50 mcg tablet 50 mcg PO QAM #90 tabs 03/17/21 Results & Data (ED) Vital Signs Vital Signs - 24 hr 09/21/24 01:00 Pulse Rate 67 Pulse Rate from SpO2 Sensor 67 Respiratory Rate 16 Blood Pressure 162/72 H Blood Pressure Mean 92 Pulse Oximetry 95 Oxygen Delivery Method Room Air Laboratory Data 09/21/24 04:23 09/21/24 04:23 Lab Results 09/20/24 09/20/24 09/20/24 Range/Units 18:35 20:48 23:22 WBC 9.51 (4.8-10.8) K/ul RBC 4.16 L (4.20-5.40) M/uL Hgb 13.3 (12.0-16.0) g/dl Hct 41.5 (37.0-47.0) % MCV 99.8 (80.0-100.0) fL MCH 32.0 (25.0-34.0) pg MCHC 32.0 (32.0-36.0) g/dL RDW Std Deviation 44.4 (36.4-46.3) fL RDW Coeff of Mervat 11.9 (11.5-14.5) % Plt Count 208 (130-400) K/uL MPV 12.9 H (9.4-12.4) fL Immature Gran % (Auto) 0.3 % Neut % (Auto) 88.5 % Lymph % (Auto) 4.8 % [place] % (Auto) 3.0 % Eos % (Auto) 3.0 % Baso % (Auto) 0.4 % Neut # (Auto) 8.40 H (1.40-6.50) K/uL Lymph # (Auto) 0.46 L (1.20-3.40) K/uL [place] # (Auto) 0.29 (0.11-0.59) K/uL Eos # (Auto) 0.29 (0.00-0.50) K/uL Baso # (Auto) 0.04 (0.00-0.20) K/uL Immature Gran # (Auto) 0.03 (0.01-0.20) K/uL Sodium 137 (136-145) mmol/L Potassium 4.2 (3.5-5.1) mmol/L Chloride 100 (98-107) mmol/L Carbon Dioxide 29 (21-32) mmol/L Anion Gap 8 (3-11) BUN 20 (6-23) mg/dl Creatinine 1.41 H (0.6-1.2) mg/dl Est Cr Clr Drug Dosing 17.8 ml/min eGFR 35.66 BUN/Creatinine Ratio 14.2 (10-20) Glucose 111 H (70-99(Fasting)) mg/dl Calcium 10.6 H (8.6-10.3) mg/dl Total Bilirubin 0.5 (0.2-1.0) mg/dl AST 13 (13-39) U/L ALT < 3 L (7-52) U/L Alkaline Phosphatase 72 (34-104) U/L Troponin I High Sens 32.4 H 31.0 H (0-14) pg/ml Total Protein 8.2 (6.0-8.3) gm/dl Albumin 4.2 (3.4-5.0) gm/dl Globulin 4.0 (2.5-4.0) gm/dl Albumin/Globulin Ratio 1.1 (0.9-2) Lipase 30 (11-82) U/L Urine Color Yellow Urine Appearance Clear (Clear) Urine pH 6.0 (4.5-7.5) Ur Specific [place] 1.023 (1.000-1.030) Urine Protein 3+ H (Negative) Urine Glucose (UA) Negative (Negative) Urine Ketones Trace H (Negative) Urine Blood Negative (Negative) Urine Nitrite Negative (Negative) Urine Bilirubin Negative (Negative) Urine Urobilinogen Negative (Negative) Ur Leukocyte Esterase Negative (Negative) Urine WBC (Auto) 0-5 (0-5) /hpf Urine RBC (Auto) 0-2 (0-2) /hpf U Hyaline Cast (Auto) 0-2 (0-2) /lpf U Epithel Cells (Auto) 0-2 (0-2) /hpf Urine Bacteria (Auto) None Seen (None Seen) Urine Comment Administered Medications Acetaminophen (Acetaminophen 325 Mg Tab) 650 mg PO TID [facility] Stop: 10/21/24 08:59 Last Admin: 09/21/24 20:55 Dose: 650 mg Documented By: [id number] Admin: 09/21/24 13:08 Dose: 650 mg Documented By: Admin: 09/21/24 08:13 Dose: 650 mg Documented By: MATT Amlodipine Besylate (Amlodipine Besylate 5 Mg Tab) 5 mg PO [facility] Stop: 10/21/24 08:59 Last Admin: 09/21/24 08:14 Dose: 5 mg Documented By: MATT Artificial Tears (Artificial Tears) 1 drops OP [facility] Stop: 10/21/24 08:59 Last Admin: 09/21/24 08:15 Dose: 1 drops Documented By: MATT Carbidopa/Levodopa (Carbidopa/Levodopa 25/100mg Tab) 1 tab PO TID [facility] Stop: 10/21/24 08:59 Last Admin: 05/18/25 20:55 Dose: 1 tab Documented By: [id number] Admin: 09/21/24 13:08 Dose: 1 tab Documented By: Admin: 09/21/24 08:14 Dose: 1 tab Documented By: MATT Carvedilol (Carvedilol 25 Mg Tab) 25 mg PO BID [facility] Stop: 10/21/24 08:59 Last Admin: 09/21/24 20:55 Dose: 25 mg Documented By: [id number] Admin: 09/21/24 08:14 Dose: 25 mg Documented By: MATT Lactated Ringer's (Lr) 1,000 mls @ 80 mls/hr IV .[id number] ERIC Stop: 09/24/24 02:29 Last Admin: 09/21/24 15:19 Dose: 80 mls/hr Documented By: Infusion: 09/21/24 15:19 Dose: Infused Documented By: Admin: 09/21/24 03:44 Dose: 80 mls/hr Documented By: AMARIS Levothyroxine Sodium (Levothyroxine Sodium 50 Mcg Tablet) 50 mcg PO DAILYBB [facility] Stop: 10/21/24 06:29 Last Admin: 09/21/24 06:30 Dose: 50 mcg Documented By: AMARIS Melatonin (Melatonin 3 Mg Tab) 3 mg PO HS PRN PRN Reason: Sleep Stop: 10/21/24 02:22 Last Admin: 09/21/24 20:55 Dose: 3 mg Documented By: [id number] Pantoprazole Sodium (Pantoprazole 40 Mg Tab) 40 mg PO BID ERIC Stop: 10/21/24 08:59 Last Admin: 09/21/24 20:55 Dose: 40 mg Documented By: [id number] Admin: 09/21/24 08:14 Dose: 40 mg Documented By: MATT Polyethylene Glycol (Polyethylene (Miralax) 17 Gm Pack) 17 gm PO QAM [facility] Stop: 10/21/24 08:59 Last Admin: 09/21/24 08:15 Dose: 17 gm Documented By: MATT Saccharomyces Boulardii (Saccharomyces Boulardii 250 Mg Cap) 250 mg PO DAILY ERIC Stop: 10/21/24 08:59 Last Admin: 09/21/24 08:15 Dose: 250 mg Documented By: MATT Sennosides (Senna 8.6 Mg Tab) 8.6 mg PO HS ERIC Stop: 10/21/24 20:59 Last Admin: 09/21/24 20:55 Dose: 8.6 mg Documented By: [id number] Discontinued Medications Sodium Chloride (Nss) 1,000 mls @ 999 mls/hr IV .Q1H1M ONE Stop: 09/20/24 20:09 Last Infusion: 09/20/24 20:25 Dose: Infused Documented By: Admin: 09/20/24 19:24 Dose: 999 mls/hr Documented By: AMARIS Ioversol (Optiray 320 100ml) 93 ml IV ONCE ONE Stop: 09/20/24 20:07 Last Admin: 09/20/24 20:06 Dose: 93 ml Documented By: CHEL Ondansetron HCl (Ondansetron Inj 2 Mg/Ml 2 Ml Vial) 4 mg IV NOW STA Stop: 09/20/24 19:10 Last Admin: 09/20/24 19:24 Dose: 4 mg Documented By: AMARIS Ondansetron HCl (Ondansetron Inj 2 Mg/Ml 2 Ml Vial) 4 mg IV NOW STA Stop: 09/20/24 21:49 Last Admin: 09/20/24 21:52 Dose: 4 mg Documented By: AMARIS Discharge Plan Visit Data Chief Complaint: GI Assessment Stated Complaint: VOMITING ED Provider: Aneta Jenkins Discharge Problem: Nausea & vomiting, CKD (chronic kidney disease) Patient Disposition: Admitted As Inpatient Condition: Fair Discharge Instructions Interventions: ED Discharge Assessment Last Done: 09/21/24 02:24 Discharge Problem: Nausea & vomiting Qualifiers: Vomiting type: bilious vomiting Qualified Code(s): R11.14 - Bilious vomiting CKD (chronic kidney disease) Qualifiers: Chronic kidney disease stage: stage 3 (moderate)
[2024-09-20 23:37] LABS: Appearance Urine Clear (Clear); Bacteria Urine Automated None Seen (None Seen); Bilirubin Urine Negative (Negative); Blood Urine Negative (Negative); Cast Urine Automated 0-2 /lpf (0-2); Color Urine Yellow; Epithelial Cell Urine Auto 0-2 /hpf (0-2); Glucose Urine UA Negative (Negative); Ketones Urine Trace (Negative); Leukocyte Esterase Urine Negative (Negative); Nitrite Urine Negative (Negative); Protein Urine 3+ (Negative); RBC Urine Automated 0-2 /hpf (0-2); Specific Gravity Urine 1.023 (1.000-1.030); Urobilinogen Urine Negative (Negative); WBC Urine Automated 0-5 /hpf (0-5)
--- NOTE | 2024-09-21 01:22 | History & Physical Report ---
Date of Service September 21, 2024 Assessment & Plan (1) Gastroenteritis: (2) Elevated troponin: Plan 89-year-old female PMHx hypothyroidism, CKD, HTN, , MCI, bronchiectasis, small L basal ganglia stroke, high-grade AV block s/p Medtronic dual-chamber pacemaker (11/25/2020), s/p laparoscopic cholecystectomy, lower half parkinsonism, and gait disturbance who presents from [facility] for N/V x 3 days. ED evaluation reveals no leukocytosis, stable H&H; CMP grossly unremarkable with exception of creatinine 1.41, glucose 111, calcium 10.6, ALT < 3; troponin 32.4, 31 on repeat; UA pending; CTAP pending; EKG atrial sensed ventricular paced rhythm at 65 bpm.; Provided with 1L NSS and ondansetron 4 mg IV x 2 in ED. #Gastroenteritis Presenting with N/V x 3 days TALENT ACQUISITION LEAD. S/p laparoscopic cholecystectomy, also with history of diverticulitis. Supposedly with inability to tolerate anything by mouth. Suspect gastroenteritis. - CBC w/o leukocytosis; CMP grossly unremarkable with LFTs WNL (exception ALT < 3) - CBC am - CTAP cholecystectomy, mild biliary ectasia, mild stranding/fluid GB fossa, mild wall thickening of most of colon (colitis), diverticulosis of distal colon - Full liquids for now, advance as patient tolerates - IVF LR @ 80 mL/hr - Zofran IV prn N/V - Maalox prn - Supportive care - PT/OT ordered -- nursing reports some difficulties with ambulating to and from bathroom, pt would benefit from PT/OT eval -- appreciate assistance #Elevated troponin Pt w/ h/o CAD, with pacer present; no reports of chest pain. H/o CKD. - Troponin 32.4, repeat 31 - given decline in troponin, no additional trending. Will repeat in setting of chest pain - EKG atrial sensed ventricular paced rhythm at 65 bpm, without ischemic changes - Echo 06/2024 EF 60-65%, G1DD, , AR, MR, TR, RVSP elevated (30-40mmHg) - Likely 2/2 demand/CKD #CKD stage III- Per history, Cr near baseline - BMP am #HTN- Amlodipine, carvedilol - continue #Lower half parkinsonism- Carbidopa levodopa - continue #Hypothyroidism- Levothyroxine - continue #GERD- Pantoprazole - continue Pt was being treated for UTI with Augmentin per [facility], however, no LUTS and UA on admission without evidence of infection. Pt did require perineal care during ED evaluation given the left over stool surrounding her bottom half. Suspect that the UA may have been contaminated. In the presence of GI upset, no LUTS, and UA without evidence of bacteria/infection, will HOLD Augmentin at time of visit. Reevaluate as necessary. Dispo: Admit, med/tele -- given elevated trop VTE Prophylaxis: SCDs This document was dictated utilizing Vioozer. Please excuse any grammatical errors that may be secondary to use of this software. Admission and Anticipated Discharge Date Admission Date: 09/21/2024 History of Present Illness Chief Complaint: N/V Primary Care Provider: [facility] 89-year-old female PMHx hypothyroidism, CKD, HTN, , MCI, bronchiectasis, small L basal ganglia stroke, high-grade AV block s/p Medtronic dual-chamber pacemaker (11/25/2020), s/p laparoscopic cholecystectomy, lower half parkinsonism, and gait disturbance who presents from [facility] for N/V x 3 days. Patient is a poor historian. Able to tell me that she has been having vomiting for around 2-3 days. Reports that she throws up around once per day and has some nausea with it just before throwing up. Denies any abdominal pain at all. Reports no diarrhea or constipation and states that her last normal BM was the day TALENT ACQUISITION LEAD. No blood in stool or emesis. Denies LUTS to include hematuria, dysuria, frequency, or urgency. Of note, patient was started on Augmentin the day TALENT ACQUISITION LEAD for reported UTI. Has taken 1 days worth. No F/C. Denies chest pain, SOB, palpitations, numbness/tingling, URI symptoms, or weakness. ED evaluation reveals no leukocytosis, stable H&H; CMP grossly unremarkable with exception of creatinine 1.41, glucose 111, calcium 10.6, ALT < 3; troponin 32.4, 31 on repeat; UA pending; CTAP pending; EKG atrial sensed ventricular paced rhythm at 65 bpm.; Provided with 1L NSS and ondansetron 4 mg IV x [address] see [address] Brock's attestation for adjustments/additions to treatment plan. Allergies Allergy/AdvReac Type Severity Reaction Status Date / Time amoxicillin [From Augmentin] Allergy Intermediate NAUSEA/VOMI Verified 09/10/24 11:21 TING clavulanic acid Allergy Intermediate NAUSEA/VOMI Verified 09/10/24 11:21 [From Augmentin] TING codeine AdvReac Intermediate N/V Verified 09/20/24 19:12 Home Medications Medication Instructions Recorded Confirmed Type amlodipine 5 mg tablet 5 mg PO QAM 11/23/20 09/20/24 History levothyroxine 50 mcg tablet 50 mcg PO QAM #90 tabs 03/17/21 09/20/24 Rx cholecalciferol (vitamin D3) 25 25 mcg PO QAM 09/30/21 09/20/24 History mcg (1,000 unit) capsule mecobalamin (vitamin B12) 1,000 1,000 mcg sublingual QPM 09/30/21 09/20/24 History mcg disintegrating tablet,sublingual pantoprazole 40 mg tablet,delayed 40 mg PO BID 06/26/22 09/20/24 History release (Protonix) ondansetron 4 mg disintegrating 4 mg PO Q8H PRN Nausea And Vomiting 12/29/22 09/20/24 History tablet carvedilol 25 mg tablet 25 mg PO BID 04/28/24 09/20/24 History sennosides 8.6 mg capsule (senna) 8.6 mg PO HS 05/21/24 09/20/24 History acetaminophen 325 mg tablet 650 mg PO TID 05/29/24 09/20/24 History polyethylene glycol 3350 17 17 g PO QAM 05/29/24 09/20/24 History gram/dose oral powder (Miralax) hydrocortisone 1 % topical cream 1 applic topical Q6H PRN 06/13/24 09/20/24 History (Preparation H Hydrocortisone) Hemorrhoid Irritation benzonatate 100 mg capsule 200 mg PO Q8 PRN Cough 08/19/24 09/20/24 History Saccharomyces boulardii 250 mg 250 mg PO DAILY 09/20/24 09/20/24 History capsule (Florastor) acetaminophen 500 mg tablet 500 mg PO Q6H PRN Fever Or Pain 09/20/24 09/20/24 History amoxicillin 500 mg-potassium 1 tab PO BID 09/20/24 09/20/24 History clavulanate 125 mg tablet carbidopa 25 mg-levodopa 100 mg 1 tab PO TID 09/20/24 09/20/24 History tablet polyvinyl alcohol-povidone (PF) 1 drp ophthalmic (eye) .EVERY 2 09/20/24 09/20/24 History 1.4 %-0.6 % eye drops in a HOURS PRN itchy dry eyes dropperette (Refresh Classic (PF)) polyvinyl alcohol-povidone (PF) 1 drp ophthalmic (eye) QAM 09/20/24 09/20/24 History 1.4 %-0.6 % eye drops in a dropperette (Refresh Classic (PF)) Past Med/Surg History Problem List (Updated 09/21/24 @ 02:01 by Daniel Ramirez PA-C) Gastroenteritis S/P laparoscopic cholecystectomy Elevated serum creatinine Gallstones Cystocele with prolapse Lower-half Parkinsonism Bilateral neural hearing loss Dysphonia Pacemaker Complete heart block (Acute) Chronic cough (Acute) Apical lung scarring Bronchiectasis Cerebral vascular disease Ataxic gait Hypertension (Acute) CKD (chronic kidney disease) (Acute) Gait disturbance Aortic stenosis (Acute) Hypothyroidism (Acute) Mitral regurgitation (Acute) Osteopenia (Acute) Spinal stenosis (Acute) Hyperglycemia (Acute) Medical History Encounter for pre-operative examination C. difficile diarrhea per JUL, vanco x 10 days start on 08/17/24 Spinal stenosis Osteopenia Mitral regurgitation Cystocele with prolapse History of COVID-19 (06/2024) per hx Influenza A hx Carotid artery stenosis mild right ICA stenosis per 2019 neck MRA; mild bilat ICA stenosis per 2019 doppler History of ID (myocardial infarction) Other dysphagia GERD without esophagitis History of falling Vascular parkinsonism Diverticulitis of intestine, part unspecified, without perforation or abscess without bleeding Anemia, unspecified Nonrheumatic aortic (valve) stenosis Moderate to severe valvular aortic stenosis (MARJORIE 1.0 cm2, mean PG 17 mmHg) Chronic kidney disease, stage 3 unspecified Hypertensive heart and chronic kidney disease with heart failure and stage 1 through stage 4 chronic kidney disease, or unspecified chronic kidney disease Pacemaker Atherosclerotic heart disease of [place] coronary artery without angina pectoris Difficulty in walking, not elsewhere classified Muscle weakness (generalized) Aphasia following cerebral infarction Cognitive communication deficit Other giant cell arteritis Hypothyroidism High cholesterol Arthritis Surgical History Hx laparoscopic cholecystectomy (08/28/24) Laparoscopic Cholecystectomy - Manuel Harding, S/P cardiac pacemaker procedure History of tonsillectomy History of laminectomy History of cataract surgery Family History Sister Alcoholism Father Atherosclerosis Gout Lung cancer Heart disease Hypertension Mother Hypertension Osteoporosis Stroke Denies family history of Colon cancer Ovarian cancer Prostate cancer Myocardial infarction Breast cancer Social History Smoking Status: Unknown if ever smoked Preferred Language: Japanese Communication Ability: Effective Visual Impairment: No Limitations Hearing Ability: Normal Balloon Tester Required: No Beliefs That Will Affect Care: None marital status: Current Living Situation: Spouse Current Living Situation Comment: [facility] current occupational status: retired How many Children do You have: 2 Feels Safe at Home: Yes Childhood Exposure to Second-Hand Smoke: Yes Diet: regular caffeine: No during the past year weight has: remained stable Physical Activity Frequency: Daily Seatbelt Use: always Sunscreen Use: Yes Assistive Devices: Walker Review of Systems Review of Systems: All systems reviewed & are unremarkable except as noted in Subjective Physical Exam Physical Exam: General: No acute distress Skin: Warm and dry Head: Normocephalic, atraumatic Eyes: PERRL, conjunctivae clear, sclera non-icteric ENT: External ear and ear canal without swelling; nose atraumatic; good dentition, tongue normal appearance, pharynx normal Neck: Supple, no LAD Cardio: Combo of systolic and diastolic murmur auscultated, difficult to differentiate from one another, regular rate and rhythm, no G/R, S1 and S2 normal Resp: No respiratory distress, Lungs CTA in all lobes bilaterally, no wheezes, rales, or rhonchi Abdomen: Soft, symmetric, nontender specifically to RUQ and over bladder; No masses or hepatosplenomegaly; Bowel sounds normoactive MSK: No deformities; pulses palpable and equal; no edema. Neuro: Awake, alert; Sensation intact bilaterally; CN grossly intact Psych: One word answers, alert. Appropriate mood and affect; good judgement and insight. Results & Data Results & Data Vital Signs (Past 12 Hours) Vital Signs Temp Pulse Pulse Resp BP BP Pulse Ox 09/21/24 01:00 67 16 162/72 H 95 09/21/24 00:06 73 18 91 09/21/24 00:00 179/80 H 09/20/24 23:39 76 18 91 09/20/24 23:00 188/94 H 09/20/24 23:00 82 17 93 09/20/24 22:46 81 09/20/24 22:42 71 19 91 09/20/24 22:26 189/97 H 09/20/24 22:25 36.4 C L 89 18 189/97 H 92 09/20/24 22:00 187/97 H 09/20/24 22:00 187/97 H 09/20/24 22:00 85 20 09/20/24 21:32 82 20 92 09/20/24 21:02 82 20 92 09/20/24 21:00 174/96 H 09/20/24 20:44 77 20 92 09/20/24 20:32 77 19 93 09/20/24 20:19 181/83 H 09/20/24 20:14 70 16 173/60 H 92 09/20/24 18:40 93 09/20/24 18:38 70 09/20/24 18:19 36.9 C 70 24 130/79 92 O2 Del Method 09/21/24 01:00 Room Air 09/21/24 00:06 Room Air 09/21/24 00:00 09/20/24 23:39 Room Air 09/20/24 23:00 09/20/24 23:00 Room Air 09/20/24 22:46 09/20/24 22:42 Room Air 09/20/24 22:26 09/20/24 22:25 Room Air 09/20/24 22:00 09/20/24 22:00 09/20/24 22:00 09/20/24 21:32 09/20/24 21:02 09/20/24 21:00 09/20/24 20:44 09/20/24 20:32 09/20/24 20:19 09/20/24 20:14 Room Air 09/20/24 18:40 Room Air 09/20/24 18:38 09/20/24 18:19 Room Air Laboratory Results 09/20/24 09/20/24 09/20/24 23:22 20:48 18:35 WBC 9.51 RBC 4.16 L Hgb 13.3 Hct 41.5 MCV 99.8 MCH 32.0 MCHC 32.0 RDW Std Deviation 44.4 RDW Coeff of Mervat 11.9 Plt Count 208 MPV 12.9 H Immature Gran % (Auto) 0.3 Neut % (Auto) 88.5 Lymph % (Auto) 4.8 [place] % (Auto) 3.0 Eos % (Auto) 3.0 Baso % (Auto) 0.4 Neut # (Auto) 8.40 H Lymph # (Auto) 0.46 L [place] # (Auto) 0.29 Eos # (Auto) 0.29 Baso # (Auto) 0.04 Immature Gran # (Auto) 0.03 Sodium 137 Potassium 4.2 Chloride 100 Carbon Dioxide 29 Anion Gap 8 BUN 20 Creatinine 1.41 H Est Cr Clr Drug Dosing 17.8 eGFR 35.66 BUN/Creatinine Ratio 14.2 Glucose 111 H Calcium 10.6 H Total Bilirubin 0.5 AST 13 ALT < 3 L Alkaline Phosphatase 72 Troponin I High Sens 31.0 H 32.4 H Total Protein 8.2 Albumin 4.2 Globulin 4.0 Albumin/Globulin Ratio 1.1 Lipase 30 Urine Color Yellow Urine Appearance Clear Urine pH 6.0 Ur Specific [place] 1.023 Urine Protein 3+ H Urine Glucose (UA) Negative Urine Ketones Trace H Urine Blood Negative Urine Nitrite Negative Urine Bilirubin Negative Urine Urobilinogen Negative Ur Leukocyte Esterase Negative Urine WBC (Auto) 0-5 Urine RBC (Auto) 0-2 U Hyaline Cast (Auto) 0-2 U Epithel Cells (Auto) 0-2 Urine Bacteria (Auto) None Seen Urine Comment Diagnostic Findings Abdomen/Pelvis CT 09/20/24 18:40 Exam(s): CT ABDOMEN + PELVIS With Contrast IV Amt: 93ml opti 320 EXAM: CT Abdomen and Pelvis With Intravenous Contrast CLINICAL HISTORY: Reason for exam: N/V, ?SBO. Also UTI today, pyelo. TECHNIQUE: Axial computed tomography images of the abdomen and pelvis with intravenous contrast. Automated exposure control was utilized for the study. A dose lowering technique was utilized adhering to the principles of ALARA. CONTRAST: Patient received 93ml opti 320 of IV contrast COMPARISON: CT Abdomen Pelvis dated 10/21/22, Ultrasound gallbladder dated 06/14/24 FINDINGS: Lung bases: Bibasilar atelectasis/chronic changes. Stable bronchiectasis in the right middle lobe. Heart: Mild cardiomegaly. Pacemaker leads. ABDOMEN: Liver: Unremarkable. No mass. Gallbladder and bile ducts: Interval cholecystectomy. Mild biliary ectasia may reflect postcholecystectomy changes. Mild stranding/fluid in the gallbladder fossa lateral to the level of the cholecystectomy clips. Mild heterogeneity of the adjacent liver parenchyma. This area also abuts the hepatic flexure of the colon. Mild wall thickening of most of the colon versus partial distention. No ductal dilation. Pancreas: Unremarkable. No mass. No ductal dilation. Spleen: Unremarkable. No splenomegaly. Adrenals: Unremarkable. No mass. Kidneys and ureters: No hydronephrosis. Numerous bilateral renal low- density lesions, likely cysts. Stomach and bowel: Mild wall thickening of most of the colon versus partial distention. Marked colonic diverticulosis mostly of the distal colon. No evidence of bowel obstruction. PELVIS: Appendix: Normal appendix. Bladder: Distended urinary bladder. Reproductive: Unremarkable as visualized. ABDOMEN and PELVIS: Intraperitoneal space: Unremarkable. No free air. No significant fluid collection. Bones/joints: Degenerative changes of the spine. Mild anterolisthesis of L3 on L4 and L4 on L5. L4-5 laminectomies. Similar to the prior. No acute fracture. No dislocation. Soft tissues: Unremarkable. Vasculature: Atherosclerotic calcifications of the aorta and branches. No abdominal aortic aneurysm. Lymph nodes: Unremarkable. No enlarged lymph nodes. IMPRESSION: 1. Interval cholecystectomy. Mild biliary ectasia may reflect postcholecystectomy changes. 2. Mild stranding/fluid in the gallbladder fossa lateral to the level of the cholecystectomy clips. Mild heterogeneity of the adjacent liver parenchyma. This area also abuts the hepatic flexure of the colon. Mild wall thickening of most of the colon versus partial distention. Correlate for recent postoperative changes of the gallbladder fossa, inflammatory changes, infection/developing abscess. No discrete drainable fluid collection at this time. 3. Mild wall thickening of most of the colon versus partial distention. May represent colitis. 4. Marked colonic diverticulosis mostly of the distal colon. Electronically signed by: Beatriz Puente M.D. 09/21/24 01:27 AM Medications Administered 1L NSS Ondansetron 4 mg IV x 2 ECG Additional Comments: Atrial sensed ventricular paced rhythm 65 bpm, ND 192, QRS 124, QT/QTc 442/459, PRT 75/-37/-39 Code Status & VTE Plan Code Status Full Supervising Physician Co-Signing Physician Notes I personally examined the patient and verified all triana points of history and exam, discussed case, and agree with decision making with Mallika Ramirez PA-C limited historian, appears fairly fatigued, but nontoxic appearing. notes intractable vomiting. vitals noted, fatigued but nad. heent nc at mm sl dry. cardio reg rate. breathing unlabored no accessory muscles no conversational dyspnea good effort. abd soft nd minimal lower abdominal tenderness but only vaguely so, no guarding no rebound no rigidity. skin without rashes/pallor/icterus labs, CT noted. EKG - atrail paced, inverted T waves V1-4, III, aVF (but all essentially identical to june). echo from june noted. intractable nausea/vomiting/dehydration -?viral vs abx ADR -appears mildly dehydrated likely perpetuating the n/v -non toxic, abd benign -stop augmentin, IV fluids, antiemetics, supportive care -home ([facility]) once PO intake adequate possible UTI -appears to have been the reason she was on augmentin per records (to me she wasn't sure) -no sepsis, limited historian but no overt urinary sx this evening. culture from 09/18 moderate counts 3 types of organisms -hold abx and follow valvular heart disease -appears dry, but also baseline w severe , mild AI, also MR and TR - IV fluids but gentle (LR @ 80ml overnight, then titrate as clinically indicated) -minimally elevated troponin likely mild demand from dehydration with significant baseline cardiomyopathy. DVT proph -SCDs; consider escalating to pharmacologic if hospital stay becomes prolonged based on case management notes from cholecystectomy stay late august - pt lives at skilled level in [employer] system; anticipate dc to this same level once she is taking PO adequately otherwise as above PG Care Time/CCT Total # of Minutes Spent Total Time Spent with Patient: Total time spent is greater than 50% in coordination of care (as documented) at patient's floor/unit and/or counseling patient: Coding Level of Care Code 95159 INT INP/OBS CARE 75MIN Diagnoses Gastroenteritis K52.9 Elevated troponin R77.8
--- NOTE | 2024-09-21 01:28 | CT Scan Report ---
Exam(s): CT ABDOMEN + PELVIS With Contrast IV Amt: 93ml opti 320 EXAM: CT Abdomen and Pelvis With Intravenous Contrast CLINICAL HISTORY: Reason for exam: N/V, ?SBO. Also UTI today, pyelo. TECHNIQUE: Axial computed tomography images of the abdomen and pelvis with intravenous contrast. Automated exposure control was utilized for the study. A dose lowering technique was utilized adhering to the principles of ALARA. CONTRAST: Patient received 93ml opti 320 of IV contrast COMPARISON: CT Abdomen Pelvis dated 10/21/22, Ultrasound gallbladder dated 06/14/24 FINDINGS: Lung bases: Bibasilar atelectasis/chronic changes. Stable bronchiectasis in the right middle lobe. Heart: Mild cardiomegaly. Pacemaker leads. ABDOMEN: Liver: Unremarkable. No mass. Gallbladder and bile ducts: Interval cholecystectomy. Mild biliary ectasia may reflect postcholecystectomy changes. Mild stranding/fluid in the gallbladder fossa lateral to the level of the cholecystectomy clips. Mild heterogeneity of the adjacent liver parenchyma. This area also abuts the hepatic flexure of the colon. Mild wall thickening of most of the colon versus partial distention. No ductal dilation. Pancreas: Unremarkable. No mass. No ductal dilation. Spleen: Unremarkable. No splenomegaly. Adrenals: Unremarkable. No mass. Kidneys and ureters: No hydronephrosis. Numerous bilateral renal low- density lesions, likely cysts. Stomach and bowel: Mild wall thickening of most of the colon versus partial distention. Marked colonic diverticulosis mostly of the distal colon. No evidence of bowel obstruction. PELVIS: Appendix: Normal appendix. Bladder: Distended urinary bladder. Reproductive: Unremarkable as visualized. ABDOMEN and PELVIS: Intraperitoneal space: Unremarkable. No free air. No significant fluid collection. Bones/joints: Degenerative changes of the spine. Mild anterolisthesis of L3 on L4 and L4 on L5. L4-5 laminectomies. Similar to the prior. No acute fracture. No dislocation. Soft tissues: Unremarkable. Vasculature: Atherosclerotic calcifications of the aorta and branches. No abdominal aortic aneurysm. Lymph nodes: Unremarkable. No enlarged lymph nodes. IMPRESSION: 1. Interval cholecystectomy. Mild biliary ectasia may reflect postcholecystectomy changes. 2. Mild stranding/fluid in the gallbladder fossa lateral to the level of the cholecystectomy clips. Mild heterogeneity of the adjacent liver parenchyma. This area also abuts the hepatic flexure of the colon. Mild wall thickening of most of the colon versus partial distention. Correlate for recent postoperative changes of the gallbladder fossa, inflammatory changes, infection/developing abscess. No discrete drainable fluid collection at this time. 3. Mild wall thickening of most of the colon versus partial distention. May represent colitis. 4. Marked colonic diverticulosis mostly of the distal colon. Electronically signed by: Beatriz Puente M.D. 09/21/24 01:27 AM
[2024-09-21] MEDS ORDERED: ONDANSETRON INJ 2 MG/ML 2 ML VIAL IV PRN (02:23)
[2024-09-21] MEDS ORDERED: ONDANSETRON 4 MG OD TAB PO PRN (02:23)
[2024-09-21] MEDS ORDERED: BENZONATATE 100 MG CAPSULE PO PRN (02:23)
[2024-09-21] MEDS ORDERED: ALUMINUM/MAGNESIUM SUSP 30 ML UDC PO PRN (02:23)
[2024-09-21] MEDS ORDERED: ARTIFICIAL TEARS OP PRN (02:26)
[2024-09-21] MEDS ORDERED: HYDROCORTISONE HC 2.5% CRM 30GM TUBE EXT PRN (02:39)
[2024-09-21] MEDS: LACTATED RINGER'S 1,000 ML IV SCH (03:44)
[2024-09-21 04:46] LABS: Hematocrit (blood only) 35.6 % (37.0-47.0); Hemoglobin 11.5 g/dl (12.0-16.0); Mean Corpuscular Hemoglobin 31.9 pg (25.0-34.0); Mean Corpuscular Hgb Conc 32.3 g/dL (32.0-36.0); Mean Corpuscular Volume 98.9 fL (80.0-100.0); Mean Platelet Volume 12.6 fL (9.4-12.4); Platelet Count 181 K/uL (130-400); RDW Standard Deviation 43.8 fL (36.4-46.3)
[2024-09-21 05:02] LABS: BUN Creatinine Ratio 12.6 (10-20); Calcium 9.4 mg/dl (8.6-10.3); Creatinine Clr Calc Pharmacy 19.7 ml/min; Potassium 3.6 mmol/L (3.5-5.1)
[2024-09-21] MEDS: LEVOTHYROXINE SODIUM 50 MCG TABLET PO SCH (06:30)
[2024-09-21] MEDS: ACETAMINOPHEN 325 MG TAB PO SCH (08:13)
[2024-09-21] MEDS: carvediloL 25 MG TAB PO SCH (08:14)
[2024-09-21] MEDS: PANTOprazole 40 MG TAB PO SCH (08:14)
[2024-09-21] MEDS: amLODIPine BESYLATE 5 MG TAB PO SCH (08:14)
[2024-09-21] MEDS: CARBIDOPA/LEVODOPA 25/100MG TAB PO SCH (08:14)
[2024-09-21] MEDS: POLYETHYLENE (MIRALAX) 17 GM PACK PO SCH (08:15)
[2024-09-21] MEDS: ARTIFICIAL TEARS OP SCH (08:15)
[2024-09-21] MEDS: SACCHAROMYCES BOULARDII 250 MG CAP PO SCH (08:15)
--- NOTE | 2024-09-21 10:55 | Surgery Consultation ---
Date of Consultation September 21, 2024 Assessment & Plan (1) Gastroenteritis: (2) S/P laparoscopic cholecystectomy: Plan 89-year-old woman 1 month status post laparoscopic ostectomy presents with what appears to be gastroenteritis. She has a normal white count. Normal LFTs. She does not have any upper abdominal tenderness. I do not believe she has anything related to her surgery. We will pass this information along to Dr. Harding tomorrow. Please call with any questions or concerns. History of Present Illness Reason for Consultation: Recent cholecystectomy, nausea vomiting. Requesting Physician: Izzy Tom MD Attending Physician: Izzy Tom MD History of Present Illness 89-year-old woman 1 month status post laparoscopic cholecystectomy presents with a few day history of nausea and vomiting. No fevers or chills. Currently no dark urine and light-colored stools. She is otherwise doing well. CT scan demonstrates possible gastroenteritis. Allergies Allergy/AdvReac Type Severity Reaction Status Date / Time amoxicillin [From Augmentin] Allergy Intermediate NAUSEA/VOMI Verified 09/10/24 11:21 TING clavulanic acid Allergy Intermediate NAUSEA/VOMI Verified 09/10/24 11:21 [From Augmentin] TING codeine AdvReac Intermediate N/V Verified 09/20/24 19:12 Home Medications Medication Instructions Recorded Confirmed Type amlodipine 5 mg tablet 5 mg PO QAM 11/23/20 09/20/24 History levothyroxine 50 mcg tablet 50 mcg PO QAM #90 tabs 03/17/21 09/20/24 Rx cholecalciferol (vitamin D3) 25 25 mcg PO QAM 09/30/21 09/20/24 History mcg (1,000 unit) capsule mecobalamin (vitamin B12) 1,000 1,000 mcg sublingual QPM 09/30/21 09/20/24 History mcg disintegrating tablet,sublingual pantoprazole 40 mg tablet,delayed 40 mg PO BID 06/26/22 09/20/24 History release (Protonix) ondansetron 4 mg disintegrating 4 mg PO Q8H PRN Nausea And Vomiting 12/29/22 09/20/24 History tablet carvedilol 25 mg tablet 25 mg PO BID 04/28/24 09/20/24 History sennosides 8.6 mg capsule (senna) 8.6 mg PO HS 05/21/24 09/20/24 History acetaminophen 325 mg tablet 650 mg PO TID 05/29/24 09/20/24 History polyethylene glycol 3350 17 17 g PO QAM 05/29/24 09/20/24 History gram/dose oral powder (Miralax) hydrocortisone 1 % topical cream 1 applic topical Q6H PRN 06/13/24 09/20/24 History (Preparation H Hydrocortisone) Hemorrhoid Irritation benzonatate 100 mg capsule 200 mg PO Q8 PRN Cough 08/19/24 09/20/24 History Saccharomyces boulardii 250 mg 250 mg PO DAILY 09/20/24 09/20/24 History capsule (Florastor) acetaminophen 500 mg tablet 500 mg PO Q6H PRN Fever Or Pain 09/20/24 09/20/24 History amoxicillin 500 mg-potassium 1 tab PO BID 09/20/24 09/20/24 History clavulanate 125 mg tablet carbidopa 25 mg-levodopa 100 mg 1 tab PO TID 09/20/24 09/20/24 History tablet polyvinyl alcohol-povidone (PF) 1 drp ophthalmic (eye) .EVERY 2 09/20/24 History 1.4 %-0.6 % eye drops in a HOURS PRN itchy dry eyes dropperette (Refresh Classic (PF)) polyvinyl alcohol-povidone (PF) 1 drp ophthalmic (eye) QAM 09/20/24 09/20/24 History 1.4 %-0.6 % eye drops in a dropperette (Refresh Classic (PF)) Patient History Medical History Encounter for pre-operative examination C. difficile diarrhea per MAR, vanco x 10 days start on 08/17/24 Spinal stenosis Osteopenia Mitral regurgitation Cystocele with prolapse History of COVID-19 (06/2024) per hx Influenza A hx Carotid artery stenosis mild right ICA stenosis per 2018 neck MRA; mild bilat ICA stenosis per 2019 doppler History of NH (myocardial infarction) Other dysphagia GERD without esophagitis History of falling Vascular parkinsonism Diverticulitis of intestine, part unspecified, without perforation or abscess without bleeding Anemia, unspecified Nonrheumatic aortic (valve) stenosis Moderate to severe valvular aortic stenosis (MARJORIE 1.0 cm2, mean PG 17 mmHg) Chronic kidney disease, stage 3 unspecified Hypertensive heart and chronic kidney disease with heart failure and stage 1 through stage 4 chronic kidney disease, or unspecified chronic kidney disease Pacemaker 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 Difficulty in walking, not elsewhere classified Muscle weakness (generalized) Aphasia following cerebral infarction Cognitive communication deficit Other giant cell arteritis Hypothyroidism High cholesterol Arthritis Surgical History Hx laparoscopic cholecystectomy (08/28/24) Laparoscopic Cholecystectomy - Manuel Harding, S/P cardiac pacemaker procedure History of tonsillectomy History of laminectomy History of cataract surgery Family History Sister Alcoholism Father Atherosclerosis Gout Lung cancer Heart disease Hypertension Mother Hypertension Osteoporosis Stroke Denies family history of Colon cancer Ovarian cancer Prostate cancer Myocardial infarction Breast cancer Social History Smoking Status: Never smoker Hx Alcohol Use: No Hx Substance Use: No Preferred Language: Divehi Communication Ability: Effective Visual Impairment: No Limitations Hearing Ability: Normal 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 Required: No Beliefs That Will Affect Care: None marital status: Current Living Situation: Longterm Current Living Situation Comment: [facility] current occupational status: retired How many Children do You have: 2 Other Information That Helps Us Care for You: No Feels Safe at Home: Yes Safety Concerns: Feels Safe At This Time Childhood Exposure to Second-Hand Smoke: Yes Diet: regular caffeine: No during the past year weight has: remained stable Physical Activity Frequency: Daily Seatbelt Use: always Sunscreen Use: Yes Assistive Devices: Walker Review of Systems 2 Review of Systems: All systems reviewed & are unremarkable except as noted in HPI & below Physical Exam Constitutional: WD/WN, vitals as above Eyes: PERRL, conjunctivae normal, anicteric sclerae Neck: trachea midline, no thyromegaly Respiratory: normal respiratory effort; no respiratory distress and no labored breathing Cardiovascular: Rate/Rhythm: regular rate and regular rhythm Gastrointestinal (Abdomen): Inspection/Auscultation: abdomen normal to inspection; abdomen not distended Percussion/Palpation: abdomen soft; abdomen nontender, no guarding and abdomen not rigid Incisions well-healed. Skin: no rashes, warm and dry Results & Data Vital Signs (Past 12 Hours) Vital Signs Temp Pulse Pulse Resp BP BP Pulse Ox 09/21/24 08:05 66 09/21/24 07:40 66 16 178/70 H 96 09/21/24 07:00 65 20 163/73 H 96 09/21/24 06:30 36.8 C 67 20 163/73 H 94 09/21/24 04:00 70 18 159/70 H 93 09/21/24 03:00 70 19 174/72 H 93 09/21/24 02:33 09/21/24 02:30 69 19 95 09/21/24 02:18 09/21/24 02:18 36.6 C 80 16 163/72 H 95 09/21/24 02:15 68 19 94 09/21/24 02:00 68 20 164/71 H 96 09/21/24 01:00 67 16 162/72 H 95 09/21/24 00:06 73 18 91 09/21/24 00:00 179/80 H 09/20/24 23:39 76 18 91 09/20/24 23:00 188/94 H 09/20/24 23:00 82 17 93 Pulse Ox O2 Del Method O2 Del Method 09/21/24 08:05 09/21/24 07:40 Room Air 09/21/24 07:00 Room Air 09/21/24 06:30 Room Air 09/21/24 04:00 Room Air 09/21/24 03:00 Room Air 09/21/24 02:33 95 Room Air 09/21/24 02:30 Room Air 09/21/24 02:18 Room Air 09/21/24 02:18 Room Air 09/21/24 02:15 Room Air 09/21/24 02:00 Room Air 09/21/24 01:00 Room Air 09/21/24 00:06 Room Air 09/21/24 00:00 09/20/24 23:39 Room Air 09/20/24 23:00 09/20/24 23:00 Room Air Laboratory Results 09/21/24 09/20/24 09/20/24 Range/Units 04:23 23:22 20:48 WBC 9.60 (4.8-10.8) K/ul RBC 3.60 L (4.20-5.40) M/uL Hgb 11.5 L (12.0-16.0) g/dl Hct 35.6 L (37.0-47.0) % MCV 98.9 (80.0-100.0) fL MCH 31.9 (25.0-34.0) pg MCHC 32.3 (32.0-36.0) g/dL RDW Std Deviation 43.8 (36.4-46.3) fL RDW Coeff of Mervat 12.0 (11.5-14.5) % Plt Count 181 (130-400) K/uL MPV 12.6 H (9.4-12.4) fL Immature Gran % (Auto) % Neut % (Auto) % Lymph % (Auto) % Beadle % (Auto) % Eos % (Auto) % Baso % (Auto) % Neut # (Auto) (1.40-6.50) K/uL Lymph # (Auto) (1.20-3.40) K/uL Beadle # (Auto) (0.11-0.59) K/uL Eos # (Auto) (0.00-0.50) K/uL Baso # (Auto) (0.00-0.20) K/uL Immature Gran # (Auto) (0.01-0.20) K/uL Sodium 137 (136-145) mmol/L Potassium 3.6 (3.5-5.1) mmol/L Chloride 103 (98-107) mmol/L Carbon Dioxide 26 (21-32) mmol/L Anion Gap 8 (3-11) BUN 16 (6-23) mg/dl Creatinine 1.27 H (0.6-1.2) mg/dl Est Cr Clr Drug Dosing 19.7 ml/min eGFR 40.42 BUN/Creatinine Ratio 12.6 (10-20) Glucose 94 (70-99(Fasting)) mg/dl Calcium 9.4 (8.6-10.3) mg/dl Total Bilirubin (0.2-1.0) mg/dl AST (13-39) U/L ALT (7-52) U/L Alkaline Phosphatase (34-104) U/L Troponin I High Sens 31.0 H (0-14) pg/ml Total Protein (6.0-8.3) gm/dl Albumin (3.4-5.0) gm/dl Globulin (2.5-4.0) gm/dl Albumin/Globulin Ratio (0.9-2) Lipase (11-82) U/L Urine Color Yellow Urine Appearance Clear (Clear) Urine pH 6.0 (4.5-7.5) Ur Specific Dalton 1.023 (1.000-1.030) Urine Protein 3+ H (Negative) Urine Glucose (UA) Negative (Negative) Urine Ketones Trace H (Negative) Urine Blood Negative (Negative) Urine Nitrite Negative (Negative) Urine Bilirubin Negative (Negative) Urine Urobilinogen Negative (Negative) Ur Leukocyte Esterase Negative (Negative) Urine WBC (Auto) 0-5 (0-5) /hpf Urine RBC (Auto) 0-2 (0-2) /hpf U Hyaline Cast (Auto) 0-2 (0-2) /lpf U Epithel Cells (Auto) 0-2 (0-2) /hpf Urine Bacteria (Auto) None Seen (None Seen) Urine Comment 09/20/24 Range/Units 18:35 WBC 9.51 (4.8-10.8) K/ul RBC 4.16 L (4.20-5.40) M/uL Hgb 13.3 (12.0-16.0) g/dl Hct 41.5 (37.0-47.0) % MCV 99.8 (80.0-100.0) fL MCH 32.0 (25.0-34.0) pg MCHC 32.0 (32.0-36.0) g/dL RDW Std Deviation 44.4 (36.4-46.3) fL RDW Coeff of Mervat 11.9 (11.5-14.5) % Plt Count 208 (130-400) K/uL MPV 12.9 H (9.4-12.4) fL Immature Gran % (Auto) 0.3 % Neut % (Auto) 88.5 % Lymph % (Auto) 4.8 % Beadle % (Auto) 3.0 % Eos % (Auto) 3.0 % Baso % (Auto) 0.4 % Neut # (Auto) 8.40 H (1.40-6.50) K/uL Lymph # (Auto) 0.46 L (1.20-3.40) K/uL Beadle # (Auto) 0.29 (0.11-0.59) K/uL Eos # (Auto) 0.29 (0.00-0.50) K/uL Baso # (Auto) 0.04 (0.00-0.20) K/uL Immature Gran # (Auto) 0.03 (0.01-0.20) K/uL Sodium 137 (136-145) mmol/L Potassium 4.2 (3.5-5.1) mmol/L Chloride 100 (98-107) mmol/L Carbon Dioxide 29 (21-32) mmol/L Anion Gap 8 (3-11) BUN 20 (6-23) mg/dl Creatinine 1.41 H (0.6-1.2) mg/dl Est Cr Clr Drug Dosing 17.8 ml/min eGFR 35.66 BUN/Creatinine Ratio 14.2 (10-20) Glucose 111 H (70-99(Fasting)) mg/dl Calcium 10.6 H (8.6-10.3) mg/dl Total Bilirubin 0.5 (0.2-1.0) mg/dl AST 13 (13-39) U/L ALT < 3 L (7-52) U/L Alkaline Phosphatase 72 (34-104) U/L Troponin I High Sens 32.4 H (0-14) pg/ml Total Protein 8.2 (6.0-8.3) gm/dl Albumin 4.2 (3.4-5.0) gm/dl Globulin 4.0 (2.5-4.0) gm/dl Albumin/Globulin Ratio 1.1 (0.9-2) Lipase 30 (11-82) U/L Urine Color Urine Appearance (Clear) Urine pH (4.5-7.5) Ur Specific Dalton (1.000-1.030) Urine Protein (Negative) Urine Glucose (UA) (Negative) Urine Ketones (Negative) Urine Blood (Negative) Urine Nitrite (Negative) Urine Bilirubin (Negative) Urine Urobilinogen (Negative) Ur Leukocyte Esterase (Negative) Urine WBC (Auto) (0-5) /hpf Urine RBC (Auto) (0-2) /hpf U Hyaline Cast (Auto) (0-2) /lpf U Epithel Cells (Auto) (0-2) /hpf Urine Bacteria (Auto) (None Seen) Urine Comment Diagnostic Findings Exam(s): CT ABDOMEN + PELVIS With Contrast IV Amt: 93ml opti 320 EXAM: CT Abdomen and Pelvis With Intravenous Contrast CLINICAL HISTORY: Reason for exam: N/V, ?SBO. Also UTI today, pyelo. TECHNIQUE: Axial computed tomography images of the abdomen and pelvis with intravenous contrast. Automated exposure control was utilized for the study. A dose lowering technique was utilized adhering to the principles of ALARA. CONTRAST: Patient received 93ml opti 320 of IV contrast COMPARISON: CT Abdomen Pelvis dated 10/21/22, Ultrasound gallbladder dated 06/14/24 FINDINGS: Lung bases: Bibasilar atelectasis/chronic changes. Stable bronchiectasis in the right middle lobe. Heart: Mild cardiomegaly. Pacemaker leads. ABDOMEN: Liver: Unremarkable. No mass. Gallbladder and bile ducts: Interval cholecystectomy. Mild biliary ectasia may reflect postcholecystectomy changes. Mild stranding/fluid in the gallbladder fossa lateral to the level of the cholecystectomy clips. Mild heterogeneity of the adjacent liver parenchyma. This area also abuts the hepatic flexure of the colon. Mild wall thickening of most of the colon versus partial distention. No ductal dilation. Pancreas: Unremarkable. No mass. No ductal dilation. Spleen: Unremarkable. No splenomegaly. Adrenals: Unremarkable. No mass. Kidneys and ureters: No hydronephrosis. Numerous bilateral renal low- density lesions, likely cysts. Stomach and bowel: Mild wall thickening of most of the colon versus partial distention. Marked colonic diverticulosis mostly of the distal colon. No evidence of bowel obstruction. PELVIS: Appendix: Normal appendix. Bladder: Distended urinary bladder. Reproductive: Unremarkable as visualized. ABDOMEN and PELVIS: Intraperitoneal space: Unremarkable. No free air. No significant fluid collection. Bones/joints: Degenerative changes of the spine. Mild anterolisthesis of L3 on L4 and L4 on L5. L4-5 laminectomies. Similar to the prior. No acute fracture. No dislocation. Soft tissues: Unremarkable. Vasculature: Atherosclerotic calcifications of the aorta and branches. No abdominal aortic aneurysm. Lymph nodes: Unremarkable. No enlarged lymph nodes. IMPRESSION: 1. Interval cholecystectomy. Mild biliary ectasia may reflect postcholecystectomy changes. 2. Mild stranding/fluid in the gallbladder fossa lateral to the level of the cholecystectomy clips. Mild heterogeneity of the adjacent liver parenchyma. This area also abuts the hepatic flexure of the colon. Mild wall thickening of most of the colon versus partial distention. Correlate for recent postoperative changes of the gallbladder fossa, inflammatory changes, infection/developing abscess. No discrete drainable fluid collection at this time. 3. Mild wall thickening of most of the colon versus partial distention. May represent colitis. 4. Marked colonic diverticulosis mostly of the distal colon. Electronically signed by: Beatriz Puente M.D. 09/21/24 01:27 AM Dictated: 09/21/24 0127 Transcribed:
--- NOTE | 2024-09-21 14:00 | Electrocardiogram Report ---
Test Reason : Blood Pressure : */* mmHG Vent. Rate : 65 BPM Atrial Rate : 65 BPM P-R Int : 192 ms QRS Dur : 124 ms QT Int : 442 ms P-R-T Axes : 75 -37 -39 degrees QTcB Int : 459 ms Atrial-sensed ventricular-paced rhythm Abnormal ECG When compared with ECG of 13-Jun-2024 13:29, Vent. rate has decreased by 10 bpm Confirmed by Aman Gallardo ([id number]) on 09/21/2024 2:00:17 PM Referred By: REFERRED SELF Confirmed By: Aman Gallardo
--- NOTE | 2024-09-21 15:22 | Hospitalist Progress Note ---
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 ED evaluation reveals no leukocytosis, stable H&H; CMP grossly unremarkable with exception of creatinine 1.41, glucose 111, calcium 10.6, ALT < 3; troponin 32.4, 31 on repeat; UA pending; CTAP pending; EKG atrial sensed ventricular paced rhythm at 65 bpm.; Provided with 1L NSS and ondansetron 4 mg IV x 2 in ED. #Nausea/vomiting With prolonged history of symptoms outpatient. Did improve after a lap ashley on 08/28/2024 however symptoms have since returned. Has never been evaluated by GI or had an EGD for her symptoms CBC without leukocytosis. CMP stable. CTAP: Interval cholecystectomy. Mild wall thickening of most of colon versus partial distention. Continue pantoprazole 40 mg twice daily Zofran as needed for nausea, vomiting Tolerating full liquid diet, continue If she does not improve, consider inpatient GI consultation versus referral outpatient on discharge. She likely does need an EGD for further evaluation of her symptoms. General surgery was consultedsymptoms not likely related to surgery but Dr. Harding will be made aware #Elevated troponin Pt w/ h/o CAD, with pacer present; no reports of chest pain. H/o CKD. Troponin 32.4, repeat 31 - given decline in troponin, no additional trending. Will repeat in setting of chest pain EKG atrial sensed ventricular paced rhythm at 65 bpm, without ischemic changes Echo 06/2024 EF 60-65%, G1DD, , AR, MR, TR, RVSP elevated (30-40mmHg) Likely 2/2 demand/CKD #CKD stage III- Per history, Cr near baseline - BMP am #HTN- Amlodipine, carvedilol - continue #Lower half parkinsonism- Carbidopa levodopa - continue #Hypothyroidism- Levothyroxine - continue #GERD- Pantoprazole - continue Pt was being treated for UTI with Augmentin per [facility], however, no LUTS and UA on admission without evidence of infection. Pt did require perineal care during ED evaluation given the left over stool surrounding her bottom half. Suspect that the UA may have been contaminated. In the presence of GI upset, no LUTS, and UA without evidence of bacteria/infection, will HOLD Augmentin at time of visit. Reevaluate as necessary. Dispo: Admit, med/tele -- given elevated trop VTE Prophylaxis: SCDs updated at bedside 09/21 Admission and Anticipated Discharge Date Admission Date: September 21, 2024 Subjective Caroline was seen and examined this afternoon w/ her at bedside. She reports that her symptoms of nausea and vomiting have been ongoing for quite some time. Originally it was suspected it was her GB and she was feeling fine after the surgery but then suddenly her symptoms returned. At [facility] patient was vomiting after most meals per the . She denied abdominal pain at present but per the she does complain of this occasionally. She does use a bowel regimen at [facility] to help her have BM's Physical Exam Physical Exam: General: no acute distress; non-toxic appearing; well-nourished; cooperative HEENT: normocephalic, atraumatic; no scleral icterus; PERRLA w/ EOMs intact; vision and hearing grossly intact Skin: warm, dry without signs of tenting; no cyanosis; no rashes, bruising, lesions, or erythema noted CV: RRR; S1/S2 normal; no murmurs/rubs/gallops; pulses intact and symmetric at radial, DP, and PT Lungs: no acute respiratory distress; symmetrical chest wall expansion; clear breath sounds across all lung valentin w/o adventitious sounds; no wheezing ABD: Soft, NTP; BS present; epigastric tenderness to palpation MSK: no edema noted in the LEs b/l, nonerythematous Neuro: A&Ox3; normal mood and affect; fluent speech; no focal deficits Results & Data Results & Data Vital Signs (Past 12 Hours) Vital Signs Temp Pulse Pulse Resp BP BP Pulse Ox 09/21/24 15:03 66 09/21/24 15:00 36.6 C 60 16 144/68 H 92 09/21/24 14:47 09/21/24 12:21 71 22 141/73 H 95 09/21/24 11:06 60 18 127/56 L 97 09/21/24 08:05 66 09/21/24 07:40 66 16 178/70 H 96 09/21/24 07:00 65 20 163/73 H 96 09/21/24 06:30 36.8 C 67 20 163/73 H 94 09/21/24 04:00 70 18 159/70 H 93 O2 Del Method 09/21/24 15:03 09/21/24 15:00 Room Air 09/21/24 14:47 Room Air 09/21/24 12:21 Room Air 09/21/24 11:06 Room Air 09/21/24 08:05 09/21/24 07:40 Room Air 09/21/24 07:00 Room Air 09/21/24 06:30 Room Air 09/21/24 04:00 Room Air PG Care Time/CCT Total # of Minutes Spent Total Time Spent with Patient: Total time spent is greater than 50% in coordination of care (as documented) at patient's floor/unit and/or counseling patient: Coding Level of Care Code None Diagnoses Gastroenteritis K52.9 Elevated troponin R77.8 Nausea & vomiting R11.2
[2024-09-21] MEDS: MELATONIN 3 MG TAB PO PRN (20:55)
[2024-09-21] MEDS: SENNA 8.6 MG TAB PO SCH (20:55)
[2024-09-22 08:00] LABS: Mean Corpuscular Hemoglobin 31.9 pg (25.0-34.0); Mean Corpuscular Hgb Conc 32.4 g/dL (32.0-36.0); Mean Corpuscular Volume 98.6 fL (80.0-100.0); Mean Platelet Volume 12.4 fL (9.4-12.4); Platelet Count 120 K/uL (130-400); RDW Coefficient of Variation 12.1 % (11.5-14.5); RDW Standard Deviation 43.8 fL (36.4-46.3); Red Blood Count 3.45 M/uL (4.20-5.40); White Blood Count 8.73 K/ul (4.8-10.8)
[2024-09-22 08:14] LABS: Calcium 9.4 mg/dl (8.6-10.3); Potassium 3.9 mmol/L (3.5-5.1)
[2024-09-22 08:20] LABS: BUN Creatinine Ratio 12.2 (10-20); Creatinine Clr Calc Pharmacy 21.9 ml/min
[2024-09-22] MEDS: ACETAMINOPHEN 500 MG TAB PO PRN (08:37)
--- NOTE | 2024-09-22 10:48 | Hospitalist Progress Note ---
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 A/P revealed Interval cholecystectomy, mild wall thickening of most of colon versus partial distention. Urine culture with probable skin melvina. #Nausea/vomiting - suspected Gastroenteritis With prolonged history of symptoms outpatient. Did improve after a lap ashley on 08/28/2024 however symptoms have since returned. She has never been evaluated by GI or had an EGD for her symptoms, recommend referral to GI for EGD outpatient for further evaluation of her symptoms CBC without leukocytosis. CMP stable. General surgery was consulted, no surgical intervention required Continue pantoprazole 40 mg twice daily, Zofran as needed for nausea, vomiting Advanced to low fiber diet - well tolerating #Elevated troponin - Likely 2/ demand/CKD Pt w/ h/o CAD, with pacer present; no reports of chest pain. H/o CKD. Troponin 32.4, repeat 31 - given decline in troponin, no additional trending. Repeat as needed in setting of chest pain EKG atrial sensed ventricular paced rhythm at 65 bpm, without ischemic changes Echo 06/2024 EF 60-65%, G1DD, , AR, MR, TR, RVSP elevated (30-40mmHg) #CKD stage III- Per history, Cr near baseline #HTN- Amlodipine, carvedilol - continue #Lower half parkinsonism- Carbidopa levodopa - continue #Hypothyroidism- Levothyroxine - continue #GERD- Pantoprazole - continue Pt was being treated for UTI with Augmentin per [facility], however, no LUTS and UA on admission without evidence of infection. Pt did require perineal care during ED evaluation given the left over stool surrounding her bottom half. Suspect that the UA may have been contaminated. In the presence of GI upset, no LUTS, and UA without evidence of bacteria/infection, will HOLD Augmentin at time of visit. Reevaluate as necessary. Dispo: Pending PT/OT evaluations - if cleared to return to [facility], anticipate discharge 09/23 VTE Prophylaxis: SCDs Advanced diet 09/22 Admission and Anticipated Discharge Date Admission Date: September 21, 2024 Subjective Patient seen and evaluated in bedside chair. She reports feeling improved - denies any further nausea, vomiting, or abdominal pain since being in ED. Her diet was advanced to low fiber for breakfast this morning and she tolerated this well. She reports she slept well overnight. She has not been seen by PT or OT yet. We discussed she will likely be discharged back to [facility] tomorrow if cleared to return there by PT/OT; she is agreeable. No additional complaints or concerns at this time. Physical Exam Physical Exam: General: No acute distress, nondiaphoretic, well-developed, well-nourished. Cardiac: Regular rate and rhythm. 3/6 systolic murmur noted. No peripheral edema. Pulm: Clear to auscultation bilaterally without wheezes, rales or rhonchi. Normal respiratory effort. 93% on room air. Abdominal: Soft, nondistended. Mild tenderness to epigastric palpation. No guarding or rebound tenderness. Bowel sounds present. Neuro: A&O x3. No focal neurological deficits. Results & Data Results & Data Vital Signs (Past 12 Hours) Vital Signs Temp Pulse Pulse Pulse Resp BP Pulse Ox 09/22/24 07:33 60 09/22/24 07:20 97.9 F 60 16 174/80 H 93 09/22/24 02:40 97.5 F L 61 16 171/76 H 94 O2 Del Method 09/22/24 07:33 09/22/24 07:20 Room Air 09/22/24 02:40 Room Air Laboratory Results Reviewed CBC Reviewed BMP Diagnostic Findings Reviewed CT A/P PG Care Time/CCT Total # of Minutes Spent Total Time Spent with Patient: Total time spent is greater than 50% in coordination of care (as documented) at patient's floor/unit and/or counseling patient: Coding Level of Care Code 26470 SUB INP/OBS CARE 2/35MIN Diagnoses Gastroenteritis K52.9 Nausea & vomiting R11.2 Elevated troponin R77.8
--- NOTE | 2024-09-22 11:08 | Surgery Progress Note ---
Date of Service September 22, 2024 Assessment & Plan (1) S/P laparoscopic cholecystectomy: Plan: Pt with history of lap ashley on 08/[address] brush here w/ abdominal pain /nausea/vomiting CT scan reviewed; post op findings, no drainable fluid collections, concern for colitis Her labs show WBC 8.7 today. LFTs yesterday unremarkable She symptomatically feels better than admission and has been ordered for and is tolerating a regular diet No surgical intervention required We will sign off, but please call with any questions/concerns She already had her post op follow up, but may always call the office with any questions/concerns (2) Nausea & vomiting: Admission and Anticipated Discharge Date Admission Date: September 21, 2024 Supervising Physician Co-Signing Physician Notes Discussed with PANTERA, agree with above. Status post laparoscopic cholecystectomy with no current surgical issues and suspected colitis, no surgical intervention indicated. Surgical will sign off, call with questions or concerns Subjective Patient feeling better than when she came in. Denies nausea/vomiting. Tolerated a diet this AM. Has some mild abdominal pain but improved from admission. She "thinks" she is having bowel function. Physical Exam Physical Exam: awake, sitting up in chair Respiratory: normal respiratory effort Gastrointestinal (Abdomen): Inspection/Auscultation: + abdomen distended (mild lower abdominal distention) Percussion/Palpation: + abdomen tender (mild upper abdominal discomfort to palpation ) and abdomen soft Results & Data Vital Signs (Past 12 Hours) Vital Signs Temp Pulse Pulse Pulse Resp BP Pulse Ox 09/22/24 07:33 60 09/22/24 07:20 97.9 F 60 16 174/80 H 93 09/22/24 02:40 97.5 F L 61 16 171/76 H 94 O2 Del Method 09/22/24 07:33 09/22/24 07:20 Room Air 09/22/24 02:40 Room Air PG Care Time/CCT Total # of Minutes Spent Total Time Spent with Patient: Total time spent is greater than 50% in coordination of care (as documented) at patient's floor/unit and/or counseling patient: Coding Level of Care Code 72404 Post Operative Follow-Up Diagnoses S/P laparoscopic cholecystectomy Z90.49 Nausea & vomiting R11.14 Vomiting type: bilious vomiting (2) Nausea & vomiting Vomiting type: bilious vomiting Qualified Code(s): R11.14 - Bilious vomiting
[2024-09-23 07:52] VITALS: PULSE 62
[2024-09-23 07:58] LABS: Hematocrit (blood only) 31.8 % (37.0-47.0); Hemoglobin 10.4 g/dl (12.0-16.0); Mean Corpuscular Hemoglobin 31.5 pg (25.0-34.0); Mean Corpuscular Hgb Conc 32.7 g/dL (32.0-36.0); Mean Corpuscular Volume 96.4 fL (80.0-100.0); Mean Platelet Volume 12.9 fL (9.4-12.4); Platelet Count 141 K/uL (130-400); RDW Coefficient of Variation 12.1 % (11.5-14.5); RDW Standard Deviation 42.4 fL (36.4-46.3); White Blood Count 6.59 K/ul (4.8-10.8)
[2024-09-23 11:36] VITALS: RESP 18; TEMP 98; O2SAT 92
--- NOTE | 2024-09-23 12:29 | Discharge Summary ---
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 A/P revealed Interval cholecystectomy, mild wall thickening of most of colon versus partial distention. Urine culture with probable skin melvina. #Nausea/vomiting - suspected Gastroenteritis With prolonged history of symptoms outpatient. Did improve after a lap ashley on 08/28/2024 however symptoms have since returned. She has never been evaluated by GI or had an EGD for her symptoms, recommend referral to GI for EGD outpatient for further evaluation of her symptoms. Referral made by tanning wheel operator on disc harge CBC without leukocytosis. CMP stable. General surgery was consulted, no surgical intervention required Continue pantoprazole 40 mg twice daily, Zofran as needed for nausea, vomiting Advanced to low fiber diet - well tolerating #Elevated troponin - Likely 2/2 demand/CKD Pt w/ h/o CAD, with pacer present; no reports of chest pain. H/o CKD. Troponin 32.4, repeat 31 - given decline in troponin, no additional trending. Repeat as needed in setting of chest pain EKG atrial sensed ventricular paced rhythm at 65 bpm, without ischemic changes Echo 06/2024 EF 60-65%, G1DD, , AR, MR, TR, RVSP elevated (30-40mmHg) #CKD stage III- Per history, Cr near baseline #HTN- Amlodipine, carvedilol - continue #Lower half parkinsonism- Carbidopa levodopa - continue #Hypothyroidism- Levothyroxine - continue #GERD- Pantoprazole - continue Pt was being treated for UTI with Augmentin per [facility], however, no LUTS and UA on admission without evidence of infection. Pt did require perineal care during ED evaluation given the left over stool surrounding her bottom half. Suspect that the UA may have been contaminated. In the presence of GI upset, no LUTS, and negative urine culture, antibiotic was discontinued. 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 Patient is a poor historian. Able to tell me that she has been having vomiting for around 2-3 days. Reports that she throws up around once per day and has some nausea with it just before throwing up. Denies any abdominal pain at all. 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 No blood in stool or emesis. Denies LUTS to include hematuria, dysuria, frequency, or urgency. 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 Has taken 1 days worth. No F/C. Denies chest pain, SOB, palpitations, numbness/tingling, URI symptoms, or weakness. ED evaluation reveals no leukocytosis, stable H&H; CMP grossly unremarkable with exception of creatinine 1.41, glucose 111, calcium 10.6, ALT < 3; troponin 32.4, 31 on repeat; UA pending; CTAP pending; EKG atrial sensed ventricular paced rhythm at 65 bpm.; Provided with 1L NSS and ondansetron 4 mg IV x [address] see [address] Brock's attestation for adjustments/additions to treatment plan. Discharge Exam General: No acute distress, nondiaphoretic, well-developed, well-nourished. Cardiac: Regular rate and rhythm. 3/6 systolic murmur noted. No peripheral edema. Pulm: Clear to auscultation bilaterally without wheezes, rales or rhonchi. Normal respiratory effort. 93% on room air. Abdominal: Soft, nondistended. Mild tenderness to epigastric palpation. No guarding or rebound tenderness. Bowel sounds present. Neuro: A&O x3. No focal neurological deficits. Discharge Plan Discharge Items Patient Disposition: Home - Self-Care Reason For Visit: N/V, ELEVATED TROP Discharge Diagnosis: Gastroenteritis Condition on Discharge: Fair Activity: Resume your previous activity Non-emergency contact: Primary Care Provider Call non-emergency contact if: you have any medication questions and your symptoms worsen Follow-up/Referrals: Jarrett Marie [Primary Care Provider] - (Follow-up in 1-2 weeks) Diet: Regular Addtl Attending Provider Instructions: Devendra Velazquez were admitted to the hospital due to gastroenteritis. Gastroenteritis is inflammation of the stomach/intestines that causes nausea, vomiting, abdominal pain like you experienced; it can also cause diarrhea. Fortunately you improved with supportive measures. There have been no changes to your usual home medications. The antibiotic (Augmentin) you were started on recently for a possible UTI has been stopped as you do not have a UTI and antibiotics can cause stomach upset. Please follow-up with your PCP in 1-2 weeks. I also recommend that you see GI for a possible EGD (upper scope) routinely outpatient. I will have the navigator at the hospital make that referral for you. It was a pleasure taking care of you while you were in the hospital! Pending Studies at Discharge: No Stand-Alone Forms: My [facility], Smoking Cessation Medications and DC Order Prescriptions: Continued levothyroxine 50 mcg tablet 50 mcg PO QAM Qty: 90 3RF mecobalamin (vitamin B12) 1,000 mcg tablet,disintegrating 1,000 mcg sublingual QPM Rx Instructions: place tablet under tongue and allow to dissolve for at least30 secs before swallowing cholecalciferol (vitamin D3) 25 mcg (1,000 unit) capsule 25 mcg PO QAM pantoprazole [Protonix] 40 mg tablet,delayed release (DR/EC) 40 mg PO BID Rx Instructions: 30-60 minutes prior to breakfast and supper ondansetron 4 mg tablet,disintegrating 4 mg PO Q8H PRN (Reason: Nausea And Vomiting) carvedilol 25 mg tablet 25 mg PO BID Rx Instructions: Hold if SBP<90, HR<50 senna 8.6 mg capsule 8.6 mg PO HS amlodipine 5 mg tablet 5 mg PO QAM acetaminophen 500 mg Tablet 500 mg PO Q6H MDD 3g PRN (Reason: Fever Or Pain) Rx Instructions: use for pain all levels and increased temp carbidopa-levodopa 25-100 mg tablet 1 tab PO TID Saccharomyces boulardii [Florastor] 250 mg Capsule 250 mg PO DAILY Rx Instructions: take for 10 days start 09/20/24 Refresh Classic (PF) 1.4-0.6 % Dropperette 1 drp OPHTHALMIC (EYE) .EVERY 2 HOURS PRN (Reason: itchy dry eyes) Refresh Classic (PF) 1.4-0.6 % Dropperette 1 drp OPHTHALMIC (EYE) QAM acetaminophen 325 mg Tablet 650 mg PO TID Rx Instructions: for right hip pain and toe pain polyethylene glycol 3350 [Miralax] 17 gram/dose Powder 17 g PO QAM Rx Instructions: hold for loose stools benzonatate 100 mg Capsule 200 mg PO Q8 PRN (Reason: Cough) hydrocortisone [Preparation H Hydrocortisone] 1 % Cream 1 applic TOPICAL Q6H PRN (Reason: Hemorrhoid Irritation) Discontinued amoxicillin-pot clavulanate 500-125 mg tablet 1 tab PO BID Rx Instructions: take for 5 days starting 09/20/24 Discharge Orders: Discharge Order (Routine); Ordered 09/23/24 Ordered By: Izzy Jimenez Admission Data Admit Date/Time: 09/21/24 01:52 Attending Provider: Sugar Grigsby Admit Provider: Sundar Brock Primary Care Provider: Jarrett Marie Other Providers: Sundar Brock; Jarrett Marie; Juan Garcia Other Interventions: Discharge Summary Assessment (RN) Last Done: 09/23/24 15:03 Hospital Stay Data Consultations 09/21/24 01:16 ED Decision to Admit Stat 09/21/24 09:28 Consult General Surgery Routine Diagnostic Imagining Performed Abdomen/Pelvis CT 09/20/24 18:40 Exam(s): CT ABDOMEN + PELVIS With Contrast IV Amt: 93ml opti 320 EXAM: CT Abdomen and Pelvis With Intravenous Contrast CLINICAL HISTORY: Reason for exam: N/V, ?SBO. Also UTI today, pyelo. TECHNIQUE: Axial computed tomography images of the abdomen and pelvis with intravenous contrast. Automated exposure control was utilized for the study. A dose lowering technique was utilized adhering to the principles of ALARA. CONTRAST: Patient received 93ml opti 320 of IV contrast COMPARISON: CT Abdomen Pelvis dated 10/21/22, Ultrasound gallbladder dated 06/14/24 FINDINGS: Lung bases: Bibasilar atelectasis/chronic changes. Stable bronchiectasis in the right middle lobe. Heart: Mild cardiomegaly. Pacemaker leads. ABDOMEN: Liver: Unremarkable. No mass. Gallbladder and bile ducts: Interval cholecystectomy. Mild biliary ectasia may reflect postcholecystectomy changes. Mild stranding/fluid in the gallbladder fossa lateral to the level of the cholecystectomy clips. Mild heterogeneity of the adjacent liver parenchyma. This area also abuts the hepatic flexure of the colon. Mild wall thickening of most of the colon versus partial distention. No ductal dilation. Pancreas: Unremarkable. No mass. No ductal dilation. Spleen: Unremarkable. No splenomegaly. Adrenals: Unremarkable. No mass. Kidneys and ureters: No hydronephrosis. Numerous bilateral renal low- density lesions, likely cysts. Stomach and bowel: Mild wall thickening of most of the colon versus partial distention. Marked colonic diverticulosis mostly of the distal colon. No evidence of bowel obstruction. PELVIS: Appendix: Normal appendix. Bladder: Distended urinary bladder. Reproductive: Unremarkable as visualized. ABDOMEN and PELVIS: Intraperitoneal space: Unremarkable. No free air. No significant fluid collection. Bones/joints: Degenerative changes of the spine. Mild anterolisthesis of L3 on L4 and L4 on L5. L4-5 laminectomies. Similar to the prior. No acute fracture. No dislocation. Soft tissues: Unremarkable. Vasculature: Atherosclerotic calcifications of the aorta and branches. No abdominal aortic aneurysm. Lymph nodes: Unremarkable. No enlarged lymph nodes. IMPRESSION: 1. Interval cholecystectomy. Mild biliary ectasia may reflect postcholecystectomy changes. 2. Mild stranding/fluid in the gallbladder fossa lateral to the level of the cholecystectomy clips. Mild heterogeneity of the adjacent liver parenchyma. This area also abuts the hepatic flexure of the colon. Mild wall thickening of most of the colon versus partial distention. Correlate for recent postoperative changes of the gallbladder fossa, inflammatory changes, infection/developing abscess. No discrete drainable fluid collection at this time. 3. Mild wall thickening of most of the colon versus partial distention. May represent colitis. 4. Marked colonic diverticulosis mostly of the distal colon. Electronically signed by: Beatriz Puente M.D. 09/21/24 01:27 AM Pending Results Patient Have Any Pending Studies at Discharge: No Discharge Instructions Given to Patient (Per Discharging Provider) Devendra Velazquez were admitted to the hospital due to gastroenteritis. Gastroenteritis is inflammation of the stomach/intestines that causes nausea, vomiting, abdominal pain like you experienced; it can also cause diarrhea. Fortunately you improved with supportive measures. There have been no changes to your usual home medications. The antibiotic (Augmentin) you were started on recently for a possible UTI has been stopped as you do not have a UTI and antibiotics can cause stomach upset. Please follow-up with your PCP in 1-2 weeks. I also recommend that you see GI for a possible EGD (upper scope) routinely outpatient. I will have the navigator at the hospital make that referral for you. It was a pleasure taking care of you while you were in the hospital! Supervising Physician Co-Signing Physician Notes MEEK Supervision Note: I did not personally see or examine the patient today, but I verified all triana points of MEEK Jimenez's assessment and plan with the following exceptions/additions: None Total Time Total Time Spent Total Time Spent (In Minutes): Greater than 30 minutes spent completing this discharge process including direct patient care, medication reconciliation, documentation, review of labs and images, and coordination of care. Coding Level of Care Code 20139 INP/OBS DISCH >30 MIN Diagnoses Gastroenteritis K52.9 Nausea & vomiting R11.2 Elevated troponin R77.8
[2024-09-23 15:05] VITALS: BP 177/77
== END 2024-09-23 16:09 | disposition home or self-care (01) ==
LOC: EDINP 18:25 → ED 18:25 → SUATTDRO 09-21 01:52 → 2N 09-21 02:24